=== PATIENT | female | born 1965 | race Caucasian/White ===

== ENCOUNTER 2023-12-30 16:16 | Emergency (ER) | payer OTHER, SELFPAY ==
[2023-12-30 16:18] VITALS: BP 160/97; PULSE 79; TEMP 36.9; O2SAT 98; BMI 49.9
--- NOTE | 2023-12-30 16:28 | ED.GENADUL1 ---
HPI HPI - General Adult General Chief complaint: Headache Stated complaint: ONSET MIGRAINE Time Seen by Provider: 12/30/23 16:21 Source: patient Mode of arrival: ambulance Limitations: physical limitation History of Present Illness HPI narrative: 58 female presents to the emergency department for headache. It started when she awoke this morning. No trauma fever or stiff neck. She gets frequent bad headaches and the last one like this was 2 weeks ago. She treated it at home. This 1 is no different but she had run out of her medication. She has a [employer] PERSON shunt and has had it for 7 years. No localized weakness or fever. The pain is severe and continuous. Related Data Allergies Allergy/AdvReac Type Severity Reaction Status Date / Time tetracycline Allergy Intermediate HIVES Verified 12/30/23 16:24 azithromycin [From Zithromax] Allergy Mild Swelling Verified 12/30/23 16:24 of Lip/Tongue/Throat diazepam [From Valium] Allergy Mild Verified 12/30/23 16:24 meperidine [From Demerol] Allergy Mild Verified 12/30/23 16:24 nisoldipine [From Sular] Allergy Mild HIVES Verified 12/30/23 16:24 morphine Allergy Vomiting Verified 12/30/23 16:24 AVELOX Allergy Severe Anaphylaxis Uncoded 12/30/23 16:24 codine Allergy Intermediate Uncoded 12/30/23 16:24 ivp dye Allergy Uncoded 12/30/23 16:24 jardiance Allergy Uncoded 12/30/23 16:24 paper tape Allergy Uncoded 12/30/23 16:24 PCN Allergy Uncoded 12/30/23 16:24 Opioid HPI Opioid Management Most Recent Opioid Data: Last Pain Scale 8 12/30/23 16:56 Last ED Pain Assessment 12/30/23 17:18 Review of Systems ROS Narrative A ten point review of systems is negative except as noted above. Exam Narrative Exam Narrative: Nurses note and vital signs reviewed and patient is not hypoxic. General: The patient is laying in a darkened room with sunglasses on and a towel wrapped around her eyes. Skin: Warm, dry, no pallor noted. There is no rash noted. Head: Normocephalic, atraumatic; neck supple, no nuchal rigidity Eye: Normal conjunctiva, no drainage Ears, Nose, Mouth, and Throat: oral mucosa is moist. Nares patent. Cardiovascular: Regular Rate and Rhythm Respiratory: Patient is in no distress, no accessory muscle use, lungs are clear to auscultation, no wheezing, rales or rhonchi Back: non-tender GI: Soft and nontender Musculoskeletal: The patient has no evidence of calf tenderness, no pitting edema, symmetrical pulses noted bilaterally Neurological: A&O, normal speech Psychiatric: Cooperative Constitutional Vital Signs, click to edit/add: Last Vital Signs Temp 98.5 F 12/30/23 16:18 Pulse 72 12/30/23 18:40 Resp 18 12/30/23 18:40 BP 120/82 12/30/23 18:40 Pulse Ox 98 12/30/23 18:40 O2 Del Method Room Air 12/30/23 16:56 Course Vital Signs Vital signs: Vital Signs Temperature 98.5 F 12/30/23 16:18 Pulse Rate 79 12/30/23 16:18 Respiratory Rate 18 12/30/23 16:18 Blood Pressure 160/97 H 12/30/23 16:18 Pulse Oximetry 98 12/30/23 16:18 Oxygen Delivery Method Room Air 12/30/23 16:18 Temperature 98.5 F 12/30/23 16:18 Pulse Rate 72 12/30/23 18:40 Respiratory Rate 18 12/30/23 18:40 Blood Pressure 120/82 12/30/23 18:40 Pulse Oximetry 98 12/30/23 18:40 Oxygen Delivery Method Room Air 12/30/23 16:56 Medical Decision Making MDM Narrative Medical decision making narrative: The patient was given initial doses of Zofran, Benadryl, and Compazine which she states usually helps her. She did not get much relief so IV valproic acid was ordered. This is pending and the patient is signed out to Dr. Marrero at change of shift. She reports that this is her typical migraine headache, not at all unusual for her. I do not suspect intracranial hemorrhage or [employer] shunt Differential Diagnosis Differential Diagnosis: Migraine headache, intracranial hemorrhage, [employer] shunt Discharge Plan Discharge Patient Disposition: Still a Patient
[2023-12-30] MEDS: DIPHENHYDRAMINE HCL 50 MG/ML VIAL IV (16:46)
[2023-12-30] MEDS: ONDANSETRON PF 4 MG/2 ML VIAL IV (16:46)
[2023-12-30] MEDS: PROCHLORPERAZINE 10 MG/2 ML VIAL IV (16:46)
[2023-12-30] MEDS: 0.9 % SODIUM CHLORIDE 1,000 ML 1000 ML IV (16:46)
[2023-12-30 16:56] VITALS: O2SAT 95
[2023-12-30 16:59] VITALS: PULSE 73; O2SAT 95
[2023-12-30 17:17] VITALS: BP 118/70; PULSE 83; O2SAT 97
[2023-12-30] MEDS: SODIUM CHLORIDE 0.9% IV (18:35)
[2023-12-30] MEDS: VALPROIC ACID IV (18:35)
[2023-12-30 18:40] VITALS: BP 120/82; PULSE 72; O2SAT 98
[2023-12-30 19:37] VITALS: BP 118/78; PULSE 80; O2SAT 99
== END 2023-12-30 19:40 | disposition home or self-care (01) ==
PROVIDERS: Emergency Provider Student in an Organized Health Care Education/Training Program
DX: G43.909 Migraine, unspecified, not intractable, without status migrainosus (principal)
CPT/HCPCS: 96365; 96375; 99284; J0780; J1200; J2405

== ENCOUNTER 2024-01-04 07:17 | Outpatient (RCR) | payer OTHER, SELFPAY ==
[2024-01-03] MEDS: SODIUM CHLORIDE 0.9% IV (12:52)
[2024-01-03] MEDS: METHYLPREDNISOLONE SOD SUCC IV (12:52)
[2024-01-03 12:57] VITALS: BP 146/92; PULSE 84; TEMP 36.2; O2SAT 96
[2024-01-03] MEDS: MAGNESIUM SULFATE IN WATER 2 GM/50 ML PREMIX IV (14:33)
[2024-01-04] MEDS: MAGNESIUM SULFATE IN WATER 2 GM/50 ML PREMIX IV (12:43)
[2024-01-04 12:45] VITALS: BP 124/83; PULSE 79; TEMP 36.6; O2SAT 98
[2024-01-04] MEDS: METHYLPREDNISOLONE SOD SUCC IV (14:31)
[2024-01-04] MEDS: SODIUM CHLORIDE 0.9% IV (14:31)
--- NOTE | 2024-01-04 15:49 | PC.NURSE ---
infusions completed. flushed IV with normal saline, wrapped with coban for protection. released ambulatory.
[2024-01-05] MEDS: MAGNESIUM SULFATE IN WATER 2 GM/50 ML PREMIX IV (12:43)
[2024-01-05 12:51] VITALS: BP 147/87; PULSE 84; TEMP 36.8; O2SAT 96
[2024-01-05] MEDS: 0.9 % SODIUM CHLORIDE 250 ML IV.SOLN IV (14:24)
[2024-01-05] MEDS: SODIUM CHLORIDE 0.9% IV (15:25)
[2024-01-05] MEDS: METHYLPREDNISOLONE SOD SUCC IV (15:25)
== END 2024-01-09 10:25 | disposition home or self-care (01) ==
LOC: INF 07:17
PROVIDERS: Visit Provider Psychiatry & Neurology Neurology
DX: G43.409 Hemiplegic migraine, not intractable, without status migrainosus (principal); G43.909 Migraine, unspecified, not intractable, without status migrainosus
CPT/HCPCS: 96365; 96366; J2919; J3475

== ENCOUNTER 2024-11-04 16:35 | Emergency (ER) | payer OTHER, SELFPAY ==
[2024-11-04 16:39] VITALS: BP 157/98; PULSE 78; TEMP 36.5; O2SAT 98; BMI 49.3
--- NOTE | 2024-11-04 16:54 | ED_ITS ---
HPI HPI - General Adult General Chief complaint: Headache Stated complaint: Headache Time Seen by Provider: 11/04/24 16:46 Source: patient Mode of arrival: walk-in Limitations: no limitations History of Present Illness HPI narrative: 59 year old female presents to the ED for a left-sided headache. Onset was this morning. She has history of migraines; this is a typical migraine for her. De nies fever, chills, vision changes, emesis, neck pain/stiffness. Reports having a shunt. She took Fioricet at home without relief. Related Data Allergies Allergy/AdvReac Type Severity Reaction Status Date / Time Iodinated Contrast Media Allergy Severe Anaphylaxis Verified 11/04/24 16:46 moxifloxacin (From Avelox) Allergy Severe Anaphylaxis Verified 11/04/24 16:46 Penicillins Allergy Severe Hives Verified 11/04/24 16:46 codeine Allergy Intermediate Hives Verified 11/04/24 16:46 tetracycline Allergy Intermediate HIVES Verified 12/30/23 16:24 azithromycin (From Zithromax) Allergy Mild Swelling Verified 11/04/24 16:46 of Lip/Tongue/Throat nisoldipine (From Sular) Allergy Mild HIVES Verified 11/04/24 16:46 morphine Allergy Vomiting Verified 11/04/24 16:46 meperidine (From Demerol) AdvReac Severe Nausea Verified 11/04/24 16:46 diazepam (From Valium) AdvReac Mild Confusion Verified 11/04/24 16:46 adhesive tape AdvReac Unknown Rash Verified 11/04/24 16:46 empagliflozin (From AdvReac Unknown swelling Verified 11/04/24 16:46 Jardiance) Opioid HPI Opioid Management Most Recent Opioid Data: Last Pain Scale 10 11/04/24 17:00 11/04/24 Review of Systems ROS Constitutional Denies: fever, chills or fatigue Eyes Denies: change in vision, blurry vision, light sensitivity or eye discomfort Ears, nose, mouth, and throat Denies: neck pain Cardiovascular Denies: chest pain Respiratory Denies: shortness of breath Gastrointestinal Reports: nausea; Denies: abdominal pain or vomiting Musculoskeletal Denies: back pain or neck pain Integumentary/Breast Denies: rash Neurological Reports: headache; Denies: numbness in extremities, weakness in extremities or dizziness PFSH PFSH Social History Little interest or pleasure in doing things: not at all Feeling down, depressed, or hopeless: not at all Exam Constitutional Vital Signs, click to edit/add: Last Vital Signs Temp 97.7 F 11/04/24 16:39 Pulse 78 11/04/24 16:39 Resp 20 11/04/24 16:39 BP 157/98 H 11/04/24 16:39 Pulse Ox 97 11/04/24 17:00 O2 Del Method Room Air 11/04/24 17:00 Common normals: no apparent distress and oriented x3 General appearance: cooperative HENMT Common normals: external ears normal, moist oral mucous membranes and oropharynx normal Eye Common normals: PERRL, EOMs intact bilaterally, conjunctivae normal and no scleral icterus Neck & C-Spine Common normals: supple and no meningeal signs Chest Chest: symmetrical chest wall rise Respiratory Common normals: normal respiratory effort Effort & inspection: able to speak in complete sentences and symmetric chest movement Cardio Common normals: regular rate and regular rhythm Neuro Common normals: oriented x3, CN's II-XII intact bilaterally, moves all extremities and no focal motor deficits Sensorium/orientation: awake and alert Speech: speech normal Course Vital Signs Vital signs: Vital Signs Temperature 97.7 F 11/04/24 16:39 Pulse Rate 78 11/04/24 16:39 Respiratory Rate 20 11/04/24 16:39 Blood Pressure 157/98 H 11/04/24 16:39 Pulse Oximetry 98 11/04/24 16:39 Oxygen Delivery Method Room Air 11/04/24 16:39 Temperature 97.7 F 11/04/24 16:39 Pulse Rate 78 11/04/24 16:39 Respiratory Rate 20 11/04/24 16:39 Blood Pressure 157/98 H 11/04/24 16:39 Pulse Oximetry 97 11/04/24 17:00 Oxygen Delivery Method Room Air 11/04/24 17:00 Medical Decision Making MDM Narrative Medical decision making narrative: The patient was given IV medication with improvement in her symptoms. She was given IV Zofran, Decadron, Reglan, and Benadryl. She was accompanied by family for a ride home. She was encouraged to follow up with her pcp and neurologist for a recheck, further evaluation and treatment. Medical Records Medical records reviewed: Yes I reviewed the patient's medical records Discharge Plan Discharge Chief Complaint: Headache Clinical Impression: Headache Patient Disposition: Home, Self-Care Time of Disposition Decision: 18:25 Condition: Good Mode of Transportation: Private Vehicle Print Language: Portuguese Instructions: Migraine Headache (ED), Acute Headache (ED) Additional Instructions: Return to the ER if your condition worsens. Referrals: Physician,Non-Staff, MD [Primary Care Provider] - 1 week Discharge Date/Time: 11/04/24 18:41
[2024-11-04 17:00] VITALS: O2SAT 97
[2024-11-04] MEDS: DEXAMETHASONE SOD PHOS 10 MG/ML VIAL IV (17:14)
[2024-11-04] MEDS: ONDANSETRON PF 4 MG/2 ML VIAL IV (17:14)
[2024-11-04] MEDS: DIPHENHYDRAMINE HCL 50 MG/ML VIAL 25 MG IVP (17:14)
[2024-11-04] MEDS: METOCLOPRAMIDE HCL 10 MG/2 ML VIAL IVP (17:14)
== END 2024-11-04 18:41 | disposition home or self-care (01) ==
PROVIDERS: Emergency Provider Emergency Medicine
DX: R51.9 Headache, unspecified (principal)
CPT/HCPCS: 96374; 96375; 99284; J1100; J1200; J2405; J2765

== ENCOUNTER 2025-03-18 14:44 | Emergency (ER) | payer OTHER, SELFPAY ==
--- OUTSIDE RECORDS SUMMARY | 2024-07-31 06:00 | XMS_ITS ---
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 Name Role Phone Peace Fierro CNP Primary Care Provider Quentin Martinez Unavailable [phone] Self, Referral Unavailable Unavailable Results Component Value Reference Range Notes Lumbar spine 2v ap and lat - 41459 Reviewed date:08/06/2024 02:40:58 PM Interpretation: Performing Lab: Notes/Report: Hip, right 2v WITH PELVIS - [id number] Reviewed date:08/06/2024 02:40:52 PM Interpretation: Performing Lab: Notes/Report: REASON FOR VISIT RIGHT HIP PAIN Encounters Encounter Location Date Provider Diagnosis [facility] [address] [place] [address] 07/31/2024 Quentin Dennis Plan Of Treatment No Information Progress Notes * KAROLINE ÁLVAREZ LDOB: 4 (59 yo F)Acc No.[id number]:07/31/2024 Patient: Blake YOUNG KAROLINE Martinez Provider: Kelly Dennis MD :1965 A ge:59 Y S ex:Female Date:07/31/2024 Address:[place], [id number] Pcp:Peace Fierro CNP Subjective: * Chief Complaints: * 1 . RIGHT HIP PAIN. * Medical History: Objective: * Vitals: Assessment: Plan: * Treatment: * Procedure Codes: 7 3502 X-RAY EXAM HIP UNI 2-3 VIEWS, 61192 X-ray Lumbar Spine, 2 view Forms: * Images: * Electronic signature of Landon Dennis MD on 03/18/2025 at 02:52 PM EDT Sign off status: Pending * Provider: Kelly Dennis MD Date: 0 07/31/2024 Generated for Melia reddy/Felipa/Bridget on: 0 03/18/2025 02:52 PM EDT
--- OUTSIDE RECORDS SUMMARY | 2024-08-05 06:50 | XMS_ITS ---
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 Name Role Phone Peace Fierro CNP Primary Care Provider Quentin Martinez Unavailable [phone] Self, Referral Unavailable Unavailable Harjeet Montano Unavailable [phone] REASON FOR VISIT LEFT INDEX FINGER PAIN Encounters Encounter Location Date Provider Diagnosis [facility] [address] [place] [address] 08/05/2024 Harjeet Montano Plan Of Treatment No Information Progress Notes * KAROLINE ÁLVAREZ LDOB: 4 (59 yo F)Acc No.[id number]:08/05/2024 Patient: Blake YOUNGKAROLINE Provider: Kelly Montano MD :1965 A ge:59 Y S ex:Female Date:08/05/2024 Address:[place], [id number] Pcp:Peace Fierro CNP Subjective: * Chief Complaints: * 1 . LEFT INDEX FINGER PAIN. * Medical History: Objective: * Vitals: Assessment: Plan: * Treatment: Forms: * Images: * Electronic signature of Nyasia Montano MD on 03/18/2025 at 02:52 PM EDT Sign off status: Pending * Provider: Kelly Montano MD Date: 0 08/05/2024 Generated for Melia reddy/Felipa/Esmeitting on: 0 03/18/2025 02:52 PM EDT
--- OUTSIDE RECORDS SUMMARY | 2024-08-07 07:00 | XMS_ITS ---
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 Role Phone Peace Fierro CNP Primary Care Provider Quentin Martinez Unavailable [phone] Self, Referral Unavailable Unavailable Results Component Value Reference Range Notes Hip, right 2v WITH PELVIS - [id number] Reviewed date:09/03/2024 03:09:51 PM Interpretation: Performing Lab: Notes/Report: Finger, left 3v - [id number] Reviewed date:09/03/2024 03:10:06 PM Interpretation: Performing Lab: Notes/Report: Lumbar spine 2v ap and lat - [id number] Reviewed date:09/03/2024 03:09:58 PM Interpretation: Performing Lab: Notes/Report: REASON FOR VISIT RIGHT HIP PAIN Medications Medication SIG (Take, Route, Frequency, Duration) Notes Start Date End Date Status nystatin Unknown Nurtec ODT Unknown ondansetron Unknown omeprazole Unknown rOPINIRole Unknown Fioricet Active Albuterol Sulfate Ac tive temazepam Unknown Tresiba FlexTouch Un known traMADol Unknown atorvastatin Unknown acetaZOLAMIDE Unknow n carBAMazepine Unknow n Blood Glucose Monitoring Kit, Silver, 1 Unknown cyclobenzaprine Unkn own DICLOFENAC SODIUM Un known diclofenac Unknown DULoxetine Unknown dulaglutide Unknown cyproheptadine Unkno wn EPINEPHrine Unknown gabapentin Unknown ergocalciferol Unkno wn loratadine Unknown lisinopril Unknown Mucinex DM Unknown montelukast Unknown NovoLOG FlexPen Unkn own mometasone Unknown meclizine Unknown Encounters Encounter Location Date Provider Diagnosis [facility] [address] [place] [address] 08/07/2024 Quentin Dennis Plan Of Treatment No Information Progress Notes * KAROLINE ÁLVAREZ LDOB: 4 (59 yo F)Acc No.[id number]:08/07/2024 Patient: KAROLINE PERALTA Provider: Kelly Dennis MD :1965 A ge:59 Y S ex:Female Date:08/07/2024 Address:[place], [id number] Pcp:Peace Fierro CNP Subjective: * Chief Complaints: * 1 . RIGHT HIP PAIN. * Medical History: * Medications: T aking Fioricet , Taking Albuterol Sulfate , Unknown Tresiba FlexTouch , Unknown traMADol , Unknown temazepam , Unknown rOPINIRole , Unknown ondansetron , Unknown omeprazole , Unknown nystatin , Unknown Nurtec ODT , Unknown NovoLOG FlexPen , Unknown Mucinex DM , Unknown montelukast , Unknown mometasone , Unknown meclizine , Unknown loratadine , Unknown lisinopril , Unknown gabapentin , Unknown ergocalciferol , Unknown EPINEPHrine , Unknown DULoxetine , Unknown dulaglutide , Unknown DICLOFENAC SODIUM , Unknown diclofenac , Unknown cyproheptadine , Unknown cyclobenzaprine , Unknown carBAMazepine , Unknown Blood Glucose Monitoring Kit, Silver, 1 , Unknown atorvastatin , Unknown acetaZOLAMIDE Objective: * Vitals: Assessment: Plan: * Treatment: * Procedure Codes: 7 3140 X-ray Fingers, 2 view, 01486 X-RAY EXAM HIP UNI 2-3 VIEWS, 31829 X-ray Lumbar Spine, 2 view Forms: * Images: * Electronic signature of Landon Dennis MD on 03/18/2025 at 02:52 PM EDT Sign off status: Pending * Provider: Kelly Dennis MD Date: 08/07/2024 Generated for Melia reddy/Felipa/eTransmitting on: 0 03/18/2025 02:52 PM EDT
[2025-03-18 14:44] VITALS: PULSE 86; TEMP 36.7; O2SAT 98; BMI 49.3
--- OUTSIDE RECORDS SUMMARY | 2025-03-18 14:52 | XMS_ITS | Clinical Summary ---
Author Organization [facility] Address [address] [place] [address] Care Team Providers Care Call Center Nurse Name Role Phone Unavailable Primary Care Provider Unavailabl e Allergies Active Allergy Reactions Criticality Noted Date Comments Azithromycin Swelling Medium 06/01/2014 JOINT SWELLING Codeine 12/06/2022 Other Reaction(s): Unknown Diazepam 12/06/2022 Other Reaction(s): Unknown Empagliflozin Itching 08/06/2023 Bad yeast infection Iodinated Contrast Media 12/06/2022 Other Reaction(s): Unknown Latex 12/06/2022 Other Reaction(s): Unknown Meperidine Hives Medium 06/01/2014 Meperidine Hcl 12/06/2022 Other Reaction(s): Unknown Metoclopramide Palpitations Medium 04/12/2021 Morphine 12/06/2022 Other Reaction(s): Unknown Moxifloxacin 12/06/2022 Other Reaction(s): Unknown Penicillin G 12/06/2022 Other Reaction(s): Unknown Sulfa Antibiotics 12/06/2022 Other Reaction(s): Unknown Tetracycline 12/06/2022 Other Reaction(s): Unknown Wound Dressing Adhesive 04/12/2021 Use paper tape Medications EPINEPHrine (Adrenalin) 0.3 MG/0.3ML injection as directed Injection Active DULoxetine (Cymbalta) [address] capsule Take 60 mg by mouth in the morning and 60 mg in the evening and 60 mg before bedtime. Active famotidine (Pepcid) 20 MG tablet Take 20 mg by mouth in the morning. Active NovoLOG FLEXPEN 100 UNIT/ML pen inject 5 units subcutaneously before meals PLUS SLIDING SCALE 09/07/19 Active Droplet Pen [place] 31G X 6 MM [facility] [place] 1 NEEDLE to inject MEDICATION subcutaneously four times a day 11/14/19 Active lisinopril 5 MG tablet Take 5 mg by mouth in the morning. 0.5 once day . Active RA Loratadine 10 MG tablet Take 10 mg by mouth in the morning. Active meclizine (Antivert) 25 MG tablet Take 25 mg by mouth 3 (three) times a day as needed for dizziness. 10/11/19 Active montelukast (Singulair) 10 MG tablet Take 10 mg by mouth at bedtime. Active Nyamyc 109472 UNIT/GM powder apply to affected area three times a day if needed Active omeprazole (PriLOSEC) [address] capsule Take 20 mg by mouth in the morning. Take before meals. Active ondansetron ODT (Zofran-ODT) 4 MG disintegrating tablet Take 4 mg by mouth. 08/08/19 Active cyclobenzaprine (Flexeril) 10 MG tabletIndications: Lumbar radiculopathy Take 1 tablet (10 mg) by mouth in the morning and 1 tablet (10 mg) before bedtime. 180 tablet 3 03/06/20 24 Active ergocalciferol (Vitamin D2) 1.25 MG (74037 UT) capsuleIndications :Vitamin D deficiency Take 1 capsule (1.25 mg) by mouth 1 (one) time per week 12 capsule 3 04/30/20 24 Active acetaZOLAMIDE (Diamox) 250 MG tabletIndications: Pseudotumor cerebri Take 1 tablet (250 mg) by mouth Daily 90 tablet 3 06/05/20 24 025 Active acetaZOLAMIDE (Diamox) 125 MG tabletIndications: Pseudotumor cerebri Take 1 tablet (125 mg) by mouth Daily 90 tablet 3 06/05/20 24 025 Active rOPINIRole (Requip) 4 MG tabletIndications: RLS (restless legs syndrome) Take 1 tablet (4 mg) by mouth at bedtime 90 tablet 3 08/26/19 25 026 Active topiramate (Topamax) 25 MG tabletIndications: Neuropathic pain Take 1 tablet (25 mg) by mouth in the morning and 1 tablet (25 mg) before bedtime. 60 tablet 2 10/14/19 25 026 Active temazepam (Restoril) 30 MG capsuleIndications :Primary insomnia Take 1 capsule (30 mg) by mouth as needed at bedtime for sleep 30 capsule 10/16/19 25 Active carBAMazepine (TEGretol) 200 MG tabletIndications: Sensory disturbance Take 1 tablet (200 mg) by mouth in the morning and 1 tablet (200 mg) before bedtime. 60 tablet 11 11/07/19 25 026 Active gabapentin (Neurontin) 800 MG tabletIndications: Neuropathic pain Take 1 tablet (800 mg) by mouth 5 (five) times a day 450 tablet 11/07/19 25 Active cyproheptadine (Periactin) 4 MG tabletIndications: Intractable chronic migraine without aura and without status migrainosus TAKE 3 TABLETS (12 MG) BY MOUTH AT BEDTIME 90 tablet 11 12/01/19 25 026 Active diclofenac (Voltaren) 50 MG EC tabletIndications: Lumbar radiculopathy TAKE 1 TABLET BY MOUTH IN THE MORNING IN THE EVENING AND BEFORE BEDTIME 90 tablet 3 01/01/20 25 Active Continuous Glucose Sensor (Dexcom G7 Sensor) [facility] [place] BLOOD SUGARS FOUR TIMES A DAY 01/26/20 25 Active Blood Glucose Monitoring Suppl (ONE TOUCH ULTRA 2) w/Device kit USE TO CHECK BLOOD SUGAR 4 TIMES A DAY 07/23/19 25 Active butalbital-acetami nophen-caffeine 50-325-40 MG tablet Fioricet Active guaiFENesin (Mucinex) 600 MG 12 hr tablet Take 600 mg by mouth 08/06/19 25 Active Lantus SoloStar 100 UNIT/ML pen 40 units twice a day 01/29/20 25 Active atorvastatin (Lipitor) 40 MG tablet Take 40 mg by mouth Daily 12/26/19 25 Active Embecta Pen Needle Ultrafine 32G X 6 MM [facility] [place] 1 NEEDLE TO INJECT MEDICATION SUBCUTANEOUSLY FOUR TIMES A DAY 12/17/19 25 Active Hospital, Clinic, or Other Facility Administered Medication Ordered Dose Route Frequency Start Date End Date Status fremanezumab (Ajovy) prefilled syringe 225 mgIndications:Refractory migraine without aura 225 mg SC Every 30 days 09/06/2023 Active bupivacaine (Marcaine) 0.5 % injection 5 mgIndications:Myalgia 5 mg IJ Once 06/05/2024 Act taylor dexAMETHasone (Decadron) injection 4 mgIndications:Myalgia 4 mg IM Once 06/05/2024 Act taylor Active Problems Problem Noted Date Diagnosed Date Spinal stenosis of lumbar re gion with neurogenic claudication 11/09/2024 Myalgia 03/18/2024 Trochanteric bursitis, left hip 01/03/2024 Cervicogenic headache 01/03/2024 Radiculopathy, thoracolumbar region 12/11/2023 Muscle spasm 09/05/2023 Migraine 09/05/2023 Edema 09/05/2023 Cervical dystonia 09/05/2023 Anxiety 09/05/2023 Neuropathy 09/05/2023 NPH (normal pressure hydrocephalus) 09/05/2023 Restless legs syndrome 09/05/2023 Type 2 diabetes mellitus wit h stage 1 chronic kidney disease, with long-term current use of insulin 09/05/2023 Vitamin D deficiency 09/05/2023 Nerve root and plexus disorder, unspecified 08/17 Trochanteric bursitis of both hips 06/04/2023 Quadriceps weakness 05/31/2023 Trochanteric bursitis of left hip 04/05/2023 Insomnia due to medical condition 04/05/2023 Weakness 04/05/2023 Neuralgic pain 04/05/2023 Brachial plexopathy 04/05/2023 Stiffness in joint 04/05/2023 Lumbar radiculopathy 12/27/2022 Cervical radiculopathy 12/27/2022 Morbid obesity due to excess calories 12/06/2022 Pseudotumor cerebri 12/06/2022 Refractory migraine without aura 12/06/2022 Osteoarthritis of right knee 09/19/2022 Primary osteoarthritis of right hip 09/19/2022 Shoulder pain, right 10/21/2021 GERD (gastroesophageal reflux disease) 8 Essential hypertension 10/29/2017 Obstructive sleep apnea on CPAP 10/29/2017 Obesity, Class III, BMI 40-49.9 (morbid obesity) 10/29/2017 Mixed hyperlipidemia 10/29/2017 Major depressive disorder 10/29/2017 Acute right ankle pain 05/16/2017 Ankle weakness 05/16/2017 Gait difficulty 05/16/2017 Degenerative arthritis of right foot 01/31/2017 Overview (04/05/2023): Added automatically from request for surgery [id number] Loose body in ankle and foot joint 07/18/2016 DJD (degenerative joint disease), ankle and foot 07/18/2016 Heel spur 07/18/2016 Pain in right foot 07/18/2016 Hemiplegic migraine without status migrainosus, not intractable 02/09/2015 Hyperopia of both eyes with astigmatism and pres byopia 06/01/2014 Resolved Problems Problem Noted Date Diagnosed Date Resolved Date Penetrating injury 09/05/2023 Tobacco use disorder 10/29/2017 025 Encounters Date Type Department Care Team Description 03/18/2025 Travel 02/09/2025 1:00 PM EDT [facility] [address] [facility] [address] [place] [address] [place] [phone] Ana Lopes NP Spinal stenosis of lumbar region with neurogenic claudication (Primary Dx); Pseudotumor cerebri 01/05/2025 Telephone [facility] [address] [place] [phone] Margie Santos, RT. R 12/31/2024 Refill [facility] [address] [facility] [address] [place] [phone] Fausto Srivastava MD Lumbar radiculopathy (Primary Dx) 12/25/2024 1:20 PM EDT Clinical Support [facility] [address] [facility] [address] [place] [phone] Fausto Srivastava MD Trochanteric bursitis of both hips (Primary Dx); Nerve root and plexus disorder, unspecified 12/25/2024 Telephone [facility] [address] [place] [address] [phone] Margie Santos, RT. R 12/25/2024 Bamboo flowsheet [facility] [address] [place] [address] Fausto Srivastava MD 12/25/2024 Travel 12/24/2024 Travel from Last 3 Months Immunizations Immunization Administration Dates Next Due Tdap 01/27/2020 Family History Medical History Relation Name Comments Anxiety disorder Mother Mom Depression Mother Mom Diabetes Mother Mom Migraines Mother Mom Neuropathy Mother Mom Restless legs syndrome Mother Mom Relation Name Status Comments Brother 1 brother Father Alive Mother Mom (Age 68) Social History Tobacco Use Types Packs/Day Years Used Date Smoking Tobacco: Former Cigarettes Q uit: 12/09/2020 Smokeless Tobacco: Never Tobacco Cessation:Counseling Given: Not Answered Alcohol Use Standard Drinks/Week Comments Never 0 (1 standard drink = 0.6 oz pur e alcohol) Comments Unknown Sex and Gender Information Value Date Recorded Sex Assigned at Female 12/20/2022 9:52 AM EDT Legal Sex Female 8:23 PM EDT Gender Identity Female 12/20/2022 9:52 AM EDT Sexual Orientation Straight 12/20/2022 9: 52 AM EDT Last Filed Vital Signs Vital Sign Reading Time Taken Comments Blood Pressure 142/84 12/25/2024 1:20 PM EDT Pulse 85 04/05/2023 10:52 AM EDT Temperature - - Respiratory Rate - - Oxygen Saturation - - Inhaled Oxygen Concentration - - Weight 136 kg (300 lb) 02/09/2025 1:12 PM EDT Height 165.1 cm (5' 5 ) 02/09/2025 1:12 PM EDT Body Mass Index 49.92 02/09/2025 1:12 PM EDT Plan of Treatment Upcoming Encounters Date Type Department Care Team (Late st Contact Info) Description 03/25/2025 2:40 PM EDT Clinical Support [facility] [address] [place] [facility] [address] [place] [address] Fausto Srivastava MD [address] [place] [address] [place] [id number] Insurance [employer] Advance Directives Healthcare Agents on File Name Relationship Healthcare Agent Relationshi p Communication Elana Bruner Friend [facility] Health Care Agent
--- OUTSIDE RECORDS SUMMARY | 2025-03-18 14:52 | XMS_ITS | Encounter Summary ---
Author Organization [facility] Address [address] [place] [address] Care Team Providers Care Motion Designer Name Role Phone Unavailable Primary Care Provider Unavailabl e Reason for Visit * Reason Comments Med Refill Encounter Details Date Type Department Care Team (Late st Contact Info) Description 12/04/2022 Refill [facility] [address] [facility] [address] [place] [phone] Fausto Srivastava MD [address] [facility] [address] [place] [address] [place] [address] [phone] Chronic insomnia (Primary Dx) Social History Tobacco Use Types Packs/Day Years Used Date Smoking Tobacco: Never Assessed Comments Unknown Sex and Gender Information Value Date Recorded Sex Assigned at Female 12/20/2022 9:52 AM EDT Legal Sex Female 8:23 PM EDT Gender Identity Female 12/20/2022 9:52 AM EDT Sexual Orientation Straight 12/20/2022 9: 52 AM EDT documented as of this encounter Miscellaneous Notes * Telephone Encounter - Kym Wagoner LPN - 12/06/2022 4:17 PM EDT Refill temazepam set up documented in this encounter Plan of Treatment Upcoming Encounters Date Type Department Care Team (Late st Contact Info) Description 03/25/2025 2:40 PM EDT Clinical Support [facility] [address] [facility] [address] [place] [address] Fausto Srivastava MD [address] [facility] [address] [place] [address] [place] [address] [phone] documented as of this encounter Visit Diagnoses Diagnosis Chronic insomnia- Primary Insomnia, unspecified documented in this encounter
--- OUTSIDE RECORDS SUMMARY | 2025-03-18 14:53 | XMS_ITS | Encounter Summary ---
Author Organization [facility] Address [address] [place] [address] Care Team Providers Care Sales Counselor Name Role Phone Unavailable Primary Care Provider Unavailabl e Encounter Details Date Type Department Care Team (Late st Contact Info) Description 12/29/2022 Abstract [facility] [address] [place] [phone] Fausto Srivastava MD [address], [place] [phone] Social History Tobacco Use Types Packs/Day Years [...] AM EDT documented as of this encounter Plan of Treatment Upcoming Encounters Date Type Department Care Team (Late st Contact Info) Description 03/25/2025 2:40 PM EDT Clinical Support [facility] [address] [place] [address] Fausto Srivastava MD [address] [facility] [address] [address] documented as of this encounter Visit Diagnoses Not on filedocumented in this encounter
--- OUTSIDE RECORDS SUMMARY | 2025-03-18 14:53 | XMS_ITS | Encounter Summary ---
Author Organization [facility] Address [address] [place] [address] Care Team Providers Care Cottage Parent Name Role Phone Unavailable Primary Care Provider Unavailabl e Encounter Details Date Type Department Care Team (Late st Contact Info) Description 05/15/2023 Abstract [facility] [address] [place] [phone] Fausto Srivastava MD [address], [place] [phone] Social History Tobacco Use Types Packs/Day Years Used Date Smoking Tobacco: Former Cigarettes Q uit: 12/09/2020 Smokeless Tobacco: Never Alcohol Use Standard Drinks/Week Comments Never 0 [...] Support [facility] [address] [place] [address] [place] [address] Fausto Srivastava MD [address] [facility] [address] [phone] documented as of this encounter Visit Diagnoses Not on filedocumented in this encounter
--- OUTSIDE RECORDS SUMMARY | 2025-03-18 14:53 | XMS_ITS | Encounter Summary ---
Author Organization [facility] Address [address] [place] [address] Care Team Providers Care Risk Officer Name Role Phone Unavailable Primary Care Provider Unavailabl e Encounter Details Date Type Department Care Team (Late Contact Info) Description 01/01/2024 Orders Only [facility] [address] [place] [address] Tere Sanabria MA Social History Tobacco Use Types Packs/Day Years [...] Encounters Date Type Department Care Team (Late Contact Info) Description 03/25/2025 2:40 PM EDT Clinical Support [facility] [address] [place] [facility] [address] [place] [phone] Fausto Srivastava MD [address] [place] [address] documented as of this encounter Visit Diagnoses Not on filedocumented in this encounter
--- OUTSIDE RECORDS SUMMARY | 2025-03-18 14:53 | XMS_ITS | Patient Health Record ---
Author Organization [facility] Address [address] [place] [address] Care Team Providers Care Senior Unix Administrator Name Role Phone Peace Fierro CNP Primary Care Provider Quentin Martinez Unavailable [phone] Self, Referral Unavailable Unavailable Harjeet Eid Unavailable [phone] Allergies Allergen (clinical drug ingredient) Drug/Non Drug Allergy documented on EMR Reaction Allergy Type Onset Date Status contrast dye (uncoded) anaphylaxis Allergy Active plastic tape (uncoded) need paper tape Allergy Active sulfa (uncoded) hives Allergy Acti ve sutures (uncoded) Unknown Allergy Ac tive metoclopramide Reglan palpitations Drug Allergy Active azithromycin Zithromax joint swelling Drug Allergy Active tetracycline tetracycline palpitations Drug Allergy Active diazepam Valium palpitations Drug Allergy Acti ve codeine codeine hives Drug Allergy Active morphine morphine hives Drug Allergy Active moxifloxacin Avelox anaphylaxis Drug Allergy Ac tive penicillin joint swelling Drug Allergy A ctive meperidine Demerol hives Drug Allergy Active Results Component Value Reference Range Notes OT Reviewed date:02/05/2025 07:39:48 AM Interpretation: Performing Lab: Notes/Report: BMP Reviewed date:02/04/2025 12:37:05 PM Interpretation: Performing Lab: Notes/Report: CBC W Diff Reviewed date:02/04/2025 12:37:12 PM Interpretation: Performing Lab: Notes/Report: EKG Reviewed date:02/04/2025 12:36:57 PM Interpretation: Performing Lab: Notes/Report: PT/OT - Eval and Treat Reviewed date:09/03/2024 02:38:29 PM Interpretation: Performing Lab: Notes/Report: Lumbar spine 2v ap and lat - [id number] Reviewed date:09/03/2024 02:39:00 PM Interpretation: Performing Lab: Notes/Report: Hip, right 2v WITH PELVIS - [id number] Reviewed date:09/03/2024 02:38:50 PM Interpretation: Performing Lab: Notes/Report: Surgery Scheduling Reviewed date:05/27/2024 08:17:29 AM Interpretation: Performing Lab: Notes/Report: Primary Insurance Company: [employer] Surgeon/Assist: DR EID Surgery Location: [facility] Surgery Date & Time: 05/09 @1230 Hosp arrival time day of: 1030AM Surgery End Time: 100PM Procedure: LEFT TRIGGER THIMB RELEASE Special Equipment: CLINDAMYCIN 600 MG I V -PREOP Diagnosis: M65.312 Admission Type: OP Anesthesia Type/CPNB: MAC Post-op Appointment Date: 05/22 @ 1010 Lab Location: S Lead Section Supervisor: MADAI History & Physical Appointment Date/: 04/17 Meter Glucose Reviewed date:05/15/2024 07:33:10 AM Interpretation: Performing Lab: Notes/Report: Main Laboratory ([facility]) [address] [place] [address] René Mar MD Original Ordering Provider: Toyin Ayala Provider Role: Ordering Meter Glucose 170 70-110 mg/dl Performing Lab: see note POC - Main L aboratory ([facility]) [address] [place] [address] [place] [address] Anion Gap Reviewed date:04/27/2024 02:10:33 PM Interpretation: Performing Lab: Notes/Report: [facility] Original Ordering Provider: Toyin STRATTON Provider Role: Ordering ANION GAP 11.0 8.0-16.0 meq/L ANION GAP = S odium -(Chloride + CO2) EGFR1 Reviewed date:04/27/2024 02:10:27 PM Interpretation: Performing Lab: Notes/Report: [facility] Original Ordering Provider: Toyin STRATTON Provider Role: Ordering ESTIMATED GFR > 90 >60 ml/min/1.73m2 Pediatric calculator link https://www.kidney.org /professionals/kdoqi/g fr_calculatorped Effective Apr 17, 2022 These results are not intended for use in patients <18 years of age. eGFR results are calculated without a race factor using the 2020 CKD-EPI equation. Careful clinical correlation is recommended, particularly when comparing to results calculated using previous equations. The CKD-EPI equation is less accurate in patients with extremes of muscle mass, extra-renal metabolism of creatinine, excessive creatine ingestion, or following therapy that affects renal tubular secretion. Performing Lab: see note [facility] [address] [place] [address] Yoni Mac Basic Metabolic Panel Reviewed date:04/27/2024 02:10:37 PM Interpretation: Performing Lab: Notes/Report: [facility] Original Ordering Provider: Toyin STRATTON Provider Role: Ordering SODIUM 137 135-145 meq/L POTASSIUM 4.5 3.5-5.2 meq/L CHLORIDE 102 98-111 meq/L CO2 24 23-33 meq/L GLUCOSE 175 70-108 mg/dL BUN 14 7-22 mg/dL CREATININE 0.7 0.4-1.2 mg/dL CALCIUM 8.6 8.5-10.5 mg/dL CBC WITH DIFFERENTIAL Reviewed date:04/27/2024 02:10:41 PM Interpretation: Performing Lab: Notes/Report: [facility] Original Ordering Provider: Toyin STRATTON Provider Role: Ordering WBC 9.0 4.8-10.8 thou/mm3 RBC 5.08 4.20-5.40 mill/mm3 HEMOGLOBIN 14.1 12.0-16.0 gm/dl HEMATOCRIT 43.7 37.0-47.0 % MCV 86.0 81.0-99.0 fL MCH 27.8 26.0-33.0 pg MCHC 32.3 32.2-35.5 gm/dl RDW-CV 13.6 11.5-14.5 % RDW-SD 42.7 35.0-45.0 fL PLATELET 298 130-400 thou/mm3 MPV 9.9 9.4-12.4 fL NEUTROPHILS 49.0 LYMPHOCYTE 40.0 MONOCYTE 7.6 EOSINOPHIL 1.8 BASOPHIL 0.8 IMMATURE GRANS (IG) 0.8 ABS NEUTROPHILS 4.4 1.8-7.7 thou/mm3 ABS LYMPHOCYTES 3.6 1.0-4.8 thou/mm3 ABS MONOCYTES 0.7 0.4-1.3 thou/mm3 ABS EOSINOPHILS 0.2 0.0-0.4 thou/mm3 ABS BASOPHILS 0.1 0.0-0.1 thou/mm3 ABS IMMATURE GRANS (IG) 0.07 0.00-0.07 thou/mm 3 NRBC 0 Reason For Referral Reason NO PRIOR AUTH REQUIR ED [facility] [employer]...05/09...LEFT TRIGGER THUMB RELEASE Diagnosis 1 Trigger thumb, left thumb (M65.312) Referral Organization [facility] Referring Provider First Name Harjeet Referring Provider Last Name Charmaine Referring Provider Speciality Orthopedic Surgery Referred Organization 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 FAXED TO [facility] Referral Priority Routine Medications Medication SIG (Take, Route, Frequency, Duration) Notes Start Date End Date Status ergocalciferol Unkno wn EPINEPHrine Unknown gabapentin Unknown Fioricet Active DICLOFENAC SODIUM Un known Albuterol Sulfate Ac tive diclofenac Unknown DULoxetine Unknown dulaglutide Unknown temazepam Unknown carBAMazepine Unknow n rOPINIRole Unknown Tresiba FlexTouch Un known cyproheptadine Unkno wn traMADol Unknown cyclobenzaprine Unkn own ondansetron Unknown omeprazole Unknown nystatin Unknown Mucinex DM Unknown montelukast Unknown Nurtec ODT Unknown NovoLOG FlexPen Unkn own loratadine Unknown lisinopril Unknown Blood Glucose Monitoring Kit, Silver, 1 Unknown mometasone Unknown meclizine Unknown atorvastatin Unknown acetaZOLAMIDE Unknow n Social History Tobacco Use: Social History Observation Description Date Details (start date - stop date) Never Smoker NA - NA Smoking History Question Answer Notes Smoking Status Former Smoker AUDIT-C (Standard) Question Answer Notes Did you have a drink containing alcohol in the p ast year? No Points 0 Interpretation Negative Tobacco Control (Standard) Question Answer Notes Tobacco use: Nonsmoker Problems Problem Type SNOMED Code ICD Code Onset Dates Problem Status W/U Status Risk Notes Problem 4049487 Trochanteric bur sitis of left hip (M70.62) Active confirmed Problem 91836968989138256 Sprain of left ankle, unspecified ligament, initial encounter (S93.402A) Active confirmed Problem 571706660 Left hand parest hesia (R20.2) Active confirmed Problem 311600854 Right hand paresthesia (R20.2) Active confirmed Problem 420112619094939 Trigger thumb, l eft thumb (M65.312) Active confirmed Problem 192968580175 Presence of righ t artificial knee joint (Z96.651) Active confirmed Problem 4370058 Greater trochant jhony bursitis of right hip (M70.61) Active confirmed Problem 566930660399330 Iliotibial band syndrome of right side (M76.31) Active confirmed Problem 28565655843934523 Left leg pares thesias (R20.2) Active confirmed Problem 304567048 History of carpa l tunnel release (Z98.890) Active confirmed Problem 753777216 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) Active confirmed Problem Pain in wrist (99066210) Pain in left wrist (M25.532) Problem resolved confirmed Problem Rupture of right rotator cuff (05644785213392592) Unspecified rotator cuff tear or rupture of right shoulder, not specified as traumatic (M75.101) Problem resolved confirmed Problem 002566292 Strain of muscle (s) and tendon(s) of the rotator cuff of right shoulder, subsequent encounter (S46.011D) Problem resolved confirmed Problem 726543819 Encounter for ot her preprocedural examination (Z01.818) Problem resolved confirmed Problem Bicipital tenosynovitis (63485144) Biceps tendinitis of right shoulder (M75.21) Problem resolved confirmed Problem Arthritis of right glenohumeral joint (3001715655275675) Arthritis of right glenohumeral joint (M19.011) Problem resolved confirmed Vital Signs Height 5 ft 5 in in 08/14/2024 Weight 283 lbs 08/14/2024 BMI 47.09 08/14/2024 Encounters Encounter Location Date Provider Diagnosis [facility] [address] [place] [address] 04/17/2024 Harjeet Eid Trigger thumb, left thumb M65.312 ; Right hand paresthesia R20.2 ; Left hand paresthesia R20.2 and History of carpal tunnel release Z98.890 [facility] [address] [place] [id number] 05/09/2024 Harjeet Eid Trigger thumb, left thumb M65.312 and Trigger finger, left index finger M65.322 [facility] [address] [place] [address] 05/22/2024 Harjeet Eid Aftercare following surgery of the musculoskeletal system Z47.89 [facility] [address] [place] [address] 08/12/2024 Harjeet Eid Degenerative arthritis of metacarpophalangeal joint of index finger of left hand M19.042 [facility] [address] [place] [address] 08/14/2024 Quentin Sonny Greater trochanteric bursitis of right hip M70.61 and Iliotibial band syndrome of right side M76.31 Assessments Encounter Date Diagnosis (ICD Code) Assessment Notes Treatment Notes Treatment Clinical Notes Section Notes 05/09/2024 Trigger thumb, left thumb (ICD-10 - M65.312) 05/09/2024 Trigger finger, left index finger (ICD-10 - M65.322) 05/22/2024 Aftercare following surgery of the musculoskeletal system (ICD-10 - Z47.89) #1 status post left trigger thumb release and left index trigger finger release, routine healing. 2. Recurrent bilateral hand paresthesias history of previous bilateral open carpal tunnel releases in 2004 consistent with recurrent bilateral carpal tunnel syndrome. 08/12/2024 Degenerative arthrit is of metacarpophalangeal joint of index finger of left hand (ICD-10 - M19.042) Left index MCP joint arthritis with pain. 08/14/2024 Greater trochanteric bursitis of right hip (ICD-10 - M70.61) Right hip greater trochanteric bursitis with associated IT band tendinitis. 08/14/2024 Iliotibial band syndrome of right side (ICD-10 - M76.31) Right hip greater trochanteric bursitis with associated IT band tendinitis. 04/17/2024 Right hand paresthes ia (ICD-10 - R20.2) 1. Left trigger thumb. 2. Recurrent bilateral hand paresthesias history of previous open carpal tunnel releases in 2004 consistent with recurrent bilateral carpal tunnel syndrome. 04/17/2024 Trigger thumb, left thumb (ICD-10 - M65.312) 1. Left trigger thumb. 2. Recurrent bilateral hand paresthesias history of previous open carpal tunnel releases in 2004 consistent with recurrent bilateral carpal tunnel syndrome. 04/17/2024 Left hand paresthesi a (ICD-10 - R20.2) 1. Left trigger thumb. 2. Recurrent bilateral hand paresthesias history of previous open carpal tunnel releases in 2004 consistent with recurrent bilateral carpal tunnel syndrome. 04/17/2024 History of carpal tunnel release (ICD-10 - Z98.890) 1. Left trigger thumb. 2. Recurrent bilateral hand paresthesias history of previous open carpal tunnel releases in 2004 consistent with recurrent bilateral carpal tunnel syndrome. 04/17/2024 Other Had a lengthy discussion with the patient regarding nonsurgical and surgical invention risks, goals, benefits alternatives to each. We reviewed the x-ray findings. Patient states that because of her blood sugars she does not wish Engage and steroid injection. She states that she at this point would wish Engage operative invention to include a left trigger thumb release. Concerning the bilateral hand paresthesias we discussed that she does likely to have some recurrence of her median nerve compression at the wrist. We discussed obtaining an EMG nerve neck study to give her the option of addressing both problems at the same time she states at this point it does not really bother that much she states that she wishes to hold off on this. We have discussed the risks, goals, benefits alternatives a left trigger thumb release; risk to include but not limited to: Infection, blood loss, nerve damage, vessel damage, tenderness, possible need for revision and repeat procedure, estimated time for recovery, continued chronic pain, anesthetic risk as well as the various types of anesthesia distally formed under, blood clots, scarring and hypersensitivi ty. After these reviewed patient has elected for the procedure. All questions were answered. We will plan on operative intervention to include left trigger thumb release. Patient states at this point she wishes to leave the recurrent bilateral hand paresthesias alone. 1. Left trigger thumb. 2. Recurrent bilateral hand paresthesias history of previous open carpal tunnel releases in 2004 consistent with recurrent bilateral carpal tunnel syndrome. 05/22/2024 Other Patient has progressed very well. Today the sutures were removed. We discussed working on scar massage and gradually increasing activities as tolerated. All questions were answered it was a pleasure seeing her today. I did offer further follow-up she states the left hand feels much better she at this point would prefer simply follow-up with me as needed. If she has any difficulties of course she will follow-up with me at that point. #1 status post left trigger thumb release and left index trigger finger release, routine healing. 2. Recurrent bilateral hand paresthesias history of previous bilateral open carpal tunnel releases in 2004 consistent with recurrent bilateral carpal tunnel syndrome. 08/14/2024 Other We will start this stretching program as well we will start a formal therapy program, work on modality type treatments. We will see how she does with this if things are not improved, we will see her back for hip greater trochanter bursal injection. Right hip greater trochanteric bursitis with associated IT band tendinitis. Plan Of Treatment Pending Test Test Name Order Date Chest 2 views - 21428 08/17/2022 MRI : Ankle W/O Contrast Left - 24375 Shoulder, right 2v AP, Y-view - 43141 J[facility]: Knee, Preop right, bilat standing P A,lat right, Alessandro.pat. 44586 08/17/2022 JJP: Knee, Postop right, bilat standing AP, lat right., Alessandro pat. - 18312 10/24/2022 JJP: Knee, Postop right, bilat standing AP, lat right., Alessandro pat. - 85050 11/16/2022 JJP: Knee, Postop right, bilat standing AP, lat right., Alessandro pat. - 55092 05/08/2023 LCB: Foot Left 3v standing, ap,lat,obl. 78064 12/24/2023 LCB: Ankle Left 3v standing ap,lat.obl 7 3610 12/24/2023 BMP 08/17/2022 UA WITH REFLEX CULTURE 08/17/2022 JJP - PT/OT Eval/Treat use modalities, a s directed 05/08/2023 JJP - PT s/p TKA eval and tr eat, aggressive ROM (especially extension)/strengthening 2-3x/wk for 4-6wks 10/24/2022 JJP - PT s/p TKA eval and tr eat, aggressive ROM (especially extension)/strengthening 2-3x/wk for 4-6wks 09/11/2022 JJP - PT s/p TKA eval and tr eat, aggressive ROM (especially extension)/strengthening 2-3x/wk for 4-6wks 01/01/2023 Venous Doppler Right lower extremity 05/2023 elevated toilet seat 08/23/2022 Hemoglobin (A1C) 08/17/2022 MRSA by PCR 08/17/2022 CBC with Diff 08/17/2022 MSSA- PCR 08/17/2022 EKG 08/17/2022 JMA: HAND LT 3V AP,LAT, OBL 09417 2023 DME - Walking Boot 12/24/2023 Finger, left 3v - 66136 08/12/2024 Insurance Providers Payer Name Payer Address Payer Phone Subscriber Number Group Number Insured Name Patient Relationship to Insured Coverage Start Date Coverage End Date Medicaid [employer] [place] [address] [place] [address] [id number] KAROLINE ÁLVAREZ Self - patient is the insured 3 Medical (General) History Medical History History ICD Code Asthma/COPD Yes Respiratory problems: Yes Diabetes: Yes Depression: Yes Anxiety: Yes Sleep apnea: Yes CPAP Machine: Yes Do you use the CPAP machine? 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
--- OUTSIDE RECORDS SUMMARY | 2025-03-18 14:53 | XMS_ITS | Clinical Summary ---
Author Organization 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 Care Provider [phone] Allergies Active Allergy Reactions Criticality Noted Date Comments Moxifloxacin Hcl Swelling 06/01/2014 Codeine Hives 06/01/2014 Contrast Dye Mental Status Change 06/01/2014 Meperidine (Pf) Hives 06/01/2014 Morphine Vomiting 06/01/2014 Penicillins Swelling 06/01/2014 Sulfa (Sulfonamide Antibiotics) Hives 05/16 Adhesive Tape (Rosins) Itching 10/28/2017 Tetracycline Mental Status Change 06/01/2014 Diazepam Mental Status Change 06/01/2014 Azithromycin Swelling 06/01/2014 Medications INSULIN GLARGINE,HUM.R EC.ANLOG (LANTUS SUBCUTANEOUS) Inject 45 Units subcutaneously twice daily. Active INSULIN ASPART (NOVOLOG FLEXPEN SUBCUTANEOUS) Inject 15 Units subcutaneously three times daily with meals. Active DULoxetine (CYMBALTA) 60 mg capsule Take 60 mg by mouth twice daily. Active diclofenac potassium (CATAFLAM) 50 mg tablet Take 50 mg by mouth twice daily. Active atorvastatin (LIPITOR) 40 mg tablet Take 40 mg by mouth once daily. Active gabapentin (NEURONTIN) 800 mg tablet Take 800 mg by mouth three times daily. Active ergocalciferol , vitamin D2, (VITAMIN D) 50,000 unit capsule Take 50,000 Units by mouth every Sunday. Active ALPRAZolam (XANAX) 1 mg tablet Take 2 mg by mouth at bedtime as needed. Active montelukast (SINGULAIR) 10 mg tablet Take 10 mg by mouth daily at bedtime. Active OXcarbazepine (TRILEPTAL) 300 mg tablet Take 300 mg by mouth every morning. Active cyproheptadine (PERIACTIN) 4 mg tablet Take 8 mg by mouth daily at bedtime. 5 Active rOPINIRole (REQUIP) 0.25 mg tablet Take 0.5 mg by mouth daily at bedtime. 6 Active tiZANidine (ZANAFLEX) 4 mg tablet Take 8 mg by mouth daily at bedtime. 6 Active lisinopril (ZESTRIL, PRINIVIL) 5 mg tablet TAKE 1 TABLET BY MOUTH EVERY DAY 30 tablet 7 Active esomeprazole (NEXIUM) 20 mg capsule Take 20 mg by mouth DAILY (6 AM). Active famotidine (PEPCID) 10 mg tablet Take 10 mg by mouth daily at bedtime. Active cyclobenzaprin e (FLEXERIL) 10 mg tablet Take 1 tablet by mouth three times daily as needed for Muscle Spasm. 20 tablet 1 7 Active fexofenadine (KITTY) 180 mg tablet Take 180 mg by mouth once daily. 7 Active oxyCODONE-acet aminophen (PERCOCET 10) 10-325 mg tablet Take 1 tablet by mouth every 4 hours as needed. 7 Active triamcinolone acetonide (NASACORT AQ) 55 mcg nasal inhaler Use 1 [place] in the nose once daily. 7 Active lamoTRIgine (LAMICTAL) 100 mg tablet Take 100 mg by mouth once daily. Active celecoxib (CELEBREX) 200 mg capsule Take 200 mg by mouth twice daily. Active OXcarbazepine (TRILEPTAL) 300 mg tablet Take 600 mg by mouth every evening. Active acetaminophen (TYLENOL) 325 mg tablet Take 2 tablets by mouth every 6 hours as needed. 8 Active acetaZOLAMIDE (DIAMOX) 125 mg tablet TAKE 1 TABLET BY MOUTH AT BEDTIME in addition to 250mg tablet 3 8 Active acetaZOLAMIDE (DIAMOX) 250 mg tablet TAKE 1 TABLET BY MOUTH AT BEDTIME in addition to the 125mg tablet 3 8 Active Active Problems Problem Noted Date Diagnosed Date Pseudotumor cerebri 10/29/2017 Obstructive sleep apnea on CPAP 10/29/2017 Essential hypertension 10/29/2017 Mixed hyperlipidemia 10/29/2017 GERD (gastroesophageal reflux disease) 8 Tobacco use disorder 10/29/2017 Major depressive disorder 10/29/2017 Obesity, Class III, BMI >= 40 E66.01 10/29/2017 Acute right ankle pain 05/16/2017 Ankle weakness 05/16/2017 Gait difficulty 05/16/2017 Partial tear of Achilles ten don, right, subsequent encounter 03/26/2017 Morbid obesity due to excess calories 02/13/2017 Degenerative arthritis of right foot 01/31/2017 Overview (01/31/2017): Added automatically from request for surgery [id number] Partial tear of Achilles tendon 07/18/2016 Pain in right foot 07/18/2016 Heel spur 07/18/2016 DJD (degenerative joint disease), ankle and foot 07/18/2016 Loose body in ankle and foot joint 07/18/2016 Uncontrolled insulin dependent diabetes mellitus 02/09/2015 Hemiplegic migraine without status migrainosus, not intractable 02/09/2015 Hyperopia of both eyes with astigmatism and presbyopia - Both Eyes 06/01/2014 Resolved Problems Problem Noted Date Diagnosed Date Resolved Date Diabetes mellitus, insulin d ependent (IDDM), controlled (HCC) - Both Eyes 06/01/2014 02/09/2015 Family History Medical History Relation Comments Hypertension Father Cataract Mother Diabetes Mother Glaucoma Mother Relation Status Comments Father Mother Social History Tobacco Use Types Packs/Day Years Used Date Smoking Tobacco: Every Day Cigarettes 1 20 Smokeless Tobacco: Never Alcohol Use Standard Drinks/Week Comments No 0 (1 standard drink = 0.6 oz pur e alcohol) PHQ-2 Answer Date Recorded PHQ2 Score 0 04/07/2018 Area Deprivation Index Answer Date Valentin rded National Score (1-100), lower number is lower ri sk Not on file 06/20/2020 State Score (1-10), lower number is lower risk N ot on file 06/20/2020 Data from: https://www.neighborhoodatlas.medicine.[facility].edu/. Last address used for calculation Not on file 06/20/2020 Comments No Sex and Gender Information Value Date Recorded Sex Assigned at Not on file Legal Sex Female 8:06 AM EST Gender Identity Not on file Sexual Orientation Not on file Last Filed Vital Signs Vital Sign Reading Time Taken Comments Blood Pressure 133/72 04/07/2018 6:10 PM EDT Pulse 79 04/07/2018 6:10 PM EDT Temperature 36.7 C (98.1 F) 04/07/2018 2:02 PM EDT Respiratory Rate 18 04/07/2018 6:10 PM EDT Oxygen Saturation 97% 04/07/2018 6:10 PM EDT Inhaled Oxygen Concentration - - Weight 131.5 kg (290 lb) 04/07/2018 2:02 PM EDT Height 165.1 cm (5' 5 ) 04/07/2018 2:02 PM EDT Body Mass Index 48.26 04/07/2018 2:02 PM EDT Plan of Treatment Health Maintenance Due Date Last Done Comments Anxiety Screening 1982 Depression Screening 1982 HIV Screening 1982 Hepatitis C Screening 1982 DTaP,Tdap,Td Vaccine (1 - Tdap) 1983 Cervical Cancer Screening [address] Colonography 2009 Cologuard (FIT-DNA) 2009 Colonoscopy 2009 Colorectal Cancer Screening 2009 Fecal Occult Blood 2009 Sigmoidoscopy 2009 Pneumococcal Vaccine: 50+ (1 of 1 - PCV) 2014 Shingrix Vaccine (1 of 2) 2014 Diabetes Screening 11/08/2020 11/08/2017, 0 10/29/2017, 10/29/2017, Additional history exists Lipid Screening 10/29/2022 10/29/2017, 02/13, 05/01/2015 Influenza Vaccine (#1) 2025 RSV Vaccine (1 - 1-dose 75+ series) 2039 Medical Devices Implanted Type Area Dry Clipper Tender Device Identifier Shelf Expiration Date Model / Serial / Lot Set [employer] Implant [place] Drill Guide Punch Tap Achilles Pack - [id number] Implanted:Qty: 1 on 02/15/2017 at [facility] Implant Right: Tendon - Achilles [employer] 10/13/2018 [id number] -[id number] / / [id number] Procedures Procedure Name Priority Date/Time Associated Diagnosis Comments COMPREHENSIVE METABOLIC PANEL (EU,FV,HL,AVIS,MM,SP) STAT 11/08/2017 11:58 AM EDT LIPID PANEL BASIC (EU,FV,HL,AVIS,MM,SP) Routine 10/29/2017 2:25 AM EDT from Last 3 Months or Most Recently Relevant to Health Maintenance Results * (ABNORMAL) COMPREHENSIVE METABOLIC PANEL (AK,AV,EU,FV,HL,AVIS,MM,SP) (11/08/2017 11:58 AM EDT) Sodium 134(L) 136 - 145 mEq/L [facility] Potassium 4.2 3.5 - 5.1 mEq/L [facility] Chloride 101 98 - 107 mEq/L [facility] CO2 28 21 - 32 mEq/L [facility] Glucose 244(H) 70 - 99 mg/dL [facility] BUN 16 7 - 25 mg/dL [facility] Creatinine 0.64 0.51 - 0.95 mg/dL [facility] Calcium 8.9 8.5 - 10.1 mg/dL [facility] Albumin 3.1(L) 3.4 - 5.0 g/dL [facility] Protein, Total 6.8 6.4 - 8.2 g/dL [facility] AST 26 15 - 37 U/L [facility] ALT 38 14 - 63 U/L [facility] Alkaline Phosphatase 96 46 - 116 U/L [facility] Bilirubin, Total 0.2 0.2 - 1.0 mg/dL [facility] Anion Gap 10 8 - 20 [facility] BUN/CREATININE RATIO 25(H) 10 - 20 [facility] Blood specimen (specimen) BLOOD SPECIMEN / Unknown 11/08/2017 11:58 AM EDT 11/08/2017 12:03 PM EDT Yohana Barron MD [facility] Final R esult [facility] [address] [place] [address], * (ABNORMAL) LIPID PANEL BASIC (AK,AV,EU,FV,HL,AVIS,MM,SP) (10/29/2017 2:25 AM EDT) Cholesterol, Total 187 0 - 199 mg/dL [facility] Comment: <200 Desirable 200-240 Borderline >240 High Triglyceride 260(H) 0 - 149 mg/dL [facility] Comment: < 200 Desirable Result invalid if not a fasting specimen. HDL Cholesterol 40 >40 mg/dL [facility] CHOL/HDL 4.7 1.8 - 5.3 [facility] LDL Calculated 95 mg/dL [facility] Comment: No CAD and with fewer than 2 CAD risk factors <160 mg/dl No CAD but with 2 or more CAD risk factors <130 mg/dl Definite CAD or other atherosclerotic disease <100 mg/dl VLDL Cholesterol 52 <50 Desired mg/dL [facility] LDL/HDL 2.4 0.6 - 3.6 [facility] Comment:LDL,VLDL,LDL/HDL, In valid if Triglyceride >400 Blood specimen (specimen) BLOOD SPECIMEN / Unknown 10/29/2017 2:25 AM EDT 10/29/2017 2:36 AM EDT Kingston Goodman MD [facility] Final Result [facility] [address] [place] [id number] from Last 3 Months or Most Recently Relevant to Health Maintenance Insurance [facility] MEDICAID Care Teams Lead Refiner Relationship Specialty Start Date End Date Maria Teresa Castellanos NP PCP - General Family Medicine 02/13/17
--- NOTE | 2025-03-18 15:02 | ED.GENADUL1 ---
HPI HPI - General Adult General Chief complaint: Abdominal Pain Stated complaint: WEAKNESS Time Seen by Provider: 03/18/25 14:54 Source: patient Mode of arrival: ambulance Limitations: no limitations History of Present Illness HPI narrative: Patient is a 59-year-old female that presents to the emergency department with complaints of severe nausea with 2 bouts of vomiting and 3 loose stools since Sunday. She does live in [place], [place] but is visiting her father here. She denies fever did have chills the other night. She states she did have some nausea/vomiting Sunday that she thought was a little bit of food poisoning that was short-lived. The only change she has had is she has started a new pain cream for her low back that sounds like it is made with many medications at a compounding pharmacy. She is unsure of the medications in it. She states that she is having some cramping in her stomach. She denies any chest pain or shortness of breath. She denies any urinary symptoms such as dysuria, frequency, or urgency. She did take Zofran 4 mg this morning but continues to have persistent nausea and has been unable to keep down any food. She does have a past surgical history of a hysterectomy, 2 C-sections, incisional hernia repair from , and peritoneal shunt. She does endorse flatus since her last loose bowel movement. Related Data Home Medications ?Medication ?Instructions ?Recorded ?Confirmed acetazolamide 125 mg tablet mg 03/18/25 atorvastatin 40 mg tablet mg 03/18/25 cyproheptadine 4 mg tablet mg 03/18/25 diclofenac sodium 50 mg mg PO 03/18/25 tablet,delayed release ergocalciferol (vitamin D2) 1,250 03/18/25 mcg (50,000 unit) capsule gabapentin 800 mg tablet mg 03/18/25 hydrocodone 5 mg-acetaminophen 325 tab 03/18/25 mg tablet ketoprofen, micronized (bulk) 100 ea miscellaneous 03/18/25 % powder lisinopril 5 mg tablet mg 03/18/25 loratadine 10 mg tablet mg 03/18/25 methocarbamol 500 mg tablet mg 03/18/25 montelukast 10 mg tablet mg 03/18/25 omeprazole 20 mg capsule,delayed mg 03/18/25 release ropinirole 4 mg tablet mg 03/18/25 topiramate 25 mg tablet mg 03/18/25 Allergies Allergy/AdvReac Type Severity Reaction Status Date / Time Iodinated Contrast Media Allergy Severe Anaphylaxis Verified 11/04/24 16:46 moxifloxacin (From Avelox) Allergy Severe Anaphylaxis Verified 11/04/24 16:46 Penicillins Allergy Severe Hives Verified 11/04/24 16:46 codeine Allergy Intermediate Hives Verified 11/04/24 16:46 tetracycline Allergy Intermediate HIVES Verified 12/30/23 16:24 azithromycin (From Zithromax) Allergy Mild Swelling Verified 11/04/24 16:46 of Lip/Tongue/Throat nisoldipine (From Sular) Allergy Mild HIVES Verified 11/04/24 16:46 morphine Allergy Vomiting Verified 11/04/24 16:46 meperidine (From Demerol) AdvReac Severe Nausea Verified 11/04/24 16:46 diazepam (From Valium) AdvReac Mild Confusion Verified 11/04/24 16:46 adhesive tape AdvReac Unknown Rash Verified 11/04/24 16:46 empagliflozin (From AdvReac Unknown swelling Verified 11/04/24 16:46 Jardiance) Opioid HPI Opioid Management Most Recent Opioid Data: Last Pain Scale 10 11/04/24, 17:00 Review of Systems ROS Status of ROS 10 or more systems reviewed and unremarkable except as noted in history and below PFSH PFSH Social History Little interest or pleasure in doing things: not at all Feeling down, depressed, or hopeless: not at all Exam Narrative Exam Narrative: General: No distress, age-appropriate Skin: Warm, dry, no pallor. No rash. Head: Normocephalic, atraumatic. Neck: Supple, non-tender. Eye: Pupils are equal, round and EOMI. No scleral icterus. Ears, Nose, Mouth, and Throat: No nasal mucosal hypertrophy. Oral mucosa is moist, no posterior oropharynx erythema, uvula is mid-line Cardiovascular: Regular Rate and Rhythm without murmur, gallop or rub. Respiratory: No accessory muscle use or respiratory distress. Lungs are clear to auscultation, no wheezing, rales or rhonchi Chest Wall: no tenderness Back: No midline thoracic or lumbar vertebral tenderness. Musculoskeletal: Full ROM of all extremities, no calf or popliteal tenderness GI: Abdomen is soft, non-distended, LLQ ttp. No masses appreciated. No rebound, guarding, or rigidity noted. Well healed scattered scars. No surrounding erythema. Neurological: A&O x4. No cranial nerve dysfunction observed. No truncal ataxia. Moves all extremities. Sensation intact. Psychiatric: Cooperative and interactive. Normal mood and affect. Constitutional Vital Signs, click to edit/add: Last Vital Signs Temp 98.1 F 03/18/25 14:44 Pulse 72 03/18/25 17:19 Resp 20 03/18/25 17:19 BP 130/72 03/18/25 17:19 Pulse Ox 98 03/18/25 14:44 O2 Del Method Room Air 03/18/25 14:44 Course Reevaluation(s) Reevaluation #1: Patient updated after CT scan that results came back for no acute process. Patient was asking for ice chips and this is okay at this time. Patient now reports that she also has a headache. 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 She did take a Fioricet this morning. Her 1 L of normal saline is running currently but she is only got about 200 mL of it currently. Patient is neurologically intact and there are no focal deficits on exam. No indication for a CT scan of her head at this time. Headache is likely related to dehydration from her GI illness. She does report that her nausea is improved through the dose of Zofran. Time: 16:34 Vital Signs Vital signs: Vital Signs Temperature 98.1 F 03/18/25 14:44 Pulse Rate 86 03/18/25 14:44 Respiratory Rate 20 03/18/25 14:44 Pulse Oximetry 98 03/18/25 14:44 Oxygen Delivery Method Room Air 03/18/25 14:44 Temperature 98.1 F 03/18/25 14:44 Pulse Rate 72 03/18/25 17:19 Respiratory Rate 20 03/18/25 17:19 Blood Pressure 130/72 03/18/25 17:19 Pulse Oximetry 98 03/18/25 14:44 Oxygen Delivery Method Room Air 03/18/25 14:44 Medical Decision Making MDM Narrative Medical decision making narrative: 59-year-old female presented to the emergency department with complaints of 2 days of nausea/vomiting/diarrhea with a past surgical history of a ACQUISITION ASSOCIATE shunt, hysterectomy, 2 sections, incisional hernia repair on the right from . Vitals stable on arrival. Patient uncomfortable appearing but in no distress. IV placed. 1L NS ordered and Zofran 4mg for nausea. CT Abdomen/ Pel with contrast ordered but patient has anaphylactic contrast allergy. CT Ab/ Pel scan w/o contrast ordered. CT neg for kidney stone or complication with ACQUISITION ASSOCIATE shunt. This patient with nausea and vomiting is likely secondary to benign infectious cause. Considered but low risk for SBO (having BM's, passing flatus) No signs of DKA in labs. Patient BMP with normal electrolytes and no sign of dehydration causing prerenal DANYA. Low suspicion for gastric or esophageal dysmotility as cause. Patient with no chest pain or SOB. Based on history, exam, and work up low suspicion for pancreatitis, appendicitis, biliary pathology, or other emergent problem. Patient given Zofran, 1L NS, and tolerated PO here. Patient to be discharged and follow up with her PCP in [place], [place]. Differential Diagnosis Differential Diagnosis: Gastroenteritis, Peritoneal Shunt complication Medical Records Medical records reviewed: Yes I reviewed the patient's medical records Lab Data Labs: Lab Results 03/18/25 03/18/25 Range/Units 15:27 16:13 WBC 8.7 (4.0-11.0) 10^3/uL RBC 5.27 (4.20-5.40) 10^6/uL Hgb 14.8 (12.0-16.0) g/dL Hct 44.1 (36.0-48.0) % MCV 83.7 (81.0-99.0) fL MCH 28.1 (26.7-34.0) pg MCHC 33.6 (29.9-35.2) g/dL RDW 13.3 (11.0-15.0) % Plt Count 268 (150-450) 10^3/uL MPV 9.5 (9.5-13.5) fL Neut % (Auto) 58.0 (43.0-75.0) % Lymph % (Auto) 33.9 (20.5-60.0) % [place] % (Auto) 5.9 (1.7-12.0) % Eos % (Auto) 1.1 (0.9-7.0) % Baso % (Auto) 0.5 (0.2-2.0) % Neut # (Auto) 5.1 (1.4-6.5) 10^3/uL Lymph # (Auto) 3.0 (1.2-3.8) 10^3/uL [place] # (Auto) 0.5 (0.3-0.8) 10^3/uL Eos # (Auto) 0.1 (0.0-0.7) 10^3/uL Baso # (Auto) 0.0 (0.0-0.1) 10^3/uL Abs Immat Gran (auto) 0.05 H (0.00-0.03) 10^3/uL Imm/Tot Granulo (auto) 0.6 H (0.0-0.5) % Sodium 142 (136-145) mmol/L Potassium 3.6 (3.5-5.1) mmol/L Chloride 107 (98-107) mmol/L Carbon Dioxide 25.3 (21.0-32.0) mmol/L Anion Gap 13.3 BUN 12.0 (7.0-18.0) mg/dL Creatinine 0.61 (0.55-1.02) mg/dL Est GFR ( Amer) >60 (>=60 mL/min/1.73m^2) Est GFR (Non-Af Amer) >60 (>=60 mL/min/1.73m^2) BUN/Creatinine Ratio 19.7 Glucose 267 H (74-106) mg/dL Calcium 8.4 L (8.5-10.1) mg/dL Total Bilirubin 0.3 (0.2-1.0) mg/dL AST 18 (15-37) U/L ALT 31 (14-59) U/L Alkaline Phosphatase 100 (46-116) U/L Total Protein 7.3 (6.4-8.2) g/dL Albumin 3.2 L (3.4-5.0) g/dL Globulin 4.1 g/dL Albumin/Globulin Ratio 0.8 Lipase 25.0 (16.0-77.0) U/L Urine Color Yellow (YELLOW) Urine Clarity Clear (CLEAR) Urine pH 6.0 (5.0-9.0) Ur Specific [place] >=1.030 A (1.005-1.025) Urine Protein Negative (NEG/TRACE) mg/dL Urine Glucose (UA) 500 A (NEGATIVE) mg/dL Urine Ketones Negative (NEGATIVE) mg/dL Urine Occult Blood Negative (NEGATIVE) Urine Nitrite Negative (NEGATIVE) Urine Bilirubin Negative (NEGATIVE) Urine Urobilinogen 2.0 A (0.2-1.0) EU/dL Ur Leukocyte Esterase Negative (NEGATIVE) Urine RBC 0-2 (0-2) #/HPF Urine WBC 0-2 A (NONE SEEN) #/HPF Ur Squamous Epith Cells Few A (NONE/RARE) #/LPF Urine Crystals None seen (None Seen) #/HPF Urine Bacteria Trace A (NONE SEEN) #/HPF Urine Casts None seen (NONE SEEN) #/LPF Urine Mucus Moderate A (NONE SEEN) Ur Culture Indicated? No Imaging Data CT scan - abdomen: Attestation: I have reviewed the pertinent imaging results. Radiologist's impression: ITS Impressions Abdomen/Pelvis CT 03/18/25 15:25 IMPRESSION: No acute process. Impression dictated by: Izaiah Golden Jr., D.O. 03/18/2025 4:02 PM Dictation Location: [place] [address] Electronically authenticated by: [id number] Y Date: 03/18/2025 16:02 Discharge Plan Discharge Chief Complaint: Abdominal Pain Clinical Impression: Gastroenteritis Patient Disposition: Home, Self-Care Time of Disposition Decision: 16:46 Condition: Good Mode of Transportation: Private Vehicle Prescriptions / Home Meds: No Action atorvastatin 40 mg tablet methocarbamol 500 mg tablet acetazolamide 125 mg tablet hydrocodone-acetaminophen 5-325 mg tablet cyproheptadine 4 mg tablet gabapentin 800 mg tablet omeprazole 20 mg capsule,delayed release(DR/EC) montelukast 10 mg tablet lisinopril 5 mg tablet diclofenac sodium 50 mg tablet,delayed release (DR/EC) PO ergocalciferol (vitamin D2) 1,250 mcg (50,000 unit) capsule loratadine 10 mg tablet ketoprofen, micronized (bulk) 100 % powder MISCELLANEOUS topiramate 25 mg tablet ropinirole 4 mg tablet Print Language: Upper Sorbian Instructions: Acute Nausea and Vomiting (DC) Additional Instructions: Return to the emergency department for any new or worsening symptoms. Follow up with your Primary Care Provider. Referrals: Physician,Non-Staff, MD [Primary Care Provider] - 1 week Discharge Date/Time: 03/18/25 17:23
--- NOTE | 2025-03-18 15:25 | CT_ITS ---
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 This CT exam was performed using one or more following dose reduction techniques: Automated exposure control, adjustment of the mA and/or kV according to patient size, or use of iterative reconstruction technique. FINDINGS: Lung Bases: [Bibasilar atelectasis.] Organs:Suboptimal evaluation due to lack of IV contrast. The dome of the liver is excluded from today's study. It has liver gallbladder pancreas spleen and adrenal glands all appear unremarkable. Kidneys demonstrate no stone or hydronephrosis. Abdominal aorta appears normal in caliber.[ GI: Stomach is grossly unremarkable. Small bowel appears nondilated. No acute colonic abnormality.[ Pelvis:[Urinary bladder is grossly unremarkable. Uterus has been removed. No adnexal mass.] Peritoneum/Retroperitoneum:No free air or free fluid or lymphadenopathy.[ Abd wall/Bones:Abdominal wall demonstrates a ANIMAL CARETAKER SUPERVISOR shunt in place. Osseous structures demonstrate degenerative change.[ CT/CT abdomen pelvis wo con IMPRESSION: No acute process. Impression dictated by: Izaiah Golden Jr., D.O. 03/18/2025 4:02 PM Dictation Location: [facility] Electronically authenticated by: [id number] Y Date: 03/18/2025 16:02
[2025-03-18] MEDS: 0.9 % SODIUM CHLORIDE 1,000 ML 999 ML IV (15:31)
[2025-03-18 15:37] LABS: Hematocrit 44.1 % (36.0-48.0); Hemoglobin 14.8 g/dL (12.0-16.0); Immature Granulocytes Abs Auto 0.05 10^3/uL (0.00-0.03); Immature Granulocytes Pct Auto 0.6 % (0.0-0.5); Lymphocytes Absolute Auto 3.0 10^3/uL (1.2-3.8); Mean Corpuscular HGB Conc 33.6 g/dL (29.9-35.2); Mean Corpuscular Hemoglobin 28.1 pg (26.7-34.0); Mean Corpuscular Volume 83.7 fL (81.0-99.0); Platelet Count 268 10^3/uL (150-450); Red Blood Count 5.27 10^6/uL (4.20-5.40); White Blood Count 8.7 10^3/uL (4.0-11.0)
[2025-03-18 15:54] LABS: Alanine Aminotransferase 31 U/L (14-59); Albumin Globulin Ratio 0.8; Albumin Level 3.2 g/dL (3.4-5.0); Alkaline Phosphatase 100 U/L (46-116); Anion Gap 13.3; Aspartate Amino Transferase 18 U/L (15-37); Blood Urea Nitrogen 12.0 mg/dL (7.0-18.0); Calcium 8.4 mg/dL (8.5-10.1); Carbon Dioxide 25.3 mmol/L (21.0-32.0); Chloride 107 mmol/L (98-107); Estimated GFR (African America >60 (>=60 mL/min/1.73m^2); Estimated GFR (Non-African Ame >60 (>=60 mL/min/1.73m^2); Globulin 4.1 g/dL; Glucose 267 mg/dL (74-106); Potassium 3.6 mmol/L (3.5-5.1); Sodium 142 mmol/L (136-145); Total Protein 7.3 g/dL (6.4-8.2)
[2025-03-18 15:56] LABS: Lipase 25.0 U/L (16.0-77.0)
[2025-03-18 16:25] LABS: Glucose Urine UA 500 mg/dL (NEGATIVE)
[2025-03-18 16:57] LABS: Cast Seen? NONE SEEN #/LPF (NONE SEEN); Crystals Seen? None Seen #/HPF (None Seen)
[2025-03-18 16:58] LABS: Urine Culture Indicated NO
[2025-03-18 17:19] VITALS: BP 130/72; PULSE 72
--- OUTSIDE RECORDS SUMMARY | 2025-03-18 18:55 | XMS_ITS | CCD ---
Author Organization [facility] Care Team Providers Care Culinary Art Teacher Name Role Phone CALEB SORENSEN Unavailable Unavailable ANDREA WHITAKER JR Unavailable Unavaila SAMANTHA Chung Unavailable Unavailable NGUYỄN FARIAS Unavailable Unavaila NGUYỄN Bhatt Unavailable Unavaila ble GAY, BEVERLY Unavailable Unavailable FONG, LUCERO Unavailable Unavailable KAPIL, VÍCTOR Unavailable Unavailable GAY, BEVERLY Unavailable Unavailable KAPIL, VÍCTOR Unavailable Unavailable GAY, BEVERLY Unavailable Unavailable HORN, MARIA TERESA L Unavailable Unavailable FONG, LUCERO Unavailable Unavailable HORN, MARIA TERESA L Unavailable Unavailable FONG, LUCERO Unavailable Unavailable KAPIL, VÍCTOR Unavailable Unavailable HORN, MARIA TERESA L Unavailable Unavailable HORN, MARIA TERESA L Unavailable Unavailable FONG, LUCERO Unavailable Unavailable CALEB SORENSEN Unavailable Unavailable IMCA Unavailable Unavailable ANDREA WHITAKER Unavailable Unavailable ANNE-MARIE, SAMANTHA L Unavailable Unavailable Natalie Basurto Unavailable [phone] [facility] [place]EREIRA Primary Care Unavailable JOAQUIN CHEEK Attending Unavailable JOAQUIN CHEEK Consulting Unavailable JOAQUIN CHEEK Admitting Unavailable Laurel, Maria Teresa Unavailable Harjeet Montano MD Attending Provider [phone] Peace Santacruz CNP Primary Care Provider Harjeet Solis Attending Unavailable Sri, Peace Primary Care Unavailable SANTACRUZ, PEACE J Primary Care Unavailable MARIA LUISA CRUM Attending Unavailable SANTACRUZ, PEACE J Primary Care Unavailable SANTACRUZ, PEACE J Primary Care Unavailable SANTACRUZ, PEACE J Referring Unavailable SANTACRUZ, PEACE J Primary Care Unavailable SANTACRUZ, PEACE J Referring Unavailable SANTACRUZ, PEACE J Primary Care Unavailable SANTACRUZ, PEACE J Referring Unavailable SANTACRUZ, PEACE J Primary Care Unavailable SANTACRUZ, PEACE J Referring Unavailable SANTACRUZ, PEACE J Primary Care Unavailable SANTACRUZ, PEACE J Primary Care Unavailable GALO CODY Referring Unavailable SANTACRUZ, PEACE J Primary Care Unavailable SANTACRUZ, PEACE J Primary Care Unavailable SANTACRUZ, PEACE J Referring Unavailable SANTACRUZ, PEACE J Primary Care Unavailable SANTACRUZ, PEACE J Primary Care Unavailable SANTACRUZ, PEACE J Primary Care Unavailable SANTACRUZ, PEACE J Primary Care Unavailable HOERSTEN, TWIN R Primary Care Unavailable CHELY KHAN Attending Unavailabl e CHELY KHAN Referring Unavailabl e HOERSTEN, TWIN R Primary Care Unavailable ALNEEL MIRZA Referring Unavailable SANTACRUZ, PEACE J Primary Care Unavailable SANTACRUZ, PEACE J Referring Unavailable SANTACRUZ, PEACE J Primary Care Unavailable SANTACRUZ, PEACE J Referring Unavailable SANTACRUZ, PEACE J Primary Care Unavailable HOERSTEN, TWIN R Primary Care Unavailable HOERSTEN, TWIN R Primary Care Unavailable SANTACRUZ, PEACE J Primary Care Unavailable DERICK CHANCE Attending Unavailable DERICK CHANCE Attending Unavailable DERICK CHANCE Attending Unavailable ANA CAMARILLO Attending Unavailab le DERICK CHANCE Attending Unavailable DERICK CHANCE Attending Unavailable Candace Ramirez APRN Attending Provider NON STAFF Primary Care Provider Unavailabl e BALL, ELHAM Attending Unavailable GALO CODY Referring Unavailable NONE, NO FAMILY PHYS Primary Care Unavailable BALL, ELHAM Referring Unavailable BALL, ELHAM Attending Unavailable NONE, NO FAMILY PHYS Primary Care Unavailable BALL, ELHAM Referring Unavailable BALL, ELHAM Attending Unavailable NONE, NO FAMILY PHYS Primary Care Unavailable ALI, CHANDLER Attending Unavailable NONE, NO FAMILY PHYS Primary Care Unavailable ALI, CHANDLER Referring Unavailable Allergies Allergy Classification Reported Allergen(s) Allergy Type Date of Onset Reaction(s) Facility (2 sources) Adhesive Tape; Translations: [ADHESIVE TAPE (ROSINS)] Propensity to adverse reactions (disorder) 10-29-19 18 [facility] Repository (5 sources) azithromycin; Translations: [AZITHROMYCIN] Drug Allergy 06-01-20 14 AOF, [facility] Repository (9 sources) codeine; Translations: [CODEINE] Drug Allergy 11-29-19 13 AOF, [facility], [facility] Repository (2 sources) Contrast media; Translations: [CONTRAST DYE] Propensity to adverse reactions to drug (disorder) [facility] diazePAM; Translations: [DIAZEPAM] Drug Allergy 06-01-20 14 [facility], Unknown, Hallucinations, BP fluctuations;efe lucinations [facility] Repository (2 sources) meperidine; Translations: [MEPERIDINE (PF)] Drug All[facility] morphine; Translations: [MORPHINE] Drug Allergy 11-29-19 13 [facility], Unknown, Nausea and Vomiting[facility] Rep[facility] (2 sources) moxifloxacin; Translations: [MOXIFLOXACIN HCL] Drug Allergy 06-01-20 14 [facility] Repository (7 sources) Penicillins; Translations: [PENICILLINS] Propensity to adverse reactions to drug (disorder) 11-29-19 13 A[facility], joints swell/HIVES, Joint swelling [facility] Repository (6 sources) Sulfonamides (Antibiotic); Translations: [SULFA (SULFONAMIDE ANTIBIOTICS)] Propensity to adverse reactions to drug (disorder) 06-01-20 14 A[facility], [facility] Repository (9 sources) tetracycline; Translations: [TETRACYCLINE] Drug Allergy 11-29-19 13 A[facility], Unknown, [facility] Repository (3 sources) Adhesive Tape; Translations: [TAPE] 05-09-20 24 Unknown [facility] Other Phone: (2 sources) Azithromycin; Translations: [Zithromax] Drug Allergy Unknown [facility] Other Phone: (2 sources) diazePAM; Translations: [Valium] Drug Allergy Unknown [facility] Other Phone: (6 sources) Meperidine; Translations: [meperidine] Drug Allergy 07-11-20 23 Unknown, Hives, Hives;severe vomiting [facility] Other Phone: (1 source) Metoclopramide Drug Allergy Unknown [facility] Other Phone: (2 sources) moxifloxacin; Translations: [Avelox] Drug Allergy Unknown [facility] Other Phone: (3 sources) Penicillin; Translations: [penicillin] Drug Allergy Unknown [facility] Other Phone: (2 sources) SULFA SURE; Translations: [SULFA SURE] Unknown [facility] Other Phone: (2 sources) iodinated radiocontrast agents; Translations: [iodinated radiocontrast agents] Unknown [facility] Other Phone: (1 source) Azithromycin Drug Allergy 11-29-19 13 [facility] Repository (1 source) diazePAM Drug Allergy 11-29-19 13 [facility] Repository (1 source) Iodine (And Iodine Containting Drugs) Drug allergy (disorder) 06-02-20 14 [facility] Repository (1 source) Iothalamate Drug Allergy 11-29-19 13 [facility] Repository (1 source) Meperidine Drug Allergy 11-29-19 13 [facility] Repository (1 source) moxifloxacin Drug Allergy 11-29-19 13 [facility] Repository (1 source) Sulfonamides (Antibiotic) Drug allergy (disorder) 11-29-19 13 [facility] Repository (1 source) Contrast media Propensity to adverse reactions Unknown [facility] Other (1 source) Latex Propensity to adverse reactions Unknown [facility] Other (5 sources) moxifloxacin; Translations: [moxifloxacin] Drug Allergy 07-11-20 23 Unknown, Anaphylaxis [facility] (1 source) Sulfonamides (Antibiotic) Propensity to adverse reactions Unknown [employer] Other (1 source) delaudid Propensity to adverse reactions Unknown [employer] Other (1 source) codein Propensity to adverse reactions Unknown [employer] Other (2 sources) Adhesive Tape Allergy to substance 05-09-20 24 can use PAPER tape only [facility] (3 sources) Diatrizoate; Translations: [diatrizoate sodium] Drug Allergy 05-09-20 24 Anaphylaxis [facility] (3 sources) empagliflozin; Translations: [empagliflozin] Drug Allergy 05-09-20 YEAST INFECTION [facility] (4 sources) Metoclopramide; Translations: [metoclopramide] Drug Allergy 01-18-20 B.P. unsteady, Hallucinations [facility] (4 sources) Triiodobenzoic Acids; Translations: [Iodinated Contrast Media] Allergy to substance 07-11-20 Anaphylaxis, Throat swelling [facility] (1 source) Adhesive Tape Propensity to adverse reactions 01-18-20 Blister [facility] Comment on above: Can use paper tape (1 source) HYDROmorphone Drug Allergy 01-18-20 Tongue swelling;[facility] (1 source) Tetracyclines Allergy to substance 01-18-20 [facility] (1 source) bee venom protein (honey bee) Allergy to substance 01-18-20 Anaphylaxis [facility] Comment on above: Carries epi-pen (1 source) wasp stings Allergy to substance 01-18-20 Anaphylaxis [facility] (1 source) Meperidine; Translations: [Demerol HCl] Drug Allergy [facility] Repository Medications Current Medications Medication Drug Class(es) Dates Sig (Normalized) Sig (Original) acetaminophen 325 mg / butalbital 50 mg / caffeine 40 mg oral tablet (4 sources) Barbiturate, Central Nervous System Stimulant, Methylxanthine Start: 06-27-2018 take 1 tablet by mouth twice daily as needed for headache Butalbital-Aceta minophen-Caff 1 EACH tablet Active 1 TAB PO Twice Daily as needed as needed for headache June 27, 2018 1:00am Start: 12-13-2017 take 1 tablet by vasyl th every six hours as needed for headache Otiynxtdod-Ytwszveenhium-Skao 50-325-40 mg Tablet Active 1 TAB PO Q6H as needed for Migraine headaches December 13, 2017 12:00am Complies with drug therapy take 1 tablet by vasyl th every four hours as needed Fioricet oral tablet ; 1 tab(s) orally e very 4 hours, As Needed Quantity: 0 Refills: 0 Ordered: 18-Oct-2021 Janet Baird Generic Substitution Allowed acetaminophen 325 mg / oxyCODONE hydrochloride 5 mg oral tablet (4 sources) Opioid Agonist Start: 05-09-2024 take 1 tablet by mouth every six hours as needed for pain Oxycodone-Acetaminophen 5-325 mg tablet Active 1 TAB PO Every 6 hr as needed as needed for Pain (Scale Score 7-10) 16 4 May 09, 2024 Start: 12-13-2017 End: 01-31-2018 take 1 tablet by mouth every four to six hours as needed for pain Oxycodone-Acetaminophen (Percocet) 10-32 5 mg Tablet Discontinued 1 TAB PO EVERY 4-6 HOURS as needed for Pain December 13, 2017 12:00am January 31, 2018 12:51pm take 1 tablet by vasyl th every six hours Percocet 10-325 MG 1 tablet as needed Orally every 6 hrs Active acetaZOLAMIDE 250 mg oral tablet (10 sources) Carbonic Anhydrase Inhibitor Start: 10-20-2021 End: 01-17-2022 take 1 tablet by mouth once daily at bedtime acetaZOLAMIDE 250 mg oral tablet ; 1 tab(s) orally once a day (at bedtime) x 30 days Quantity: 30 Refills: 2 Ordered: 20-Oct-2021 Natalie Basurto Start: 20-Oct-2021 End: 17-Jan-2022 Generic Substitution Allowed Comments: Avoid prolonged or excessive exposure to direct and/or artificial sunlight while taking this medication.It is very important that you take or use this exactly as directed. Do not skip doses or discontinue unless directed by your doctor.May cause drowsiness. Alcohol may intensify this effect. Use care when operating dangerous machinery.Take with food or milk. Start: 06-27-2018 Acetazolamide 125 MG tablet Active 125 MG PO Daily in the evening June 27, 2018 1:00am TAKE WITH 250 MG FOR TOTAL OF 375 MG Start: 06-27-2018 Acetazolamide 250 MG tablet Active 250 MG PO Daily in the evening June 27, 2018 1:00am TAKE WITH 125 MG FOR TOTAL OF 375 MG Start: 01-17-2018 End: 01-17-2022 take 1 tablet by mouth once daily at mealtime acetaZOLAMIDE 125 mg oral tablet ; 1 tab(s) orally once a day x 30 days Quantity: 30 Refills: 2 Ordered: 20-Oct-2021 Natalie Basurto Start: 20-Oct-2021 End: 17-Jan-2022 Generic Substitution Allowed Comments: Avoid prolonged or excessive exposure to direct and/or artificial sunlight while taking this medication.It is very important that you take or use this exactly as directed. Do not skip doses or discontinue unless directed by your doctor.May cause drowsiness. Alcohol may intensify this effect. Use care when operating dangerous machinery.Take with food or milk. Start: 01-17-2018 End: 01-17-2018 take 370 mg by mouth once daily at bedtime Diamox Discontinued 370 MG PO Daily at bedtime January 17, 2018 12:00am January 17, 2018 12:23pm Start: 12-15-2017 End: 01-17-2018 take 1 tablet by mouth twice daily Acetazolamide 250 mg Tablet Discontinued 500 MG PO Twice daily 56 14 December 15, 2017 12:00am January 17, 2018 11:22am Start: 12-13-2017 End: 12-15-2017 take 1 tablet by mouth at bedtime Acetazolamide 125 mg tablet Discontinued 375 MG PO Bedtime December 13, 2017 12:00am December 15, 2017 12:51pm Comment on above: Avoid prolonged or e xcessive exposure to direct and/or artificial sunlight while taking this medication.It is very important that you take or use this exactly as directed. Do not skip doses or discontinue unless directed by your doctor.May cause drowsiness. Alcohol may intensify this effect. Use care when operating dangerous machinery.Take with food or milk. albuterol 0.83 mg/ml inhalation solution (2 sources) beta2-Adrenergic Agonist Start: 09-17-19 19 Albuterol Sulfate 1 EACH solution for nebulization Active 1 EACH NEB Every 6 hr as needed as needed for Shortness Of Breath September 16, 2018 1:00am atorvastatin 40 mg oral tablet (6 sources) HMG-CoA Reductase Inhibitor Start: 04-25-20 take 1 tablet by mouth once daily Atorvastatin 40 mg tablet Active 40 MG PO Daily April 25, 2024 12:00am Start: 12-13-2017 take 1 tablet by vasyl th at bedtime Atorvastatin (Lipitor) 20 mg Tablet Active 20 MG PO Bedtime December 13, 2017 12:00am Complies with drug therapy Blood-Glucose Meter,Continuous (Dexcom G7 Supervisor Airplane Flight Attendant) misc (2 sources) Start: 04-25-2024 Blood-Glucose Meter,Continuous (Dexcom G7 Supervisor Airplane Flight Attendant) misc Active EACH MD Four Times Daily April 25, 2024 12:00am Blood-Glucose Sensor (Dexcom G7 Sensor) device (2 sources) Start: 04-25-2024 Blood-Glucose Sensor (Dexcom G7 Sensor) device Active EACH MD Four Times Daily April 25, 2024 12:00am Butalbital Compound/ASA (1 source) Butalbital [place] und/ASA *please review for potential _update for e-prescription and drug interaction check* Active carBAMazepine 200 mg oral tablet (3 sources) Mood Stabilizer Start: 02-23-2025 Carbamazepine 200 mg tablet Active 200 MG PO February 23, 2025 12:00am Complies with drug therapy Start: 04-25-2024 take 1 tablet by vasyl th twice daily Carbamazepine 200 mg tablet Active 200 MG PO Twice Daily April 25, 2024 12:00am cefdinir 300 mg oral capsule (1 source) Cephalosporin Antibacterial Start: 07-11-2023 take 1 capsule by mouth every twelve hours Cefdinir 300 MG 1 capsule Orally every 12 hours for 10 days Jun, Active cephalexin 500 mg oral capsule (2 sources) Cephalosporin Antibacterial Start: 02-23-2025 take 1 capsule by mouth three times daily Cephalexin 500 mg capsule Active 500 MG PO Three times daily 02 02February 23, 2025 12:00am Complies with drug therapy Start: 01-31-2018 End: 02-23-2025 take 1 capsule by mouth every eight hours Cephalexin (Keflex) 500 mg capsule Discontinued 500 MG PO Q8H January 31, 2018 12:00am February 23, 2025 4:45pm cyclobenzaprine hydrochloride 10 mg oral tablet (2 sources) Muscle Relaxant Start: 04-25-2024 take 2 tablets by mouth at bedtime for pain Cyclobenzaprine 10 mg tablet Active 20 MG PO At Bedtime April 25, 2024 12:00am On Hold: You may restart after you have stopped taking the oxycodone for pain. cyproheptadine hydrochloride 4 mg oral tablet (5 sources) Start: 12-13-2017 Cyproheptadine 4 MG tablet Active 8 MG PO Daily in the evening June 27, 2018 1:00am MAY TAKE 2 1/2 OR 3 TABLETS take 1 tablet by vasly th every twelve hours Cyproheptadine HCl 4 MG 1 tablet Orally Twice a day Active diclofenac sodium 50 mg delayed release oral tablet (5 sources) Nonsteroidal Anti-inflammatory Drug Start: 04-25-2024 take 1 tablet by mouth twice daily Diclofenac Sodium 50 mg tablet,delayed release (DR/EC) Active 50 MG PO Twice Daily April 25, 2024 12:00am Start: 01-17-2018 take 2 tablets by [facility] twice daily Diclofenac Sodium (Voltaren-Xr) 100 mg Tablet Extended Release 24 Hr Active 50 MG PO Twice daily January 17, 2018 12:00am Complies with drug therapy take 1 tablet by [facility] twice daily Cataflam 50mg tablet orally bid *please review for potential _update for e-prescription and drug interaction check* Active docusate sodium 100 mg oral capsule (2 sources) Start: 05-09-2024 take 1 capsule by mouth twice daily as needed for constipation Docusate Sodium (Colace) 100 mg capsule Active 100 MG PO Twice Daily as needed for constipation May 09, 2024 12:00am Duloxetine (5 sources) Serotonin and Norepinephrine Reuptake Inhibitor Start: 06-27-2018 take 1 capsule by mouth twice daily Duloxetine 60 MG capsule,delayed release(DR/EC) Active 60 MG PO Twice Daily June 27, 2018 1:00am Start: 12-13-2017 take 1 capsule by [facility] twice daily Duloxetine (Cymbalta) 60 mg Capsule,Delayed Release(Dr/Ec) Active 60 MG PO Twice daily December 13, 2017 12:00am Complies with drug therapy ergocalciferol 1.25 mg oral capsule (3 sources) Provitamin D2 Compound Start: 06-27-2018 Ergocalciferol (Karon min D2) (Vitamin D2) 50,000 UNIT capsule Active 40380 UNITS PO WE June 27, 2018 1:00am Vitamin D2 1.25 mg (50,000 intl units) oral capsule ; 1 cap(s) orally once a week Quantity: 0 Refills: 0 Ordered: 18-Oct-2021 Janet Baird Generic Substitution Allowed esomeprazole 40 mg delayed release oral capsule (3 sources) Proton Pump Inhibitor Start: 12-13-2017 End: 01-17-2018 take 1 capsule by mouth once daily Esomeprazole Magnesium (Nexium) 40 mg Capsule,Delayed Release(Dr/Ec) Active 40 MG PO Daily January 17, 2018 12:00am Complies with drug therapy famotidine 20 mg oral tablet (2 sources) Histamine-2 Receptor Antagonist Start: 12-13-2017 take 1 tablet by mouth once daily at bedtime Famotidine 20 mg Tablet Active 20 MG PO Daily at bedtime December 13, 2017 12:00am Complies with drug therapy fluconazole 150 mg oral tablet (3 sources) Azole Antifungal Start: 02-23-2025 take 1 tablet by mouth once Fluconazole 150 mg tablet Active 150 MG PO Once 1 February 23, 2025 12:00am Complies with drug therapy Start: 07-11-2023 take 1 tablet by mouth once Di flucan 150 MG 1 tablet Orally one time for 1 days Jun, Active Start: 01-31-2018 End: 02-23-2025 take 1 tablet by mouth once daily Fluconazole (Diflucan) 200 mg tablet Discontinued 200 MG PO Daily January 31, 2018 12:00am February 23, 2025 4:46pm gabapentin 800 mg oral tablet (9 sources) Anti-epileptic Agent Start: 06-27-2018 take 1 tablet by mouth five times daily Gabapentin 800 MG tablet Active 800 MG PO 5 times per day June 27, 2018 1:00am Start: 01-17-2018 take 1 tablet by vasyl th once daily Gabapentin (Neurontin) 800 mg Tablet Active 800 MG PO Daily January 17, 2018 12:00am Complies with drug therapy Start: 01-17-2018 End: 02-23-2025 take 2 tablets by mouth once daily at bedtime Gabapentin (Neurontin) 800 mg Tablet Discontinued 1600 MG PO Daily at bedtime January 17, 2018 12:00am February 23, 2025 4:46pm Start: 12-13-2017 End: 01-17-2018 take 1 tablet by mouth three times daily Gabapentin (Neurontin) 800 mg Tablet Discontinued 800 MG PO Three times daily December 13, 2017 12:00am January 17, 2018 12:15pm Start: 12-13-2017 End: 12-13-2017 take 2 tablets by mouth once daily in the morning Gabapentin 800 mg Tablet Discontinued 1600 MG PO Every morning December 13, 2017 12:00am December 13, 2017 9:14pm Start: 12-13-2017 End: 12-15-2017 Gabapentin 800 mg tablet Discontinued December 13, 2017 12:00am December 15, 2017 1:09pm 3 ml insulin aspart, human 100 unt/ml pen injector (2 sources) Insulin Analog Start: 04-25-2024 Insulin Aspart U-100 (Novolog Flexpen U-100 Insulin) 100 unit/mL (3 mL) insulin pen Active 10 UNITS SC As Directed April 25, 2024 12:00am PLUS SLIDING SCALE 3 ml insulin degludec 100 unt/ml pen injector (1 source) Insulin Analog Tresiba FlexTouc h 100 UNIT/ML Subcutaneous Active Insulin Degludec (Tresiba Flextouch U-200) 200 unit/mL (3 mL) Insulin Pen (2 sources) Start: 04-25-2024 Insulin Deglud ec (Tresiba Flextouch U-200) 200 unit/mL (3 mL) Insulin Pen Active 80 UNITS SC Daily April 25, 2024 12:00am 3 ml insulin lispro 100 unt/ml pen injector (2 sources) Insulin Analog Start: 12-13-2017 Insulin Lispro (Humalog Kwikpen Insulin) 100 unit/mL Insulin Pen Active 15 UNIT SUBCUT THREE TIMES DAILY WITH MEALS December 13, 2017 12:00am Complies with drug therapy HumaLOG 100 UNIT /ML Subcutaneous Active lisinopril 5 mg oral tablet (5 sources) Angiotensin Converting Enzyme Inhibitor Start: 12-13-2017 take 1 tablet by mouth once daily Lisinopril 5 MG tablet Active 5 MG PO Daily June 27, 2018 1:00am take 0.5 tablet by m outh every twenty-four hours Lisinopril 10 MG 0.5 tablet Orally Once a day Active loratadine 10 mg oral tablet (2 sources) Start: 02-23-2025 Loratadine 10 mg tablet Active 10 MG PO February 23, 2025 12:00am Complies with drug therapy take 1 tablet by mouth once germán y Claritin 10 mg oral tablet ; 1 tab(s) orally once a day Quantity: 0 Refills: 0 Ordered: 20-Oct-2021 Janet Baird Generic Substitution Allowed meclizine hydrochloride 25 mg oral tablet (3 sources) Antiemetic Start: 04-25-2024 take 1 tablet by mouth twice daily Meclizine 25 mg tablet Active 25 MG PO Twice Daily April 25, 2024 12:00am take 1 tablet by vasyl th three times daily as needed meclizine 25 mg oral tablet ; 1 tab(s) orally 3 times a day, As Needed Quantity: 0 Refills: 0 Ordered: 20-Oct-2021 Janet Baird Generic Substitution Allowed melatonin 10 mg / vitamin b6 10 mg extended release oral tablet (1 source) Melatonin 10-10 MG Orally Active mometasone furoate 0.05 mg/actuat metered dose nasal spray (2 sources) Corticosteroid Start: 04-25-20 24 Mometasone 50 mcg/actuation [place],Non-Aerosol Active 2 SPRAY NA Daily April 25, 2024 12:00am montelukast 10 mg oral tablet (5 sources) Leukotriene Receptor Antagonist Start: 12-14-19 take 1 tablet by mouth once daily in the evening Montelukast 10 MG tablet Active 10 MG PO Daily in the evening June 27, 2018 1:00am Nasacort Allergy 24HR (1 source) Nasacort Allergy 24HR *please review for potential _update for e-prescription and drug interaction check* Active omeprazole 20 mg delayed release oral capsule (3 sources) Proton Pump Inhibitor Start: 04-25-20 take 1 capsule by mouth twice daily Omeprazole 20 mg capsule,delayed release(DR/EC) Active 20 MG PO Twice Daily April 25, 2024 12:00am take 1 capsule by mouth twice da cris omeprazole 20 mg oral delayed release capsule ; 1 cap(s) orally 2 times a day Quantity: 0 Refills: 0 Ordered: 20-Oct-2021 Janet Baird Generic Substitution Allowed ondansetron 4 mg disintegrating oral tablet (2 sources) Serotonin-3 Receptor Antagonist Start: 04-25-2024 take 1 tablet by mouth every eight hours as needed for nausea and vomiting Ondansetron 4 mg tablet,disintegrating Active 4 MG PO Q8H as needed for Nausea And Vomiting April 25, 2024 12:00am rOPINIRole 1 mg oral tablet (5 sources) Nonergot Dopamine Agonist Start: 04-25-2024 take 1 tablet by mouth once daily in the evening Ropinirole 1 mg tablet Active 1 MG PO Daily in the evening April 25, 2024 12:00am Start: 12-13-2017 take 2 tablets by mo uth once daily at bedtime Ropinirole (Requip) 0.25 mg Tablet Active 0.5 MG PO Daily at bedtime December 13, 2017 12:00am Complies with drug therapy take 1 tablet by vasyl th once daily at bedtime Requip 0.5 mg oral tablet ; 1 tab(s) orally once a day (at bedtime)-0.75mg Quantity: 0 Refills: 0 Ordered: 18-Oct-2021 Janet Baird Generic Substitution Allowed temazepam 30 mg oral capsule (1 source) Benzodiazepine take 1 capsule by mouth once daily at bedtime Restoril 30 mg oral capsule ; 1 cap(s) orally once a day (at bedtime) Quantity: 0 Refills: 0 Ordered: 18-Oct-2021 Janet Baird Generic Substitution Allowed Tizanidine Comfort Pac (1 source) Tizanidine Comfo rt Pac *please review for potential _update for e-prescription and drug interaction check* Active topiramate 25 mg oral tablet (2 sources) Start: 02-23-2025 take 1 tablet by mouth twice daily Topiramate 25 mg tablet Active 25 MG PO Twice daily February 23, 2025 12:00am Complies with drug therapy Start: 12-13-2017 End: 01-17-2018 take 1 capsule by mouth once daily Topiramate (Trokendi Xr) 200 mg Capsule,Extended Release 24hr Discontinued 200 MG PO Daily December 13, 2017 12:00am January 17, 2018 11:16am triamcinolone acetonide 0.055 mg/actuat metered dose nasal spray (1 source) Corticosteroid Start: 12-13-2017 Triamcinolone Acetonide (Nasacort) 55 mcg Aerosol,[place] Active 1 SPRAY INTRANASAL Daily December 13, 2017 12:00am Complies with drug therapy ubrogepant 50 mg oral tablet (1 source) Start: 10-20-2021 End: 11-18-2021 Ubrelvy 50 mg oral tablet ; 1 PO at headache onset. Repeat in 2 hours, if needed. Maximum dose in a 24 hour period is 200 mg. Quantity: 10 Refills: 2 Ordered: 20-Oct-2021 Natalie Basurto Start: 20-Oct-2021 End: 18-Nov-2021 Generic Substitution Allowed Comments: Check with your doctor before becoming .May cause drowsiness. Alcohol may intensify this effect. Use care when operating dangerous machinery.Obtain medical advice before taking any non-prescription drugs as some may affect the action of this medication. Comment on above: Check with your doct or before becoming .May cause drowsiness. Alcohol may intensify this effect. Use care when operating dangerous machinery.Obtain medical advice before taking any non-prescription drugs as some may affect the action of this medication. Vitamin D (1 source) Vitamin D *nima hussein review for potential _update for e-prescription and drug interaction check* Active Completed/Discontinued Medications Medication Drug Class(es) Dates Sig (Normalized) Sig (Original) ALPRAZolam 1 mg oral tablet (2 sources) Benzodiazepine Start: 12-13-2017 End: 02-23-2025 take 2 tablets by mouth at bedtime Alprazolam (Xanax) 1 mg Tablet Discontinued 2 MG PO Bedtime December 13, 2017 12:00am February 23, 2025 4:45pm take 1 tablet by mouth every twe nty-four hours Xanax 2 MG 1 tablet Orally qd Active celecoxib 200 mg oral capsule (2 sources) Nonsteroidal Anti-inflammatory Drug Start: 12-13-2017 End: 02-23-2025 take 1 capsule by mouth once daily Celecoxib (Celebrex) 200 mg Capsule Discontinued 200 MG PO Daily December 13, 2017 12:00am February 23, 2025 4:45pm Diamox Sequels (1 source) Start: 01-17-2018 End: 01-17-2018 take 370 mg by mouth once daily at bedtime Diamox Sequels Discontinued 370 MG PO Daily at bedtime January 17, 2018 12:00am January 17, 2018 12:24pm fexofenadine hydrochloride 180 mg oral tablet (2 sources) Histamine-1 Receptor Antagonist Start: 12-13-2017 End: 02-23-2025 take 1 tablet by mouth once daily in the morning Fexofenadine (Liz Allergy) 180 mg Tablet Discontinued 180 MG PO Every morning December 13, 2017 12:00am February 23, 2025 4:46pm take 1 tablet by mouth once germán y Liz 180 1 tablet orally qd *please review for potential _update for e-prescription and drug interaction check* Active 12 hr fexofenadine hydrochloride 60 mg / pseudoephedrine hydrochloride 120 mg extended release oral tablet (1 source) alpha-Adrenergic Agonist, Histamine-1 Receptor Antagonist Start: 01-17-2018 End: 02-03-2018 take 1 tablet by mouth every twelve hours as needed, then take 1 tablet by mouth every twelve hours as needed Fexofenadine-Pseudoephedrine (Liz-D 12 Hour) 60-120 mg Tablet Extended Release 12 Hr Discontinued 1 TAB PO Q12H as needed for Allergy Symptoms January 17, 2018 12:00am February 03, 2018 11:47pm insulin glargine 100 unt/ml injectable solution (5 sources) Insulin Analog Start: 12-13-2017 End: 02-23-2025 inject 45 [IU] by subcutaneous injection once daily in the morning Insulin Glargine (Lantus U-100 Insulin) 100 unit/mL solution Discontinued 45 UNIT SUBCUT Every morning January 17, 2018 12:18pm February 23, 2025 4:46pm lamoTRIgine 100 mg oral tablet (2 sources) Mood Stabilizer, Anti-epileptic Agent Start: 12-13-2017 End: 02-23-2025 take 1 tablet by mouth once daily Lamotrigine (Lamictal) 100 mg Tablet Discontinued 100 MG PO Daily December 13, 2017 12:00am February 23, 2025 4:47pm LaMICtal 5 MG Or ally Active melatonin 10 mg oral tablet (1 source) Start: 12-13-2017 End: 02-23-2025 take 1 tablet by mouth at bedtime as needed for sleep Melatonin 10 mg Tablet Discontinued 10 MG PO Bedtime as needed for Sleep December 13, 2017 12:00am February 23, 2025 4:47pm OXcarbazepine 300 mg oral tablet (8 sources) Anti-epilepti c Agent Start: 01-17-2018 End: 02-23-2025 take 1 tablet by mouth once daily in the morning Oxcarbazepine (Trileptal) 300 mg Tablet Discontinued 300 MG PO Every morning January 17, 2018 12:00am February 23, 2025 4:47pm Start: 01-17-2018 End: 02-23-2025 take 1 tablet by mouth once daily at bedtime Oxcarbazepine (Trileptal) 600 mg Tablet Discontinued 600 MG PO Daily at bedtime January 17, 2018 12:00am February 23, 2025 4:47pm Start: 12-13-2017 End: 12-13-2017 Oxcarbazepine (Trileptal) 30 0 mg/5 mL (60 mg/mL) Suspension Discontinued December 13, 2017 12:00am December 13, 2017 8:03pm Start: 12-13-2017 End: 12-13-2017 take 1 tablet by mouth once daily in the morning Oxcarbazepine (Trileptal) 300 mg Tablet Discontinued 300 MG PO Every morning December 13, 2017 12:00am December 13, 2017 9:12pm Start: 12-13-2017 End: 12-13-2017 Oxcarbazepine (Trileptal) 30 0 mg Tablet Discontinued 600 MG Daily at bedtime December 13, 2017 12:00am December 13, 2017 9:13pm Start: 12-13-2017 End: 01-17-2018 take 1 tablet by mouth three times daily Oxcarbazepine 300 mg tablet Discontinued 300 MG PO Three times daily December 13, 2017 12:00am January 17, 2018 11:23am oxyCODONE hydrochloride 5 mg oral tablet (1 source) Opioid Agonist Start: 01-31-2018 End: 02-23-2025 Oxycodone (Roxicodone) 5 mg Tablet Discontinued 10 MG PO Q6H as needed for Pain 60 January 31, 2018 February 23, 2025 4:47pm Take 1 or 2 p.o. every 6 hours as needed for pain tiZANidine 4 mg oral capsule (1 source) Central alpha-2 Adrenergic Agonist Start: 12-13-2017 End: 02-23-2025 take 2 capsules by mouth once daily at bedtime Tizanidine 4 mg Capsule Discontinued 8 MG PO Daily at bedtime December 13, 2017 12:00am February 23, 2025 4:48pm Problems Active Problems Problem Classification Problem Date Documented Date Episodic/Chronic Anxiety disorders (2 sources) Anxiety disorder, unspecified; Translations: [Anxiety] Onset: 02-21-2017 02-23-2025 Chronic Asthma (1 source) Asthma; Translations: [Unspecified asthma, uncomplicated] 01-24-2018 Chronic Chronic kidney disease (1 source) Chronic kidney disease, stage 1; Translations: [Chronic kidney disease, stage 1] Onset: 07-18-2021 Chronic Chronic obstructive pulmonary disease and bronchiectasis (1 source) Chronic obstructive lung disease; Translations: [Chronic obstructive pulmonary disease, unspecified] 02-23-2025 Chronic Diabetes mellitus with complications (2 sources) Type 2 diabetes mellitus with hyperglycemia; Translations: [Type 2 diabetes mellitus with diabetic chronic kidney disease] Onset: 10-30-2017 Chronic Diabetes mellitus with complications (1 source) Diabetes mellitus with complications Onset: 09-12-2017 Diabetes mellitus without complication (1 source) Diabetes mellitus; Translations: [Type 2 diabetes mellitus without complications] 01-24-2018 Chronic Disorders of lipid metabolism (3 sources) Mixed hyperlipidemia; Translations: [Hypercholesterolemia] Onset: 10-30-2017 02-23-2025 Chronic Esophageal disorders (1 source) Gastroesophageal reflux disease; Translations: [Gastro-esophageal reflux disease without esophagitis] 02-23-2025 Chronic Essential hypertension (2 sources) Essential (primary) hypertension; Translations: [Hypertensive disorder] Onset: 10-30-2017 01-24-2018 Chronic Headache; including migraine (2 sources) Migraine; Translations: [Migraine, unspecified, not intractable, without status migrainosus] Onset: 02-21-2017 10-20-2021 Chronic Headache; including migraine (1 source) Headache; Translations: [Headache] 01-24-2018 Episodic Mood disorders (1 source) Depressive disorder; Translations: [Depression] 02-23-2025 Chronic Osteoarthritis (2 sources) Unilateral primary osteoarthritis, right knee; Translations: [Arthritis] Onset: 09-19-2022 01-24-2018 Chronic Other connective tissue disease (1 source) Fibromyalgia; Translations: [Fibromyalgia] Onset: 12-23-2024 Episodic Other connective tissue disease (1 source) Myalgia, other site; Translations: [Myalgia, other site] Onset: 12-11-2024 Episodic Other connective tissue disease (1 source) Fibromyalgia; Translations: [Fibromyalgia] 01-24-2018 Episodic Other ear and sense organ disorders (1 source) Sensorineural hearing loss, bilateral; Translations: [Sensorineural hearing loss, bilateral] Onset: 09-18-2024 Chronic Other ear and sense organ disorders (1 source) Unspecified hearing loss, bilateral; Translations: [Unspecified hearing loss, bilateral] Onset: 08-19-2024 Chronic Other fractures (1 source) Collapsed vertebra, not elsewhere classified, lumbar region, initial encounter for fracture; Translations: [Collapsed vertebra, not elsewhere classified, lumbar region, initial encounter for fracture (HCC)] Onset: 12-11-2024 Episodic Other fractures (1 source) Wedge compression fracture of unspecified lumbar vertebra, initial encounter for closed fracture; Translations: [Wedge compression fracture of unspecified lumbar vertebra, initial encounter for closed fracture (HCC)] Onset: 11-11-2024 Episodic Other hereditary and degenerative nervous system conditions (1 source) Isolated cervical dystonia; Translations: [Spasmodic torticollis] 10-20-2021 Chronic Other nervous system disorders (1 source) Benign intracranial hypertension; Translations: [Benign intracranial hypertension] Onset: 10-30-2017 Chronic Other nervous system disorders (3 sources) Benign intracranial hypertension; Translations: [Benign intracranial hypertension] 10-20-2021 Chronic Other nervous system disorders (1 source) Peripheral nerve disease ; Translations: [Polyneuropathy, unspecified] 10-20-2021 Chronic Other nervous system disorders (1 source) Neuropathy Onset: 10-20-2021 Chronic Other nervous system disorders (1 source) Polyneuropathy, unspecified; Translations: [Polyneuropathy, unspecified] Onset: 02-21-2017 Chronic Other nervous system disorders (1 source) Chronic pain syndrome; Translations: [Chronic pain syndrome] Onset: 12-11-2024 Chronic Other nervous system disorders (1 source) (Idiopathic) normal pressure hydrocephalus; Translations: [(Idiopathic) normal pressure hydrocephalus (HCC)] Onset: 02-21-2017 Chronic Other nervous system disorders (1 source) Numbness of hand; Translations: [Anesthesia of skin] 10-20-2021 Episodic Other nervous system disorders (2 sources) Pain in limb; Translations: [Other acute postprocedural pain] 05-09-2024 Episodic Other non-traumatic joint disorders (1 source) Joint pain; Translations: [Pain in unspecified joint] 10-20-2021 Episodic Other nutritional; endocrine; and metabolic disorders (2 sources) Morbid (severe) obesity due to excess calories; Translations: [Morbid (severe) obesity due to excess calories] Onset: 10-30-2017 Chronic Other nutritional; endocrine; and metabolic disorders (1 source) Morbid obesity; Translations: [Morbid (severe) obesity due to excess calories] Chronic Otitis media and related conditions (1 source) Otitis media, unspecified, bilateral Episodic Residual codes; unclassified (1 source) Obstructive sleep apnea syndrome; Translations: [Obstructive sleep apnea (adult) (pediatric)] 01-24-2018 Chronic Spondylosis; intervertebral disc disorders; other back problems (2 sources) Spondylosis without myelopathy or radiculopathy, lumbar region; Translations: [Sacroiliitis, not elsewhere classified] Onset: 12-11-2024 Chronic Spondylosis; intervertebral disc disorders; other back problems (4 sources) Backache; Translations: [Dorsalgia, unspecified] Onset: 12-11-2024 10-20-2021 Episodic Substance-related disorders (1 source) Nicotine dependence, unspecified, uncomplicated; Translations: [Nicotine dependence, unspecified, uncomplicated] Onset: 10-30-2017 Chronic Unclassified (3 sources) Obstructive sleep apnea (adult) (pediatric); Translations: [Dependence on other enabling machines and devices] Onset: 10-30-2017 Chronic Unclassified (2 sources) Sprain of unspecified site of left knee, initial encounter / S83.92XA(ICD-9) Onset: 08-15-2017 Unclassified (1 source) Pain in left hip / M25.552(ICD-9) Onset: 03-12-2018 Unclassified (2 sources) Unilateral primary osteoarthritis, right knee / M17.11(ICD-9) Onset: 09-12-2017 Unclassified (1 source) Sacroiliitis, not elsewhere classified / M46.1(ICD-9) Onset: 10-03-2017 Unclassified (1 source) Pain in right knee / M25.561(ICD-9) Onset: 09-12-2017 Unclassified (2 sources) Trochanteric bursitis, left hip / M70.62(ICD-9) Onset: 03-12-2018 Unclassified (1 source) Strain musc/tend ant grp at low leg level, left leg, init / S86.212A(ICD-9) Onset: 08-15-2017 Unclassified (1 source) Presence of left artificial knee joint / Z96.652(ICD-9) Onset: 08-15-2017 Unclassified (2 sources) Lateral epicondylitis, left elbow / M77.12(ICD-9) Onset: 05-04-2017 Unclassified (1 source) Unknown / UNK(Unknown) Onset: 10-30-2017 Unclassified (1 source) Low back pain, unspecified; Translations: [Low back pain, unspecified] Onset: 12-13-2024 Past or Other Problems Problem Classification Problem Date Documented Da te Episodic/Chronic Conditions associated with dizziness or vertigo (1 source) Dizziness and giddiness; Translations: [Dizziness and giddiness] Onset: 08-19-2024 Episodic Other aftercare (3 sources) 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; Translations: [retirement (current) use of insulin] Onset: 10-30-2017 Episodic Other aftercare (1 source) 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; Translations: [OTH HALF-WAY CURRENT DRUG THERAPY] Onset: 09-19-2022 Episodic Other ear and sense organ disorders (1 source) Tinnitus, bilateral; Translations: [Tinnitus, bilateral] Onset: 08-19-2024 Episodic Other ear and sense organ disorders (1 source) Unspecified acute noninfective otitis externa, bilateral; Translations: [Unspecified acute noninfective otitis externa, bilateral] Onset: 07-29-2024 Episodic Other non-traumatic joint disorders (3 sources) Pain in right knee; Translations: [PAIN IN RIGHT KNEE] Onset: 09-16-2022 Episodic Other screening for suspected conditions (not mental disorders or infectious disease) (1 source) Encounter for screening mammogram for malignant neoplasm of breast; Translations: [Encounter for screening mammogram for malignant neoplasm of breast] Onset: 07-29-2024 Episodic Other upper respiratory infections (2 sources) Acute upper respiratory infection, unspecified; Translations: [Acute upper respiratory infection, unspecified] Onset: 07-29-2024 Episodic Screening and history of mental health and substance abuse codes (2 sources) Personal history of nicotine dependence; Translations: [PERSONAL HISTORY OF NICOTINE DEPEND] Onset: 09-19-2022 Episodic Unclassified (1 source) Trochanteric bursitis, left hip; Translations: [Trochanteric bursitis, left hip] Onset: 03-12-2018 Unclassified (1 source) Unilateral primary osteoarthritis, right knee; Translations: [Unilateral primary osteoarthritis, right knee] Onset: 09-12-2017 Unclassified (1 source) Sprain of unspecified site of left knee, initial encounter; Translations: [Sprain of unspecified site of left knee, initial encounter] Onset: 08-15-2017 Unclassified (1 source) Lateral epicondylitis, left elbow; Translations: [Lateral epicondylitis, left elbow] Onset: 05-04-2017 Unclassified (1 source) Morbid (severe) obesity due to excess calories Onset: 10-28-2017 Unclassified (1 source) 3 mo f/u for neuropathy Onset: 01-25-2022 Unclassified (1 source) Contact with and (suspected) exposure to covid-19 Z20.822 NEGATED: Highlighted row has not occurred!Unclassified (2 sources) No Known Encounter Diagnosis Results Test Name Value Interpretation Reference Range Facility HIPS AP and LAT BILAT W OR W /O PELVISon 03-03-2025 HIPS AP and LAT BILAT W OR W/O PELVIS Patient Name: RAMU LANDIS MR #: [id number] Date of : 1965 Gender: F Service Type: XRY Pt. Type: O Ordering Phys: ELHAM AGUILAR [facility] Admitting Phys: Family Phys: Additional CC Phys: MEDICAL IMAGING REPORT EXAM: HIPS AP and LAT BILAT W OR W/O PELVIS Exam Date: 03/03/2025 Exam Time: 10:36:53 CLINICAL HISTORY: M25.559 Hip pain TECH ACQUIRED HISTORY: Sever pain danny hips. Pt did have fall October 2024 landing on buttocks. Pain ever since and getting worse. EXAMINATION: ONE XRAY VIEW OF THE PELVIS AND TWO XRAY VIEWS OF EACH OF THE BILATERAL HIPS 03/03/2025 10:36 am COMPARISON: None. HISTORY: Reason for exam: : M25.559 Hip pain Note: 2 - TECH HISTORY Sever pain danny hips. Pt did have fall October 2024 landing on buttocks. Pain ever since and getting worse. FINDINGS: The hip joint is well maintained. The articular surfaces are intact. No fracture. The included pelvis is within normal limits. IMPRESSION: No fracture or dislocation of the bilateral hips. D/ / Lori Phillips MD / Lroi Phillips MD Interpreting Provider: Lori Phillips MD Patient: Ramu Landis Date of Service: 03/03/2025 [facility] Comment on above: Performed By: #### [id number] #### Joint [facility] Medical Imaging Department [address] [place], [place] [address] [phone] Operative Reporton 4 Operative Report [facility] Medical Records Patient: BYRON LANDIS [address] : 1965 [place] [address] Location: SURG [phone] [id number] Report Harjeet Montano MD Dictation ID#: [id number] * * DATE OF PROCEDURE: 05/09/2024 SURGEON: Harjeet Montano M.D. PLASTIC PRESS OPERATOR: None. PREOPERATIVE DIAGNOSES: 1. Left trigger thumb. 2. Left index trigger. POSTOPERATIVE DIAGNOSES: 1. Left trigger thumb. 2. Left index trigger. OPERATIVE PROCEDURE: 1. Left trigger thumb release. 2. Left index trigger finger release. INDICATIONS FOR PROCEDURE: Ms. Landis is a 59-year-old woman with a longstanding history of painful and catching of her left thumb. She has more recently as well in the preoperative holding noted new painful locking trigger of her left index finger. She has undergone nonsurgical intervention without significant improvements. We have discussed nonsurgical and surgical intervention, risks, goals, benefits, and alternatives to each, and the patient had elected for left trigger thumb release and left index trigger finger release and wishes to add in the left index trigger finger release to the procedure today. DESCRIPTION OF PROCEDURE: The patient was seen in preoperative holding area and marked by the surgeon, wheeled into the operative suite and placed on the operating room table. Correct site was identified as the left thumb as well as the left index finger and a well-padded tourniquet was placed on the left arm, but not inflated and the left upper extremity carefully prepped first with alcohol, then ChloraPrep solution and draped in the sterile fashion. Time-out was called. The patient was identified by name, medical record number, date of , wound type as type 1, site marker in place in the left upper extremity as placed by the surgeon and the patient supine. Following this, a standard trigger finger release incisional marking was then drawn in the MCP flexion crease left thumb in the center-center position as well as overlying the A1 rosy of the left index finger, each measuring approximately 1 cm. Next, a 50:50 mixture of 0.5% Marcaine and 1% lidocaine was infiltrated in line with each surgical incisional marking, anesthesia allowed to set up, tested and found to be excellent. The upper extremity was elevated and exsanguinated with Esmarch, tourniquet inflated to 250 mmHg. Attention was brought to the thumb. Sharp dissection was carried down just in line with the surgical incisional marking, just through the skin and blunt dissection was carried down to the level of the A1 rosy with Ragnells. A1 rosy was identified. Care was taken to gently retract and protect the radial and ulnar digital neurovascular structures. Following this, utilizing a deep knife, a small laina was created in the A1 rosy longitudinally and then final elements of the A1 rosy divided first distally, then proximally with tenotomy scissors. The patient was asked to flex and extend across the IP joint of the thumb and there was no further visible or palpable triggering. This wound was then irrigated, packed with a moist Ray-Karli. Attention was brought to the index finger. Sharp dissection was carried down just in line with the surgical incisional marking, just through the skin and blunt dissection was carried down to the level of the A1 rosy with Ragnells. A1 rosy was identified. There was a large degree of inflammatory change about the tendon rosy construct. Utilizing a deep knife, a small laina was created in the A1 rosy longitudinally and then final elements of the A1 rosy divided first distally, then proximally with tenotomy scissors. A limited tenosynovectomy was carried out removing the tenosynovitis. The patient was asked to fully flex and extend across the index finger and there was no further visible or palpable triggering. The wound was then irrigated with copious amounts saline solution, direct pressure was held and tourniquet deflated. Upon deflation of tourniquet, the patient's cap refill was brisk, less than 2 seconds distally in all fingers. Radial and ulnar pulses 2+. Bipolar cautery was utilized to cauterize a few small areas of bleeding. The wound was re-irrigated and skin closed with 4-0 Prolene in a horizontal mattress fashion. The upper extremity was cleansed with a wet followed by dry, followed by placement of Xeroform overlying each incision, sterile 4 x 4s, sterile dressing. The patient wheeled to the surgical outpatient care unit in stable condition. ESTIMATED BLOOD LOSS: 1 mL. PACKS: None. DRAINS: None. COMPLICATIONS: None. DISPOSITION: Stable to the surgical outpatient care unit. cc: Peace Santacruz PRINT DESIGNER; Harjeet Solis MD Dictated by: Harjeet Montano MD on 05/13/24 0630 Transcribed by: Natalia Ruth on 05/13/24 1020 Report (more content not included)... Normal [facility] Anesthesia Pre-Op Evaluation on 05-09-2024 Anesthesia Pre-Op Evaluation [facility] Medical Records Patient: BYRON LANDIS [address] : 1965 [place], [place] [address] Location: SURG [phone] Unit #: [id number] Anesthesia Pre-Op Evaluation Katie Enriquez [facility] Service Dt/Tm: 05/09/24 1040 BYRON LANDIS is a 59 yr old F. Height (Ft AND In): 5 ft 5 in Actual Weight (Kg): 131.995 kg Body Mass Index (BMI): 48.4 NPO Since: Mn Pre Op Diagnosis: Trigger finger Scheduled Procedure: Operation Date: 05/09/24 13:00 Proposed Procedures p Trigger Thumb Release(Left) - Harjeet Montano MD Did patient smoke today?: No Patient Instructed Pre-Operatively Not to Smoke Day of Surgery: No PONV Risk Score: Female and Non-Smoker PONV Risk Score: 2 PONV Prevention-Combination Therapy Utilized: Yes Does patient have a history of an organ transplant?: No Patient - Anesthesia Problems: Difficult Intubation Patient Family - Anesthesia Problems: Past Anesthesia WITHOUT Complications - Active Medications: Active Medications Acetaminophen (Acetaminophen 500 Mg Tab) 1,000 mg PO PREOP ONE Stop: 05/09/24 10:38 Albuterol/Ipratropium (Albuterol-Ipratropium (Duoneb) 1 Each Vial) 1 vial NEB PRN PRN PRN Reason: wheezing Stop: 05/10/24 00:00 Famotidine (Famotidine 20 Mg Tab) 20 mg PO PREOP ONE Stop: 05/09/24 10:38 Sodium Chloride (Ns) 100 mls @ 25 mls/hr IV PREOP ONE Stop: 05/09/24 14:36 Lidocaine/Prilocaine (Lidocaine 2.5%/Prilocaine 2.5% 5 Gm Tube) 1 appl TOP DIRECTED PRN PRN Reason: IV insert preop Stop: 05/09/24 23:59 Meloxicam (Meloxicam 7.5 Mg Tab) 15 mg PO PREOP ONE Stop: 05/09/24 10:38 Scopolamine (Scopolamine (Delivers 1 Mg Over 3 Days) Ptch) 1 ptch TD PREOP PRN PRN Reason: On patients with Hx of PONV Stop: 05/09/24 23:59 Allergies/Adverse Reactions diatrizoate sodium Allergy (Severe, Verified 04/25/24 11:55) Anaphylaxis diazepam (From Valium) Allergy (Severe, Verified 04/25/24 11:59) Hallucinations Iodinated Contrast Media (Iodinated Contrast- Oral and IV Dye) Allergy (Severe, Verified 04/25/24 11:55) Anaphylaxis moxifloxacin (From Avelox) Allergy (Severe, Verified 04/25/24 11:55) Anaphylaxis azithromycin (From Zithromax) Allergy (Intermediate, Verified 04/25/24 11:58) Hives codeine Allergy (Intermediate, Verified 04/25/24 11:58) Hives empagliflozin (From Jardiance) Allergy (Intermediate, Verified 04/25/24 11:59) YEAST INFECTION meperidine (From Demerol) Allergy (Intermediate, Verified 04/25/24 11:58) Hives metoclopramide (From Reglan) Allergy (Intermediate, Verified 05/02/24 16:13) B.P. unsteady morphine Allergy (Intermediate, Verified 04/25/24 11:58) Nausea and Vomiting/HIVES Penicillins Allergy (Intermediate, Verified 04/25/24 11:58) joints swell/HIVES Sulfa (Sulfonamide Antibiotics) Allergy (Intermediate, Verified 04/25/24 11:58) Hives TAPE Allergy (Intermediate, Verified 04/25/24 11:55) can use PAPER tape only tetracycline Allergy (Intermediate, Verified 04/25/24 11:58) Hives Home Medications acetazolamide 125 mg tablet 125 mg PO QHS 06/27/18 [Confirmed 04/25/24] acetazolamide 250 mg tablet 250 mg PO QHS 06/27/18 [Confirmed 04/25/24] waxiimgqhd-kyrmvecqqkrwi-ni ffeine 50 mg-325 mg-40 mg tablet 1 tab PO BIDPRN PRN headache 06/27/18 [Confirmed 05/02/24] cyproheptadine 4 mg tablet 8 mg PO QHS 06/27/18 [Confirmed 05/02/24] duloxetine 60 mg capsule,delayed release 60 mg PO BID 06/27/18 [Confirmed 05/02/24] ergocalciferol (vitamin D2) 1,250 mcg (50,000 unit) capsule (Vitamin D2) 50,000 unit PO WE 06/27/18 [Confirmed 05/02/24] gabapentin 800 mg tablet 800 mg PO 5XD 06/27/18 [Confirmed 04/25/24] lisinopril 5 mg tablet 5 mg PO DAILY 06/27/18 [Confirmed 05/02/24] montelukast 10 mg tablet 10 mg PO QHS 06/27/18 [Confirmed 04/25/24] albuterol sulfate 2.5 mg/3 mL (0.083 %) solution for nebulization 1 ea NEB Q6HPRN PRN Shortness Of Breath 09/16/18 [Confirmed 05/02/24] atorvastatin 40 mg tablet 40 mg PO DAILY 04/25/24 [Confirmed 04/25/24] blood-glucose meter,continuous (Dexcom G7 Supervisor Air[employer] Flight Attendant) 04/25/24 [Confirmed 04/25/24] blood-glucose sensor (Dexcom G7 Sensor device) 04/25/24 [Confirmed 04/25/24] carbamazepine 200 mg tablet 200 mg PO BID 04/25/24 [Confirmed 05/02/24] cyclobenzaprine 10 mg tablet 20 mg PO HS 04/25/24 [Confirmed 05/02/24] diclofenac sodium 50 mg tablet,delayed release 50 mg PO BID 04/25/24 [Confirmed 05/02/24] insulin aspart U-100 100 unit/mL (3 mL) subcutaneous pen (Novolog FlexPen U-100 Insulin aspart) 10 unit SC DIRECTED 04/25/24 [Confirmed 05/02/24] insulin degludec 200 unit/mL (3 mL) subcutaneous pen (Tresiba FlexTouch U-200 insulin) 80 unit SC DAILY 04/25/24 [Confirmed 05/02/24] meclizine 25 mg tablet 25 mg PO BID 04/25/24 [Confirmed 05/02/24] mometasone 50 mcg/actuation nasal spray 2 spray intranasal DAILY 04/25/24 [Confirmed 04/25/24] omeprazole 20 mg capsule,delayed release 20 mg PO BID 04/25/24 [Confir (more content not included)... Normal [facility] Glucose (S/P/Bld) [Mass/Vol] Ordered By: Harjeet Solis on 05-09-2024 Glucose [Mass/Vol] 170 mg/dL High 70-110 [facility] Meter Glucoseon 05-09-2024 Glucose [Mass/Vol] 170 mg/dL High 70-110 [facility] Comment on above: Performed By: #### L [phone] #### Main Laboratory ([facility]) [address] [place] [address] René Mar MD Prog Note - H&P Update Stamp on 05-09-2024 Prog Note - H&P Update [facility] Medical Records Patient: BYRON LANDIS [address] : 1965 [place] [address] Location: SURG [phone] Unit #: [id number] Prog Note - HANDP Update Stamp Harjeet Montano MD Service Dt/Tm: 05/09/24 1047 HANDP dictated by Medical Staff Member Patient examined, Chart Reviewed: HANDP updated with the following information Additional Information: Patient notes new locking and catching of the left index finger now and would like this trigger finger released as well today. On exam shes has visible and palpable triggering of the index finger and tenderss at the level of the index A1 rosy. I have discussed the risks, goals, benefits and alternatives to the addition of a left index trigger finger release. Patient has elected for the procedure. Informed consent updated and I and the patient have initialed next to the addendum. Entered by: Harjeet Montano MD on 05/09/24 1047 Report Signed by: Harjeet Solis MD on 05/09/24 1049 < > Report Signed by: on Normal [facility] ANION GAPon 04-17-2024 Anion gap [Moles/Vol] 11.0 mmol/L Normal 8.0-16.0 [facility] Comment on above: Result Comment: ANIO N GAP = Sodium -(Chloride + CO2) Performed By: #### B MP, CBCWD, ANION, EGFR1 #### [facility] BASIC METABOL PANELon 2023 Calcium [Mass/Vol] 8.6 mg/dL Normal 8.5-10.5 [facility] Comment on above: Performed By: #### B MP, CBCWD, ANION, EGFR1 #### [facility] Chloride [Moles/Vol] 102 mmol/L Normal 98-111 [facility] Comment on above: Performed By: #### B MP, CBCWD, ANION, EGFR1 #### [facility] CO2 [Moles/Vol] 24 mmol/L Normal 23-33 [facility] Comment on above: Performed By: #### B MP, CBCWD, ANION, EGFR1 #### [facility] Creatinine [Mass/Vol] 0.7 mg/dL Normal 0.4-1.2 [facility] Comment on above: Performed By: #### B MP, CBCWD, ANION, EGFR1 #### [facility] Glucose [Mass/Vol] 175 mg/dL High 70-108 [facility] Comment on above: Performed By: #### B MP, CBCWD, ANION, EGFR1 #### [facility] Potassium [Moles/Vol] 4.5 mmol/L Normal 3.5-5.2 [facility] Comment on above: Performed By: #### B MP, CBCWD, ANION, EGFR1 #### [facility] Sodium [Moles/Vol] 137 mmol/L Normal 135-145 [facility] Comment on above: Performed By: #### B MP, CBCWD, ANION, EGFR1 #### [facility] Urea nitrogen [Mass/Vol] 14 mg/dL Normal 7-22 [facility] Comment on above: Performed By: #### B MP, CBCWD, ANION, EGFR1 #### [facility] CBC WITH DIFFERENTIALon 10-0 -2023 ABS BASOPHILS 0.1 thou/mm3 Normal 0.0-0.1 [facility] Comment on above: Performed By: #### B MP, CBCWD, ANION, EGFR1 #### [facility] ABS EOSINOPHILS 0.2 thou/mm3 Normal 0.0-0.4 [facility] Comment on above: Performed By: #### B MP, CBCWD, ANION, EGFR1 #### [facility] ABS IMMATURE GRANS (IG) 0.07 thou/mm3 Normal 0.00-0.07 [facility] Comment on above: Performed By: #### B MP, CBCWD, ANION, EGFR1 #### [facility] ABS LYMPHOCYTES 3.6 thou/mm3 Normal 1.0-4.8 [facility] Comment on above: Performed By: #### B MP, CBCWD, ANION, EGFR1 #### [facility] ABS MONOCYTES 0.7 thou/mm3 Normal 0.4-1.3 [facility] Comment on above: Performed By: #### B MP, CBCWD, ANION, EGFR1 #### [facility] ABS NEUTROPHILS 4.4 thou/mm3 Normal 1.8-7.7 [facility] Comment on above: Performed By: #### B MP, CBCWD, ANION, EGFR1 #### [facility] Basophils/100 WBC (Bld) 0.8 % Normal [facility] Comment on above: Performed By: #### B MP, CBCWD, ANION, EGFR1 #### [facility] Eosinophils/100 WBC (Bld) 1.8 % Normal [facility] Comment on above: Performed By: #### B MP, CBCWD, ANION, EGFR1 #### [facility] Erythrocyte distribution width (RBC) [Ratio] 13.6 % Normal 11.5-14.5 [facility] Comment on above: Performed By: #### B MP, CBCWD, ANION, EGFR1 #### [facility] Hematocrit (Bld) [Volume fraction] 43.7 % Normal 37.0-47.0 [facility] Comment on above: Performed By: #### B MP, CBCWD, ANION, EGFR1 #### [facility] Hemoglobin (Bld) [Mass/Vol] 14.1 g/dL Normal 12.0-16.0 [facility] Comment on above: Performed By: #### B MP, CBCWD, ANION, EGFR1 #### [facility] IMMATURE GRANS (IG) 0.8 % Normal [facility] Comment on above: Performed By: #### B MP, CBCWD, ANION, EGFR1 #### [facility] Lymphocytes/100 WBC (Bld) 40.0 % Normal [facility] Comment on above: Performed By: #### B MP, CBCWD, ANION, EGFR1 #### [facility] MCH (RBC) [Entitic mass] 27.8 pg Normal 26.0-33.0 [facility] Comment on above: Performed By: #### B MP, CBCWD, ANION, EGFR1 #### [facility] MCHC (RBC) [Mass/Vol] 32.3 g/dL Normal 32.2-35.5 [facility] Comment on above: Performed By: #### B MP, CBCWD, ANION, EGFR1 #### [facility] MCV (RBC) [Entitic vol] 86.0 fL Normal 81.0-99.0 [facility] Comment on above: Performed By: #### B MP, CBCWD, ANION, EGFR1 #### [facility] Monocytes/100 WBC (Bld) 7.6 % Normal [facility] Comment on above: Performed By: #### B MP, CBCWD, ANION, EGFR1 #### [facility] Neutrophils/100 WBC (Bld) 49.0 % Normal [facility] Comment on above: Performed By: #### B MP, CBCWD, ANION, EGFR1 #### [facility] NRBC 0 /100 wbc Normal [facility] Comment on above: Performed By: #### B MP, CBCWD, ANION, EGFR1 #### [facility] PLATELET 298 thou/mm3 Normal 130-400 [facility] Comment on above: Performed By: #### B MP, CBCWD, ANION, EGFR1 #### [facility] Platelet mean volume (Bld) [Entitic vol] 9.9 fL Normal 9.4-12.4 [facility] Comment on above: Performed By: #### B MP, CBCWD, ANION, EGFR1 #### [facility] RBC 5.08 mill/mm3 Normal 4.20-5.40 [facility] Comment on above: Performed By: #### B MP, CBCWD, ANION, EGFR1 #### [facility] RDW-SD 42.7 fL Normal 35.0-45.0 [facility] Comment on above: Performed By: #### B MP, CBCWD, ANION, EGFR1 #### [facility] WBC 9.0 thou/mm3 Normal 4.8-10.8 [facility] Comment on above: Performed By: #### B MP, CBCWD, ANION, EGFR1 #### [facility] GFR, ESTIMATEDon 04-17-2024 GFR/1.73 sq M.predicted MDRD (S/P/Bld) [Vol rate/Area] mL/min/{1.73_m2} Normal >60 [facility] Comment on above: Result Comment: Pedi atric calculator link https://www.kidney.org/professionals/kdoqi/gfr_calculatorped Effective Apr 17, 2022 These results are [...] following therapy that affects renal tubular secretion. Performed By: #### B MP, CBCWD, ANION, EGFR1 #### [facility] C-PEPTIDEon 03-27-2024 C-PEPTIDE 2.2 ng/mL Normal 1.1-4.4 [facility] Comment on above: Result Comment: Perf ormed at [facility], [address] [place] [id number] . Performed By: #### I CPEP #### [facility] [address] [facility] [address] HEMOGLOBIN A1Con 03-26-2024 Glucose [Mass/Vol] 234 mg/dL High 70-126 [facility] Comment on above: Performed By: #### C MP, H-A1C, LIPD2, EGFR1, ANION #### [address] [address] HbA1c (Bld) [Mass fraction] 9.8 % High 4.4-6.4 [facility] Comment on above: Performed By: #### C MP, H-A1C, LIPD2, EGFR1, ANION #### [address] [address] ANION GAPon 03-25-2024 Anion gap [Moles/Vol] 11.0 mmol/L Normal 8.0-16.0 [facility] Comment on above: Result Comment: ANIO N GAP = Sodium -(Chloride + CO2) Performed By: #### C MP, H-A1C, LIPD2, EGFR1, ANION #### [address] [address] COMP. METABOLIC PANELon 03-16 Albumin [Mass/Vol] 4.1 g/dL Normal 3.5-5.1 [facility] Comment on above: Performed By: #### C MP, H-A1C, LIPD2, EGFR1, ANION #### [facility] [address] [place] [address] ALP [Catalytic activity/Vol] 119 U/L Normal 38-126 [facility] Comment on above: Performed By: #### C MP, H-A1C, LIPD2, EGFR1, ANION #### [facility] [address] [place] [address] ALT [Catalytic activity/Vol] 20 U/L Normal 11-66 [facility] Comment on above: Performed By: #### C MP, H-A1C, LIPD2, EGFR1, ANION #### [facility] [address] [place] [address] AST [Catalytic activity/Vol] 20 U/L Normal 5-40 [facility] Comment on above: Performed By: #### C MP, H-A1C, LIPD2, EGFR1, ANION #### [facility] [address] [place] [address] Bilirubin [Mass/Vol] 0.2 mg/dL Low 0.3-1.2 [facility] Comment on above: Performed By: #### C MP, H-A1C, LIPD2, EGFR1, ANION #### [facility] [address] [place] [address] Calcium [Mass/Vol] 8.5 mg/dL Normal 8.5-10.5 [facility] Comment on above: Performed By: #### C MP, H-A1C, LIPD2, EGFR1, ANION #### [address] [address] Chloride [Moles/Vol] 107 mmol/L Normal 98-111 [facility] Comment on above: Performed By: #### C MP, H-A1C, LIPD2, EGFR1, ANION #### [address] [address] CO2 [Moles/Vol] 21 mmol/L Low 23-33 [facility] Comment on above: Performed By: #### C MP, H-A1C, LIPD2, EGFR1, ANION #### [address] [address] Creatinine [Mass/Vol] 0.5 mg/dL Normal 0.4-1.2 [facility] Comment on above: Performed By: #### C MP, H-A1C, LIPD2, EGFR1, ANION #### [facility] [address] [place] [address] Glucose [Mass/Vol] 188 mg/dL High 70-108 [facility] Comment on above: Performed By: #### C MP, H-A1C, LIPD2, EGFR1, ANION #### [facility] [address] [place] [address] Potassium [Moles/Vol] 4.3 mmol/L Normal 3.5-5.2 [facility] Comment on above: Performed By: #### C MP, H-A1C, LIPD2, EGFR1, ANION #### [address] [address] Protein [Mass/Vol] 7.0 g/dL Normal 6.1-8.0 [facility] Comment on above: Performed By: #### C MP, H-A1C, LIPD2, EGFR1, ANION #### [address] [address] Sodium [Moles/Vol] 139 mmol/L Normal 135-145 [facility] Comment on above: Performed By: #### C MP, H-A1C, LIPD2, EGFR1, ANION #### [address] [address] Urea nitrogen [Mass/Vol] 14 mg/dL Normal 7-22 [facility] Comment on above: Performed By: #### C MP, H-A1C, LIPD2, EGFR1, ANION #### [address] [address] GFR, ESTIMATEDon 03-25-2024 GFR/1.73 sq M.predicted MDRD (S/P/Bld) [Vol rate/Area] mL/min/{1.73_m2} Normal >60 [facility] Comment on above: Result Comment: Jo Ann atric calculator link https://www.kidney.org/professionals/kdoqi/gfr_calculatorped Effective Apr 17, 2022 These results are [...] following therapy that affects renal tubular secretion. Performed By: #### C MP, H-A1C, LIPD2, EGFR1, ANION #### [address] [address] LIPID PANELon 03-25-2024 Cholesterol [Mass/Vol] 253 mg/dL High 100-199 [facility] Comment on above: Result Comment: <200 Desirable 200 - 239 Borderline High >239 High Performed By: #### C MP, H-A1C, LIPD2, EGFR1, ANION #### [facility] [address] [place] [address] Cholesterol in HDL [Mass/Vol] 51 mg/dL Normal [facility] Comment on above: Result Comment: Refe r to General Chemistry for CHOL and TRIG results. HDL CLASSIFICATIONS FOR PATIENTS > 20 YEARS OLD. <40 Undesirable (Major Risk Factor) >60 Protective (Negative Risk Factor) Performed By: #### C MP, H-A1C, LIPD2, EGFR1, ANION #### [facility] [address] [place] [address] Cholesterol in LDL [Mass/Vol] 132 mg/dL Normal [facility] Comment on above: Result Comment: Refe r to General Chemistry for CHOL and TRIG results. LDL CLASSIFICATIONS FOR PATIENTS >20 YEARS OLD: Determination Invalid if TRIG >400 <100 Optimal 100 - 129 Near or Above Optimal 130 - 159 Borderline High 160 - 189 High Risk >189 Very High Risk Performed By: #### C MP, H-A1C, LIPD2, EGFR1, ANION #### [facility] [address] [place] [address] Triglyceride [Mass/Vol] 350 mg/dL High 0-199 [facility] Comment on above: Result Comment: <150 Desirable 150 - 199 Borderline High 200 - 499 High >449 Very High Ranges are based upon NCEP/ATP III guidelines. Performed By: #### C MP, H-A1C, LIPD2, EGFR1, ANION #### [facility] [address] [place] [address] MICROALBUMIN RANDOMon 2023 Creatinine [Mass/Vol] 198.0 mg/dL Normal [facility] Comment on above: Performed By: #### M ALBR #### [facility] [address] [place] [address] MICROALB/CREAT RATIO 6 mg/g Normal 0-30 [facility] Comment on above: Performed By: #### M ALBR #### [employer] [address] [place] [address] MICROALBUMIN RANDOM < 1.20 Normal [facility] Comment on above: Performed By: #### M ALBR #### [facility] [address] [place] [address] COVID/FLU/RSV RT-PCRon 07-11 SARS-CoV-2 (COVID-19) RNA THELMA+probe Ql (Unsp spec) Negative [facility] Other COVID/FLU/RSV RT-PCR Negative [facility] Other MILADY by IFA w/Reflexon 2019 MILADY Additional Testing DNR Normal [facility] Comment on above: Performed By: #### S ED RATE, CBC Auto Diff #### [facility] [address] [place] [address] MILADY by IFA w/Reflexon 2019 MILADY Screen Negative Normal Negative [facility] Comment on above: Result Comment: MILADY IFA is a first line screen for detecting the presence of up to approximately 150 autoantibodies in various autoimmune diseases. A negative MILADY IFA result suggests MILADY-associated autoimmune disease is not present at this time, but is not definitive. If there is high clinical suspicion for Sjogren's Syndrome, testing for anti-SS-A/Ro antibody should be considered. Anti-Rut-1 antibody should be considered for clinically suspected inflammatory myopathies. AC-0: Negative International Consensus on MILADY Patterns https://doi.org/10.1515/cnqz-7234-9386 For additional information, please refer to http://education.S&N Airoflo.Takipi/faq/BMP505 (This link is being provided for informational/ educational purposes only.) Test Performed by [employer], [employer] [facility], [address] [place] [address], [place] [address] Jesse Medina M.D., Ph.D., Director of Laboratories , CLIA [id number] Performed By: #### S ED RATE, CBC Auto Diff #### [facility] [address] [place] [address] CCP Antibody, IgGon 04-15-20 20 CCP Antibody, IgG <16 Normal <20 [facility] Comment on above: Result Comment: Nega tive: <20 Weak Positive: 20 - 39 Moderate Positive: 40 - 59 Strong Positive: >59 Test Performed by Kran[facility], [employer] [facility], [address] [place], [place] Jesse Medina M.D., Ph.D., Director of Laboratories , CLIA [id number] Performed By: #### H EP C ABQ, SSA AND SSBQ, CCP AB, IGGQ, MILADY W/REFLEXQ #### [address] [address] Hepatitis B surface Antigeno n 04-15-2020 Hepatitis B surface Antigen Negative Normal NEGATIVE [facility] Comment on above: Performed By: #### S ED RATE, CBC Auto Diff #### [address] [address] Hepatitis C Antibodyon 04-15 Hepatitis C Antibody Nonreactive Normal Nonreactive [facility] Comment on above: Performed By: #### H EP C ABQ, SSA AND SSBQ, CCP AB, IGGQ, MILADY W/REFLEXQ #### [address] [address] Signal to Cutoff 0.02 ratio Normal <1.00 [facility] Comment on above: Result Comment: Not indicated Test Performed by Kranem, [employer] [facility], [address] [place], [place] Jesse Medina M.D., Ph.D., Director of Laboratories , CLIA [id number] Performed By: #### H EP C ABQ, SSA AND SSBQ, CCP AB, IGGQ, MILADY W/REFLEXQ #### [address] [address] SS-A & SS-B Antibodieson SS-A Antibody <1.0 Normal [facility] Comment on above: Result Comment: Refe rence Range: < 1.0 NEG AI Performed By: #### H EP C ABQ, SSA AND SSBQ, CCP AB, IGGQ, MILADY W/REFLEXQ #### [facility] [address] [place] [address] SS-B Antibodies <1.0 Normal [facility] Comment on above: Result Comment: Refe rence Range: < 1.0 NEG AI Test Performed by Kranem, [facility], [address] [place] [address] Jesse Medina M.D., Ph.D., Director of Laboratories , CLIA [id number] Performed By: #### H EP C ABQ, SSA AND SSBQ, CCP AB, IGGQ, MILADY W/REFLEXQ #### [place] [address] [address] [place], [place] [id number] Hepatitis B Core Abon 2019 Hepatitis B Core Ab Nonreactive Normal Nonreactive [facility] Comment on above: Result Comment: Test Performed by Fruitfulll Means, [facility], [address] [place] [address] Jesse Medina M.D., Ph.D., Director of Laboratories , CLIA [id number] Performed By: #### H EP B CORE ABQ #### [address] [address] XR FEET BILATERAL NON-MEDICA REon 04-12-2020 XR FEET BILATERAL NON-MEDICARE EXAM: Bilateral feet HISTORY: Chronic pain. TECHNIQUE: 4 views of both feet were obtained. FINDINGS: There is no evidence of fracture or dislocation. There are no suspicious bone lesions. There are bilateral heel spurs. There is a small tug enthesophyte at the insertion of the Achilles tendon on the left. Soft tissues are normal. IMPRESSION: No acute findings. Evidence of prior bilateral plantar fasciitis and left-sided Achilles tendinosis. Report electronically signed by: Dr. Chely Chacon [facility] XR HAND LT 2 VWAon 0 XR HAND LT 2 VWA EXAM: XR HAND LT 2 V WA, XR HAND RT 2 VWS - 04/10/2020. HISTORY: JOINT PAIN COMPARISON: None. FINDINGS: AP and lateral views of each hand for a total of 4 images were obtained. Multifocal osteoarthritis involving articulations of both hands and wrists are identified. This is indicated by joint space narrowing, periarticular sclerosis and osteophytosis and overall is mild in severity. On the left, arthritic changes are most apparent for example at first IP as well as third and fourth DIP, first and second MCP, first CMC, triscaphe and distal radiocarpal articulations. On the right, this is somewhat more apparent at the second and third DIP, first through fourth MCP, first CMC, triscaphe and distal radiocarpal articulations. Subcentimeter ossicle along the ulnar side of the second and MCP joint related to remote trauma suggested. No acute fracture or dislocation. IMPRESSION: 1. 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 2. The lamina is satisfactory. No acute fracture or dislocation involving either hand. Report electronically signed by: Dr. Gilberto Mayfield [facility] XR HAND RT 2 VWSon 0 XR HAND RT 2 VWS EXAM: XR HAND LT 2 V WA, XR HAND RT 2 VWS - 04/10/2020. HISTORY: JOINT PAIN COMPARISON: None. FINDINGS: AP and lateral views of each hand for a total of 4 images were obtained. Multifocal osteoarthritis involving articulations of both hands and wrists are identified. This is indicated by joint space narrowing, periarticular sclerosis and osteophytosis and overall is mild in severity. On the left, arthritic changes are most apparent for example at first IP as well as third and fourth DIP, first and second MCP, first CMC, triscaphe and distal radiocarpal articulations. On the right, this is somewhat more apparent at the second and third DIP, first through fourth MCP, first CMC, triscaphe and distal radiocarpal articulations. Subcentimeter ossicle along the ulnar side of the second and MCP joint related to remote trauma suggested. No acute fracture or dislocation. IMPRESSION: 1. 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 2. The lamina is satisfactory. No acute fracture or dislocation involving either hand. Report electronically signed by: Dr. Gilberto Mayfield Normal [facility] C-Reactive Proteinon 020 CRP [Mass/Vol] 0.6 mg/dL Normal <1.0 [facility] Comment on above: Performed By: #### C RP #### [address] [address] CRP [Mass/Vol] = Normal [facility] Comment on above: Performed By: #### C RP #### [address] [address] CBC W Auto Differentialon Abs Neut # 7.1 10 X 3/mm Normal 1.8 - 7.7 [facility] Comment on above: Performed By: #### S ED RATE, CBC Auto Diff #### [address] [address] Basophils/100 WBC (Bld) 1 % Normal 0 - 1 [facility] Comment on above: Performed By: #### S ED RATE, CBC Auto Diff #### [address] [address] Eosinophils (Bld) [#/Vol] 0.2 10 X 3/mm Normal 0.0 - 0.5 [facility] Comment on above: Performed By: #### S ED RATE, CBC Auto Diff #### [address] [address] Eosinophils/100 WBC (Bld) 1 % Normal 0 - 5 [facility] Comment on above: Performed By: #### S ED RATE, CBC Auto Diff #### [address] [address] Erythrocyte distribution width (RBC) [Ratio] 13.1 % Normal 11.5 - 14.5 [facility] Comment on above: Performed By: #### S ED RATE, CBC Auto Diff #### [address] [place] [address] Hematocrit (Bld) [Volume fraction] 47.1 % High 36.0 - 47.0 [facility] Comment on above: Performed By: #### S ED RATE, CBC Auto Diff #### [address] [place] [address] Hemoglobin (Bld) [Mass/Vol] 15.1 g/dL Normal 12.0 - 16.0 [facility] Comment on above: Performed By: #### S ED RATE, CBC Auto Diff #### [address] [place] [address] IG# 0.06 uLx10 Normal [facility] Comment on above: Performed By: #### S ED RATE, CBC Auto Diff #### [address] [place] [address] IG% 0.50 % Normal [facility] Comment on above: Performed By: #### S ED RATE, CBC Auto Diff #### [address] [address] Lymphocytes (Bld) [#/Vol] 3.0 10 X 3/mm Normal 1.0 - 4.0 [facility] Comment on above: Performed By: #### S ED RATE, CBC Auto Diff #### [address] [place] [address] Lymphocytes/100 WBC (Bld) 27 % Normal 20 - 40 [facility] Comment on above: Performed By: #### S ED RATE, CBC Auto Diff #### [address] [place] [address] MCH (RBC) [Entitic mass] 27.8 pg Normal 27.0 - 35.0 [facility] Comment on above: Performed By: #### S ED RATE, CBC Auto Diff #### [address] [place] [address] MCHC (RBC) [Mass/Vol] 32.1 g/dL Normal 32.0 - 36.0 [facility] Comment on above: Performed By: #### S ED RATE, CBC Auto Diff #### [address] [address] MCV (RBC) [Entitic vol] 86.7 fL Normal 80.0 - 100.0 [facility] Comment on above: Performed By: #### S ED RATE, CBC Auto Diff #### [address] [address] Monocytes/100 WBC (Bld) 7 % Normal 1 - 15 [facility] Comment on above: Performed By: #### S ED RATE, CBC Auto Diff #### [address] [address] Neutrophils/100 WBC (Bld) 64 % Normal 50 - 70 [facility] Comment on above: Performed By: #### S ED RATE, CBC Auto Diff #### [address] [address] Platelet mean volume (Bld) [Entitic vol] 10.1 fL Normal 9.4 - 12.3 [facility] Comment on above: Performed By: #### S ED RATE, CBC Auto Diff #### [address] [address] Platelets (Bld) [#/Vol] 269 uLx10 Normal 150 - 450 [facility] Comment on above: Performed By: #### S ED RATE, CBC Auto Diff #### [address] [place] [address] RBC (Bld) [#/Vol] 5.43 10 X 6/mm High 4.20 - 5.40 [facility] Comment on above: Performed By: #### S ED RATE, CBC Auto Diff #### [address] [place] [address] WBC (Bld) [#/Vol] 11.1 10 X 3/mm High 3.7 - 11.0 [facility] Comment on above: Performed By: #### S ED RATE, CBC Auto Diff #### [address] [address] Age at specimen collection = Normal [facility] Comment on above: Performed By: #### S ED RATE, CBC Auto Diff #### [address] [address] Performed By: #### H EP C ABQ, SSA AND SSBQ, CCP AB, IGGQ, MILADY W/REFLEXQ #### [address] [address] Performed By: #### H EP B CORE ABQ #### [address] [address] Comprehensive Metabolic [facility] 04-10-2020 GFR/1.73 sq M predicted among non-blacks MDRD (S/P/Bld) [Vol rate/Area] 141.01 Normal [facility] Comment on above: Result Comment: eGFR Interpretation: Normal or minimal kidney damage with normal GFR: 90+ Mild decrease in GFR: 60-89 Moderate decrease in GFR: 30-59 Severe decrease in GFR: 15-29 Kidney failure: <15 Performed By: #### S ED RATE, CBC Auto Diff #### [address] [address] GFR/1.73 sq M predicted among non-blacks MDRD (S/P/Bld) [Vol rate/Area] 99.6 Normal [facility] Comment on above: Result Comment: eGFR Interpretation: Normal or minimal kidney damage with normal GFR: 90+ Mild decrease in GFR: 60-89 Moderate decrease in GFR: 30-59 Severe decrease in GFR: 15-29 Kidney failure: <15 Performed By: #### S ED RATE, CBC Auto Diff #### [facility] [address] [place] [address] GFR/1.73 sq M predicted among non-blacks MDRD (S/P/Bld) [Vol rate/Area] 163.01 Normal [facility] Comment on above: Performed By: #### S ED RATE, CBC Auto Diff #### [address] [place] [address] GFR/1.73 sq M predicted among non-blacks MDRD (S/P/Bld) [Vol rate/Area] 125.73 Normal [facility] Comment on above: Performed By: #### S ED RATE, CBC Auto Diff #### [address] [place] [address] GFR/1.73 sq M predicted among non-blacks MDRD (S/P/Bld) [Vol rate/Area] 106.28 Normal [facility] Comment on above: Result Comment: eGFR Interpretation: Normal or minimal kidney damage with normal GFR: 90+ Mild decrease in GFR: 60-89 Moderate decrease in GFR: 30-59 Severe decrease in GFR: 15-29 Kidney failure: <15 Performed By: #### S ED RATE, CBC Auto Diff #### [facility] [address] [place] [address] GFR/1.73 sq M predicted among non-blacks MDRD (S/P/Bld) [Vol rate/Area] 108.76 Normal [facility] Comment on above: Result Comment: eGFR Interpretation: Normal or minimal kidney damage with normal GFR: 90+ Mild decrease in GFR: 60-89 Moderate decrease in GFR: 30-59 Severe decrease in GFR: 15-29 Kidney failure: <15 Performed By: #### S ED RATE, CBC Auto Diff #### [address] [place] [address] Age - Reported 55 year(s) [facility] Comment on above: Performed By: #### S ED RATE, CBC Auto Diff #### [address] [place] [address] GFR/1.73 sq M predicted among non-blacks MDRD (S/P/Bld) [Vol rate/Area] 122.51 Normal [facility] Comment on above: Performed By: #### S ED RATE, CBC Auto Diff #### [address] [address] GFR/1.73 sq M predicted among non-blacks MDRD (S/P/Bld) [Vol rate/Area] 114.78 Normal [facility] Comment on above: Performed By: #### S ED RATE, CBC Auto Diff #### [address] [address] Albumin [Mass/Vol] 3.8 g/dL Normal 3.5 - 5.0 [facility] Comment on above: Performed By: #### S ED RATE, CBC Auto Diff #### [address] [place] [address] ALP [Catalytic activity/Vol] 81 U/L Normal 38 - 126 [facility] Comment on above: Performed By: #### S ED RATE, CBC Auto Diff #### [address] [address] ALT [Catalytic activity/Vol] 20 U/L Normal 0 - 35 [facility] Comment on above: Performed By: #### S ED RATE, CBC Auto Diff #### [address] [place] [address] AST [Catalytic activity/Vol] 21 U/L Normal 14 - 36 [facility] Comment on above: Performed By: #### S ED RATE, CBC Auto Diff #### [address] [place] [address] Bilirubin [Mass/Vol] 0.4 mg/dL Normal 0.2 - 1.3 [facility] Comment on above: Performed By: #### S ED RATE, CBC Auto Diff #### [address] [place] [address] Calcium [Mass/Vol] 9.6 mg/dL Normal 8.4 - 10.2 [facility] Comment on above: Performed By: #### S ED RATE, CBC Auto Diff #### [address] [place] [address] Chloride [Moles/Vol] 105 mmol/L Normal 98 - 107 [facility] Comment on above: Performed By: #### S ED RATE, CBC Auto Diff #### [address] [place] [address] CO2 [Moles/Vol] 19 mmol/L Low 22 - 32 [facility] Comment on above: Performed By: #### S ED RATE, CBC Auto Diff #### [address] [place] [address] Creatinine [Mass/Vol] 0.65 mg/dL Normal 0.52 - 1.04 [facility] Comment on above: Performed By: #### S ED RATE, CBC Auto Diff #### [address] [place] [address] Glucose [Mass/Vol] 286 mg/dL High 65 - 100 [facility] Comment on above: Performed By: #### S ED RATE, CBC Auto Diff #### [facility] [address] [place] [address] Potassium [Moles/Vol] 4.1 mmol/L Normal 3.6 - 5.0 [facility] Comment on above: Performed By: #### S ED RATE, CBC Auto Diff #### [facility] [address] [place] [address] Protein [Mass/Vol] 6.5 g/dL Normal 6.3 - 8.2 [facility] Comment on above: Performed By: #### S ED RATE, CBC Auto Diff #### [address] [place] [address] Sodium [Moles/Vol] 135 mmol/L Normal 135 - 145 [facility] Comment on above: Performed By: #### S ED RATE, CBC Auto Diff #### [address] [place] [address] Urea nitrogen [Mass/Vol] 11 mg/dL Normal 7 - 17 [facility] Comment on above: Performed By: #### S ED RATE, CBC Auto Diff #### [address] [place] [address] Sed Rateon 04-10-2020 Sed Rate 8 mm/hr Normal 0 - 20 [facility] Comment on above: Result Comment: The ESR varies with age. The maximum normal ESR at a given age is calculated using the formulas:Men: Age in years/2Women: (Age in years + 10)/2 Performed By: #### S ED RATE, CBC Auto Diff #### [address] [place] [address] Uric Acidon 04-10-2020 Urate [Mass/Vol] 3.5 mg/dL Normal 2.5 - 7.5 [facility] Comment on above: Performed By: #### S ED RATE, CBC Auto Diff #### [address] [place] [address] Coding Summary.on 09-26-2018 Coding Summary. CODING DATE: 019 [facility] STATUS: Home (Routine DC) PAYOR: Medicaid EAPG DESCRIPTION 0403 ORGAN OR DISEASE ORIENTED PANELS 0398 LEVEL I ENDOCRINOLOGY TESTS 0400 LEVEL I CHEMISTRY TESTS ADMIT DX: REASON FOR VISIT DX: E11.40 Type 2 diabetes mellitus with diabetic neuropathy, unspecified FINAL DX: PRINCIPAL: E11.40 Type 2 diabetes mellitus with diabetic neuropathy, unspecified SECONDARY: E11.59 Type 2 diabetes mellitus with other circulatory complications PYMT PROC EAPG STAT DESCRIPTION DOCTOR NAME DATE NOTE: The code number assigned matches the documented diagnosis and / or procedure in the patient's chart. However, the narrative phrase printed from the coding software may appear abbreviated, or result in slightly different terminology. Coded By: Janie Duncan CphT Date Saved: 09/26/2018 11:48 am Normal [facility] BMPon 09-12-2018 Anion gap molar conc 13 mmol/L Normal 6-16 [facility] Comment on above: Performed By: #### 2 [id number], [id number], [id number] #### [facility] [address] [place] [address] Calcium mass conc 8.7 mg/dL Low 8.9-11.1 [facility] Comment on above: Performed By: #### 2 [id number], [id number], [id number] #### [facility] [address] [place] [address] Chloride molar conc 102 mmol/L Normal 101-111 [facility] Comment on above: Performed By: #### 2 751741, [id number], [id number] #### [facility] [address] [place] [address] CO2 molar conc 22 mmol/L Normal 21-31 [facility] Comment on above: Performed By: #### 2 736463, [id number], [id number] #### [facility] [address] [place] [address] Creatinine mass conc 0.7 mg/dL Normal 0.5-1.3 [facility] Comment on above: Performed By: #### 2 492629, [id number], [id number] #### [facility] [address] [place] [address] Glucose mass conc 372 mg/dL High 55-199 [facility] Comment on above: Result Comment: If t his glucose result represents a fasting glucose, interpretation should refer to the following reference range: 55-99 mg/dL Performed By: #### 2 422992, [id number], [id number] #### [facility] [address] [place] [address] Potassium molar conc 4.5 mmol/L Normal 3.5-5.3 [facility] Comment on above: Performed By: #### 2 401173, [id number], [id number] #### [facility] [address] [place] [address] Sodium molar conc 132 mmol/L Low 135-145 [facility] Comment on above: Performed By: #### 2 537415, [id number], [id number] #### [facility] [address] [place] [address] Urea nitrogen mass conc 9 mg/dL Normal 5-21 [facility] Comment on above: Performed By: #### 2 227609, [id number], [id number] #### [facility] [address] [place] [address] Urea nitrogen/Creatinin e mass ratio 13 No Units Normal 10-20 [facility] Comment on above: Performed By: #### 2 073372, [id number], [id number] #### [facility] [address] [place] [address] [id number] 09-12-2018 Hemoglobin A1c/Hemoglobin.tot al mass fraction (Bld) 9.9 % High <=5.9 [facility] Comment on above: Performed By: #### 2 222525, [id number], [id number], [id number] ####[facility] [id number] [place] [address] TSH With T4fr Reflexon 09-12 Thyrotropin Qn 1.86 mcIU/mL Normal 0.34-5.60 [facility] Comment on above: Performed By: #### 2 111590, [id number], [id number], [id number] ####[facility] [address] [place] [address] eGFRon 09-12-2018 GFR/1.73 sq M predicted among blacks MDRD vol rate/area (S/P/Bld) mL/min/{1.73_m2} Normal >=59 [facility] Comment on above: Order Comment: Order added by Discern Expert. Result Comment: eGFR is race adjusted. AA=. Performed By: #### 2 349838, [id number], [id number], [id number] ####[facility] [id number] [place] [address] GFR/1.73 sq M predicted among non-blacks MDRD vol rate/area (S/P/Bld) mL/min/{1.73_m2} Normal >=59 [facility] Comment on above: Order Comment: Order added by Discern Expert. Result Comment: Photocopier Technician arlet kidney disease could be indicated at eGFR's of less than 60 mL/min/1.73m2. Kidney failure is indicated at less than 15 mL/min/1.73m2. Performed By: #### 2 055872, [id number], [id number], [id number] ####[facility] [address] [place] [address] C Blood Charcoalon 8 Protein mass conc Microbiology PROCEDURE: Blood Culture Charcoal [R1] SOURCE: Blood BODY SITE: Arm R COLLECTED DATE/TIME: 05/22/2018 13:28 EST RECEIVED DATE/TIME: 05/22/2018 14:10 EST START DATE/TIME: 05/22/2018 14:10 EST FREE TEXT SOURCE: Bubba IRWIN, Kingsley Mac PA-C, Kingsley Mendoza FINAL REPORTS Final Report [] Verified Date/Time: 05/29/2018 18:00 EST No growth at 7 days. Performing Locations R1: This test was performed at: [facility], [address] [place] [address], [address] , [facility] Comment on above: Performed By: #### 2 226583, [id number], [id number] #### [facility] [address] [place] [address] C Blood Charcoalon 8 Protein mass conc Microbiology PROCEDURE: Blood Culture Charcoal [R1] SOURCE: Blood BODY SITE: Hand R COLLECTED DATE/TIME: 05/22/2018 13:29 EST RECEIVED DATE/TIME: 05/22/2018 14:11 EST START DATE/TIME: 05/22/2018 14:11 EST FREE TEXT SOURCE: Kingsley Mac PA-C, PA-C, Kingsley Mendoza FINAL REPORTS Final Report [] Verified Date/Time: 05/29/2018 18:00 EST No growth at 7 days. Performing Locations R1: This test was performed at: [facility], [address] [place] [address], [address] , [address] [place] [address] Comment on above: Performed By: #### 2 [id number], [id number], [id number] #### [facility] [address] [place] [address] Coding Summary.on 05-28-2018 Coding Summary. CODING DATE: 018 FINAL [facility] STATUS: Home (Routine DC) PAYOR: Medicaid Grouper: 190 MS-DRG Chronic obstructive pulmonary disease w CUSTODIAL Low Trim 0 High Trim 999 140 APR-DRG CHRONIC OBSTRUCTIVE PULMONARY DISEASE Severity of Illness Moderate Risk of Mortality Minor ADMIT DX: J44.1 Chronic obstructive pulmonary disease with (acute) exacerbation REASON FOR VISIT DX: FINAL DX: PRINCIPAL: J44.1 Y Chronic obstructive pulmonary disease with (acute) exacerbation SECONDARY: J18.9 Y Pneumonia, unspecified organism Z68.43 1 Body mass index (BMI) 50-59.9, adult E66.01 Y Morbid (severe) obesity due to excess calories J44.0 Y Chronic obstructive pulmonary disease with acute lower respiratory infection G47.33 Y Obstructive sleep apnea (adult) (pediatric) E11.9 Y Type 2 diabetes mellitus without complications F17.210 Y Nicotine dependence, cigarettes, uncomplicated F32.9 Y Major depressive disorder, single episode, unspecified Z99.89 1 Dependence on other enabling machines and devices Z79.4 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 However, the narrative phrase printed from the coding software may appear abbreviated, or result in slightly different terminology. Coded By: Marianne Louis Date Saved: 05/28/2018 10:31 am Normal [facility] U Legi Agon 05-27-2018 L. pneumophila 1 Ag IA Ql (U) Negative Negative [facility] Comment on above: Result Comment: Pres umptive negative for L. pneumophila serogroup 1 antigen in urine, suggesting no recent or current infection. Legionnaires' disease cannot be ruled out since other serogroups and species may also cause disease. Performed at: [address] [id number] MD Alec Norman Performed By: #### 2 429900, [id number], [id number] #### [facility] [address] [place] [address] Inpatient Clinical Summaryon 05-25-2018 Inpatient Clinical Summary [address] [address] Clinical Summary Person Information: Name: BYRON LANDIS Age: 53 Years : 1965 12:00 AM Sex: Female PCP: Maria Teresa Scott CNP Marital Status: Phone: [phone] Race: White Ethnicity: Non- or Language: Rwandan Visit Id: Visit Reason: Cough; COPD, PNEUMONIA Speciality: Acuity: 3 Enc Type: Inpatient Med Service: Medical Arrival: 05/22/2018 12:27 PM Discharge: Dispo Type: Admitted as IP to this Hosp Address: [address] [place] [id number] Provider Notes: Diagnosis: 1:Hypoxia; 2:COPD exacerbation; 3:Pneumonia; 4:DM (diabetes mellitus); 5:Sleep apnea; 6:Smoker; 7:Depression; 8:Extreme obesity Problems Active Pneumonia Polymyalgia rheumatica Cervical dystonia Asthma Cervical stenosis of spine Depression Migraine Extreme obesity Smoker Cataract Sleep apnea Hyperlipidemia Osteoarthritis Neuropathy DM (diabetes mellitus) Fibromyalgia Smoking Status: Current Every Day Smoker Functional Status: Sensory Deficits: Wears glasses History of Falls: Within last one year Mobility Assistance Prior to Admission: Independent ADLs: Independent Current Level of Assistance for Self-Care/Mobility: Cognitive Status: Oriented x 3 Allergies Contrast Dye (Anaphylaxis) Demerol HCl (C/O - vomiting) (Hives) morphine (Hives) Avelox (Anaphylaxis) Tape penicillins () sulfa drugs (Hives) tetracycline (Hives) Zithromax () codeine (Hives) Valium (Agitation) Reglan (Agitation) dextromethorphan (Hives) Measurements: Height: 164 cm Weight: 136.9 kg Blood Pressure: 100 mmHg / 73 mmHg BMI: 51.31 kg/m2 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 acetaZOLAMIDE (acetaZOLAMIDE 125 mg Tab) 1 Tabs By Mouth at bedtime. acetaZOLAMIDE (acetaZOLAMIDE 250 mg Tab) 1 Tabs By Mouth at bedtime. Takes with a 125mg tablet to make 375mg. albuterol (ProAir HFA) 2 Puffs Inhalation 4 times a day as needed Shortness of breath or wheezing. albuterol-ipratropium (DuoNeb 2.5 mg-0.5 mg/3 mL Soln-Inh) 3 Milliliter Inhalation 4 times a day. Refills: 0. alprazolam (Xanax 1 mg Tab) 2 Tabs By Mouth at bedtime. APAP/butalbital/caffeine (APAP/butalbital/caffeine 325 mg-50 mg-40 mg Tab) Take 1 tablet by mouth at onset of headache or migraine. May repeat every 4-6 hours, however do not exceed 2 times per day; as needed for headache. atorvastatin (atorvastatin 20 mg Tab) 1 Tabs By Mouth at bedtime. azelastine nasal 1 spray Inhalation every day as needed Allergy symptoms. biotin 40247 mcg By Mouth 2 times a day. celecoxib (CeleBREX 200 mg Cap) 1 Capsules By Mouth every day. cyproheptadine (cyproheptadine 4 mg Tab) 3 Tabs By Mouth at bedtime. diclofenac (diclofenac potassium 50 mg oral tablet) 1 Tabs By Mouth 2 times a day. diphenhydrAMINE (Benadryl 25 mg Cap) 2 Capsules By Mouth every 6 hours as needed Itching. duloxetine (Cymbalta 60 mg Cap-EC) 1 Capsules By Mouth 2 times a day. epinephrine (Epipen) 1 dose Intramuscular As Directed as needed Anaphylaxis. ergocalciferol (Vitamin D 50,000 intl units (1.25 mg) oral capsule) 1 Capsules By Mouth Sunday. esomeprazole (Nexium 40 mg Cap-EC) 1 Capsules By Mouth every day. famotidine (famotidine 20 mg Tab) 1 Tabs By Mouth once a day (at bedtime). fexofenadine (fexofenadine 180 mg Tab) 1 Tabs By Mouth every day. gabapentin (Neurontin 800 mg Tab) 2 Tabs By Mouth at bedtime. gabapentin (Neurontin 800 mg Tab) 1 Tabs By Mouth every day. guaifenesin (Mucinex 600 mg Tab-ER) 2 Tabs By Mouth 2 times a day for 10 Days. Refills: 0. insulin aspart (NovoLOG 100 units/mL Injection-Insulin) Sliding Scale Subcutaneous every day as needed Other (see comment). 0-150 0 units 151-200 2 units 201-250 4 units 251-300 6 units 301-350 8units 351-400 10 units over 400 call insulin degludec (Tresiba FlexTouch 200 units/mL subcutaneous solution) 70 Units Subcutaneous every day. lamotrigine (lamotrigine 100 mg oral tablet) 1 Tabs By Mouth every day. lisinopril (lisinopril 5 mg Tab) 1 Tabs By Mouth every day. montelukast (Singulair 10 mg Tab) 1 Tabs By Mouth at bedtime. nystatin (nystatin 100,000 units/mL oral suspension) 5 Milliliter By Mouth 4 times a day. oxcarbazepine (Trileptal 300 mg Tab) 2 Tabs By Mouth once a day (in the evening). oxcarbazepine (Trileptal 300 mg Tab) 1 Tabs By Mouth once a day (in the morning). predniSONE (predniSONE 20 mg Tab) 60mg daily x4d, 40mg daily x3d, 20mg daily x3d, 10mg daily x2d. Refills: 0. ropinirole (ropinirole 0.25 mg Tab) 2 Tabs By Mouth at bedtime. temazepam (temazepam 30 mg Cap) 1 Capsules By Mouth once a day (at bedtime) as needed for sleep. tizanidine (Zanaflex) 8 Milligram By Mouth at bedtime. Care Team Members: Attending Physician: Cece Spicer MD Consulting Physician: Referring Physician: Follow up: With: Address: When: Maria Teresa Scott [address] [place], [place] [id number] Business (1) 05/31/18 14:45:00 Comments: Appointment is with Andrea Segovia at 2:45 pm. Discuss outpatient PFTs when acute illness is resolved. Patient Education Information: Smoking Cessation, Tips For Success(CUSTOM); Asthma Attack Prevention; Diet - Basic Carbohydrate Counting (Custom) predniSONE 20 mg Tab Normal [facility] Inpatient Patient Summaryon 05-25-2018 Inpatient Patient Summary [place] [id number] Patient Discharge Instructions PERSON INFORMATION Name: BYRON LANDIS Date of : 1965 12:00 AM Current Date: 05/25/18 11:30:18 PHYSICIANS Admitting Physician: Cece Spicer MD Primary Care Physician: Maria Teresa Scott CNP PCP Comment: Discharge Diagnosis: 1:Hypoxia; 2:COPD exacerbation; 3:Pneumonia; 4:DM (diabetes mellitus); 5:Sleep apnea; 6:Smoker; 7:Depression; 8:Extreme obesity Condition at Discharge: Improved BYRON LANDIS has been given the following list of follow-up instructions, prescriptions, and patient education materials: PATIENT FOLLOW-UP INFORMATION Diet: Calorie Controlled- 1800 Calorie Diet Discharge Activity: Activity as tolerated Discharge Restrictions: Wound Care Instructions: Remove Your Dressing In Days Call Your Doctor For: Return to Work: IF UNABLE TO CONTACT YOUR PHYSICIAN AND YOU FEEL IT IS AN EMERGENCY, GO TO THE NEAREST EMERGENCY ROOM OR CALL 911 Home Treatment: Devices/Equipment: Special Services: Additional Instructions: Primary Care Physician to provide the following pending test results: None Follow up: With: Address: When: Maria Teresa Scott [address] [place] [address] [place] [address] [facility] (1) 05/31/18 14:45:00 Comments: Appointment is with Andrea Segovia at 2:45 pm. Discuss outpatient PFTs when acute illness is resolved. In the event that this physician does not participate in your insurance network, please consult with your insurance company to find a nearby participating provider. Comment: PREETI Silverman TONA L, have received the attached patient education materials/instructions and have verbalized understanding: Patient Signature Date Clinican/Nurse Signature Date HERE ARE THE MEDICATION CHANGES THAT OCCURRED DURING YOUR HOSPITAL STAY New Medications [facility], [address] [place], [place] [address] [id number], [phone] guaifenesin (Mucinex 600 mg Tab-ER) 2 Tabs By Mouth 2 times a day for 10 Days. Refills: 0. Last Dose: Ne xt Dose: predniSONE (predniSONE 20 mg Tab) 60mg daily x4d, 40mg daily x3d, 20mg daily x3d, 10mg daily x2d. Refills: 0. Last Dose: Ne xt Dose: Printed Prescriptions albuterol-ipratropium (DuoNeb 2.5 mg-0.5 mg/3 mL Soln-Inh) 3 Milliliter Inhalation 4 times a day. Refills: 0. Last Dose: Ne xt Dose: Medications to Continue Taking That Have Changed Other Medications START: albuterol (ProAir HFA) 2 Puffs Inhalation 4 times a day as needed Shortness of breath or wheezing. Last Dose: Ne xt Dose: STOP: albuterol (albuterol 0.083% Soln-Inh) 3 Milliliter Inhalation every 6 hours as needed for wheezing. START: diclofenac (diclofenac potassium 50 mg oral tablet) 1 Tabs By Mouth 2 times a day. Last Dose: Ne xt Dose: STOP: diclofenac (Cataflam 50 mg oral tablet) 1 Tabs By Mouth 2 times a day. START: fexofenadine (fexofenadine 180 mg Tab) 1 Tabs By Mouth every day. Last Dose: Ne xt Dose: STOP: fexofenadine (Liz 180 mg Tab) 1 Tabs By Mouth every day. Medications to Continue with No Changes Other Medications acetaminophen-oxycodone (Percocet 10/325) 1 Tabs By Mouth every 6 hours as needed for pain. Last Dose: Ne xt Dose: acetaZOLAMIDE (acetaZOLAMIDE 125 mg Tab) 1 Tabs By Mouth at bedtime. Last Dose: Ne xt Dose: acetaZOLAMIDE (acetaZOLAMIDE 250 mg Tab) 1 Tabs By Mouth at bedtime. Takes with a 125mg tablet to make 375mg. Last Dose: Ne xt Dose: alprazolam (Xanax 1 mg Tab) 2 Tabs By Mouth at bedtime. Last Dose: Ne xt Dose: APAP/butalbital/caffeine (APAP/butalbital/caffeine 325 mg-50 mg-40 mg Tab) Take 1 tablet by mouth at onset of headache or migraine. May repeat every 4-6 hours, however do not exceed 2 times per day; as needed for headache. Last Dose: Ne xt Dose: atorvastatin (atorvastatin 20 mg Tab) 1 Tabs By Mouth at bedtime. Last Dose: Ne xt Dose: azelastine nasal 1 spray Inhalation every day as needed Allergy symptoms. Last Dose: Ne xt Dose: biotin 02079 mcg By Mouth 2 times a day. Last Dose: Ne xt Dose: celecoxib (CeleBREX 200 mg Cap) 1 Capsules By Mouth every day. Last Dose: Ne xt Dose: cyproheptadine (cyproheptadine 4 mg Tab) 3 Tabs By Mouth at bedtime. Last Dose: Ne xt Dose: diphenhydrAMINE (Benadryl 25 mg Cap) 2 Capsules By Mouth every 6 hours as needed Itching. Last Dose: Ne xt Dose: duloxetine (Cymbalta 60 mg Cap-EC) 1 Capsules By Mouth 2 times a day., depression Last Dose: Ne xt Dose: epinephrine (Epipen) 1 dose Intramuscular As Directed as needed Anaphylaxis. Last Dose: Ne xt Dose: ergocalciferol (Vitamin D 50,000 intl units (1.25 mg) oral capsule) 1 Capsules By Mouth Sunday., fibromyalgia, takes on sun. Last Dose: Ne xt Dose: esomeprazole (Nexium 40 mg Cap-EC) 1 Capsules By Mouth every day. Last Dose: Ne xt Dose: famotidine (famotidine 20 mg Tab) 1 Tabs By Mouth once a day (at bedtime). Last Dose: Ne xt Dose: gabapentin (Neurontin 800 mg Tab) 2 Tabs By Mouth at bedtime. Last Dose: Ne xt Dose: gabapentin (Neurontin 800 mg Tab) 1 Tabs By Mouth every day., neuropathy Last Dose: Ne xt Dose: insulin aspart (NovoLOG 100 units/mL Injection-Insulin) Sliding Scale Subcutaneous every day as needed Other (see comment). 0-150 0 units 151-200 2 units 201-250 4 units 251-300 6 units 301-350 8units 351-400 [address] units over [address] Only checks sugar and covers if feels high or on random check Last Dose: Ne xt Dose: insulin degludec (Tresiba FlexTouch 200 units/mL subcutaneous solution) 70 Units Subcutaneous every day. Last Dose: Ne xt Dose: lamotrigine (lamotrigine 100 mg oral tablet) 1 Tabs By Mouth every day. Last Dose: Ne xt Dose: lisinopril (lisinopril 5 mg Tab) 1 Tabs By Mouth every day., to protect kidneys Last Dose: Ne xt Dose: montelukast (Singulair 10 mg Tab) 1 Tabs By Mouth at bedtime. Last Dose: Ne xt Dose: nystatin (nystatin 100,000 units/mL oral suspension) 5 Milliliter By Mouth 4 times a day. Last Dose: Ne xt Dose: oxcarbazepine (Trileptal 300 mg Tab) 2 Tabs By Mouth once a day (in the evening). Last Dose: Ne xt Dose: oxcarbazepine (Trileptal 300 mg Tab) 1 Tabs By Mouth once a day (in the morning)., musclespasms Last Dose: Ne xt Dose: ropinirole (ropinirole 0.25 mg Tab) 2 Tabs By Mouth at bedtime. Last Dose: Ne xt Dose: temazepam (temazepam 30 mg Cap) 1 Capsules By Mouth once a day (at bedtime) as needed for sleep. Last Dose: Ne xt Dose: tizanidine (Zanaflex) 8 Milligram By Mouth at bedtime. Last Dose: Ne xt Dose: No Longer Take the Following Medications insulin glargine (Lantus 100 units/mL Injection-Insulin) 45 Units Subcutaneous 2 times a day. nicotine (nicotine 21 mg/24 hr transdermal film, extended release) Comment: MEDICATION LIST PROVIDED FOR YOU IS A LIST OF YOUR CURRENT MEDICATIONS. PLEASE CARRY THIS WITH YOU AT ALL TIMES. acetaminophen-oxycodone (Percocet 10/325) 1 Tabs By Mouth every 6 hours as needed for pain. acetaZOLAMIDE (acetaZOLAMIDE 125 mg Tab) 1 Tabs By Mouth at bedtime. acetaZOLAMIDE (acetaZOLAMIDE 250 mg Tab) 1 Tabs By Mouth at bedtime. Takes with a 125mg tablet to make 375mg. albuterol (ProAir HFA) 2 Puffs Inhalation 4 times a day as needed Shortness of breath or wheezing. albuterol-ipratropium (DuoNeb 2.5 mg-0.5 mg/3 mL Soln-Inh) 3 Milliliter Inhalation 4 times a day. Refills: 0. alprazolam (Xanax 1 mg Tab) 2 Tabs By Mouth at bedtime. APAP/butalbital/caffeine (APAP/butalbital/caffeine 325 mg-50 mg-40 mg Tab) Take 1 tablet by mouth at onset of headache or migraine. May repeat every 4-6 hours, however do not exceed 2 times per day; as needed for headache. atorvastatin (atorvastatin 20 mg Tab) 1 Tabs By Mouth at bedtime. azelastine nasal 1 spray Inhalation every day as needed Allergy symptoms. biotin 73541 mcg By Mouth 2 times a day. celecoxib (CeleBREX 200 mg Cap) 1 Capsules By Mouth every day. cyproheptadine (cyproheptadine 4 mg Tab) 3 Tabs By Mouth at bedtime. diclofenac (diclofenac potassium 50 mg oral tablet) 1 Tabs By Mouth 2 times a day. diphenhydrAMINE (Benadryl 25 mg Cap) 2 Capsules By Mouth every 6 hours as needed Itching. duloxetine (Cymbalta 60 mg Cap-EC) 1 Capsules By Mouth 2 times a day. epinephrine (Epipen) 1 dose Intramuscular As Directed as needed Anaphylaxis. ergocalciferol (Vitamin D 50,000 intl units (1.25 mg) oral capsule) 1 Capsules By Mouth Sunday. esomeprazole (Nexium 40 mg Cap-EC) 1 Capsules By Mouth every day. famotidine (famotidine 20 mg Tab) 1 Tabs By Mouth once a day (at bedtime). fexofenadine (fexofenadine 180 mg Tab) 1 Tabs By Mouth every day. gabapentin (Neurontin 800 mg Tab) 2 Tabs By Mouth at bedtime. gabapentin (Neurontin 800 mg Tab) 1 Tabs By Mouth every day. guaifenesin (Mucinex 600 mg Tab-ER) 2 Tabs By Mouth 2 times a day for 10 Days. Refills: 0. insulin aspart (NovoLOG 100 units/mL Injection-Insulin) Sliding Scale Subcutaneous every day as needed Other (see comment). 0-150 0 units 151-200 2 units 201-250 4 units 251-300 6 units 301-350 8units 351-400 10 units over [address]Miguel insulin degludec (Tresiba FlexTouch 200 units/mL subcutaneous solution) 70 Units Subcutaneous every day. lamotrigine (lamotrigine 100 mg oral tablet) 1 Tabs By Mouth every day. lisinopril (lisinopril 5 mg Tab) 1 Tabs By Mouth every day. montelukast (Singulair 10 mg Tab) 1 Tabs By Mouth at bedtime. nystatin (nystatin 100,000 units/mL oral suspension) 5 Milliliter By Mouth 4 times a day. oxcarbazepine (Trileptal 300 mg Tab) 2 Tabs By Mouth once a day (in the evening). oxcarbazepine (Trileptal 300 mg Tab) 1 Tabs By Mouth once a day (in the morning). predniSONE (predniSONE 20 mg Tab) 60mg daily x4d, 40mg daily x3d, 20mg daily x3d, 10mg daily x2d. Refills: 0. ropinirole (ropinirole 0.25 mg Tab) 2 Tabs By Mouth at bedtime. temazepam (temazepam 30 mg Cap) 1 Capsules By Mouth once a day (at bedtime) as needed for sleep. tizanidine (Zanaflex) 8 Milligram By Mouth at bedtime. Pharmacy Information: Other: [facility] Comment: PATIENT EDUCATION INFORMATION Instructions: Smoking Cessation, Tips for Success If you are ready to quit smoking, congratulations! You have chosen to help yourself be healthier. Cigarettes bring nicotine, tar, carbon monoxide, and other irritants into your body. Your lungs, heart, and blood vessels will be able to work better without these poisons. There are many different ways to quit smoking. Nicotine gum, nicotine patches, a nicotine inhaler, or nicotine nasal spray can help with physical craving. Hypnosis, support groups, and medicines help break the habit of smoking. WHAT THINGS CAN I DO TO MAKE QUITTING EASIER? Here are some tips to help you quit for good: ? Pick a date when you will quit smoking completely. Tell all of your friends and family about your plan to quit on that date. ? Do not try to slowly cut down on the number of cigarettes you are smoking. Pick a quit date and quit smoking completely starting on that day. ? Throw away all cigarettes. ? ? Clean and remove all ashtrays from your home, work, and car. ? On a card, write down your reasons for quitting. Carry the card with you and read it when you get the urge to smoke. ? Cleanse your body of nicotine. Drink enough water and fluids to keep your urine clear or pale yellow. Do this after quitting to flush the nicotine from your body. ? Learn to predict your moods. Do not let a bad situation be your excuse to have a cigarette. Some situations in your life might tempt you into wanting a cigarette. ? Never have just one cigarette. It leads to wanting another and another. Remind yourself of your decision to quit. ? Change habits associated with smoking. If you smoked while driving or when feeling stressed, try other activities to replace smoking. Stand up when drinking your coffee. [place] your teeth after eating. Sit in a different chair when you read the paper. Avoid alcohol while trying to quit, and try to drink fewer caffeinated beverages. Alcohol and caffeine may urge you to smoke. ? Avoid foods and drinks that can trigger a desire to smoke, such as sugary or spicy foods and alcohol. ? Ask people who smoke not to smoke around you. ? Have something planned to do right after eating or having a cup of coffee. For example, plan to take a walk or exercise. ? Try a relaxation exercise to calm you down and decrease your stress. Remember, you may be tense and nervous for the first 2 weeks after you quit, but this will pass. ? Find new activities to keep your hands busy. Play with a pen, coin, or rubber band. Doodle or draw things on paper. ? [place] your teeth right after eating. This will help cut down on the craving for the taste of tobacco after meals. You can also try mouthwash. ? ? Use oral substitutes in place of cigarettes. Try using lemon drops, carrots, cinnamon sticks, or chewing gum. Keep them handy so they are available when you have the urge to smoke. ? When you have the urge to smoke, try deep breathing. ? Designate your home as a nonsmoking area. ? If you are a heavy smoker, ask your health care provider about a prescription for nicotine chewing gum. It can ease your withdrawal from nicotine. ? Reward yourself. Set aside the cigarette money you save and buy yourself something nice. ? Look for support from others. Join a support group or smoking cessation program. Ask someone at home or at work to help you with your plan to quit smoking. ? Always ask yourself, Do I need this cigarette or is this just a reflex? Tell yourself, Today, I choose not to smoke, or I do not want to smoke. You are reminding yourself of your decision to quit. ? Do not replace cigarette smoking with electronic cigarettes (commonly called e-cigarettes). The safety of e-cigarettes is unknown, and some may contain harmful chemicals. ? If you relapse, do not give up! Plan ahead and think about what you will do the next time you get the urge to smoke. HOW WILL I FEEL WHEN I QUIT SMOKING? You may have symptoms of withdrawal because your body is used to nicotine (the addictive substance in cigarettes). You may crave cigarettes, be irritable, feel very hungry, cough often, get headaches, or have difficulty concentrating. The withdrawal symptoms are only temporary. They are strongest when you first quit but will go away within 10?14 days. When withdrawal symptoms occur, stay in control. Think about your reasons for quitting. Remind yourself that these are signs that your body is healing and getting used to being without cigarettes. Remember that withdrawal symptoms are easier to treat than the major diseases that smoking can cause. Even after the withdrawal is over, expect periodic urges to smoke. However, these cravings are generally short lived and will go away whether you smoke or not. Do not smoke! WHAT RESOURCES ARE AVAILABLE TO HELP ME QUIT SMOKING? Your health care provider can direct you to community resources or hospitals for support, which may include: ? Group support. ? Education. ? Hypnosis. ? Therapy. Document Released: 03/30/2005 Document Revised: 11/16/2014 Document Reviewed: 12/18/2013 ExitCare? Patient Information ?2014 IPG. This information is not intended to replace advice given to you by your health care provider. Make sure you discuss any questions you have with your health care provider. Asthma Attack Prevention Although there is no way to prevent asthma from starting, you can take steps to control the disease and reduce its symptoms. Learn about your asthma and how to control it. Take an active role to control your asthma by working with your health care provider to create and follow an asthma action plan. An asthma action plan guides you in: ? Taking your medicines properly. ? Avoiding things that set off your asthma or make your asthma worse (asthma triggers). ? Tracking your level of asthma control. ? Responding to worsening asthma. ? Seeking emergency care when needed. To track your asthma, keep records of your symptoms, check your peak flow number using a handheld device that shows how well air moves out of your lungs (peak flow meter), and get regular asthma checkups. WHAT ARE SOME WAYS TO PREVENT AN ASTHMA ATTACK? ? Take medicines as directed by your health care provider. ? Keep track of your asthma symptoms and level of control. ? With your health care provider, write a detailed plan for taking medicines and managing an asthma attack. Then be sure to follow your action plan. Asthma is an ongoing condition that needs regular monitoring and treatment. ? Identify and avoid asthma triggers. Many outdoor allergens and irritants (such as pollen, mold, cold air, and air pollution) can trigger asthma attacks. Find out what your asthma triggers are and take steps to avoid them. ? Monitor your breathing. Learn to recognize warning signs of an attack, such as coughing, wheezing, or shortness of breath. Your lung function may decrease before you notice any signs or symptoms, so regularly measure and record your peak airflow with a home peak flow meter. ? Identify and treat attacks early. If you act quickly, you are less likely to have a severe attack. You will also need less medicine to control your symptoms. When your peak flow measurements decrease and alert you to an upcoming attack, take your medicine as instructed and immediately stop any activity that may have triggered the attack. If your symptoms do not improve, get medical help. ? Pay attention to increasing quick-relief inhaler use. If you find yourself relying on your quick-relief inhaler, your asthma is not under control. See your health care provider about adjusting your treatment. WHAT CAN MAKE MY SYMPTOMS WORSE? A number of common things can set off or make your asthma symptoms worse and cause temporary increased inflammation of your airways. Keep track of your asthma symptoms for several weeks, detailing all the environmental and emotional factors that are linked with your asthma. When you have an asthma attack, go back to your asthma diary to see which factor, or combination of factors, might have contributed to it. Once you know what these factors are, you can take steps to control many of them. If you have allergies and asthma, it is important to take asthma prevention steps at home. Minimizing contact with the substance to which you are allergic will help prevent an asthma attack. Some triggers and ways to avoid these triggers are: Animal Dander: Some people are allergic to the flakes of skin or dried saliva from animals with fur or feathers. ? There is no such thing as a hypoallergenic dog or cat breed. All dogs or cats can cause allergies, even if they don't shed. ? Keep these pets out of your home. ? If you are not able to keep a pet outdoors, keep the pet out of your bedroom and other sleeping areas at all times, and keep the door closed. ? Remove carpets and furniture covered with cloth from your home. If that is not possible, keep the pet away from fabric-covered furniture and carpets. Dust Mites: Many people with asthma are allergic to dust mites. Dust mites are tiny bugs that are found in every home in mattresses, pillows, carpets, fabric-covered furniture, bedcovers, clothes, stuffed toys, and other fabric-covered items. ? Cover your mattress in a special dust-proof cover. ? Cover your pillow in a special dust-proof cover, or wash the pillow each week in hot water. Water must be hotter than 130? F (54.4? C) to kill dust mites. Cold or warm water used with detergent and bleach can also be effective. ? Wash the sheets and blankets on your bed each week in hot water. ? Try not to sleep or lie on cloth-covered cushions. ? Call ahead when traveling and ask for a smoke-free hotel room. Bring your own bedding and pillows in case the hotel only supplies feather pillows and down comforters, which may contain dust mites and cause asthma symptoms. ? Remove carpets from your bedroom and those laid on concrete, if you can. ? Keep stuffed toys out of the bed, or wash the toys weekly in hot water or cooler water with detergent and bleach. Cockroaches: Many people with asthma are allergic to the droppings and remains of cockroaches. ? Keep food and garbage in closed containers. Never leave food out. ? Use poison baits, traps, powders, gels, or paste (for example, boric acid). ? If a spray is used to kill cockroaches, stay out of the room until the odor goes away. Indoor Mold: ? Fix leaky faucets, pipes, or other sources of water that have mold around them. ? Clean floors and moldy surfaces with a fungicide or diluted bleach. ? Avoid using humidifiers, vaporizers, or swamp coolers. These can spread molds through the air. Pollen and Outdoor Mold: ? When pollen or mold spore counts are high, try to keep your windows closed. ? Stay indoors with windows closed from late morning to afternoon. Pollen and some mold spore counts are highest at that time. ? Ask your health care provider whether you need to take anti-inflammatory medicine or increase your dose of the medicine before your allergy season starts. Other Irritants to Avoid: ? Tobacco smoke is an irritant. If you smoke, ask your health care provider how you can quit. Ask family members to quit smoking, too. Do not allow smoking in your home or car. ? If possible, do not use a wood-burning stove, kerosene heater, or fireplace. Minimize exposure to all sources of smoke, including incense, candles, fires, and fireworks. ? Try to stay away from strong odors and sprays, such as perfume, talcum powder, hair spray, and paints. ? Decrease humidity in your home and use an indoor air cleaning device. Reduce indoor humidity to below 60%. Dehumidifiers or central air conditioners can do this. ? Decrease house dust exposure by changing furnace and air cooler filters frequently. ? Try to have someone else vacuum for you once or twice a week. Stay out of rooms while they are being vacuumed and for a short while afterward. ? If you vacuum, use a dust mask from a hardware store, a double-layered or microfilter vacuum block cleaner bag, or a vacuum block cleaner with a HEPA filter. ? Sulfites in foods and beverages can be irritants. Do not drink beer or wine or eat dried fruit, processed potatoes, or shrimp if they cause asthma symptoms. ? Cold air can trigger an asthma attack. Cover your nose and mouth with a scarf on cold or windy days. ? Several health conditions can make asthma more difficult to manage, including a runny nose, sinus infections, reflux disease, psychological stress, and sleep apnea. Work with your health care provider to manage these conditions. ? Avoid close contact with people who have a respiratory infection such as a cold or the flu, since your asthma symptoms may get worse if you catch the infection. Wash your hands thoroughly after touching items that may have been handled by people with a respiratory infection. ? Get a flu shot every year to protect against the flu virus, which often makes asthma worse for days or weeks. Also get a pneumonia shot if you have not previously had one. Unlike the flu shot, the pneumonia shot does not need to be given yearly. Medicines: ? Talk to your health care provider about whether it is safe for you to take aspirin or non-steroidal anti-inflammatory medicines (NSAIDs). In a small number of people with asthma, aspirin and NSAIDs can cause asthma attacks. These medicines must be avoided by people who have known aspirin-sensitive asthma. It is important that people with aspirin-sensitive asthma read labels of all [id number] medicines used to treat pain, colds, coughs, and fever. ? Beta-blockers and MITCH inhibitors are other medicines you should discuss with your health care provider. HOW CAN I FIND OUT WHAT I AM ALLERGIC TO? Ask your asthma health care provider about allergy skin testing or blood testing (the RAST test) to identify the allergens to which you are sensitive. If you are found to have allergies, the most important thing to do is to try to avoid exposure to any allergens that you are sensitive to as much as possible. Other treatments for allergies, such as medicines and allergy shots (immunotherapy) are available. CAN I EXERCISE? Follow your health care provider's advice regarding asthma treatment before exercising. It is important to maintain a regular exercise program, but vigorous exercise or exercise in cold, humid, or dry environments can cause asthma attacks, especially for those people who have exercise-induced asthma. Document Released: 06/20/2010 Document Revised: 07/07/2014 Document Reviewed: 01/07/2014 ExitCare? Patient Information ?2014 IPG. This information is not intended to replace advice given to you by your health care provider. Make sure you discuss any questions you have with your health care provider. Carbohydrate Counting for People with Diabetes Why Is Carbohydrate Counting Important? Counting carbohydrate servings may help you to control your blood glucose level so that you feel better. The balance between the carbohydrates you eat and insulin determines what your blood glucose level will be after eating. Carbohydrate counting can also help you plan your meals. Which Foods Have Carbohydrates? Foods with carbohydrates include: - Breads, crackers, and cereals - Pasta, rice, and grains - Starchy vegetables, such as potatoes, corn, and peas - Beans and legumes - Milk, soy milk, and yogurt - Fruits and fruit juices - Sweets, such as cakes, cookies, ice cream, jam, and jelly Carbohydrate Servings In diabetes meal planning, 1 serving of a food with carbohydrate has about 15 grams of carbohydrate: - Check serving sizes with measuring cups and spoons or a food scale. - Read the Nutrition Facts on food labels to find out how many grams of carbohydrate are in foods you eat. - The food lists in this handout show portions that have about 15 grams of carbohydrate. Food Lists for Carbohydrate Counting 1 serving = about 15 grams of carbohydrate Starches 1 slice bread (1 ounce) 1 tortilla (6-inch size) 1/4 large bagel (1 ounce) 2 taco shells (5-inch size) 1/2 hamburger or hot dog bun (1 ounce) 3/4 cup xlmfl-[id number] cereal 1/2 cup cooked cereal 1 cup broth-based soup 4-6 small crackers cup pasta or rice (cooked) ? cup beans, peas, corn, sweet potatoes, winter squash, or mashed or boiled potatoes (cooked) 1/2 large baked potato (3 ounces) ? ounce pretzels, potato chips, or tortilla chips 3 cups popcorn (popped) Fruit 1 small fresh fruit (4 ounces) ? cup canned fruit ? cup dried fruit (2 tablespoons) 17 small grapes (3 ounces) 1 cup melon or berries 2 tablespoons raisins or other dired fruit ? cup fruit juice Milk 1 cup fat-free or reduced-fat milk 1 cup soy milk cup (6 ounces) fat-free yogurt sweetened with sugar-free sweetener Sweets and Desserts 2-inch square cake (unfrosted) 2 small cookies ( ounce) ? cup ice cream or frozen yogurt ? cup sherbet or sorbet 1 tablespoon syrup, jam, jelly, table sugar, or honey 2 tablespoons light syrup Other Foods - Count 1 cup raw vegetables or ? cup cooked nonstarchy vegetables as zero carbohydrate servings or ?free? foods. If you eat 3 or more servings at one meal, count them as 1 carbohydrate serving. - Foods that have less than 20 calories in each serving also may be counted as zero carbohydrate servings or ?free? foods. - Count 1 cup of casserole or other mixed foods as 2 carbohydrate servings. Meal Planning Tips A meal plan tells you how many carbohydrate servings to eat at your meals and snacks. For many adults, eating 3 to 5 servings of carbohydrate foods at each meal and 1 or 2 carbohydrate servings for each snack works well. In a healthy daily meal plan, most carbohydrates come from: 5 servings of fruits and vegetables 3 servings of whole grains 2 to 4 servings of milk or milk products - Check your blood glucose level regularly. It can tell you if you need to adjust the timing of when you eat carbohydrates. - Eating foods that have fiber, such as whole grains, and having very few salty foods is good for your health. - Eat 4 to 6 ounces of meat or other protein foods (such as soybean burgers) each day. - Choose low-fat sources of protein, such as lean beef, lean pork, chicken, fish, low-fat cheese, or vegetarian foods such as soy. - Eat some healthy fats, such as olive oil, canola oil, and nuts. - Eat very little saturated fats. These unhealthy fats are found in butter, cream, and high-fat meats, such as stockton and sausage. - Eat very little or no trans fats. These unhealthy fats are found in all foods that list partially hydrogenated? oil as an ingredient. Label Reading Tips The Nutrition Facts panel on a label lists the grams of total carbohydrate in 1 standard serving. The label?s standard serving may be larger or smaller than 1 carbohydrate serving. To figure out how many carbohydrate servings are in the food: Look first at the label?s standard serving size. Then check the grams of total carbohydrate. This is the amount of carbohydrate in 1standard serving. Divide the grams of total carbohydrate by 15. This number equals the number of carbohydrate servings in 1 standard serving. Remember: 1 carbohydrate serving is 15 grams of carbohydrate. Note: You may ignore the grams of sugars on the Nutrition Facts panel because they are included in the grams of total carbohydrate. Sample 1-Day Menu Total Carbohydrate Servings: 15 Breakfast: 1 small banana (1 carbohydrate serving) ? cup corn flakes (1 carbohydrate serving) 1 cup fat-free or low-fat milk (1 carbohydrate serving) 1 slice whole wheat bread (1 carbohydrate serving) 1 teaspoon soft margarine Lunch: 2 ounces lean meat (for sandwich) 2 slices whole wheat bread (2 carbohydrate servings) Raw vegetables: 3-4 carrot sticks, 3-4 celery sticks, 2 lettuce leaves 1 cup fat-free or low-fat milk (1 carbohydrate serving) 1 small apple (1 carbohydrate serving) Snack: ? cup canned apricots (1 carbohydrate serving) ? ounce unsalted mini-pretzels (1 carbohydrate serving) Supper: 3 ounces lean roast beef ? large baked potato (2 carbohydrate servings) 1 tablespoon reduced-fat sour cream ? cup green beans 1 vegetable salad: lettuce, ? cup raw vegetables, and 1 tablespoon light salad dressing 1 small whole wheat dinner roll (1 carbohydrate serving) 1 teaspoon soft margarine 1 cup melon balls (1 carbohydrate serving) Snack: 6 ounces low-fat fruit yogurt with sugar-free sweetener (1carbohydrate serving) 2 tablespoons unsalted nuts Medication Leaflets: prednisone (PRED ni sone) Shira, Sterapred, Sterapred 12 DAY, Sterapred DS, Sterapred DS 12 DAY What is the most important information I should know about prednisone? Prednisone treats many different conditions such as allergic disorders, skin conditions, ulcerative colitis, arthritis, lupus, psoriasis, or breathing disorders. You should not take prednisone if you have a fungal infection anywhere in your body. Steroid medication can weaken your immune system, making it easier for you to get an infection. Avoid being near people who are sick or have infections. Do not receive a 'live' vaccine while using prednisone. Call your doctor at once if you have shortness of breath, severe pain in your upper stomach, bloody or tarry stools, severe depression, changes in personality or behavior, vision problems, or eye pain. You should not stop using prednisone suddenly. Follow your doctor's instructions about tapering your dose. What is prednisone? Prednisone is a steroid. Prednisone prevents the release of substances in the body that cause inflammation. Prednisone also suppresses the immune system. Prednisone is used as an anti-inflammatory or an immunosuppressant medication. Prednisone treats many different conditions such as allergic disorders, skin conditions, ulcerative colitis, arthritis, lupus, psoriasis, or breathing disorders. Prednisone may also be used for purposes not listed in this medication guide. What should I discuss with my healthcare provider before taking prednisone? You should not use this medication if you are allergic to prednisone, or if you have a fungal infection anywhere in your body. Steroid medication can weaken your immune system, making it easier for you to get an infection or worsening an infection you already have or have recently had. Tell your doctor about any illness or infection you have had within the past several weeks. To make sure prednisone is safe for you, tell your doctor if you have: ?? any illness that causes diarrhea; ? liver disease (such as cirrhosis); ? kidney disease; ? heart disease, high blood pressure, low levels of potassium in your blood; ? a thyroid disorder; ? diabetes; ? a history of malaria; ? tuberculosis; ? osteoporosis; ? glaucoma, cataracts, or herpes infection of the eyes; ? stomach ulcers, ulcerative colitis, or a history of stomach bleeding; ? a muscle disorder such as myasthenia gravis; or ? depression or mental illness. Long-term use of steroids may lead to bone loss (osteoporosis), especially if you smoke, if you do not exercise, if you do not get enough vitamin D or calcium in your diet, or if you have a family history of osteoporosis. Talk with your doctor about your risk of osteoporosis. Prednisone can cause low weight or defects if you take the medicine during your first trimester. Tell your doctor if you are or plan to become while using this medication. Use effective control. Prednisone can pass into breast milk and may harm a nursing baby. Tell your doctor if you are breast-feeding a baby. Steroids can affect growth in children. Talk with your doctor if you think your child is not growing at a normal rate while using this medication. How should I take prednisone? Follow all directions on your prescription label. Your doctor may occasionally change your dose to make sure you get the best results. Do not take this medicine in larger or smaller amounts or for longer than recommended. Take with food. Your dosage needs may change if you have any unusual stress such as a serious illness, fever or infection, or if you have surgery or a medical emergency. Do not change your medication dose or schedule without your doctor's advice. Measure liquid medicine with a special dose-measuring spoon or medicine cup. If you do not have a dose-measuring device, ask your pharmacist for one. Do not crush, chew, or break a delayed-release tablet. Swallow it whole. While using prednisone, you may need frequent blood tests at your doctor's office. Your blood pressure may also need to be checked. This medication can cause unusual results with certain medical tests. Tell any doctor who treats you that you are using prednisone. You should not stop using prednisone suddenly. Follow your doctor's instructions about tapering your dose. Wear a medical alert tag or carry an ID card stating that you take prednisone. Any medical care provider who treats you should know that you are using a steroid. Store at room temperature away from moisture and heat. What happens if I miss a dose? Take the missed dose as soon as you remember. Skip the missed dose if it is almost time for your next scheduled dose. Do not take extra medicine to make up the missed dose. What happens if I overdose? Seek emergency medical attention or call the Poison Help line at . An overdose of prednisone is not expected to produce life threatening symptoms. 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 What should I avoid while taking prednisone? Avoid being near people who are sick or have infections. Call your doctor for preventive treatment if you are exposed to chicken pox or measles. These conditions can be serious or even fatal in people who are using a steroid. Do not receive a 'live' vaccine while using prednisone. Prednisone may increase your risk of harmful effects from a live vaccine. Live vaccines include measles, mumps, rubella (MMR), rotavirus, typhoid, yellow fever, varicella (chickenpox), zoster (shingles), and nasal flu (influenza) vaccine. Avoid drinking alcohol while you are taking prednisone. What are the possible side effects of prednisone? Get emergency medical help if you have any of these signs of an allergic reaction: hives; difficult breathing; swelling of your face, lips, tongue, or throat. Call your doctor at once if you have: ?? blurred vision, eye pain, or seeing halos around lights; ? swelling, rapid weight gain, feeling short of breath; ? severe depression, feelings of extreme happiness or sadness, changes in personality or behavior, seizure (convulsions); ? bloody or tarry stools, coughing up blood; ? pancreatitis (severe pain in your upper stomach spreading to your back, nausea and vomiting, fast heart rate); ? low potassium (confusion, uneven heart rate, extreme thirst, increased urination, leg discomfort, muscle weakness or limp feeling); or ? dangerously high blood pressure (severe headache, blurred vision, buzzing in your ears, anxiety, confusion, chest pain, shortness of breath, uneven heartbeats, seizure). Other common side effects may include: ?? sleep problems (insomnia), mood changes; ? increased appetite, gradual weight gain; ? acne, increased sweating, dry skin, thinning skin, bruising or discoloration; ? slow wound healing; ? headache, dizziness, spinning sensation; ? nausea, stomach pain, bloating; or ? changes in the shape or location of body fat (especially in your arms, legs, face, neck, breasts, and waist). This is not a complete list of side effects and others may occur. Call your doctor for medical advice about side effects. You may report side effects to FDA at 5-090-IZN-4960. What other drugs will affect prednisone? Many drugs can interact with prednisone. Not all possible interactions are listed here. Tell your doctor about all your medications and any you start or stop using during treatment with prednisone, especially: ?? amphotericin B; ? cyclosporine; ? digoxin, digitalis; ? Merary's wort; ? an antibiotic such as clarithromycin or telithromycin; ? antifungal medication such as itraconazole, ketoconazole, posaconazole, voriconazole; ? control pills and other hormones; ? a blood thinner such as warfarin, Coumadin; ? a diuretic or 'water pill'; ? the hepatitis C medications boceprevir or telaprevir; ? HIV or AIDS medicine such as atazanavir, delavirdine, efavirenz, fosamprenavir, indinavir, nelfinavir, nevirapine, ritonavir, saquinavir; ? insulin or diabetes medications you take by mouth; ? a non-steroidal anti-inflammatory drug (NSAID) such as aspirin, ibuprofen (Advil, Motrin), naproxen (Aleve), celecoxib, diclofenac, indomethacin, meloxicam, and others; ? seizure medications such as carbamazepine, fosphenytoin, oxcarbazepine, phenobarbital, phenytoin, primidone; or ? the tuberculosis medications isoniazid, rifabutin, rifapentine, or rifampin. This list is not complete and many other drugs can interact with prednisone. This includes prescription and [id number] medicines, vitamins, and herbal products. Give a list of all your medicines to any healthcare provider who treats you. Where can I get more information? Your pharmacist can provide more information about prednisone. Remember, keep this and all other medicines out of the reach of children, never share your medicines with others, and use this medication only for the indication prescribed. Every effort has been made to ensure that the information provided by [employer]. ('[employer]') is accurate, up-to-date, and complete, but no guarantee is made to that effect. Drug information contained herein may be time sensitive. [employer] information has been compiled for use by healthcare practitioners and consumers in the [place] and therefore [employer] does not warrant that uses outside of the [place] are appropriate, unless specifically indicated otherwise. [employer]'s drug information does not endorse drugs, diagnose patients or recommend therapy. [employer]'s drug information is an informational resource designed to assist licensed healthcare practitioners in caring for their patients and/or to serve consumers viewing this service as a supplement to, and not a substitute for, the expertise, skill, knowledge and judgment of healthcare practitioners. The absence of a warning for a given drug or drug combination in no way should be construed to indicate that the drug or drug combination is safe, effective or appropriate for any given patient. [facility] does not assume any responsibility for any aspect of healthcare administered with the aid of information [facility] provides. The information contained herein is not intended to cover all possible uses, directions, precautions, warnings, drug interactions, allergic reactions, or adverse effects. If you have questions about the drugs you are taking, check with your doctor, nurse or pharmacist. Copyright 7249-5274 [facility]. Version: 9.. Revision Date: 08/28/2012. 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 White board updated, no family present. Pt awake, alert, laying in bed talking with the doctor. Doctor discussing pt's lung sounds, medications, nebulizer. Pt understands plan is switch to PO Steroids, monitor today, staying today and d/c tomorrow. CRM returned to pts room, pt on the phone with spouse, updated pt regarding referral to for neb and medications. Normal [facility] Lyteson 05-24-2018 Anion gap molar conc 10 mmol/L Normal 6-16 [facility] Comment on above: Performed By: #### [id number] #### [facility] [address] [place] [address] Chloride molar conc 104 mmol/L Normal 101-111 [facility] Comment on above: Performed By: #### 2 [id number] #### [facility] [address] [place] [address] CO2 molar conc 19 mmol/L Low 21-31 [facility] Comment on above: Performed By: #### [id number] #### [facility] [address] [place] [address] Potassium molar conc 4.1 mmol/L Normal 3.5-5.3 [facility] Comment on above: Performed By: #### 2 [id number] #### [facility] [address] [place] [address] Sodium molar conc 129 mmol/L Low 135-145 [facility] Comment on above: Performed By: #### 2 [id number] #### [facility] [address] [place] [address] Progress Note-Physicianon Protein mass conc Assessment/Plan 1. Hypoxia - Resolved. Currently on RA. Oxygen has been weaned. 2. COPD exacerbation - Suspect underlying asthma component as well. Would benefit from outpatient PFTs - Duo nebulizers 4 times a day with albuterol when necessary. Mucinex twice a day. Flutter valve 4 times a day. - Transition IV Solumedrol to oral Prednisone. If tolerated this well anticipate home tomorrow. 3. Pneumonia - Failed seven-day course of outpatient Levaquin. Expanded inpatient antibiotics to cefepime and vancomycin. Discontinued Vanco as clinically do not feel it is needed - CT of the chest showed no focal infiltrate, there was a ground glass opacity present in the LLL possibly inflammatory. Erasmo corley need no further Abx on discharge. - Blood cultures drawn, Sputum culture, Legionella antigen all pending. - Influenza negative 4. DM (diabetes mellitus) - Uncontrolled, A1c 8.2. - Current hyperglycemia due to IV steroids. Added mealtime Lispro. 5. Sleep apnea - Home CPAP unit. 6. Smoker - Nicotine patch if desires. 7. Depression - Continue home medications. 8. Extreme obesity - BMI 51 Subjective Continuing to improve. Feels lungs opening up. On RA. Review of Systems Constitutional: no fever, no chills, + fatigue Skin: no rash Respiratory: + shortness of breath, no cough, no wheezing Cardiovascular: no chest pain, no palpitations, no edema Gastrointestinal: no n/v/d, no abdominal pain Musculoskeletal: no significant joint or muscle pain Neurologic: no headache, no dizziness Psych: no depression, no anxiety Objective Vitals & Measurements T: 36.4 ?C (Oral) TMIN: 36.3 ?C (Axillary) TMAX: 37.3 ?C (Oral) HR: 94(Monitored) RR: 16 BP: 121/75 SpO2: 95% WT: 137.2 kg Intake & Output This visit (24 hour periods starting at 07:00 EST) 05/24/18 * 05/23/18 05/22/18 Total Summary Intake mL 100 1,239.33 2,321.17 Output mL -- 1,350 -- Fluid Balance 100 -110.67 2,321.17 Intake (5) Oral Intake mL -- 650 450 Sodium Chloride 0.9% mL -- -- 1,000 Sodium Chloride 0.9%, cefepime mL 100 300 150 Sodium Chloride 0.9%, vancomycin mL -- 283.33 716.67 methylPREDNISolone mL -- 6 4.5 Total 100 1,239.33 2,321.17 Output (1) Urine Voided mL -- 1,350 -- Total -- 1,350 -- Counts (0) * This column has not completed the indicated time period. Physical Exam General: alert, no acute distress ENMT: AT/NC, neck supple Skin: no rash Cardiovascular: regular rate and rhythm, S1S2, normal peripheral perfusion Respiratory: Lungs with good air movement, no wheezing, respirations non labored, equal breath sounds bilaterally Abd: Soft Extremities: no deformity, no trauma, no edema Neurological: oriented, LOC appropriate for age, no focal deficits, speech normal Psych: cooperative, appropriate affect, good eye contact Lab Results Sodium Lvl: 129 mmol/L Low (05/24/18 05:56:00 EST) Potassium Lvl: 4.1 mmol/L (05/24/18 05:56:00 EST) Chloride: 104 mmol/L (05/24/18 05:56:00 EST) CO2: 19 mmol/L Low (05/24/18 05:56:00 EST) AGAP: 10 mEq/L (05/24/18 05:56:00 EST) Glucose Cap: 411 mg/dL High (05/24/18 11:23:00 EST) POC Device SN: [id number] (05/24/18 11:23:00 EST) POC Username: COURTNEY RUBALCAVA (05/24/18 11:23:00 EST) UA Spec Desc: Clean Catch (05/23/18 23:00:00 EST) UA Color: Yellow2 (05/23/18 23:00:00 EST) UA Clarity: Clear2 (05/23/18 23:00:00 EST) UA Spec Grav: 1.015 (05/23/18 23:00:00 EST) UA pH: 5.5 (05/23/18 23:00:00 EST) UA Protein: NEGATIVE1 (05/23/18 23:00:00 EST) UA Glucose: 3+ Abnormal (05/23/18 23:00:00 EST) UA Ketones: NEGATIVE1 (05/23/18 23:00:00 EST) UA Bili: NEGATIVE1 (05/23/18 23:00:00 EST) UA Blood: NEGATIVE1 (05/23/18 23:00:00 EST) UA Nitrite: NEGATIVE1 (05/23/18 23:00:00 EST) UA Urobilinogen: 0.2 (05/23/18 23:00:00 EST) UA Leuk Est: NEGATIVE1 (05/23/18 23:00:00 EST) UA RBC: 0-3 (05/23/18 23:00:00 EST) UA Squam Epithelial: 0-2 (05/23/18 23:00:00 EST) UA WBC: 0-5 (05/23/18 23:00:00 EST) UA Mucous: 1+ (05/23/18 23:00:00 EST) Problem List/Past Medical History Ongoing Asthma Cataract Cervical dystonia Cervical stenosis of spine Depression DM (diabetes mellitus) Extreme obesity Fibromyalgia Hyperlipidemia Migraine Neuropathy Osteoarthritis Pneumonia Polymyalgia rheumatica Sleep apnea Smoker Historical No qualifying data Medications Inpatient acetaminophen 325 mg Tab, 650 mg= 2 tab(s), Oral, q6hr, PRN acetaminophen-oxycodone 325 mg-5 mg Tab, 1 tab(s), Oral, q6hr, PRN acetaZOLAMIDE 250 mg Tab, 375 mg= 1.5 tab(s), Oral, Bedtime albuterol 0.083% Inh Sofya 3 mL UD, 2.5 mg= 3 mL, NEB, q2hr, PRN APAP/butalbital/caffeine 325 mg-50 mg-40 mg Tab, 1 tab(s), Oral, q6hr, PRN atorvastatin 20 mg Tab, 20 mg= 1 tab(s), Oral, Bedtime Benadryl 25 mg Cap, 50 mg= 2 cap(s), Oral, q6hr, PRN Cefepime 2 gram IVPB CeleBREX 200 mg Cap, 200 mg= 1 cap(s), Oral, Daily cyproheptadine 4 mg Tab, 12 mg= 3 tab(s), Oral, Bedtime Dextrose 50% Soln-IV, 40 mL, IV Push, Once, PRN duloxetine 60 mg Cap-DR, 60 mg= 1 cap(s), Oral, BID DuoNeb 2.5 mg-0.5 mg/3 mL Soln-Inh, 3 mL, Inhalation, QID famotidine 20 mg Tab, 20 mg= 1 tab(s), Oral, Once a day (at bedtime) heparin 5000 units/mL Inj, 5000 unit(s)= 1 mL, SubCutaneous, BID insulin lispro, 9 unit(s)= 0.09 mL, SubCutaneous, TIDAC Insulin Lispro Sliding Scale, 0-10 Units, SubCutaneous, QIDACHS lamotrigine 100 mg Tab, 100 mg= 1 tab(s), Oral, Daily Levemir 100 units/mL Injection-Insulin, 50 unit(s)= 0.5 mL, SubCutaneous, Bedtime Levemir 100 units/mL Injection-Insulin, 30 unit(s)= 0.3 mL, SubCutaneous, Daily lisinopril 5 mg Tab, 5 mg= 1 tab(s), Oral, Daily loratadine 10 mg Tab, 10 mg= 1 tab(s), Oral, Daily Mucinex 600 mg Tab-ER, 1200 mg= 2 tab(s), Oral, BID Neurontin 800 mg Tab, 1600 mg= 2 tab(s), Oral, Bedtime Neurontin 800 mg Tab, 800 mg= 1 tab(s), Oral, Daily nicotine 21 mg/24 hr Transderm ER Film, 21 mg= 1 patch(es), TransDermal, Daily, PRN nystatin 100,000 units/mL Oral Susp, 696711 unit(s)= 5 mL, Oral-Swish&Swallow, QID Pantoprazole [address] Tab, 40 mg= 1 tab(s), Oral, Daily predniSONE, 60 mg= 3 tab(s), Oral, Daily remove patch, 1 patch(es), Topical, Daily remove patch, 1 patch(es), Topical, Daily ropinirole 0.25 mg Tab, 0.5 mg= 2 tab(s), Oral, Bedtime Singulair 10 mg Tab, 10 mg= 1 tab(s), Oral, Bedtime Sodium Chloride 0.9% IV Sofya 250 mL bag 250 mL, 250 mL, IV temazepam 15 mg Cap, 30 mg= 2 cap(s), Oral, Once a day (at bedtime), PRN Trileptal 300 mg Tab, 600 mg= 2 tab(s), Oral, Bedtime Trileptal 300 mg Tab, 300 mg= 1 tab(s), Oral, Daily Xanax 1 mg Tab, 2 mg= 2 tab(s), Oral, Bedtime Zanaflex 4 mg Tab, 8 mg= 2 tab(s), Oral, Bedtime Zofran 4 mg/2 mL Injection, 4 mg= 2 mL, IV Push, q6hr, PRN Home acetaZOLAMIDE 125 mg Tab, 125 mg= 1 tab(s), Oral, Bedtime acetaZOLAMIDE 250 mg Tab, 250 mg= 1 tab(s), Oral, Bedtime APAP/butalbital/caffeine 325 mg-50 mg-40 mg Tab, See Instructions, PRN atorvastatin 20 mg Tab, 20 mg= 1 tab(s), Oral, Bedtime azelastine nasal, 1 spray, Inhalation, Daily, PRN Benadryl 25 mg Cap, 50 mg= 2 cap(s), Oral, q6hr, PRN biotin, 73414 mcg, Oral, BID CeleBREX 200 mg Cap, 200 mg= 1 cap(s), Oral, Daily Cymbalta 60 mg Cap-EC, 60 mg= 1 cap(s), Oral, BID cyproheptadine 4 mg Tab, 12 mg= 3 tab(s), Oral, Bedtime diclofenac potassium 50 mg oral tablet, 50 mg= 1 tab(s), Oral, BID DuoNeb 2.5 mg-0.5 mg/3 mL Soln-Inh, 3 mL, Inhalation, QID Epipen, 1 dose, IntraMuscular, As Directed, PRN famotidine 20 mg Tab, 20 mg= 1 tab(s), Oral, Once a day (at bedtime) fexofenadine 180 mg Tab, 180 mg= 1 tab(s), Oral, Daily lamotrigine 100 mg oral tablet, 100 mg= 1 tab(s), Oral, Daily lisinopril 5 mg Tab, 5 mg= 1 tab(s), Oral, Daily Mucinex 600 mg Tab-ER, 1200 mg= 2 tab(s), Oral, BID Neurontin 800 mg Tab, 800 mg= 1 tab(s), Oral, Daily Neurontin 800 mg Tab, 1600 mg= 2 tab(s), Oral, Bedtime Nexium 40 mg Cap-EC, 40 mg= 1 cap(s), Oral, Daily NovoLOG 100 units/mL Injection-Insulin, Sliding Scale, SubCutaneous, Daily, PRN nystatin 100,000 units/mL oral suspension, 687537 unit(s)= 5 mL, Oral, QID Percocet 10/325, 1 tab(s), Oral, q6hr, PRN predniSONE 20 mg Tab, See Instructions ProAir HFA, 2 puff(s), Inhalation, QID, PRN ropinirole 0.25 mg Tab, 0.5 mg= 2 tab(s), Oral, Bedtime Singulair 10 mg Tab, 10 mg= 1 tab(s), Oral, Bedtime temazepam 30 mg Cap, 30 mg= 1 cap(s), Oral, Once a day (at bedtime), PRN Tresiba FlexTouch 200 units/mL subcutaneous solution, 70 unit(s), SubCutaneous, Daily Trileptal 300 mg Tab, 300 mg= 1 tab(s), Oral, qAM Trileptal 300 mg Tab, 600 mg= 2 tab(s), Oral, qPM Vitamin D 50,000 intl units (1.25 mg) oral capsule, 81479 International_Unit= 1 cap(s), Oral, Sunday Xanax 1 mg Tab, 2 mg= 2 tab(s), Oral, Bedtime Zanaflex, 8 mg, Oral, Bedtime Normal [facility] Comment on above: Result Comment: Elec tronically Signed By: Nayan BLUNT, Cece\.br\Date and Time Signed: 05/24/18 12:12 EST UA With Cult Reflexon 2017 Bilirubin Ql (U) Negative Normal Negative [facility] Comment on above: Performed By: #### 2 [id number], [id number], [id number] #### [facility] [address] [place] [address] Clarity Nom (U) CLEAR Normal Clear [facility] Comment on above: Performed By: #### 2 349395, [id number], [id number] #### [facility] [address] [place] [address] Color Nom (U) YELLOW Normal Yellow [facility] Comment on above: Performed By: #### 2 450652, [id number], [id number] #### [facility] [address] [place] [address] Epithelial cells.squamous LM.HPF #/area (Urine sed) 0-2 Normal 0-2 [facility] Comment on above: Performed By: #### 2 007654, [id number], [id number] #### [facility] [address] [place] [address] Glucose Test strip mass conc (U) 3+ Abnormal Negative [facility] Comment on above: Performed By: #### 2 140400, [id number], [id number] #### [facility] [address] [place] [address] Hemoglobin Ql (U) Negative Normal Negative [facility] Comment on above: Performed By: #### 2 574875, [id number], [id number] #### [facility] [address] [place] [address] Ketones mass conc (U) Negative Normal Negative [facility] Comment on above: Performed By: #### 2 460385, [id number], [id number] #### [facility] [address] [place] [address] [place].plasma/Lit hium.RBC mass ratio (Bld) 0-3 Normal 0-3 [facility] Comment on above: Performed By: #### 2 694978, [id number], [id number] #### [facility] [address] [place] [address] Mucus Ql (Urine sed) 1+ Normal [facility] Comment on above: Performed By: #### 2 031438, [id number], [id number] #### [facility] [address] [place] [address] Nitrite Ql (U) Negative Normal Negative [facility] Comment on above: Performed By: #### 2 891005, [id number], [id number] #### [facility] [address] [id number] pH (U) 5.5 [pH] 5.0-9.0 [facility] Comment on above: Performed By: #### 2 566427, [id number], [id number] #### [facility] [address] [place] [address] Protein mass conc (U) Negative Normal Negative [facility] Comment on above: Performed By: #### 2 562012, [id number], [id number] #### [facility] [address] [place] [address] Specific gravity Relative Density (U) 1.015 1.005-1.030 [facility] Comment on above: Performed By: #### 2 073148, [id number], [id number] #### [facility] [address] [place] [address] UA Spec Desc Clean Catch Normal [facility] Comment on above: Performed By: #### 2 982879, [id number], [id number] #### [facility] [address] [place] [address] Urobilinogen Qn (U) 0.2 {Stephanie'U}/dL Normal 0.0-1.0 [facility] Comment on above: Performed By: #### 2 058841, [id number], [id number] #### [facility] [address] [place] [address] WBC Auto Ql (U) Negative Normal Negative [facility] Comment on above: Performed By: #### 2 288859, [id number], [id number] #### [facility] [address] [place] [address] WBC LM.HPF #/area (Urine sed) 0-5 Normal 0-5 [facility] Comment on above: Performed By: #### 2 217872, [id number], [id number] #### [facility] [address] [place] [address] Auto Diffon 05-23-2018 Basophils #/vol (Bld) 0.6 % Normal 0.0-2.0 [facility] Comment on above: Order Comment: Order added by Discern Expert. Performed By: #### 2 556685, [id number], [id number] #### [facility] [address] [place] [address] Basophils/Leukocyt es Auto Pure number fraction (Bld) 0.1 E9/L Normal 0.0-0.2 [facility] Comment on above: Order Comment: Order added by Discern Expert. Performed By: #### 2 934780, [id number], [id number] #### [facility] [address] [place] [address] Eosinophils/100 WBC (Bld) 0.0 % Normal 0.0-8.0 [facility] Comment on above: Order Comment: Order added by Discern Expert. Performed By: #### 2 460259, [id number], [id number] #### [facility] [address] [place] [address] Eosinophils/Leukoc ytes Auto Pure number fraction (Bld) 0.0 E9/L Normal 0.0-0.5 [facility] Comment on above: Order Comment: Order added by Discern Expert. Performed By: #### 2 042558, [id number], [id number] #### [facility] [address] [place] [address] Lymphocytes/100 WBC (Bld) 15.0 % Normal 14.0-50.0 [facility] Comment on above: Order Comment: Order added by Discern Expert. Performed By: #### 2 420585, [id number], [id number] #### [facility] [address] [place] [address] Lymphocytes/Leukoc ytes Auto Pure number fraction (Bld) 2.2 E9/L Normal 1.0-4.0 [facility] Comment on above: Order Comment: Order added by Discern Expert. Performed By: #### 2 732752, [id number], [id number] #### [facility] [address] [place] [address] Monocytes/100 WBC (Bld) 2.1 % Low 4.0-14.0 [facility] Comment on above: Order Comment: Order added by Discern Expert. Performed By: #### 2 762396, [id number], [id number] #### [facility] [address] [place] [address] Monocytes/Leukocyt es Auto Pure number fraction (Bld) 0.3 E9/L Normal 0.2-1.0 [facility] Comment on above: Order Comment: Order added by Discern Expert. Performed By: #### 2 192830, [id number], [id number] #### [facility] [address] [place] [address] Neutrophils/100 WBC (Bld) 82.3 % High 36.0-75.0 [facility] Comment on above: Order Comment: Order added by Discern Expert. Performed By: #### 2 285490, [id number], [id number] #### [facility] [address] [place] [address] Neutrophils/Leukoc ytes Auto Pure number fraction (Bld) 12.0 E9/L High 2.0-7.5 [facility] Comment on above: Order Comment: Order added by Discern Expert. Performed By: #### 2 677556, [id number], [id number] #### [facility] [address] [place] [address] BMPon 05-23-2018 Anion gap molar conc 11 mmol/L Normal 6-16 [facility] Comment on above: Performed By: #### 2 172502, [id number], [id number] #### [facility] [address] [place] [address] Calcium mass conc 8.5 mg/dL Low 8.9-11.1 [facility] Comment on above: Performed By: #### 2 705346, [id number], [id number] #### [facility] [address] [place] [address] Chloride molar conc 107 mmol/L Normal 101-111 [facility] Comment on above: Performed By: #### 2 408838, [id number], [id number] #### [facility] [address] [place] [address] CO2 molar conc 20 mmol/L Low 21-31 [facility] Comment on above: Performed By: #### 2 485956, [id number], [id number] #### [facility] [address] [place] [address] Creatinine mass conc 0.6 mg/dL Normal 0.5-1.3 [facility] Comment on above: Performed By: #### 2 850664, [id number], [id number] #### [facility] [address] [place] [address] Glucose mass conc 296 mg/dL High 55-199 [facility] Comment on above: Result Comment: If t his glucose result represents a fasting glucose, interpretation should refer to the following reference range: 55-99 mg/dL Performed By: #### 2 375939, [id number], [id number] #### [facility] [address] [place] [address] Potassium molar conc 3.6 mmol/L Normal 3.5-5.3 [facility] Comment on above: Performed By: #### 2 030015, [id number], [id number] #### [facility] [address] [place] [address] Sodium molar conc 134 mmol/L Low 135-145 [facility] Comment on above: Performed By: #### 2 386322, [id number], [id number] #### [facility] [address] [place] [address] Urea nitrogen mass conc 16 mg/dL Normal 5-21 [facility] Comment on above: Performed By: #### 2 390250, [id number], [id number] #### [facility] [address] [place] [address] Urea nitrogen/Creatinin e mass ratio 27 No Units High 10-20 [facility] Comment on above: Performed By: #### 2 852233, [id number], [id number] #### [facility] [address] [place] [address] CBC w/ Auto Diffon 8 Erythrocyte distribution width Ratio (RBC) 14.2 % Normal 10.9-14.2 [facility] Comment on above: Performed By: #### 2 248488, [id number], [id number] #### [facility] [address] [place] [address] Hematocrit Volume Fraction (Bld) 42.2 % Normal 34.0-46.0 [facility] Comment on above: Performed By: #### 2 155309, [id number], [id number] #### [facility] [address] [place] [address] Hemoglobin mass conc (Bld) 13.8 g/dL Normal 12.0-16.0 [facility] Comment on above: Performed By: #### 2 490001, 17298239, [id number] #### [facility] [address] [place] [address] MCH Entitic mass (RBC) 28.3 pg Normal 27.0-34.0 [facility] Comment on above: Performed By: #### 2 396176, [id number], [id number] #### [facility] [address] [place] [address] MCHC mass conc (RBC) 32.7 g/dL Normal 31.4-39.3 [facility] Comment on above: Performed By: #### 2 229992, [id number], [id number] #### [facility] [address] [place] [address] MCV Entitic volume (RBC) 86.6 fL Normal 80.0-100.0 [facility] Comment on above: Performed By: #### 2 446291, [id number], [id number] #### [facility] [address] [place] [address] Platelet mean volume Entitic volume (Bld) 8.2 fL Normal 6.4-10.8 [facility] Comment on above: Performed By: #### 2 697193, [id number], [id number] #### [facility] [address] [place] [address] Platelets #/vol (Bld) 269.0 E9/L Normal 150.0-500.0 [facility] Comment on above: Performed By: #### 2 003774, [id number], [id number] #### [facility] [address] [place] [address] RBC #/vol (Bld) 4.9 E12/L Normal 4.3-5.9 [facility] Comment on above: Performed By: #### 2 334664, [id number], [id number] #### [facility] [address] [place] [address] WBC corrected for nucl RBC Auto #/vol (Bld) 14.6 E9/L High 4.0-11.0 [facility] Comment on above: Performed By: #### 2 943698, [id number], [id number] #### [facility] [address] [place] [address] CT Chest w/o Contraston CT Chest w/o Contrast Exam Date/Time: 05/22/2018 20:40 EST Reason for Exam: Dyspnea Report IMPRESSION: SMALL PATCH OF NONSPECIFIC GROUND-GLASS OPACITY IN THE LEFT LOWER LOBE, POSSIBLY INFLAMMATORY BUT THIS MAY ALSO BE RELATED TO GRAVITY. EXAM: CT Chest w/o Contrast DATE: 05/22/2018 8:21 PM CLINICAL HISTORY: Shortness of breath Dyspnea COMPARISON: None TECHNIQUE: Helical CT was performed through the chest without IV contrast.. All CT scans at this facility use dose modulation, iterative reconstruction, and/or weight based dosing when appropriate to reduce radiation dose to as low as reasonably achievable. FINDINGS: FINDINGS Lungs: Small patch of nonspecific ground-glass opacity in the posterior left lower lobe with minimal dependent opacities at the lung bases. No focal infiltrates or consolidation. Pleura: No pleural effusion or thickening. Mediastinum: Mediastinum and arcadio are normal. There are no pathologically enlarged lymph nodes. Vascular structures: There is no evidence for thoracic aortic aneurysm or dissection. Chest wall: The chest wall and lower neck are normal. Upper abdomen: The visualized portions of the upper abdomen are unremarkable. Bones: Osseous structures are normal FINAL REPORT Dictated: 05/23/2018 9:14 am Dillon Sands MD Signed (Electronic Signature): 05/23/2018 4:24 pm Signed by: Dillon Sands MD Transcribed by: jack Technologist: LISA Mata [facility] Interdisciplinary Note - Tung e Manageron 05-23-2018 Interdisciplinary Note - Container Maker Rounding with Saritha Alva Abby RN with another patient; Maycol Vallejo RPH board updated, Explained inpatient hospital status; Dr. Spicer explains plan of care with patient; Anticipated plan is for patient to stay today and plan for DC 05/24, Patient voices that she does feel better but does not feel like she is ready to go home yet, PCP verified as Maria Teresa Scott. Patient independent from home with spouse who can transport upon discharge, Patient uses a cane at times when at home; denies any ohter discharge needs at this time. CRM will remain available if needed. Normal [facility] Interdisciplinary Note - Gabriela rico 05-23-2018 Interdisciplinary Note - Nutrition Initial assessment completed this day, see education form for details. HgA1c 8.2% indicating poor control for age Normal [facility] Progress Note-Physicianon Protein mass conc Assessment/Plan 1. Hypoxia - Currently on RA. Oxygen has been weaned. 2. COPD exacerbation - Suspect underlying asthma component as well. Would benefit from outpatient PFTs - Duo nebulizers 4 times a day with albuterol when necessary. Solu-Medrol 60 mg IV every 6 hours. Mucinex twice a day. Flutter valve 4 times a day. 3. Pneumonia - Failed seven-day course of outpatient Levaquin. Expanded inpatient antibiotics to cefepime and vancomycin, but will discontinue Vanco as clinically do not feel it is needed - CT of the chest without contrast results below - Blood cultures drawn, Sputum culture, Legionella antigen all pending. - Influenza negative 4. DM (diabetes mellitus) - Uncontrolled, A1c 8.2. - Current hyperglycemia due to IV steroids. 5. Sleep apnea - Home CPAP unit. 6. Smoker - Nicotine patch if desires. 7. Depression - Continue home medications. 8. Extreme obesity - BMI 51. Subjective Feels a little bit better today. Still feels like lungs tight overall. No new complaints. Review of Systems Constitutional: no fever, no chills, + fatigue Skin: no rash Respiratory: + shortness of breath, + cough, + wheezing Cardiovascular: no chest pain, no palpitations, no edema Gastrointestinal: no n/v/d, no abdominal pain Musculoskeletal: no significant joint or muscle pain Neurologic: no headache, no dizziness Psych: no depression, no anxiety Objective Vitals & Measurements T: 36.6 ?C (Oral) TMIN: 36.5 ?C (Oral) TMAX: 37.3 ?C (Oral) HR: 88(Monitored) RR: 20 BP: 130/70 SpO2: 99% WT: 139.5 kg Intake & Output This visit (24 hour periods starting at 07:00 EST) 05/23/18 * 05/22/18 05/21/18 Total Summary Intake mL 383.33 2,321.17 -- Output mL -- -- -- Fluid Balance 383.33 2,321.17 -- Intake (5) Oral Intake mL -- 450 -- Sodium Chloride 0.9% mL -- 1,000 -- Sodium Chloride 0.9%, cefepime mL 100 150 -- Sodium Chloride 0.9%, vancomycin mL 283.33 716.67 -- methylPREDNISolone mL -- 4.5 -- Total 383.33 2,321.17 -- Output (0) Counts (0) * This column has not completed the indicated time period. Physical Exam General: alert, no acute distress, appears tired ENMT: AT/NC, neck supple Skin: no rash Cardiovascular: regular rate and rhythm, S1S2, normal peripheral perfusion Respiratory: Lungs with improved air movement, scattered faint expiratory wheezing at bases bilateral, lung sounds still fairly tight , respirations non labored, equal breath sounds bilaterally Abd: Soft Extremities: no deformity, no trauma, no edema Neurological: oriented, LOC appropriate for age, no focal deficits, speech normal Psych: cooperative, appropriate affect, good eye contact Lab Results WBC: 14.6 E9/L High (05/23/18 05:56:00 EST) RBC: 4.9 E12/L (05/23/18 05:56:00 EST) Hgb: 13.8 gm/dL (05/23/18 05:56:00 EST) Hct: 42.2 % (05/23/18 05:56:00 EST) MCV: 86.6 fL (05/23/18 05:56:00 EST) MCH: 28.3 pg (05/23/18 05:56:00 EST) MCHC: 32.7 gm/dL (05/23/18 05:56:00 EST) RDW: 14.2 % (05/23/18 05:56:00 EST) Platelet: 269 E9/L (05/23/18 05:56:00 EST) MPV: 8.2 fL (05/23/18 05:56:00 EST) Neutro Auto: 82.3 % High (05/23/18 05:56:00 EST) Lymph Auto: 15 % (05/23/18 05:56:00 EST) [place] Auto: 2.1 % Low (05/23/18 05:56:00 EST) Eos Auto: 0 % (05/23/18 05:56:00 EST) Basophil Auto: 0.6 % (05/23/18 05:56:00 EST) Neutro Absolute: 12 E9/L High (05/23/18 05:56:00 EST) Lymph Absolute: 2.2 E9/L (05/23/18 05:56:00 EST) Chester Absolute: 0.3 E9/L (05/23/18 05:56:00 EST) Eos Absolute: 0 E9/L (05/23/18 05:56:00 EST) Basophil Absolute: 0.1 E9/L (05/23/18 05:56:00 EST) Glucose Lvl: 296 mg/dL High (05/23/18 05:56:00 EST) BUN: 16 mg/dL (05/23/18 05:56:00 EST) Creatinine: 0.6 mg/dL (05/23/18 05:56:00 EST) eGFR: >60 (05/23/18 05:56:00 EST) eGFR AA: >60 (05/23/18 05:56:00 EST) BUN/Creat Ratio: 27 High (05/23/18 05:56:00 EST) Sodium Lvl: 134 mmol/L Low (05/23/18 05:56:00 EST) Potassium Lvl: 3.6 mmol/L (05/23/18 05:56:00 EST) Chloride: 107 mmol/L (05/23/18 05:56:00 EST) CO2: 20 mmol/L Low (05/23/18 05:56:00 EST) AGAP: 11 mEq/L (05/23/18 05:56:00 EST) Calcium Lvl: 8.5 mg/dL Low (05/23/18 05:56:00 EST) BNP: <5 (05/22/18 13:29:00 EST) Glucose Cap: 302 mg/dL High (05/23/18 07:41:00 EST) POC Device SN: [id number] (05/23/18 07:41:00 EST) POC Username: RUFINO RIZO (05/23/18 07:41:00 EST) Influenzae A Ag: NEGATIVE1 (05/22/18 14:28:00 EST) Influenzae B Ag: NEGATIVE1 (05/22/18 14:28:00 EST) Diagnostic Results (05/22/2018 20:[address] Chest w/o Contrast) IMPRESSION: SMALL PATCH OF NONSPECIFIC GROUND-GLASS OPACITY IN THE LEFT LOWER LOBE, POSSIBLY INFLAMMATORY BUT THIS MAY ALSO BE RELATED TO GRAVITY. [1] Problem List/Past Medical History Ongoing Asthma Cataract Cervical dystonia Cervical stenosis of spine Depression DM (diabetes mellitus) Extreme obesity Fibromyalgia Hyperlipidemia Migraine Neuropathy Osteoarthritis Pneumonia Polymyalgia rheumatica Sleep apnea Smoker Historical No qualifying data Medications Inpatient acetaminophen 325 mg Tab, 650 mg= 2 tab(s), Oral, q6hr, PRN acetaminophen-oxycodone 325 mg-5 mg Tab, 1 tab(s), Oral, q6hr, PRN acetaZOLAMIDE 250 mg Tab, 375 mg= 1.5 tab(s), Oral, Bedtime albuterol 0.083% Inh Sofya 3 mL UD, 2.5 mg= 3 mL, NEB, q2hr, PRN APAP/butalbital/caffeine 325 mg-50 mg-40 mg Tab, 1 tab(s), Oral, q6hr, PRN atorvastatin 20 mg Tab, 20 mg= 1 tab(s), Oral, Bedtime Benadryl 25 mg Cap, 50 mg= 2 cap(s), Oral, q6hr, PRN Cefepime 2 gram IVPB CeleBREX 200 mg Cap, 200 mg= 1 cap(s), Oral, Daily cyproheptadine 4 mg Tab, 12 mg= 3 tab(s), Oral, Bedtime Dextrose 50% Soln-IV, 40 mL, IV Push, Once, PRN duloxetine 60 mg Cap-DR, 60 mg= 1 cap(s), Oral, BID DuoNeb 2.5 mg-0.5 mg/3 mL Soln-Inh, 3 mL, Inhalation, QID famotidine 20 mg Tab, 20 mg= 1 tab(s), Oral, Once a day (at bedtime) heparin 5000 units/mL Inj, 5000 unit(s)= 1 mL, SubCutaneous, BID Insulin Lispro Sliding Scale, 0-10 Units, SubCutaneous, QIDACHS lamotrigine 100 mg Tab, 100 mg= 1 tab(s), Oral, Daily Levemir 100 units/mL Injection-Insulin, 50 unit(s)= 0.5 mL, SubCutaneous, Bedtime Levemir 100 units/mL Injection-Insulin, 30 unit(s)= 0.3 mL, SubCutaneous, Daily lisinopril 5 mg Tab, 5 mg= 1 tab(s), Oral, Daily loratadine 10 mg Tab, 10 mg= 1 tab(s), Oral, Daily methylPREDNISolone 40 mg preservative-free injection (SOLU-MEDROL), 60 mg= 1.5 mL, IV Push, q6hrFT Mucinex 600 mg Tab-ER, 1200 mg= 2 tab(s), Oral, BID Neurontin 800 mg Tab, 1600 mg= 2 tab(s), Oral, Bedtime Neurontin 800 mg Tab, 800 mg= 1 tab(s), Oral, Daily nicotine 21 mg/24 hr Transderm ER Film, 21 mg= 1 patch(es), TransDermal, Daily, PRN nystatin 100,000 units/mL Oral Susp, 909863 unit(s)= 5 mL, Oral-Swish&Swallow, QID Pantoprazole [address] Tab, 40 mg= 1 tab(s), Oral, Daily remove patch, 1 patch(es), Topical, Daily remove patch, 1 patch(es), Topical, Daily ropinirole 0.25 mg Tab, 0.5 mg= 2 tab(s), Oral, Bedtime Singulair 10 mg Tab, 10 mg= 1 tab(s), Oral, Bedtime temazepam 15 mg Cap, 30 mg= 2 cap(s), Oral, Once a day (at bedtime), PRN Trileptal 300 mg Tab, 600 mg= 2 tab(s), Oral, Bedtime Trileptal 300 mg Tab, 300 mg= 1 tab(s), Oral, Daily Xanax 1 mg Tab, 2 mg= 2 tab(s), Oral, Bedtime Zanaflex 4 mg Tab, 8 mg= 2 tab(s), Oral, Bedtime Zofran 4 mg/2 mL Injection, 4 mg= 2 mL, IV Push, q6hr, PRN Home acetaZOLAMIDE 125 mg Tab, 125 mg= 1 tab(s), Oral, Bedtime acetaZOLAMIDE 250 mg Tab, 250 mg= 1 tab(s), Oral, Bedtime albuterol 0.083% Soln-Inh, 3 mL, Inhalation, q6hr, PRN APAP/butalbital/caffeine 325 mg-50 mg-40 mg Tab, See Instructions, PRN atorvastatin 20 mg Tab, 20 mg= 1 tab(s), Oral, Bedtime azelastine nasal, 1 spray, Inhalation, Daily, PRN Benadryl 25 mg Cap, 50 mg= 2 cap(s), Oral, q6hr, PRN biotin, 68071 mcg, Oral, BID CeleBREX 200 mg Cap, 200 mg= 1 cap(s), Oral, Daily Cymbalta 60 mg Cap-EC, 60 mg= 1 cap(s), Oral, BID cyproheptadine 4 mg Tab, 12 mg= 3 tab(s), Oral, Bedtime diclofenac potassium 50 mg oral tablet, 50 mg= 1 tab(s), Oral, BID Epipen, 1 dose, IntraMuscular, As Directed, PRN famotidine 20 mg Tab, 20 mg= 1 tab(s), Oral, Once a day (at bedtime) fexofenadine 180 mg Tab, 180 mg= 1 tab(s), Oral, Daily lamotrigine 100 mg oral tablet, 100 mg= 1 tab(s), Oral, Daily lisinopril 5 mg Tab, 5 mg= 1 tab(s), Oral, Daily Neurontin 800 mg Tab, 800 mg= 1 tab(s), Oral, Daily Neurontin 800 mg Tab, 1600 mg= 2 tab(s), Oral, Bedtime Nexium 40 mg Cap-EC, 40 mg= 1 cap(s), Oral, Daily NovoLOG 100 units/mL Injection-Insulin, Sliding Scale, SubCutaneous, Daily, PRN nystatin 100,000 units/mL oral suspension, 560787 unit(s)= 5 mL, Oral, QID Percocet 10/325, 1 tab(s), Oral, q6hr, PRN ProAir HFA, 2 puff(s), Inhalation, QID, PRN ropinirole 0.25 mg Tab, 0.5 mg= 2 tab(s), Oral, Bedtime Singulair 10 mg Tab, 10 mg= 1 tab(s), Oral, Bedtime temazepam 30 mg Cap, 30 mg= 1 cap(s), Oral, Once a day (at bedtime), PRN Tresiba FlexTouch 200 units/mL subcutaneous solution, 70 unit(s), SubCutaneous, Daily Trileptal 300 mg Tab, 300 mg= 1 tab(s), Oral, qAM Trileptal 300 mg Tab, 600 mg= 2 tab(s), Oral, qPM Vitamin D 50,000 intl units (1.25 mg) oral capsule, 44970 International_Unit= 1 cap(s), Oral, Sunday Xanax 1 mg Tab, 2 mg= 2 tab(s), Oral, Bedtime Zanaflex, 8 mg, Oral, Bedtime [1] CT Chest w/o Contrast; Dillon Sands MD 05/22/2018 20:40 EST Normal [facility] Comment on above: Result Comment: Elec tronically Signed By: Nayan BLUNT, Cece\.br\Date and Time Signed: 05/23/18 11:47 EST eGFRon 05-23-2018 GFR/1.73 sq M predicted among blacks MDRD vol rate/area (S/P/Bld) mL/min/{1.73_m2} Normal >=59 [facility] Comment on above: Order Comment: Order added by Discern Expert. Result Comment: eGFR is race adjusted. AA=. Performed By: #### 2 077837, [id number], [id number] #### [facility] [address] [place] [address] GFR/1.73 sq M predicted among non-blacks MDRD vol rate/area (S/P/Bld) mL/min/{1.73_m2} Normal >=59 [facility] Comment on above: Order Comment: Order added by Discern Expert. Result Comment: Photocopier Technician arlet kidney disease could be indicated at eGFR's of less than 60 mL/min/1.73m2. Kidney failure is indicated at less than 15 mL/min/1.73m2. Performed By: #### 2 765335, [id number], [id number] #### [facility] [address] [place] [address] Auto Diffon 05-22-2018 Basophils #/vol (Bld) 0.6 % Normal 0.0-2.0 [facility] Comment on above: Order Comment: Order Added by Discern Expert. Performed By: #### 2 805482, 0282046, 0860146, [id number], [id number] #### [facility] [address] [place] [address] Basophils/Leukocyt es Auto Pure number fraction (Bld) 0.1 E9/L Normal 0.0-0.2 [facility] Comment on above: Order Comment: Order Added by Discern Expert. Performed By: #### 2 811534, 3565735, 2478803, [id number], [id number] #### [facility] [address] [place] [address] Eosinophils/100 WBC (Bld) 1.0 % Normal 0.0-8.0 [facility] Comment on above: Order Comment: Order Added by Discern Expert. Performed By: #### 2 825227, 4748926, 8653455, 22194001, [id number] #### [facility] [address] [place] [address] Eosinophils/Leukoc ytes Auto Pure number fraction (Bld) 0.1 E9/L Normal 0.0-0.5 [facility] Comment on above: Order Comment: Order Added by Discern Expert. Performed By: #### 2 716479, 6424226, 3377010, [id number], [id number] #### [facility] [address] [place] [address] Lymphocytes/100 WBC (Bld) 41.8 % Normal 14.0-50.0 [facility] Comment on above: Order Comment: Order Added by Discern Expert. Performed By: #### 2 349145, 4658627, 6828857, 83084403, 69959473 #### [facility] [address] [place] [address] Lymphocytes/Leukoc ytes Auto Pure number fraction (Bld) 5.7 E9/L High 1.0-4.0 [facility] Comment on above: Order Comment: Order Added by Discern Expert. Performed By: #### 2 404205, 5643164, 7804082, 86226697, [id number] #### [facility] [address] [place] [address] Monocytes/100 WBC (Bld) 5.4 % Normal 4.0-14.0 [facility] Comment on above: Order Comment: Order Added by Discern Expert. Performed By: #### 2 602610, 3116268, 2768284, 53204164, [id number] #### [facility] [address] [place] [address] Monocytes/Leukocyt es Auto Pure number fraction (Bld) 0.7 E9/L Normal 0.2-1.0 [facility] Comment on above: Order Comment: Order Added by Discern Expert. Performed By: #### 2 122372, 5475831, 6677706, 03834035, [id number] #### [facility] [address] [place] [address] Neutrophils/100 WBC (Bld) 51.2 % Normal 36.0-75.0 [facility] Comment on above: Order Comment: Order Added by Discern Expert. Performed By: #### 2 475514, 0021044, 5287071, 92109969, 14676057 #### [facility] [address] [place] [address] Neutrophils/Leukoc ytes Auto Pure number fraction (Bld) 6.9 E9/L Normal 2.0-7.5 [facility] Comment on above: Order Comment: Order Added by Discern Expert. Performed By: #### 2 189814, 8987319, 6082623, 11947573, 57208985 #### [facility] [address] [place] [address] BMPon 05-22-2018 Creatinine mass conc 0.7 mg/dL Normal 0.5-1.3 [facility] Comment on above: Performed By: #### 2 892580, 7697325, 6538795, 50090714, 21019079 #### [facility] [address] [place] [address] Urea nitrogen mass conc 20 mg/dL Normal 5-21 [facility] Comment on above: Performed By: #### 2 309495, 5521505, 4777819, 49725285, 87328875 #### [facility] [address] [place] [address] Urea nitrogen/Creatinin e mass ratio 29 No Units High 10-20 [facility] Comment on above: Performed By: #### 2 698677, 8399736, 2791853, 25594517, 63279350 #### [facility] [address] [place] [address] Anion gap molar conc 12 mmol/L Normal 6-16 [facility] Comment on above: Performed By: #### 2 928089, 2374833, 5521802, 22002938, 44190147 #### [facility] [address] [place] [address] Calcium mass conc 8.4 mg/dL Low 8.9-11.1 [facility] Comment on above: Performed By: #### 2 462271, 9204484, 3331015, 24697387, 60592738 #### [facility] [address] [place] [address] Chloride molar conc 102 mmol/L Normal 101-111 [facility] Comment on above: Performed By: #### 2 449931, 8673543, 9105292, 13225878, 24802088 #### [facility] [address] [place] [address] CO2 molar conc 21 mmol/L Normal 21-31 [facility] Comment on above: Performed By: #### 2 514222, 9697030, 9807628, 12770749, 28964077 #### [facility] [address] [place] [address] Glucose mass conc 345 mg/dL High 55-199 [facility] Comment on above: Result Comment: If t his glucose result represents a fasting glucose, interpretation should refer to the following reference range: 55-99 mg/dL Performed By: #### 2 462001, 2749630, 9802904, 47030532, 36459327 #### [facility] [address] [place] [address] Potassium molar conc 3.8 mmol/L Normal 3.5-5.3 [facility] Comment on above: Performed By: #### 2 200725, 1989984, 6346178, 66684155, 14781337 #### [facility] [address] [place] [address] Sodium molar conc 131 mmol/L Low 135-145 [facility] Comment on above: Performed By: #### 2 864476, 3534507, 7135931, 85217821, 56897090 #### [facility] [address] [place] [address] BNPon 05-22-2018 Natriuretic peptide B mass conc (Bld) pg/mL Normal 5-80 [facility] Comment on above: Performed By: #### 2 855684, 1517658, 7278486, 18821547, 98596725 #### [facility] [address] [place] [address] CBC w/ Auto Diffon 8 Erythrocyte distribution width Ratio (RBC) 14.1 % Normal 10.9-14.2 [facility] Comment on above: Performed By: #### 2 421045, 2554236, 4942588, 46577496, 03827071 #### [facility] [address] [place], [place] [address] Hematocrit Volume Fraction (Bld) 43.7 % Normal 34.0-46.0 [facility] Comment on above: Performed By: #### 2 259479, 9419110, 0330449, 04372337, 42467482 #### [facility] [address] [place] [address] Hemoglobin mass conc (Bld) 14.8 g/dL Normal 12.0-16.0 [facility] Comment on above: Performed By: #### 2 523074, 0709192, 4434352, 10870877, 33598207 #### [facility] [address] [place] [address] MCH Entitic mass (RBC) 29.3 pg Normal 27.0-34.0 [facility] Comment on above: Performed By: #### 2 201747, 9990010, 9613489, 37241274, 74605904 #### [facility] [address] [place] [address] MCHC mass conc (RBC) 34.0 g/dL Normal 31.4-39.3 [facility] Comment on above: Performed By: #### 2 362480, 0767653, 2683179, 26609217, 54494551 #### [facility] [address] [place] [address] MCV Entitic volume (RBC) 86.1 fL Normal 80.0-100.0 [facility] Comment on above: Performed By: #### 2 618019, 6270713, 5349228, 56335931, 61534161 #### [facility] [address] [place] [address] Platelet mean volume Entitic volume (Bld) 7.8 fL Normal 6.4-10.8 [facility] Comment on above: Performed By: #### 2 303443, 4903999, 7296036, 78759897, 71342171 #### [facility] [address] [place], [place] [address] Platelets #/vol (Bld) 252.0 E9/L Normal 150.0-500.0 [facility] Comment on above: Performed By: #### 2 746045, 6800368, 8197692, 81651604, 52276553 #### [facility] [address] [place] [address] RBC #/vol (Bld) 5.1 E12/L Normal 4.3-5.9 [facility] Comment on above: Performed By: #### 2 157890, 1318309, 2987512, 47620057, 63268266 #### [facility] [address] [place], [place] [address] WBC corrected for nucl RBC Auto #/vol (Bld) 13.6 E9/L High 4.0-11.0 [facility] Comment on above: Performed By: #### 2 280779, 6710343, 7055011, 83936148, 66079166 #### [facility] [address] [place] [address] ED Clinical Summaryon 2017 ED Clinical Summary [address] [address] ED Clinical Summary Person Information Name: BYRON LANDIS Rowena/[facility] Age: 53 Years : 1965 12:00 AM Sex: Female Language: Rwandan PCP: Maria Teresa Scott CNP Marital Status: Visit Id: Visit Reason: Cough; COPD, PNEUMONIA Speciality: Acuity: 3 Enc Type: Observation Med Service: Medical Arrival: 05/22/2018 12:27 PM Discharge: LOS: 000 05:21 Checkin: 05/22/2018 12:27 PM Checkout: 05/22/2018 5:48 PM Dispo Type: Admitted as IP to this [facility] EVENTS: Event Name Event Status Request Date/Time Start Date/Time Complete Date/Time Arrive Complete 05/22/2018 12:27 PM 05/22/2018 12:27 PM 05/22/2018 12:27 PM Document Home Meds Complete 05/22/2018 12:27 PM 05/22/2018 5:01 PM 05/22/2018 5:01 PM Triage Complete 05/22/2018 12:27 PM 05/22/2018 12:37 PM 05/22/2018 12:37 PM Bed Assign Complete 05/22/2018 12:36 PM 05/22/2018 12:36 PM 05/22/2018 12:[address] Exam Complete 05/22/2018 12:36 PM 05/22/2018 12:36 PM 05/22/2018 12:36 PM RN Exam Complete 05/22/2018 12:36 PM 05/22/2018 1:33 PM 05/22/2018 1:33 PM Registration Complete 05/22/2018 12:36 PM 05/22/2018 1:24 PM 05/22/2018 1:[address] Exam Complete 05/22/2018 12:37 PM 05/22/2018 12:37 PM 05/22/2018 12:37 PM EKG Complete 05/22/2018 12:55 PM 05/22/2018 1:29 PM Pending Labs Request 05/22/2018 12:55 PM Lab Request 05/22/2018 12:55 PM Meds Admin Complete 05/22/2018 12:55 PM 05/22/2018 1:20 PM Patient Care Complete 05/22/2018 12:55 PM 05/22/2018 2:19 PM 05/22/2018 2:19 PM X-Ray Complete 05/22/2018 12:55 PM 05/22/2018 1:34 PM 05/22/2018 2:02 PM RT Complete 05/22/2018 12:55 PM 05/22/2018 2:19 PM 05/22/2018 2:19 PM RT Tx/ABG Complete 05/22/2018 12:55 PM 05/22/2018 1:19 PM Meds Admin Complete 05/22/2018 12:56 PM 05/22/2018 1:19 PM RT Tx/ABG Complete 05/22/2018 12:56 PM 05/22/2018 1:19 PM Reg Complete Request 05/22/2018 1:24 PM Reg Bed Request Complete 05/22/2018 1:24 PM 05/22/2018 1:24 PM 05/22/2018 1:24 PM Pending Labs Complete 05/22/2018 1:37 PM 05/22/2018 1:37 PM 05/22/2018 1:53 PM Lab Complete 05/22/2018 1:37 PM 05/22/2018 1:37 PM 05/22/2018 1:53 PM Pending Labs Complete 05/22/2018 1:46 PM 05/22/2018 1:46 PM 05/22/2018 1:46 PM Lab Complete 05/22/2018 1:46 PM 05/22/2018 1:46 PM 05/22/2018 1:46 PM Wet Read Request 05/22/2018 2:02 PM Pending Labs Complete 05/22/2018 2:08 PM 05/22/2018 3:01 PM Swab Complete 05/22/2018 2:08 PM 05/22/2018 3:01 PM Pending Labs Complete 05/22/2018 3:14 PM 05/22/2018 3:14 PM 05/22/2018 3:14 PM Meds Admin Complete 05/22/2018 3:42 PM 05/22/2018 5:11 PM Hospitalist Consult Request 05/22/2018 3:43 PM Meds Admin Complete 05/22/2018 3:53 PM 05/22/2018 4:13 PM Patient Care Request 05/22/2018 5:01 PM Patient Care Request 05/22/2018 5:01 PM Consult Request 05/22/2018 5:02 PM Patient Care Request 05/22/2018 5:03 PM Patient Care Request 05/22/2018 5:03 PM ADDRESS: [facility] [id number] PHYS DOC NOTES: MEDICAL INFORMATION: Prescriptions Given: Home Meds Display acetaZOLAMIDE (acetaZOLAMIDE 125 mg Tab) 125 mg = 1 tab(s), Oral, Bedtime celecoxib (CeleBREX 200 mg Cap) 200 mg = 1 cap(s), Oral, Daily diclofenac (diclofenac potassium 50 mg oral tablet) 50 mg = 1 tab(s), Oral, BID fexofenadine (fexofenadine 180 mg Tab) 180 mg = 1 tab(s), Oral, Daily insulin degludec (Tresiba FlexTouch 200 units/mL subcutaneous solution) 70 unit(s), SubCutaneous, Daily nystatin (nystatin 100,000 units/mL oral suspension) 500,000 unit(s) = 5 mL, Oral, QID temazepam (temazepam 30 mg Cap) 30 mg = 1 cap(s), Oral, Once a day (at bedtime), PRN for sleep PATIENT EDUCATION INFORMATION: Instructions: Follow up: DIAGNOSIS: 1:COPD exacerbation; 2:Pneumonia involving right lung; 3:Hypoxia Normal [facility] ED Note-Nursingon 05-22-2018 ED Note-Nursing Pt reevaluated at th is time. RR unlabored. Occasional productive cough. Provided with a sterile cup for sputum collection. Flu swab collected at this time. Pt reviatalized. SPo2 88-91% on room air. Pt states that she does not wear oxygen at home and her baseline SPo2 is around 97%. Pt does wear CPAP at bedtime due to sleep apnea. Pt placed on 2 L nasal cannula at this time. No complaints. C/O generalized aches. Normal [facility] ED Note-Physicianon 05-22-20 18 ED Note-Physician Basic Information Time Seen: Bubba IRWIN, Kingsley Mendoza 05/22/2018 12:36 Chief Complaint been sick for the last 3 weeks. completed po antibiotics and steroids with no improvement. History of Present Illness 53-year-old female presents to the ED for evaluation of cough and congestion and shortness of breath for the last 3 weeks. She states a week ago she saw her PCP who placed her on Levaquin and an inhaler for suspected pneumonia. No chest x-ray was done or blood work. The patient has had pneumonia in the past and states she feels very similar. She progressively is getting more short of breath despite the use of antibiotics and inhalers. She states that she is bringing up dark green phlegm fairly frequently. She has had fevers at night. The patient was given a full week's worth of these Levaquin and states that she does not feel any better whatsoever. She states over the last 2 days she is drastically worsened. She called her PCP office today and they advised her coming to the ED for evaluation and further management. She was admitted last year for a similar cough and congestion found to be pneumonia. She states that she is still a daily smoker. She is diabetic and states that her glucose levels are usually under 200. Review of Systems Additional ROS info: Except as noted in the above Review of Systems and in the History of Present Illness all other systems have been reviewed and are negative or noncontributory. Physical Exam Vitals & Measurements T: 36.8 ?C (Oral) HR: 101(Monitored) RR: 20 BP: 146/97 SpO2: 95% HT: 165 cm WT: 136.1 kg BMI: 49.99 Nurses note and vital signs reviewed and patient is not hypoxic. General: The patient appears well and in no apparent distress. Patient is resting comfortably on cart. Skin: Warm, dry, no pallor noted. There is no rash noted. Head: Normocephalic, atraumatic Eye: Normal conjunctiva Ears, Nose, Mouth, and Throat: oral mucosa is mildly dry. There is bilateral TM bulging without erythema. I notice clear fluid in both TMs. No perforation. Postnasal drip noted with mild pharyngeal erythema without exudate. Nasal congestion with purulent drainage. Handles secretions well. Uvula midline. Cardiovascular: Regular Rate and Rhythm Respiratory: Patient is in no distress, patient is breathing a bit heavily, diminished worsened in the right base. I do not hear a significant amount of wheezes or rhonchi. Very frequent deep cough Back: non-tender, no CVA tenderness bilaterally to percussion. GI: Normal bowel sounds, no tenderness to palpation, no masses appreciated. No rebound, guarding, or rigidity noted. Musculoskeletal: The patient has no evidence of calf tenderness, no pitting edema, symmetrical pulses noted bilaterally Neurological: A&O x4, normal speech Psychiatric: Cooperative Medical Decision Making The patient at rest after breathing treatments, Solu-Medrol and rest was an 80% on room air. She is placed on 2 L nasal cannula oxygen and has increased to 94-95%. The patient has suspected infiltrate in the right lung versus atelectasis. She is started on cefepime and vancomycin to better cover pseudomonas and MRSA. Case discussed with the hospitalist who will accept the patient for medical management. Assessment/Plan 1. COPD exacerbation 2. Pneumonia involving right lung 3. Hypoxia Orders: vancomycin, Reason for Vancomycin: MRSA colonization or infection, 2 gram = 2 EA, Injection, IV Piggyback, Once, Stop date 05/22/18 16:00:00 EST, Routine, Start date 05/22/18 16:00:00 EST, Infuse over 2 hour(s) Automated Diff B-Type Natriuretic Peptide Basic Metabolic Panel Blood Culture Charcoal Blood Culture Charcoal CBC w/ Auto Diff Continuous Pulse Oximetry ECG 12 Lead Adult ED Cardiac Monitoring ED Physician consult Hospitalist for continued care eGFR Extra Blue Tube Extra SST Tube Influenza A&B Ag Oxygen Therapy Saline Lock Insert Sputum Culture XR Chest 2 Views Medications Administered Given albuterol 0.083% Inh Sofya 3 mL, 2.5 mg, Inhalation Ativan 2 mg/mL Injection, 1 mg, IV Push cefepime 1 g Inj 1 gram + Sodium Chloride 0.9% IV Sofya 50 mL Minibag Plus [F] 50 mL, IV Piggyback DuoNeb 2.5 mg-0.5 mg/3 mL Soln-Inh, 3 mL, Inhalation methylPREDNISolone 125 mg preservative-free injection (SOLU-MEDROL), 125 mg, IV Push Disposition Plan Patient Discharge Condition Stable, mildly improved Discharge Disposition Admitted to the floor under hospitalist service Discharge Prescription List Prescriptions No active prescription medications Follow-up No qualifying data available Attestation ATTENDING NOTE: I discussed the management with the resident/PA. I reviewed the resident/PA's note and agree with the documented findings and plan of care. Shakira Gunn DO Problem List/Past Medical History Ongoing Asthma Cataract Cervical dystonia Cervical stenosis of spine Depression DM (diabetes mellitus) Extreme obesity Fibromyalgia Glaucoma Hyperlipidemia Migraine Neuropathy Osteoarthritis Polymyalgia rheumatica Sleep apnea Smoker Historical No qualifying data Procedure/Surgical History Knee replacement (2013), Abdominal hysterectomy, Ankle reconstruction, Carpal tunnel, section, History of cervical discectomy, Tonsillectomy. Medications Inpatient Vancomycin 2 gram IVPB Home acetaZOLAMIDE 250 mg Tab, 250 mg= 1 tab(s), Oral, Bedtime albuterol 0.083% Soln-Inh, 3 mL, Inhalation, q6hr, PRN Liz 180 mg Tab, 180 mg= 1 tab(s), Oral, Daily APAP/butalbital/caffeine 325 mg-50 mg-40 mg Tab, See Instructions, PRN atorvastatin 20 mg Tab, 20 mg= 1 tab(s), Oral, Bedtime azelastine nasal, 1 spray, Inhalation, Daily, PRN Benadryl 25 mg Cap, 50 mg= 2 cap(s), Oral, q6hr, PRN biotin, 95130 mcg, Oral, BID Cataflam 50 mg oral tablet, 50 mg= 1 tab(s), Oral, BID Cymbalta 60 mg Cap-EC, 60 mg= 1 cap(s), Oral, BID cyproheptadine 4 mg Tab, 8 mg= 2 tab(s), Oral, Bedtime Epipen, 1 dose, IntraMuscular, As Directed, PRN famotidine 20 mg Tab, 20 mg= 1 tab(s), Oral, Daily lamotrigine 100 mg oral tablet, 100 mg= 1 tab(s), Daily Lantus 100 units/mL Injection-Insulin, 45 unit(s), SubCutaneous, BID lisinopril 5 mg Tab, 5 mg= 1 tab(s), Oral, Daily Neurontin 800 mg Tab, 800 mg= 1 tab(s), Oral, Daily Neurontin 800 mg Tab, 1600 mg= 2 tab(s), Oral, Bedtime Nexium 40 mg Cap-EC, 40 mg= 1 cap(s), Oral, Bedtime nicotine 21 mg/24 hr transdermal film, extended release NovoLOG 100 units/mL Injection-Insulin, Sliding Scale, SubCutaneous, Daily, PRN Percocet 10/325, 1 tab(s), Oral, q6hr, PRN ProAir HFA, 2 puff(s), Inhalation, QID, PRN ropinirole 0.25 mg Tab, 0.5 mg= 2 tab(s), Oral, Bedtime Singulair 10 mg Tab, 10 mg= 1 tab(s), Oral, Bedtime Trileptal 300 mg Tab, 300 mg= 1 tab(s), Oral, qAM Trileptal 300 mg Tab, 600 mg= 2 tab(s), Oral, qPM Vitamin D 50,000 intl units (1.25 mg) oral capsule, 19446 International_Unit= 1 cap(s), Oral, Sunday Xanax 1 mg Tab, 2 mg= 2 tab(s), Oral, Bedtime Zanaflex, 8 mg, Oral, Bedtime Allergies Avelox (Anaphylaxis) Contrast Dye (Anaphylaxis) Demerol HCl (Hives, C/O - vomiting) Dilaudid (Hives) Reglan (Agitation) Tape Valium (Agitation) Zithromax (Joint swelling) codeine (Hives) dextromethorphan (Hives) morphine (Hives) penicillins (Joint swelling) sulfa drugs (Hives) tetracycline (Hives) Social History Alcohol - Denies Alcohol Use, 05/25/2013 Current, 1-2 times per year, 05/22/2018 Substance Abuse - Denies Substance Abuse, 05/25/2013 Tobacco Cigarettes, 05/22/2018 Former Smoker, Cigarettes, 07/12/2017 Current Every Day Smoker, Cigarettes, 20 per day., 07/09/2016 Family History Acute myocardial infarction: Brother. COPD: Mother. Cataract: Mother and Father. Depression: Mother. Diabetes mellitus type 2: Mother. Heart failure: Brother. Hypertension: Mother. Lab Results WBC: 13.6 E9/L High (05/22/18 13:29:00 EST) RBC: 5.1 E12/L (05/22/18 13:29:00 EST) Hgb: 14.8 gm/dL (05/22/18 13:29:00 EST) Hct: 43.7 % (05/22/18 13:29:00 EST) MCV: 86.1 fL (05/22/18 13:29:00 EST) MCH: 29.3 pg (05/22/18 13:29:00 EST) MCHC: 34 gm/dL (05/22/18 13:29:00 EST) RDW: 14.1 % (05/22/18 13:29:00 EST) Platelet: 252 E9/L (05/22/18 13:29:00 EST) MPV: 7.8 fL (05/22/18 13:29:00 EST) Neutro Auto: 51.2 % (05/22/18 13:29:00 EST) Lymph Auto: 41.8 % (05/22/18 13:29:00 EST) Chester Auto: 5.4 % (05/22/18 13:29:00 EST) Eos Auto: 1 % (05/22/18 13:29:00 EST) Basophil Auto: 0.6 % (05/22/18 13:29:00 EST) Neutro Absolute: 6.9 E9/L (05/22/18 13:29:00 EST) Lymph Absolute: 5.7 E9/L High (05/22/18 13:29:00 EST) Chester Absolute: 0.7 E9/L (05/22/18 13:29:00 EST) Eos Absolute: 0.1 E9/L (05/22/18 13:29:00 EST) Basophil Absolute: 0.1 E9/L (05/22/18 13:29:00 EST) Glucose Lvl: 345 mg/dL High (05/22/18 13:29:00 EST) BUN: 20 mg/dL (05/22/18 13:29:00 EST) Creatinine: 0.7 mg/dL (05/22/18 13:29:00 EST) eGFR: >60 (05/22/18 13:29:00 EST) eGFR AA: >60 (05/22/18 13:29:00 EST) BUN/Creat Ratio: 29 High (05/22/18 13:29:00 EST) Sodium Lvl: 131 mmol/L Low (05/22/18 13:29:00 EST) Potassium Lvl: 3.8 mmol/L (05/22/18 13:29:00 EST) Chloride: 102 mmol/L (05/22/18 13:29:00 EST) CO2: 21 mmol/L (05/22/18 13:29:00 EST) AGAP: 12 mEq/L (05/22/18 13:29:00 EST) Calcium Lvl: 8.4 mg/dL Low (05/22/18 13:29:00 EST) BNP: <5 (05/22/18 13:29:00 EST) Influenzae A Ag: NEGATIVE1 (05/22/18 14:28:00 EST) Influenzae B Ag: NEGATIVE1 (05/22/18 14:28:00 EST) Diagnostic Results XR Chest 2 Views 05/22/18 14:35:21 IMPRESSION: BIBASILAR SUBSEGMENTAL ATELECTASIS VERSUS MINIMAL INFILTRATE. EXAMINATION: Chest x-ray, 2 view HISTORY: Shortness of breath TECHNIQUE: AP and lateral views of the chest COMPARISON: Chest 11/12/2017 FINDINGS: Cardiomediastinal silhouette is within normal limits. Tubing projects over the left neck, crossing midline at the level of the mid thoracic spine and extending into the right upper quadrant, with the distal tip not visualized. Linear bibasilar pulmonary opacities. No pneumothorax or pleural effusion. Osseous structures of the thorax appear intact. Signed By: Augusto Osman DO EKG Results May 22, 2018 1328 hours. Sinus tachycardia at 108 bpm. No acute ischemic changes. No ectopy read/reviewed by Dr. Gunn [facility] Comment on above: Result Comment: Elec tronically Signed By: Kingsley Mac PA-C\.br\Date and Time Signed: 05/22/18 16:42 EST\.br\Electronically Co-Signed By: Shakira Gunn DO\.br\Date and Time Co-Signed: 05/22/18 16:51 EST ED Patient Education Noteon 05-22-2018 ED Patient Education Note Normal [facility] ED Patient Summaryon 018 ED Patient Summary (Inserted Image. Korina ble to display) [place] [id number] Patient Discharge Instructions Person Information Name: BYRON LANDIS Age: 53 Years Arrival Date: 05/22/2018 12:27 PM Discharge Diagnosis: 1:COPD exacerbation; 2:Pneumonia involving right lung; 3:Hypoxia Primary Care Physician: Maria Teresa Scott CNP Provider Information Primary Provider: Shakira Gunn Advanced Nuclear Technician:Kingsley Mac PA-C The exam and treatment you received in the Emergency Department were for an urgent problem and are not intended as complete care. It is important that you follow up with a doctor, nurse practitioner, or physician?s bricklayer's assistant for ongoing care. If your symptoms become worse or you do not improve as expected and you are unable to reach your usual health care provider, you should return to the Emergency Department. We are available 24 hours a day. YBRON LANDIS has been given the following list of patient education materials, prescriptions and follow-up instructions: Follow-up Instructions: In the event that this physician does not participate in your insurance network, please consult with your insurance company to find a nearby participating provider. Patient Education Materials: A MESSAGE TO ALL PATIENTS REGARDING OPIOIDS PRESCRIPTION OPIOIDS: WHAT YOU NEED TO KNOW Prescription opioids can be used to help relieve [id number] pain and are often prescribed following a surgery or injury, or for certain health conditions. These medications can be an important part of the treatment but also come with serious risks. It is important to work with your healthcare provider to make sure you are getting the safest, most effective care. WHAT ARE THE RISKS AND SIDE EFFECTS OF OPIOID USE? Prescription opioids carry serious risks of addiction and overdose, especially with prolonged use. An opioid overdose, often marked by slowed breathing, can cause sudden . The use of prescription opioids can have a number of side effects as well, even when taken as directed: ? Tolerance?meaning you might need to take more of the medication for the same pain relief ? Physical dependence?meaning you have symptoms of withdrawal when a medication is stopped ? Increased sensitivity to pain ? Constipation ? Nausea, vomiting, and dry mouth ? Sleepiness and dizziness ? Confusion ? Depression ? Low levels of testosterone that can result in lower sex drive, energy, and strength ? Itching and sweating RISKS ARE GREATER WITH: ? History of drug misuse, substance use disorder, or overdose ? Mental health conditions (such as depression or anxiety) ? Sleep apnea ? Older age (65 years and older) ? Avoid alcohol while taking prescription opioids. Also, unless specifically advised by your health care provider, medications to avoid include: ? Benzodiazepines (such as Xanax or Valium) ? Muscle relaxants (such as Soma or Flexeril) ? Hypnotics (such as Ambien or Lunesta) ? Other prescription opioids KNOW YOUR OPTIONS Talk to your health care provider about ways to manage your pain that don?t involve prescription opioids. Some of these options may actually work better and have fewer risks and side effects. Options may include: ? Pain relievers such as acetaminophen, ibuprofen, and naproxen ? Some medication that are also used for depression or seizures ? Physical therapy and exercise ? Cognitive behavioral therapy, a psychological, goal-directed approach, in which patients learn how to modify physical, behavioral, and emotional triggers of pain and stress. IF YOU ARE PRESCRIBED OPIOIDS FOR PAIN: ? Never take opioids in greater amounts or more often than prescribed. ? Follow up with your primary health care provider. o Work together to create a plan on how to manage your pain. o Talk about ways to help manage your pain that don?t involve prescription opioids. o Talk about any and all concerns and side effects. ? Help prevent misuse and abuse o Never sell or share prescription opioids. o Never use another person?s prescription opioids. ? Store prescription opioids in a secure place and out of reach of others (this may include visitors, children, friends, and family). ? Safely dispose of unused prescription opioids: Find your community drug take-back program or your pharmacy mail-back program, or flush them down the toilet, following guidance from the Food and Drug Administration (www.fda.gov/Drugs/Resource sForYou). ? Visit www.cdc.gov/drugoverdose to learn about the risks of opioids abuse and overdose. ? If you believe you may be struggling with addiction, tell your health hearing care professional and ask for guidance or call [facility] National Helpline at 2-150-949-TWSW. s Source: [place] Department of Health and Human Services/Center for Disease Control & Prevention [facility] Medications Given: Medication Dose Route methylPREDNISolone 125.00 mg IV Push Left Mid Forearm albuterol 2.50 mg Inhalation albuterol-ipratropium 3.00 mL Inhalation vancomycin 2.00 gram IV Piggyback Left Mid Forearm cefepime 1.00 gram IV Piggyback Left Mid Forearm lorazepam 1.00 mg IV Push Left Mid Forearm Sodium Chloride 0.9% 1000.00 mL IV Left Mid Forearm Medication Information: Medications to Continue Taking That Have Changed Other Medications START: diclofenac (diclofenac potassium 50 mg oral tablet) 1 Tabs By Mouth 2 times a day. STOP: diclofenac (Cataflam 50 mg oral tablet) 1 Tabs By Mouth 2 times a day. START: fexofenadine (fexofenadine 180 mg Tab) 1 Tabs By Mouth every day. STOP: fexofenadine (Liz 180 mg Tab) 1 Tabs By Mouth every day. Medications to Continue with No Changes Other Medications acetaminophen-oxycodone (Percocet 10/325) 1 Tabs By Mouth every 6 hours as needed for pain. acetaZOLAMIDE (acetaZOLAMIDE 125 mg Tab) 1 Tabs By Mouth at bedtime. acetaZOLAMIDE (acetaZOLAMIDE 250 mg Tab) 1 Tabs By Mouth at bedtime. Takes with a 125mg tablet to make 375mg. albuterol (albuterol 0.083% Soln-Inh) 3 Milliliter Inhalation every 6 hours as needed for wheezing. albuterol (ProAir HFA) 2 Puffs Inhalation 4 times a day as needed Shortness of breath or wheezing. alprazolam (Xanax 1 mg Tab) 2 Tabs By Mouth at bedtime. APAP/butalbital/caffeine (APAP/butalbital/caffeine 325 mg-50 mg-40 mg Tab) Take 1 tablet by mouth at onset of headache or migraine. May repeat every 4-6 hours, however do not exceed 2 times per day; as needed for headache. atorvastatin (atorvastatin 20 mg Tab) 1 Tabs By Mouth at bedtime. azelastine nasal 1 spray Inhalation every day as needed Allergy symptoms. biotin 36810 mcg By Mouth 2 times a day. celecoxib (CeleBREX 200 mg Cap) 1 Capsules By Mouth every day. cyproheptadine (cyproheptadine 4 mg Tab) 3 Tabs By Mouth at bedtime. diphenhydrAMINE (Benadryl 25 mg Cap) 2 Capsules By Mouth every 6 hours as needed Itching. duloxetine (Cymbalta 60 mg Cap-EC) 1 Capsules By Mouth 2 times a day. epinephrine (Epipen) 1 dose Intramuscular As Directed as needed Anaphylaxis. ergocalciferol (Vitamin D 50,000 intl units (1.25 mg) oral capsule) 1 Capsules By Mouth Sunday. esomeprazole (Nexium 40 mg Cap-EC) 1 Capsules By Mouth every day. famotidine (famotidine 20 mg Tab) 1 Tabs By Mouth once a day (at bedtime). gabapentin (Neurontin 800 mg Tab) 1 Tabs By Mouth every day. gabapentin (Neurontin 800 mg Tab) 2 Tabs By Mouth at bedtime. insulin aspart (NovoLOG 100 units/mL Injection-Insulin) Sliding Scale Subcutaneous every day as needed Other (see comment). 0-150 0 units 151-200 2 units 201-250 4 units 251-300 6 units 301-350 8units 351-400 10 units over 400 call insulin degludec (Tresiba FlexTouch 200 units/mL subcutaneous solution) 70 Units Subcutaneous every day. lamotrigine (lamotrigine 100 mg oral tablet) 1 Tabs By Mouth every day. lisinopril (lisinopril 5 mg Tab) 1 Tabs By Mouth every day. montelukast (Singulair 10 mg Tab) 1 Tabs By Mouth at bedtime. nystatin (nystatin 100,000 units/mL oral suspension) 5 Milliliter By Mouth 4 times a day. oxcarbazepine (Trileptal 300 mg Tab) 2 Tabs By Mouth once a day (in the evening). oxcarbazepine (Trileptal 300 mg Tab) 1 Tabs By Mouth once a day (in the morning). ropinirole (ropinirole 0.25 mg Tab) 2 Tabs By Mouth at bedtime. temazepam (temazepam 30 mg Cap) 1 Capsules By Mouth once a day (at bedtime) as needed for sleep. tizanidine (Zanaflex) 8 Milligram By Mouth at bedtime. No Longer Take the Following Medications insulin glargine (Lantus 100 units/mL Injection-Insulin) 45 Units Subcutaneous 2 times a day. nicotine (nicotine 21 mg/24 hr transdermal film, extended release) Comment: Pharmacy Information: Thank you for choosing [facility] Patient Education Materials: PREETI Silverman TONA L , have received the following patient education materials/instructions and have verbalized understanding: Patient Education Materials: Follow-up Instructions: Prescriptions: Patient Signature Date Clinician/Nurse Signature Date 05/22/18 17:48:[address] [facility] History and Physicalon 05-22 History and Physical Chief Complaint been sick for the last 3 weeks. completed po antibiotics and steroids with no improvement. History of Present Illness 53-year-old female who presented to the emergency room with a 3 week history of increasing shortness of breath, productive cough with green sputum, wheezing, and fatigue. She is a one pack per day smoker. Does not wear home oxygen. Denies any sick contacts. No fever. Recently completed a seven-day course of Levaquin as well as oral prednisone and states she had no improvement in her symptoms at all. Does state that they are in the process of moving and believes she may have clinic in contact with significant allergens and dust in the home and the process. In the ED she was found to be 88% on room air. Flu swab was negative. Chest x-ray shows bibasilar atelectasis versus infiltrate. Review of Systems Constitutional: no fever, no chills, no sweats, + weakness Skin: no jaundice, no rash, no lesions, no petechiae ENMT: no ear pain, no sore throat, + congestion, no hoarseness Respiratory: + shortness of breath, + cough, no orthopnea, + wheezing Cardiovascular: no chest pain, no palpitations, no edema Gastrointestinal: no nausea, no vomiting, no diarrhea, no abdominal pain Genitourinary: no dysuria, no hematuria Musculoskeletal: no trauma, no joint or muscle pain Neurologic: no headache, no dizziness Psychiatric: no depression, no anxiety Heme/Lymph: no bleeding tendency, no bruising tendency Additional ROS info: Except as noted in the above Review of Systems and in the History of Present Illness all other systems have been reviewed and are negative or noncontributory. Physical Exam Vitals & Measurements T: 37.3 ?C (Oral) TMIN: 36.8 ?C (Oral) TMAX: 37.3 ?C (Oral) HR: 103(Peripheral) RR: 18 BP: 148/94 SpO2: 98% WT: 138.0 kg General: appears ill Skin: warm, dry, no rash Head: AT/NC Neck: Trachea midline, supple Eye: normal conjunctiva, sclera clear Cardiovascular: regular rate and rhythm, normal peripheral perfusion Respiratory: Lungs with diminished breath sounds bilaterally, poor expiratory air movement at bases, respirations non labored, breath sounds equal, no significant w/r/r Chest wall: no deformity Gastrointestinal: soft, NT, ND, obese Extremities: no deformity, no significant LE edema Neurological: oriented, LOC appropriate for age, no focal deficits, normal speech Psychiatric: cooperative, affect appropriate for age, good eye contact Lab Results WBC: 13.6 E9/L High (05/22/18 13:29:00 EST) RBC: 5.1 E12/L (05/22/18 13:29:00 EST) Hgb: 14.8 gm/dL (05/22/18 13:29:00 EST) Hct: 43.7 % (05/22/18 13:29:00 EST) MCV: 86.1 fL (05/22/18 13:29:00 EST) MCH: 29.3 pg (05/22/18 13:29:00 EST) MCHC: 34 gm/dL (05/22/18 13:29:00 EST) RDW: 14.1 % (05/22/18 13:29:00 EST) Platelet: 252 E9/L (05/22/18 13:29:00 EST) MPV: 7.8 fL (05/22/18 13:29:00 EST) Neutro Auto: 51.2 % (05/22/18 13:29:00 EST) Lymph Auto: 41.8 % (05/22/18 13:29:00 EST) Chester Auto: 5.4 % (05/22/18 13:29:00 EST) Eos Auto: 1 % (05/22/18 13:29:00 EST) Basophil Auto: 0.6 % (05/22/18 13:29:00 EST) Neutro Absolute: 6.9 E9/L (05/22/18 13:29:00 EST) Lymph Absolute: 5.7 E9/L High (05/22/18 13:29:00 EST) Chester Absolute: 0.7 E9/L (05/22/18 13:29:00 EST) Eos Absolute: 0.1 E9/L (05/22/18 13:29:00 EST) Basophil Absolute: 0.1 E9/L (05/22/18 13:29:00 EST) Glucose Lvl: 345 mg/dL High (05/22/18 13:29:00 EST) BUN: 20 mg/dL (05/22/18 13:29:00 EST) Creatinine: 0.7 mg/dL (05/22/18 13:29:00 EST) eGFR: >60 (05/22/18 13:29:00 EST) eGFR AA: >60 (05/22/18 13:29:00 EST) BUN/Creat Ratio: 29 High (05/22/18 13:29:00 EST) Sodium Lvl: 131 mmol/L Low (05/22/18 13:29:00 EST) Potassium Lvl: 3.8 mmol/L (05/22/18 13:29:00 EST) Chloride: 102 mmol/L (05/22/18 13:29:00 EST) CO2: 21 mmol/L (05/22/18 13:29:00 EST) AGAP: 12 mEq/L (05/22/18 13:29:00 EST) Calcium Lvl: 8.4 mg/dL Low (05/22/18 13:29:00 EST) BNP: <5 (05/22/18 13:29:00 EST) Glucose Cap: 305 mg/dL High (05/22/18 18:36:00 EST) POC Device SN: [id number] (05/22/18 18:36:00 EST) POC Username: ANY CANDELARIO (05/22/18 18:36:00 EST) Influenzae A Ag: NEGATIVE1 (05/22/18 14:28:00 EST) Influenzae B Ag: NEGATIVE1 (05/22/18 14:28:00 EST) Diagnostic Results (05/22/2018 14:02 EST XR Chest 2 Views) IMPRESSION: BIBASILAR SUBSEGMENTAL ATELECTASIS VERSUS MINIMAL INFILTRATE. [1] Assessment/Plan 1. Hypoxia - Supportive O2. Patient does not wear home O2. 2. COPD exacerbation - Duo nebulizers 4 times a day with albuterol when necessary. Solu-Medrol 60 mg IV every 6 hours. He is an ex twice a day. Flutter valve 4 times a day. 3. Pneumonia - Failed seven-day course of Levaquin. Expand antibiotics to cefepime and vancomycin. - CT of the chest without contrast. - Blood cultures drawn. Sputum culture. Legionella antigen. 4. DM (diabetes mellitus) - Uncontrolled, A1c 8.2. 5. Sleep apnea 6. Smoker - Nicotine patch if desires. 7. Depression - Continue home medications. 8. Extreme obesity - BMI 51. Anticipate >2MN length of stay. Problem List/Past Medical History Ongoing Asthma Cataract Cervical dystonia Cervical stenosis of spine Depression DM (diabetes mellitus) Extreme obesity Fibromyalgia Hyperlipidemia Migraine Neuropathy Osteoarthritis Pneumonia Polymyalgia rheumatica Sleep apnea Smoker Historical No qualifying data Procedure/Surgical History Knee replacement (2013), Abdominal hysterectomy, Ankle reconstruction, Carpal tunnel, section, History of cervical discectomy, Tonsillectomy. Medications Inpatient acetaminophen 325 mg Tab, 650 mg= 2 tab(s), Oral, q6hr, PRN acetaminophen-oxycodone 325 mg-5 mg Tab, 1 tab(s), Oral, q6hr, PRN acetaZOLAMIDE 250 mg Tab, 250 mg= 1 tab(s), Oral, Bedtime acetaZOLAMIDE 250 mg Tab, 125 mg= 0.5 tab(s), Oral, Bedtime albuterol 0.083% Inh Sofya 3 mL UD, 2.5 mg= 3 mL, NEB, q2hr, PRN APAP/butalbital/caffeine 325 mg-50 mg-40 mg Tab, 1 tab(s), Oral, q6hr, PRN atorvastatin 20 mg Tab, 20 mg= 1 tab(s), Oral, Bedtime Benadryl 25 mg Cap, 50 mg= 2 cap(s), Oral, q6hr, PRN Cefepime 2 gram IVPB CeleBREX 200 mg Cap, 200 mg= 1 cap(s), Oral, Daily cyproheptadine 4 mg Tab, 12 mg= 3 tab(s), Oral, Bedtime Dextrose 50% Soln-IV, 40 mL, IV Push, Once, PRN duloxetine 60 mg Cap-DR, 60 mg= 1 cap(s), Oral, BID DuoNeb 2.5 mg-0.5 mg/3 mL Soln-Inh, 3 mL, Inhalation, QID famotidine 20 mg Tab, 20 mg= 1 tab(s), Oral, Once a day (at bedtime) heparin 5000 units/mL Inj, 5000 unit(s)= 1 mL, SubCutaneous, BID Insulin Lispro Sliding Scale, 0-10 Units, SubCutaneous, QIDACHS lamotrigine 100 mg Tab, 100 mg= 1 tab(s), Oral, Daily Levemir 100 units/mL Injection-Insulin, 50 unit(s)= 0.5 mL, SubCutaneous, Bedtime lisinopril 5 mg Tab, 5 mg= 1 tab(s), Oral, Daily loratadine 10 mg Tab, 10 mg= 1 tab(s), Oral, Daily methylPREDNISolone 40 mg preservative-free injection (SOLU-MEDROL), 60 mg= 1.5 mL, IV Push, q6hr Mucinex 600 mg Tab-ER, 1200 mg= 2 tab(s), Oral, BID Neurontin 800 mg Tab, 1600 mg= 2 tab(s), Oral, Bedtime Neurontin 800 mg Tab, 800 mg= 1 tab(s), Oral, Daily nicotine 21 mg/24 hr Transderm ER Film, 21 mg= 1 patch(es), TransDermal, Daily, PRN nystatin 100,000 units/mL Oral Susp, 926368 unit(s)= 5 mL, Oral, QID Pantoprazole [address] Tab, 40 mg= 1 tab(s), Oral, Daily remove patch, 1 patch(es), Topical, Daily ropinirole 0.25 mg Tab, 0.5 mg= 2 tab(s), Oral, Bedtime Singulair 10 mg Tab, 10 mg= 1 tab(s), Oral, Bedtime Sodium Chloride 0.9% IV Sofya 1000 mL 1,000 mL, 1000 mL, IV temazepam 15 mg Cap, 30 mg= 2 cap(s), Oral, Once a day (at bedtime), PRN Trileptal 300 mg Tab, 600 mg= 2 tab(s), Oral, qPM Trileptal 300 mg Tab, 300 mg= 1 tab(s), Oral, qAM vancomycin IV PHARMACY TO DOSE, Pharmacy to dose, IV Piggyback, As Directed Xanax 1 mg Tab, 2 mg= 2 tab(s), Oral, Bedtime Zanaflex 4 mg Tab, 8 mg= 2 tab(s), Oral, Bedtime Zofran 4 mg/2 mL Injection, 4 mg= 2 mL, IV Push, q6hr, PRN Home acetaZOLAMIDE 125 mg Tab, 125 mg= 1 tab(s), Oral, Bedtime acetaZOLAMIDE 250 mg Tab, 250 mg= 1 tab(s), Oral, Bedtime albuterol 0.083% Soln-Inh, 3 mL, Inhalation, q6hr, PRN APAP/butalbital/caffeine 325 mg-50 mg-40 mg Tab, See Instructions, PRN atorvastatin 20 mg Tab, 20 mg= 1 tab(s), Oral, Bedtime azelastine nasal, 1 spray, Inhalation, Daily, PRN Benadryl 25 mg Cap, 50 mg= 2 cap(s), Oral, q6hr, PRN biotin, 74545 mcg, Oral, BID CeleBREX 200 mg Cap, 200 mg= 1 cap(s), Oral, Daily Cymbalta 60 mg Cap-EC, 60 mg= 1 cap(s), Oral, BID cyproheptadine 4 mg Tab, 12 mg= 3 tab(s), Oral, Bedtime diclofenac potassium 50 mg oral tablet, 50 mg= 1 tab(s), Oral, BID Epipen, 1 dose, IntraMuscular, As Directed, PRN famotidine 20 mg Tab, 20 mg= 1 tab(s), Oral, Once a day (at bedtime) fexofenadine 180 mg Tab, 180 mg= 1 tab(s), Oral, Daily lamotrigine 100 mg oral tablet, 100 mg= 1 tab(s), Oral, Daily lisinopril 5 mg Tab, 5 mg= 1 tab(s), Oral, Daily Neurontin 800 mg Tab, 800 mg= 1 tab(s), Oral, Daily Neurontin 800 mg Tab, 1600 mg= 2 tab(s), Oral, Bedtime Nexium 40 mg Cap-EC, 40 mg= 1 cap(s), Oral, Daily NovoLOG 100 units/mL Injection-Insulin, Sliding Scale, SubCutaneous, Daily, PRN nystatin 100,000 units/mL oral suspension, 270150 unit(s)= 5 mL, Oral, QID Percocet 10/325, 1 tab(s), Oral, q6hr, PRN ProAir HFA, 2 puff(s), Inhalation, QID, PRN ropinirole 0.25 mg Tab, 0.5 mg= 2 tab(s), Oral, Bedtime Singulair 10 mg Tab, 10 mg= 1 tab(s), Oral, Bedtime temazepam 30 mg Cap, 30 mg= 1 cap(s), Oral, Once a day (at bedtime), PRN Tresiba FlexTouch 200 units/mL subcutaneous solution, 70 unit(s), SubCutaneous, Daily Trileptal 300 mg Tab, 300 mg= 1 tab(s), Oral, qAM Trileptal 300 mg Tab, 600 mg= 2 tab(s), Oral, qPM Vitamin D 50,000 intl units (1.25 mg) oral capsule, 23184 International_Unit= 1 cap(s), Oral, Sunday Xanax 1 mg Tab, 2 mg= 2 tab(s), Oral, Bedtime Zanaflex, 8 mg, Oral, Bedtime Allergies Avelox (Anaphylaxis) Contrast Dye (Anaphylaxis) Demerol HCl (Hives, C/O - vomiting) Dilaudid (Hives) Reglan (Agitation) Tape Valium (Agitation) Zithromax (Joint swelling) codeine (Hives) dextromethorphan (Hives) morphine (Hives) penicillins (Joint swelling) sulfa drugs (Hives) tetracycline (Hives) Social History Alcohol - Denies Alcohol Use, 05/25/2013 Current, 1-2 times per year, 05/22/2018 Substance Abuse - Denies Substance Abuse, 05/25/2013 Tobacco Cigarettes, 20 per day. 38 year(s). Total pack years: 38., 05/22/2018 Former Smoker, Cigarettes, 07/12/2017 Current Every Day Smoker, Cigarettes, 20 per day., 07/09/2016 Family History Acute myocardial infarction: Brother. COPD: Mother. Cataract: Mother and Father. Depression: Mother. Diabetes mellitus type 2: Mother. Heart failure: Brother. Hypertension: Mother. Immunizations Vaccine Date Status Comments influenza virus vaccine, inactivated - Not Given Patient Refuses [1] XR Chest 2 Views; Augusto Osman DO 05/22/2018 14:02 EST Normal [facility] Comment on above: Result Comment: Elec tronically Signed By: Nayan BLUNT, Cece\.br\Date and Time Signed: 05/22/18 18:56 EST Influenza A&B Agon 8 Influenzae A Ag Negative Normal Negative [facility] Comment on above: Performed By: #### [id number] #### [facility] [address] [place] [address] Influenzae B Ag Negative Normal Negative [facility] Comment on above: Result Comment: Test sensitivity and specificity vary for age group, specimen type, antigen types, and prevalence of disease. Test results must be evaluated in conjunction with other clinical data available to the physician. Individuals who received nasally administered Influenza A vaccine may have positive test results up to 3 days after vaccination. Performed By: #### [id number] #### [facility] [address] [place] [address] Progress Note - Pharmacyon 1 07-22-2017 Protein mass conc Pharmacy Medication History I reviewed and updated all of the patient's home medications, including OTC's, vitamins, and herbal supplements. Source of information: Patient Preferred pharmacy: [facility] Allergies (14) Active Reaction Avelox Anaphylaxis codeine Hives Contrast Dye Anaphylaxis Demerol HCl C/O - vomiting dextromethorphan Hives Dilaudid Hives morphine Hives penicillins Joint swelling Reglan Agitation sulfa drugs Hives Tape None Documented tetracycline Hives Valium Agitation Zithromax Joint swelling Home Medications (33) Active acetaZOLAMIDE 125 mg Tab 125 mg = 1 tab(s), Oral, Bedtime acetaZOLAMIDE 250 mg Tab 250 mg = 1 tab(s), Oral, Bedtime albuterol 0.083% Soln-Inh 3 mL, PRN, Inhalation, q6hr APAP/butalbital/caffeine 325 mg-50 mg-40 mg Tab See Instructions, PRN atorvastatin 20 mg Tab 20 mg = 1 tab(s), Oral, Bedtime azelastine nasal 1 spray, PRN, Inhalation, Daily Benadryl 25 mg Cap 50 mg = 2 cap(s), PRN, Oral, q6hr biotin 14137 mcg, Oral, BID CeleBREX 200 mg Cap 200 mg = 1 cap(s), Oral, Daily Cymbalta 60 mg Cap-EC 60 mg = 1 cap(s), Oral, BID cyproheptadine 4 mg Tab 12 mg = 3 tab(s), Oral, Bedtime diclofenac potassium 50 mg oral tablet 50 mg = 1 tab(s), Oral, BID Epipen 1 dose, PRN, IntraMuscular, As Directed famotidine 20 mg Tab 20 mg = 1 tab(s), Oral, Once a day (at bedtime) fexofenadine 180 mg Tab 180 mg = 1 tab(s), Oral, Daily lamotrigine 100 mg oral tablet 100 mg = 1 tab(s), Oral, Daily lisinopril 5 mg Tab 5 mg = 1 tab(s), Oral, Daily Neurontin 800 mg Tab 800 mg = 1 tab(s), Oral, Daily Neurontin 800 mg Tab 1,600 mg = 2 tab(s), Oral, Bedtime Nexium 40 mg Cap-EC 40 mg = 1 cap(s), Oral, Daily NovoLOG 100 units/mL Injection-Insulin Sliding Scale, PRN, SubCutaneous, Daily nystatin 100,000 units/mL oral suspension 500,000 unit(s) = 5 mL, Oral, QID Percocet 10/325 1 tab(s), PRN, Oral, q6hr ProAir HFA 2 puff(s), PRN, Inhalation, QID ropinirole 0.25 mg Tab 0.5 mg = 2 tab(s), Oral, Bedtime Singulair 10 mg Tab 10 mg = 1 tab(s), Oral, Bedtime temazepam 30 mg Cap 30 mg = 1 cap(s), PRN, Oral, Once a day (at bedtime) Tresiba FlexTouch 200 units/mL subcutaneous solution 70 unit(s), SubCutaneous, Daily Trileptal 300 mg Tab 300 mg = 1 tab(s), Oral, qAM Trileptal 300 mg Tab 600 mg = 2 tab(s), Oral, qPM Vitamin D 50,000 intl units (1.25 mg) oral capsule 50,000 International_Unit = 1 cap(s), Oral, Sunday Xanax 1 mg Tab 2 mg = 2 tab(s), Oral, Bedtime Zanaflex 8 mg, Oral, Bedtime Last doses: Had all morning doses today Barriers to medication adherence: None Other comments: -Medications added:Tresiba, Celebrex, Temazepam, Nystatin -Medications removed:Nicotine, Lantus -Medications updated: Normal [facility] XR Chest 2 Viewson 8 XR Chest 2 Views Exam Date/Time: 05/22/2018 14:02 EST Reason for Exam: Shortness of breath (SOB) Report IMPRESSION: BIBASILAR SUBSEGMENTAL ATELECTASIS VERSUS MINIMAL INFILTRATE. EXAMINATION: Chest x-ray, 2 view HISTORY: Shortness of breath TECHNIQUE: AP and lateral views of the chest COMPARISON: Chest 11/12/2017 FINDINGS: Cardiomediastinal silhouette is within normal limits. Tubing projects over the left neck, crossing midline at the level of the mid thoracic spine and extending into the right upper quadrant, with the distal tip not visualized. Linear bibasilar pulmonary opacities. No pneumothorax or pleural effusion. Osseous structures of the thorax appear intact. FINAL REPORT Dictated: 05/22/2018 2:32 pm Augusto Osman DO Signed (Electronic Signature): 05/22/2018 2:32 pm Signed by: Augusto Osman DO Transcribed by: KUNAL Technologist: ALESSANDRA Mata [facility] eGFRon 05-22-2018 GFR/1.73 sq M predicted among blacks MDRD vol rate/area (S/P/Bld) mL/min/{1.73_m2} Normal >=59 [facility] Comment on above: Order Comment: Order added by Discern Expert. Result Comment: eGFR is race adjusted. AA=. Performed By: #### 2 [id number], [id number], [id number], [id number], [id number] #### [facility] [address] [place] [address] GFR/1.73 sq M predicted among non-blacks MDRD vol rate/area (S/P/Bld) mL/min/{1.73_m2} Normal >=59 [facility] Comment on above: Order Comment: Order added by Discern Expert. Result Comment: Photocopier Technician arlet kidney disease could be indicated at eGFR's of less than 60 mL/min/1.73m2. Kidney failure is indicated at less than 15 mL/min/1.73m2. Performed By: #### 2 [id number], [id number], [id number], [id number], [id number] #### [facility] [address] [place] [address] Coding Summary.on 05-15-2018 Coding Summary. CODING DATE: 018 FINAL [facility] STATUS: Home (Routine DC) PAYOR: Medicaid EAPG DESCRIPTION 0403 ORGAN OR DISEASE ORIENTED PANELS 0400 LEVEL I CHEMISTRY TESTS ADMIT DX: REASON FOR VISIT DX: E11.65 Type 2 diabetes mellitus with hyperglycemia FINAL DX: PRINCIPAL: E11.65 Type 2 diabetes mellitus with hyperglycemia SECONDARY: PYMT PROC EAPG STAT DESCRIPTION DOCTOR NAME DATE NOTE: The code number assigned matches the documented diagnosis and / or procedure in the patient's chart. However, the narrative phrase printed from the coding software may appear abbreviated, or result in slightly different terminology. Coded By: Gill Baez Date Saved: 05/15/2018 12:04 pm Normal [facility] BMPon 05-14-2018 Anion gap molar conc 12 mmol/L Normal 6-16 [facility] Comment on above: Performed By: #### 2 [id number], [id number], [id number] #### [facility] [address] [place] [address] Calcium mass conc 8.5 mg/dL Low 8.9-11.1 [facility] Comment on above: Performed By: #### 2 208069, [id number], [id number] #### [facility] [address] [place] [address] Chloride molar conc 102 mmol/L Normal 101-111 [facility] Comment on above: Performed By: #### 2 587898, [id number], [id number] #### [facility] [address] [place] [address] CO2 molar conc 21 mmol/L Normal 21-31 [facility] Comment on above: Performed By: #### 2 178454, [id number], [id number] #### [facility] [address] [place] [address] Creatinine mass conc 0.6 mg/dL Normal 0.5-1.3 [facility] Comment on above: Performed By: #### 2 523562, [id number], [id number] #### [facility] [address] [place] [address] Glucose mass conc 243 mg/dL High 55-199 [facility] Comment on above: Result Comment: If t his glucose result represents a fasting glucose, interpretation should refer to the following reference range: 55-99 mg/dL Performed By: #### 2 325648, [id number], [id number] #### [facility] [address] [place] [address] Potassium molar conc 4.1 mmol/L Normal 3.5-5.3 [facility] Comment on above: Performed By: #### 2 837392, [id number], [id number] #### [facility] [address] [place] [address] Sodium molar conc 131 mmol/L Low 135-145 [facility] Comment on above: Performed By: #### 2 086030, [id number], [id number] #### [facility] [address] [place] [address] Urea nitrogen mass conc 13 mg/dL Normal 5-21 [facility] Comment on above: Performed By: #### 2 308763, [id number], [id number] #### [facility] [address] [place] [address] Urea nitrogen/Creatinin e mass ratio 22 No Units High 10-20 [facility] Comment on above: Performed By: #### 2 177315, [id number], [id number] #### [facility] [address] [place] [address] [id number] 05-14-2018 Hemoglobin A1c/Hemoglobin.tot al mass fraction (Bld) 8.2 % High <=5.9 [facility] Comment on above: Performed By: #### 2 207515, [id number], [id number] #### [facility] [address] [place] [address] eGFRon 05-14-2018 GFR/1.73 sq M predicted among blacks MDRD vol rate/area (S/P/Bld) mL/min/{1.73_m2} Normal >=59 [facility] Comment on above: Order Comment: Order added by Discern Expert. Result Comment: eGFR is race adjusted. AA=. Performed By: #### 2 878971, [id number], [id number] #### [facility] [address] [place] [address] GFR/1.73 sq M predicted among non-blacks MDRD vol rate/area (S/P/Bld) mL/min/{1.73_m2} Normal >=59 [facility] Comment on above: Order Comment: Order added by Discern Expert. Result Comment: Photocopier Technician arlet kidney disease could be indicated at eGFR's of less than 60 mL/min/1.73m2. Kidney failure is indicated at less than 15 mL/min/1.73m2. Performed By: #### 2 641022, [id number], [id number] #### [facility] [address] [place] [address] CT ABDOMEN AND PELVIS W/O CO NTRASTon 04-07-2018 CT ABDOMEN AND PELVIS W/O CONTRAST Performed at [facility] APPROVED BY: Jamshid Maria MD EXAMINATION: CT ABDOMEN AND PELVIS WITHOUT IV CONTRAST CLINICAL HISTORY: Status post fall. Patient has PLUMBING WAREHOUSE HELPER shunt and is concerned that there is damaged to the PLUMBING WAREHOUSE HELPER shunt. TECHNIQUE: Non-IV contrast imaging of the abdomen and pelvis was performed using standard technique, scanning from just above the dome of the diaphragm to the symphysis pubis. Unenhanced imaging is limited for the evaluation of some intra-abdominal and pelvic pathology. Sagittal and coronal reconstruction.MQ: [id number] Contrast:IV: NoneOral: None CT Radiation dose: Integrated Dose-length product (DLP) for this visit = 2103 mGy*cm.CT Dose Reduction Employed: Automated exposure control (AEC) was used. COMPARISON: 03/17/2015. RESULT: Abdomen / Pelvis: Liver: Fatty infiltration. No focal lesions. Biliary: Unremarkable. Spleen: No splenomegaly. Pancreas: Unremarkable. Adrenals: No mass. Kidneys: No calculus, hydronephrosis or finding to suggest a cyst or mass in the unenhanced kidney. GI Tract: No bowel dilation. Lymph Nodes: None. Mesentery/peritoneum: No ascites. Retroperitoneum: No mass. Vasculature: Abdominal aorta is not aneurysmally dilated. Pelvis: No mass or ascites. Bones/Soft Tissues: No significant additional findings. Lower thorax: No significant additional findings. Anterior abdominal wall: Ventriculoperitoneal shunt noted within the anterior abdominal wall entering the peritoneal space midline upper abdomen and extending intraperitoneally inferiorly into the lower abdomen. It appears intact. IMPRESSION: No acute findings radiographically. Fatty infiltration in the liver. Normal [facility] Coding Summary.on 02-14-2018 Coding Summary. CODING DATE: 018 FINAL [facility] STATUS: Home (Routine DC) PAYOR: Medicaid [facility] DESCRIPTION 0400 LEVEL I CHEMISTRY TESTS ADMIT DX: REASON FOR VISIT DX: E11.65 Type 2 diabetes mellitus with hyperglycemia FINAL DX: PRINCIPAL: E11.65 Type 2 diabetes mellitus with hyperglycemia SECONDARY: PYMT PROC EAPG STAT DESCRIPTION DOCTOR NAME DATE NOTE: The code number assigned matches the documented diagnosis and / or procedure in the patient's chart. However, the narrative phrase printed from the coding software may appear abbreviated, or result in slightly different terminology. Coded By: Gill Baez Date Saved: 02/14/2018 01:28 pm Normal [facility] Comprehensive Panelon 2017 Albumin mass conc 3.1 g/dL Low 3.4-5.0 [facility] Comment on above: Performed By: #### L MAG ####[address] [address] ALP enzyme act/vol 96 U/L Normal 46-116 [facility] Comment on above: Performed By: #### L MAG ####[facility] [place], [place] [address] ALT-SGPT Blood 38 U/L Normal 14-63 [facility] Comment on above: Performed By: #### L MAG ####[facility] [place], [place] [address] Anion gap 3 molar conc 10 mmol/L Normal 8-20 [facility] Comment on above: Performed By: #### L MAG ####[facility] [place], [place] [address] AST-SGOT Blood 26 U/L Normal 15-37 [facility] Comment on above: Performed By: #### L MAG ####[place] [address] Bilirubin Ql (U) 0.2 mg/dL Normal 0.2-1.0 [facility] Comment on above: Performed By: #### L MAG ####[place] [address] Calcium mass conc 8.9 mg/dL Normal 8.5-10.1 [facility] Comment on above: Performed By: #### L MAG ####[address] [address] Chloride molar conc 101 mmol/L Normal 98-107 [facility] Comment on above: Performed By: #### L MAG ####[address] [address] CO2 molar conc 28 mmol/L Normal 21-32 [facility] Comment on above: Performed By: #### L MAG ####[address] [address] Creatinine mass conc 0.64 mg/dL Normal 0.51-0.95 [facility] Comment on above: Performed By: #### L MAG ####[place] [address] Glucose mass conc 244 mg/dL High 70-99 [facility] Comment on above: Performed By: #### L MAG ####[address], [place] [address] Potassium molar conc 4.2 mmol/L Normal 3.5-5.1 [facility] Comment on above: Performed By: #### L MAG ####[facility] [place] [address] Protein mass conc 6.8 g/dL Normal 6.4-8.2 [facility] Comment on above: Performed By: #### L MAG ####[facility] [place] [address] Sodium molar conc 134 mmol/L Low 136-145 [facility] Comment on above: Performed By: #### L MAG ####[place] [address] Urea nitrogen mass conc (Bld) 16 mg/dL Normal 7-25 [facility] Comment on above: Performed By: #### L MAG ####[place] [address] Urea nitrogen/Creatinin e mass ratio 25 mg/mg High 10-20 [facility] Comment on above: Performed By: #### L MAG ####[place] [address] D-Dimer Quantitativeon 11-08 D-Dimer Quantitative 292 ng/mL(FEU) Normal <450 [facility] Comment on above: Result Comment: The cutoff level recommended for the exclusion of deep veinthrombosis (DVT) or pulmonary embolism (PE) is 450 ng/mL(FEU).It is recommended that DVT or PE exclusion be restricted tosuspected outpatients with a low to moderate pretest probabilitymodel. Performed By: #### L MAG ####[place] [address] Hemogram/Diffon 11-08-2017 Abs. Baso 0.01 thou/cmm Normal 0.00-0.08 [facility] Comment on above: Performed By: #### L MAG ####[place] [address] Abs. [place] 0.67 thou/cmm Normal 0.20-1.00 [facility] Comment on above: Performed By: #### L MAG ####[facility] [place], [place] [address] Abs. Neut 5.36 thou/cmm Normal 3.00-5.67 [facility] Comment on above: Performed By: #### L MAG ####[address] [address] Basophils/100 WBC Auto (Bld) 0.1 % Normal [facility] Comment on above: Performed By: #### L MAG ####[address] [address] Eosinophils Auto #/vol (Bld) 0.09 thou/cmm Normal 0.00-0.41 [facility] Comment on above: Performed By: #### L MAG ####[address] [address] Eosinophils/100 WBC Auto (Bld) 0.9 % Normal [facility] Comment on above: Performed By: #### L MAG ####[address] [address] Erythrocyte distribution width Auto Ratio (RBC) 13.5 % Normal 11.5-15.9 [facility] Comment on above: Performed By: #### L MAG ####[address] [address] Hematocrit Auto Volume Fraction (Bld) 40.8 % Normal 37.0-47.0 [facility] Comment on above: Performed By: #### L MAG ####[address] [address] Hemoglobin mass conc (Bld) 13.7 g/dL Normal 12.0-16.0 [facility] Comment on above: Performed By: #### L MAG ####[address] [address] Lymphocytes Auto #/vol (Bld) 3.57 thou/cmm Normal 1.50-3.65 [facility] Comment on above: Performed By: #### L MAG ####[address] [address] Lymphocytes/100 WBC Auto (Bld) 36.8 % Normal [facility] Comment on above: Performed By: #### L MAG ####[address] [address] MCH Auto Entitic mass (RBC) 28.7 pg Normal 27.0-31.0 [facility] Comment on above: Performed By: #### L MAG ####[place] [address] MCHC Auto mass conc (RBC) 33.6 % Normal 32.0-36.0 [facility] Comment on above: Performed By: #### L MAG ####[place] [address] MCV Auto Entitic volume (RBC) 85.4 fL Normal 81.0-99.0 [facility] Comment on above: Performed By: #### L MAG ####[place] [address] Monocytes/100 WBC Auto (Bld) 6.9 % Normal [facility] Comment on above: Performed By: #### L MAG ####[place] [address] Platelet mean volume Auto Entitic volume (Bld) 10.3 fL Normal 7.1-10.5 [facility] Comment on above: Performed By: #### L MAG ####[place] [address] Platelets Auto #/vol (Bld) 211 thou/cmm Normal 150-400 [facility] Comment on above: Performed By: #### L MAG ####[place] [address] RBC Auto #/vol (Bld) 4.78 mil/cmm Normal 4.20-5.40 [facility] Comment on above: Performed By: #### L MAG ####[place] [address] Seg Neutrophil 55.3 % Normal [facility] Comment on above: Performed By: #### L MAG ####[place] [address] WBC Auto #/vol (Bld) 9.7 thou/cmm Normal 4.8-10.8 [facility] Comment on above: Performed By: #### L MAG ####[place] [address] MDRD eGFRon 11-08-2017 GFR/1.73 sq M predicted among non-blacks MDRD vol rate/area (S/P/Bld) mL/min/{1.73_m2} Normal >60mL/min/1. 73m2 [facility] Comment on above: Result Comment: If t he patient is , multiply the result by 1.210. Performed By: #### L MAG ####[place] [address] Troponin Ion 11-08-2017 Troponin I.cardiac mass conc ng/mL Normal <=0.07 [facility] Comment on above: Performed By: #### L P14 ####[place] [address] Troponin I.cardiac mass conc ng/mL Normal <=0.07 [facility] Comment on above: Performed By: #### L MAG ####[place] [address] Urinalysis Routineon 018 Amorphous Phosphates MODERATE Abnormal None [facility] Comment on above: Performed By: #### L MAG ####[place] [address] Appearance Nom (U) 3+ (CLOUDY) Normal [facility] Comment on above: Performed By: #### L MAG ####[place] [address] Bacteria LM.HPF #/area (Urine sed) FEW Abnormal None [facility] Comment on above: Performed By: #### L MAG ####[place] [address] Bilirubin Urine Negative Normal Negative [facility] Comment on above: Performed By: #### L MAG ####[place] [address] Color Nom (U) YELLOW Normal [facility] Comment on above: Performed By: #### L MAG ####[facility] [place], [place] [address] Ep Cells Urine 6-12 Abnormal 0-5 [facility] Comment on above: Performed By: #### L MAG ####[address] [address] Glucose Ql (U) Negative Normal Negative [facility] Comment on above: Performed By: #### L MAG ####[place] [address] Hemoglobin,Urine Negative Normal Negative [facility] Comment on above: Performed By: #### L MAG ####[place] [address] Ketone Urine Negative Normal Negative [facility] Comment on above: Performed By: #### L MAG ####[place] [address] Leukocytes Esterase Negative Normal Negative [facility] Comment on above: Performed By: #### L MAG ####[place] [address] Nitrites Urine Negative Normal Negative [facility] Comment on above: Performed By: #### L MAG ####[place] [address] pH Test strip (U) 8.5 [pH] High 5.0-8.0 [facility] Comment on above: Performed By: #### L MAG ####[address] [address] Protein Urine Negative Normal Negative [facility] Comment on above: Performed By: #### L MAG ####[place] [address] RBC LM.HPF #/area (Urine sed) NONE Normal 0-3 [facility] Comment on above: Performed By: #### L MAG ####[address] [address] Specific [place], Ur 1.020 Normal 1.005-1.030 [facility] Comment on above: Performed By: #### L MAG ####[facility] [place] [address] Urobilinogen,Ur 1.0 EU/dL Normal 0.0-1.0 [facility] Comment on above: Performed By: #### L MAG ####[facility] [place] [address] WBC LM.HPF #/area (Urine sed) NONE Normal 0-5 [facility] Comment on above: Performed By: #### L MAG ####[facility] [place] [address] CASE MANAGEMon 10-30-2017 CASE MANAGEM HNO ID: [id number] thor: Thelma TurnerRn) GRETEL Moyerervice: Care ManagementAuthor Type: Registered NurseType: Care Mgt Progress NoteFiled: 10/30/2017 12:57 PMNote Text:CARE MANAGEMENT DISCHARGE NOTESERVICE DATE: 10/30/2017SERVICE TIME: 1256 LOS: 1 dayAdmission Date: 10/28/2017DISCHARGE ARRANGEMENT (list agency and phone number)HomeProvider: Phone:CAREGIVER ASSESSMENT:Caregiver is ready, willing and able to meet the patient's needs asrecommended by the inter-professional team? YesPatient's transition needs and plan for meeting these needs: yesDoes the patient have an acute stroke diagnosis, or has the patient had astroke during this admission? NoHANDOFF COMMUNICATION:See aboveTRANSPORTATION ARRANGEMENTS:Car here to transport homeADDITIONAL CONTACT RESOURCES:SIGNATURE: Thelma Moyer RN PATIENT NAME: Byron PalominoTE: October 30, 2017 : 12:56 PM PAGER/CONTACT #: [phone] Normal [facility] CNDSon 10-30-2017 CNDS HNO ID: [id number] thor: Cindy Moraervice: [facility] MedicineAuthor Type: ResidentType: Discharge SummariesFiled: 10/30/2017 5:34 PMNote Text: ----Attestation signed by Samantha Gallego at 10/30/2017 5:44 PMDiscussed with team, chart reviewed, orders reviewed and revised as needed.Pt seen today at 1145, she was in a private room (we arranged yesterdayafternoon, as pt was going to leave AMA if we did not get her a private room),pt was wearing her CPAP when I entered, took her mask off and said 'I slept allnight last night for the first time in a long time, and my headache is gonetoo'. Was happy with plan for dc, has plan to follow closely with herneurologist.Disposition - as above and below, OK for dc to home. ---- DISCHARGE SUMMARYPATIENT NAME: Byron Landis ADMISSION DATE: 10/28/2017MRN: [id number] DISCHARGE DATE: 10/30/2017ATTENDING PHYSICIAN: No att. providers foundREASON FOR HOSPITALIZATION: HeadacheDIAGNOSIS: Principal Problem: Pseudotumor cerebriActive Problems: Uncontrolled insulin dependent diabetes mellitus (HCC) Obstructive sleep apnea on CPAP Essential hypertension Mixed hyperlipidemia GERD (gastroesophageal reflux disease) Major depressive disorder Morbid obesity due to excess calories (HCC) Tobacco use disorder Obesity, Class III, BMI >= 40 E66.01Resolved Problems: * No resolved hospital problems. *OPERATIONS DURING HOSPITALIZATION:Blood patch placement.PROCEDURES DURING HOSPITALIZATION:MRI:MRI brain without contrast is within normal limits. ?No specific imagingevidenceof intracranial hypotension. ?Intravenous gadolinium not administered,thereforeevalu ation for pachymeningeal enhancement commonly seen with intracranialhypotension is not possible.CT scan:No acute intracranial abnormalityHOSPITAL COURSE:Patient is a 52 year-old morbidly obese female with a history ofpseudotumor cerebri, T2DM on insulin, HTN, HLD, EZEQUIEL on CPAP, fibromyalgia,major depression, who presented to the [facility] ED on 10/28/17 for worseninghead pressure-like discomfort. She states that her pseudotumor cerebri wasdiagnosed 2.5 years ago, managed on acetazolamide by her neurologist,which did not work, later patient was started on multiple AED. Patient 4days ago had a spinal tap to relive the pressure, after which she patientstarted to experience more headache, which was different in naturecompared to her previous headache. CT scan done in the EmergencyDepartment was normal. Patient was admitted for further evaluation.Neurology was consulted, MRI was ordered which was negative for any acuteabnormalities. Patient got a epidural blood patch done by IR after whichher headache improved. Patient was medically stable to be discharged frommedical and neurological point of view.LABS AND PROCEDURES PENDING AT DISCHARGE: No pending results.CONSULTING TEAMS DURING HOSPITALIZATION: NeurologyPATIENT CONDITION AT DISCHARGE: StableDISCHARGE DISPOSITION: Home/Self CareDischarge Physical Exam:VITAL SIGNS: BP 125/76 Pulse 73 Temp 36.5 ?C (97.7 ?F) (Oral) Resp18 Ht 165.1 cm (5' 5 ) Wt (!) 136.1 kg (300 lb 0.7 oz) SpO2 97% BMI 49.93 kg/q3SCWQIMS: Alert, no distress, cooperativeNECK: No jugulovenous distention, No carotid bruits, Carotid pulse normalcontour, SuppleLUNGS: Lungs clear to auscultation, Good diaphragmatic excursionCARDIAC: Normal S1 and S2; no rubs, murmurs, or gallopsABDOMEN: Abdomen soft, non-tender, BS normal, No masses or organomegalyEXTREMITIES: Extremities normal, no deformities, edema, clubbing or skindiscoloration. Good capillary refill., No ulcersNEURO: Gait normal. Reflexes normal and symmetric. Sensation grosslyintact, Cranial nerves II-XII intactPULSES: 2+ radial, 2+ carotidDISCHARGE MEDICATION:Discharge Medication List as of 10/30/2017 12:46 PMSTART taking these medicationsacetaminophen (TYLENOL) 325 mg tabletTake 2 tablets by mouth every 6 hours as needed.Med UpdateCONTINUE these medications which have NOT CHANGED!! OXcarbazepine (TRILEPTAL) 300 mg tabletTake 600 mg by mouth every evening.Historical Medtopiramate (TROKENDI XR) 25 mg ey26Ibom 200 mg by mouth once daily.Historical Med, Long-termcelecoxib (CELEBREX) 200 mg capsuleTake 200 mg by mouth twice daily.Historical MedlamoTRIgine (LAMICTAL) 100 mg tabletTake 100 mg by mouth once daily.Historical Medfexofenadine (LIZ) 180 mg tabletTake 180 mg by mouth once daily.Historical MedoxyCODONE-acetaminophen (PERCOCET 10) 10-325 mg tabletTake 1 tablet by mouth every 4 hours as needed.Historical Medtriamcinolone acetonide (NASACORT AQ) 55 mcg nasal inhalerUse 1 [place] in the nose once daily.Historical Medcyclobenzaprine (FLEXERIL) 10 mg tabletTake 1 tablet by mouth three times daily as needed for Muscle Spasm.Print RX, Disp-20 tablet, R-1esomeprazole (NEXIUM) 20 mg capsuleTake 20 mg by mouth DAILY (6 AM).Historical Medfamotidine (PEPCID) 10 mg tabletTake 10 mg by mouth daily at bedtime.Historical Medlisinopril (ZESTRIL, PRINIVIL) 5 mg tabletTAKE 1 TABLET BY MOUTH EVERY DAYNormal, Disp-30 tablet, R-0PCP moved office. Will need to find new PCP or establish in [place] withprior.rOPINIRole (REQUIP) 0.25 mg tabletTake 0.5 mg by mouth daily at bedtime.Historical MedtiZANidine (ZANAFLEX) 4 mg tabletTake 8 mg by mouth daily at bedtime.Historical Medcyproheptadine (PERIACTIN) 4 mg tabletTake 8 mg by mouth daily at bedtime.Historical MedINSULIN GLARGINE,HUM.REC.ANLOG (LANTUS SUBCUTANEOUS)Inject 45 Units subcutaneously twice daily.Historical MedINSULIN ASPART (NOVOLOG FLEXPEN SUBCUTANEOUS)Inject 15 Units subcutaneously three times daily with meals.Historical MedDULoxetine (CYMBALTA) 60 mg capsuleTake 60 mg by mouth twice daily.Historical Meddiclofenac potassium (CATAFLAM) 50 mg tabletTake 50 mg by mouth twice daily.Historical Medatorvastatin (LIPITOR) 40 mg tabletTake 40 mg by mouth once daily.Historical Medgabapentin (NEURONTIN) 800 mg tabletTake 800 mg by mouth three times daily.Historical Medergocalciferol, vitamin D2, (VITAMIN D) 50,000 unit capsuleTake 50,000 Units by mouth every Sunday.Historical MedALPRAZolam (XANAX) 1 mg tabletTake 2 mg by mouth at bedtime as needed.Historical Medmontelukast (SINGULAIR) 10 mg tabletTake 10 mg by mouth daily at bedtime.Historical Med!! OXcarbazepine (TRILEPTAL) 300 mg tabletTake 300 mg by mouth every morning.Historical Med!! - Potential duplicate medications found. Please discuss with provider.FUTURE APPOINTMENTS:Patient advised to get an appointment NAYANA once discharge with herneurologist.SIGNATURE: Cindy Clay MD PATIENT NAME: Byron LandisDATE: October 30, 2017 : 5:17 PM PAGER/CONTACT #: [phone] Normal [facility] CONSULT PROGon 10-30-2017 CONSULT PROG HNO ID: [id number] thor: Michelle (Hurl Shaker) GantService: NeurologyAuthor Type: Nurse PractitionerType: Consult Progress NoteFiled: 10/30/2017 9:46 AMNote Text: NEUROLOGY CONSULT PROGRESS NOTESERVICE DATE: 10/30/2017SERVICE TIME: 0800Current Attending Provider: Samantha BerriosubjectiveInterval History:Patient awake in bed. Reports headache resolved after blood patch and wasable to sleep all night. No issuesObjectivePhysical Examination:Neurological:? Mental Status: She is oriented to person, place and time. She doesfollow commands.Cranial Nerves:CNII: Visual acuity normalCNIII, IV, : Pupils equal, round and reactive to light, fullextraoccular movements without nystagmusCN V: Facial sensation intact bilaterally to fine touch and pinprickCN VII: Facial muscles symmetric and strongCN VIII: Hears finger rub well bilaterallyCN IX: Gag Reflex Not ExaminedCN X: Cough intactCN XI: Full strength shoulder shrug bilaterally? CN XII: Tongue protrusion full and midlineMotor Exam:? Muscle Tone: Normal 5/5 strength throughout all ext? Sensation: Intact to light touch.? Coordination: Finger-to- nose-finger intact bilaterally.New Labs:WBC (thou/cmm)Date Value10/30/2017 8.8104/ 12.4704 10.8 RBC (mil/cmm)Date Value10/30/2017 5.1604 5.4904 5.22 Platelet Count (thou/cmm)Date Value10/30/2017 37442 4473610/28/2017 260 BUN (mg/dL)Date Value10/30/2017 1404 1104 14 Creatinine (mg/dL)Date Value10/30/2017 0.7004 0.5604 0.63 CBC, Coags, BMP, Mg, PhosRecent Labs 10/29/1801NA 138 136 133*K 4.0 4.4 4.0CHLOR 107 106 103CO2 25 22 24GLUC 82 277* 173*CA 8.3* 8.7 8.7MG -- 2.2 --P 4.7 3.0 --Liver Function, Amylase, AND LipaseRecent Labs 10/29/1801TPROT -- 7.5ALB 3.2* 3.4ALT -- 29AST -- 18ALKPHOS -- 105TBILI -- 0.3DATA:Diagnostic tests reviewed for today's visit:Most recent labs and imaging results.Byron Landis, a 52 year old female1.)intractable headache s/p spinal tap-- resolved -MRI- WNL2.)Pseudotumor cerebri3.)Tobacco use disorder-- encourage cessation4.)DVT ppx- lovenx5.) d/c planning- no further workup from neuro standpoint. Okay for d/cwhen medically stableSIGNATURE: Michelle Armas APRN.PRINT DESIGNER PATIENT NAME: Byron LandisDATE: October 30, 2017 : 9:39 AM PAGER/CONTACT #: [phone] Normal [facility] Glucose Meteron 10-30-2017 Glucose mass conc 134 mg/dL High 70-99 [facility] Comment on above: Result Comment: SEBASTIAN N OTIFIED Performed By: #### L MAG ####[address] [address] Glucose mass conc 90 mg/dL Normal 70-99 [facility] Comment on above: Result Comment: SEBASTIAN N OTIFIED Performed By: #### L MCBD ####[place] [address] Hemogram/Diffon 10-30-2017 Abs. Baso 0.00 thou/cmm Low 0.01-0.08 [facility] Comment on above: Performed By: #### L MCBD ####[place] [address] Abs. Chester 0.70 thou/cmm Normal 0.27-0.70 [facility] Comment on above: Performed By: #### L MCBD ####[place] [address] Abs. Neut 3.70 thou/cmm Normal 1.56-6.13 [facility] Comment on above: Performed By: #### L MCBD ####[address] [address] Atypical Lymph 3.0 % Normal [facility] Comment on above: Performed By: #### L MCBD ####[address] [address] Basophils/100 WBC Auto (Bld) 0.0 % Normal [facility] Comment on above: Performed By: #### L MCBD ####[address] [address] Eosinophils Auto #/vol (Bld) 0.35 thou/cmm High 0.00-0.31 [facility] Comment on above: Performed By: #### L MCBD ####[address] [address] Eosinophils/100 WBC Auto (Bld) 4.0 % Normal [facility] Comment on above: Performed By: #### L MCBD ####[facility] [place], [place] [address] Lymphocytes Auto #/vol (Bld) 4.05 thou/cmm High 1.18-3.74 [facility] Comment on above: Performed By: #### L MCBD ####[address] [address] Lymphocytes/100 WBC Auto (Bld) 43.0 % Normal [facility] Comment on above: Performed By: #### L MCBD ####[address] [address] Monocytes/100 WBC Auto (Bld) 8.0 % Normal [facility] Comment on above: Performed By: #### L MCBD ####[address] [address] RBC morphology finding Nom (Bld) Normal Normal [facility] Comment on above: Performed By: #### L MCBD ####[address] [address] Seg Neutrophil 42.0 % Normal [facility] Comment on above: Performed By: #### L MCBD ####[address] [address] Erythrocyte distribution width Auto Ratio (RBC) 13.5 % Normal 11.7-14.4 [facility] Comment on above: Performed By: #### L MCBD ####[address] [address] Hematocrit Auto Volume Fraction (Bld) 43.7 % Normal 34.1-44.9 [facility] Comment on above: Performed By: #### L MCBD ####[address] [address] Hemoglobin mass conc (Bld) 14.4 g/dL Normal 11.2-15.7 [facility] Comment on above: Performed By: #### L MCBD ####[address] [address] MCH Auto Entitic mass (RBC) 27.9 pg Normal 25.6-32.2 [facility] Comment on above: Performed By: #### L MCBD ####[facility] [place], [place] [address] MCHC Auto mass conc (RBC) 33.0 % Normal 31.6-34.8 [facility] Comment on above: Performed By: #### L MCBD ####[place] [address] MCV Auto Entitic volume (RBC) 84.7 fL Normal 79.4-94.8 [facility] Comment on above: Performed By: #### L MCBD ####[place] [address] Platelet mean volume Auto Entitic volume (Bld) 9.8 fL Normal 9.4-12.3 [facility] Comment on above: Performed By: #### L MCBD ####[place] [address] Platelets Auto #/vol (Bld) 238 thou/cmm Normal 182-369 [facility] Comment on above: Performed By: #### L MCBD ####[place] [address] RBC Auto #/vol (Bld) 5.16 mil/cmm Normal 3.93-5.22 [facility] Comment on above: Performed By: #### L MCBD ####[place] [address] RDW SD 41.7 fl Normal 36.4-46.3 [facility] Comment on above: Performed By: #### L MCBD ####[place] [address] WBC Auto #/vol (Bld) 8.81 thou/cmm Normal 3.98-10.04 [facility] Comment on above: Performed By: #### L MCBD ####[place] [address] MDRD GFRon 10-30-2017 GFR/1.73 sq M predicted among non-blacks MDRD vol rate/area (S/P/Bld) mL/min/{1.73_m2} Normal >60mL/min/1. 73m2 [facility] Comment on above: Result Comment: If t he patient is , multiply the result by 1.210. Performed By: #### L MAG ####[facility] [place] [address] Renal Panelon 10-30-2017 Creatinine mass conc 0.70 mg/dL Normal 0.51-0.95 [facility] Comment on above: Performed By: #### L MAG ####[facility] [place] [address] Phosphate mass conc 4.7 mg/dL Normal 2.5-4.9 [facility] Comment on above: Performed By: #### L MAG ####[place] [address] Albumin mass conc 3.2 g/dL Low 3.4-5.0 [facility] Comment on above: Performed By: #### L MAG ####[place] [address] Urea nitrogen mass conc 14 mg/dL Normal 7-18 [facility] Comment on above: Performed By: #### L MAG ####[place] [address] Calcium mass conc 8.3 mg/dL Low 8.5-10.1 [facility] Comment on above: Performed By: #### L MAG ####[place] [address] CO2 molar conc 25 mmol/L Normal 21-32 [facility] Comment on above: Performed By: #### L MAG ####[place] [address] Glucose mass conc 82 mg/dL Normal 70-99 [facility] Comment on above: Performed By: #### L MAG ####[place] [address] Chloride molar conc 107 mmol/L Normal 98-107 [facility] Comment on above: Performed By: #### L MAG ####[place] [address] Potassium molar conc 4.0 mmol/L Normal 3.5-5.1 [facility] Comment on above: Performed By: #### L MAG ####[facility] [place], [place] [address] Sodium molar conc 138 mmol/L Normal 136-145 [facility] Comment on above: Performed By: #### L MAG ####[facility] [place], [place] [address] BLOOD PATCH [id number] 10-30-19 18 BLOOD PATCH [id number] Performed at [facility] APPROVED BY: JONATHAN FALK MD EXAM TITLE: FLUOROSCOPICALLY GUIDED LUMBAR EPIDURAL BLOOD PATCH DATE: 10/29/2017 15:12 COMPARISON: CT examination the brain without contrast dated 10/28/2017. CLINICAL INDICATION/HISTORY: The patient is a 52 -year-old female with persistent headache, status post lumbar puncture. Presents for epidural blood patch. ENCOUNTER: Initial TECHNIQUE: Informed consent was obtained from the patient. The patient was placed in a prone position. The lumbar region was prepped and draped. With fluoroscopic guidance an appropriate skin entry site at the L3- L4 level was identified and anesthetized. A 22-gauge spinal needle was guided into the epidural space at this level. Contrast (Dotarem, 1 cc) was injected to confirm the epidural location of the needle tip. The thecal sac was not entered. 10 cc of autologous blood was then injected into the epidural space. There were no apparent complications. Total Fluoroscopy time: 0.9 MinutesEffective Radiation dose: 203 mGy FINDINGS: Successful epidural blood patch at L3-L4. Preprocedure headache pain was 10 out of 10. Post procedure headache pain was 2 out of 10. IMPRESSION: Technically successful fluoroscopy guided epidural blood patch for spinal headache, as described. Normal [facility] BRIEF OP NOTon 10-29-2017 BRIEF OP NOT HNO ID: [id number] thor: Jonathan FalkService: RadiologyAuthor Type: PhysicianType: Brief Op NoteFiled: 10/29/2017 4:22 PMNote Text:INTERVENTIONAL RADIOLOGYPOST PROCEDURE NOTEDATE: 10/29/17NAME: Byron LandisMRN: [id number] ID: [id number] Diagnosis: Spinal headache s/p lumbar puncturePost Procedure Diagnosis: Same.Sound Controller: Dr. Jonathan FalkProcedure: Other (specify) - Epidural blood patchAnesthesia: LocalFindings: Successful epidural blood patch at L3-I6Odqhimdat Blood Loss: Minimal (Less Than 25 mL).Specimen: NoneComplications: NoneFull report with procedural details to follow and will become availableunder Imaging Reports. Please contact for any questions or concerns.SIGNATURE: Jonathan Falk MD PATIENT NAME: Byron Marin: October 29, 2017 : 4:21 PM PAGER/CONTACT #: Adolfo [facility] CASE MGT INIT LESLIEon 2017 CASE MGT INIT LESLIE HNO ID: [id number]: Ana (Rn) GRETEL Gallagherervice: Care ManagementAuthor Type: Registered NurseType: Care Mgt Initial AssessmentFiled: 10/29/2017 11:53 AMNote Text:CARE MANAGEMENT: ASSESSMENT AND DISCHARGE PLANSERVICE DATE: 10/29/2017SERVICE TIME: 1150PRIMARY CARE PHYSICIAN:Maria Teresa Scott NP-CPhone: [phone] STATUS: ObservationMEDICAL:Patient/ Third Hand Stated Goals:To return home to life as it wasHealth Insurance: CARES[facility] MEDICAIDCarePark[facility] Hospitalealth Issues Impacting Discharge Plan: NoneLast Admission Date: noneIs this Within the Past 30 days? NoAdvance Directive:Health Literacy:1. How often do you need to have someone help you when you readinstructions, pamphlets, or other written material from your doctor orpharmacy? Never - 12. How confident are you filling out medical forms by yourself? Extremely- 1If Patient scores > 3 on either question, the following interventions wereput into place:Use of plain language and active listening with Patient and familyFUNCTIONAL AND COGNITIVE/BEHAVIORALpt from home independent prior to admission with - no dme priorHas the Patient Been in a [facility] in the Past 30 days? NoSOCIAL:Living Arrangement: HomeLives With: SpouseFinancial Resources: N/APrimary Contact: Extended Emergency Contact InformationPrimary Emergency Contact: Qi Casey Vvevrnby: Significant otherSupportive: YesOther Important Patient Contacts: NoneCaregiver Assessment:Caregiver is ready, willing and able to meet the patient's needs asrecommended by the inter-professional team? No Caregiver NeededPatient's transition needs and plan for meeting these needs: yesDoes the patient have an acute stroke diagnosis, or has the patient had astroke during this admission? Unable to assess at this timeMedication Adherence:I am convinced of the importance of my prescription medication: Agreecompletely - 0I worry that my prescription medication will do more harm than good to meDisagree completely - 0I feel financially burdened by my [id number] expenses for myprescription medication: Disagree completely - 0Patient is categorized as low risk < 2Are you interested in bedside delivery of your medications? NoFood Concerns:In the Last Month, Have You had Trouble Getting Food? No trouble gettingfoodDuring the Last Month, Have You Worried Whether Your Food Would Run OutBefore You Had Enough Money to Buy More? NoIs the Patient Psychosocially Complex? NoASSESSMENT AND PLAN:Medical Needs: NonePsychosocial Needs: NoneFREEDOM OF CHOICE EXPLAINED:N/APOTENTIAL TRANSITION PLANSHomePt from home with prior to admission - pt admitted with spinallumbar pain , neurology following await md work up and tx plan - no needsnoted at this time per pt - pt up to bathroom steady .SIGNATURE: Ana Gallagher RN PATIENT NAME: Byron LandisDATE: October 29, 2017 : 11:50 AM PAGER/CONTACT #: [phone] [facility] CONSULTon 10-29-2017 CONSULT HNO ID: [id number] thor: Shi LugorosService: NeurologyAuthor Type: PhysicianType: ConsultsFiled: 10/29/2017 12:21 PMNote Text:Patient seen examined chart reviewed,discussed with patient and herhusbandMultiple types of headache ,the most disabling is the spinal headachemaking her unable to function .After her spinal tap on Sunday until nowBlood patch orderedPatient has side effects from topamax but not from Trokendi the extendedrelease form ,not available in the hospitalFormal consult to follow Normal [facility] CONSULT HNO ID: [id number] thor: Shi Krissy Michaelervice: NeurologyAuthor Type: PhysicianType: ConsultsFiled: 10/30/2017 1:26 AMNote Text: INITIAL CONSULT - GENERAL NEUROLOGYSERVICE DATE: 10/29/2017Current Attending Provider: Samantha Mcgarry for Evaluation: HeadachesSubjectiveHPI: This is Ms. Byron Landis a 52 [facility]. She sees Neurologist as outpatient and is followed regularly by himPatient was in his office on Sunday , had a lumbar puncture onSunday for CSF draining ,to relieve the headache . She states that ittook them 3 tries to get into her spinal fluid and they removed 3 tubes.She states that the pressure upon entering the spinal canal was 48 and itdropped to 24 after removing the fluid. Patient states that she's beendrinking fluids. She states she called the office and was instructed tocontinue to rest and drink fluids and taken caffeine. She states thatit's only helped a little bit and today she couldn't take it anymore. Shestates she does notice that it is better in a laying position and worsewhen she sits up. unable to function since SundayCurrent hospital medications:ALPRAZolam 1 mg tab(s) (XANAX) 1 mg ORAL HS PRNgabapentin 800 mg cap(s) (NEURONTIN) 800 mg ORAL TIDOXcarbazepine 300 mg tab(s) (TRILEPTAL) 300 mg ORAL BIDatorvastatin 40 mg tab(s) (LIPITOR) 40 mg ORAL AT BEDTIMElisinopril 5 mg tab(s) (ZESTRIL, PRINIVIL) 5 mg ORAL DAILYinsulin glargine 45 Units pen (long acting) (LANTUS SOLOSTAR, BASAGLAR) 45Units SUBCUTANEOUS BID 8A/BEDTIMEinsulin lispro 15 Units pen (rapid acting) (HumaLOG KWIKPEN) 15 UnitsSUBCUTANEOUS w MEALScyclobenzaprine 10 mg tab(s) (FLEXERIL) 10 mg ORAL TID PRNlamoTRIgine 100 mg tab(s) (LaMICtal) 100 mg ORAL DAILYdextrose 40 % 15 g 15 g ORAL PRNglucagon 1 mg injection (GLUCAGEN) 1 mg INTRAMUSCULAR PRNdextrose 50% in water 25 mL syringe 12.5 g INTRAVENOUS PRN0.9% NaCl 3-5 mL 3-5 mL INTRAVENOUS q 12 Hacetaminophen 650 mg tab(s) (TYLENOL) 650 mg ORAL q 6 H PRNinsulin lispro pen (rapid acting) (HumaLOG KWIKPEN) SUBCUTANEOUS w MEALSinsulin lispro pen (rapid acting) (HumaLOG KWIKPEN) SUBCUTANEOUS ATBEDTIMEtopiramate 25 mg tab(s) (TOPAMAX) 25 mg ORAL DAILYDULoxetine 60 mg cap(s) (CYMBALTA) [address] 40 mg tab(s) (PROTONIX) 40 mg ORAL DAILY (6 AM)ondansetron 4 mg tab(s) (ZOFRAN) 4 mg ORAL q 6 H PRNenoxaparin 40 mg injection (LOVENOX) 40 mg SUBCUTANEOUS q 12 HRPAST MEDICAL HISTORYDiagnosis Date- Acid reflux- Acute maxillary sinusitis- Anxiety- Benign essential hypertension- Carpal tunnel syndrome- Diabetic renal disease (HCC)- Dysuria- Fatigue- Fibromyositis- GERD (gastroesophageal reflux disease)- Glaucoma (increased eye pressure)- High cholesterol- Hypertension- IDDM (insulin dependent diabetes mellitus) ([facility])- Migraine- Nicotine dependence- EZEQUIEL on CPAP- Osteoarthritis- Pollen allergies- Restless leg syndromePAST SURGICAL HISTORYProcedure Laterality Date- ACHILLES TENDON SURGERY HX- APPENDECTOMY- PAST SURGICAL HISTORY OF 2012, 2013 cervical discectomy x 2 (Ellis) [facility]- PAST SURGICAL HISTORY OF Left 2006 shoulder arthroscopy- PAST SURGICAL HISTORY OF hysterectomy- PSA FREE Left 2016 knee replacement x 2- REMOVAL OF TONSILS,<11 Y/O as child TonsillectomySocial History Marital status: Spouse name: Years of education: Number of children:Social History Main Topics Smoking status: Current Every Day Smoker Packs/day: 1.00 Years: 20.00 Types: Cigarettes Smokeless status: Never Used Alcohol use: No Drug use: NoFAMILY HISTORYProblem Relation Age of Onset- Glaucoma Mother- Cataract Mother- Diabetes Mother- Hypertension FatherALLERGIESAllergen Reactions- Avelox [Moxifloxaci* Swelling- Codeine Hives- Contrast Dye Mental Status Change- Demerol [Meperidine* Hives- Morphine Vomiting- Penicillins Swelling- Sulfa (Sulfonamide * Hives- Tape [Adhesive Tape* Itching- Tetracycline Mental Status Change- Valium [Diazepam] Mental Status Change- Zithromax [Azithrom* SwellingREVIEW OF SYSTEMS:GENERAL: Normal sleep, appetite and activity.No fevers or irritability.HEENT: headaches, No problems with hearing or vision, no nose bleeds orother nasal problemsNECK: Negative for stiffness, lumps or significant neck swellingRESPIRATORY: Negative for cough, wheezing or respiratory distressCARDIOVASCULAR: Negative for chest pain, syncope, lightheadness or heartracingGI: No nausea, vomiting, or diarrheaGU: No history of dysuria, frequency or incontinenceMUSCULOSKELETAL : joint pain or swelling, back pain or muscle painSKIN: Negative for lesions, rash, and itchingNEURO: See HPIObjectivePHYSICAL EXAM:General Appearance: Well appearing, alert, in no acute distress,well-hydrated, well nourished., Morbidly obeseSkin: Skin color, texture, turgor normal, no suspicious rashes or lesionsHead: Normocephalic, no masses, lesions, tenderness or abnormalitiesEars: External ears normal, canals clearNose/Sinuses: Nares normal, septum midline, mucosa normal, no drainage orsinus tendernessOropharynx: Lips, mucosa, and tongue normal, teeth and gums normal,oropharynx normalNeck: Supple, no adenopathy; thyroid symmetric, normal size, no bruitsLhermitte's Phenomenon: NegativeLungs: Lungs clear to auscultation. No wheezing, rhonchi, ralesHeart: RRR without murmur, gallop, or rubs. No ectopyCarotid Auscultation: Without bruitsAbdomen: Normal abdominal exam, Abdomen soft, non-tender. Bowel soundsnormal. No masses, organomegalyExtremities: No deformities, edema, skin discoloration, clubbing orcyanosis. Good capillary refill.Musculoskeletal: No joint swelling, deformity, or tendernessPeripheral Pulses: NormalNeurological:? Mental Status: Alert, oriented to person, place and time and Followscommands.Cranial Nerves:CNII: Visual acuity normal, Visual [place] full to confrontation, No APDnoted on examCNIII, IV, : Pupils equal, round and reactive to light, fullextraoccular movements, without nystagmusCN V: Facial sensation intact bilaterally to fine touch and pinprick,masseter 5/5CN VII: Facial muscles symmetric and strong, No noted facial droopCN VIII: Hears finger rub well bilaterallyCN IX: Gag Reflex Not examinedCN X: Palate elevates symmetricallyCN XI: Full strength shoulder shrug bilaterallyCN XII: Tongue protrusion full and midline? Non-Dilated Fundiscopic Examination: limited Examination by her pain andphotophobia? Crying spells in the middle of conversationREFLEXESDiminis hed all overPathological Reflexes:Babinski: bilaterally Downward responseHoffman: bilaterally Negative? Sensation: decreased distally to proprioception, pin-prick [pain], andvibratory sense.? Coordination: Finger-to- nose-finger intact bilaterally and Jqmk-fa-dhabdbvqvt bilaterally.? Gait:not tested? Romberg: Positive? Rapid Alternating Movements: Normal bilaterallyLABS/DATA:WBCDat e Value10/29/2017 12.47 thou/cmm10/28/2017 10.8 thou/cmm107/26/2016 12.1 thou/cmm02/28/2017 10.46 k/uL02/23/2017 12.11 k/uL RBCDate Value10/29/2017 5.49 mil/cmm10/28/2017 5.22 mil/cmm107/26/2016 5.40 mil/cmm02/28/2017 4.82 m/uL02/23/2017 4.99 m/uL Platelet CountDate Value10/29/2017 277 thou/cmm10/28/2017 260 thou/cmm107/26/2016 288 thou/cmm02/28/2017 281 k/uL02/23/2017 300 k/uL BUN (mg/dL)Date Value10/29/2017 1104 1411 1708 16002/23/2017 20 Creatinine (mg/dL)Date 10/29/2017 0.56010/28/2017 0.6311 0.7308 0.6508 0.71 Lab ResultsComponent Value DateNEUTP 59.6 02/13/2017ABSNEUT 8.33 02/13/2017LYMPHP 31.5 02/13/2017ABSLYMPH 4.40 02/13/2017ABSMONO 0.94 02/13/2017EODINP 1.6 02/13/2017ABSEOSIN 0.22 02/13/2017BASOP 0.6 02/13/2017ABSBASO 0.08 02/13/2017Lab ResultsComponent Value DatePLT 277 10/29/2017HB 15.4 10/29/2017HB 13.6 02/28/2017HCT 46.0 10/29/2017ALB 3.4 10/29/2017CA 8.7 10/29/2017TBILI 0.3 10/29/2017ALKPHOS 105 10/29/2017AST 18 10/29/2017GLUC 277 10/29/2017BUN 11 10/29/2017NA 136 10/29/2017K 4.4 10/29/2017CHLOR 106 10/29/2017CO2 22 10/29/2017ANION 12 10/29/2017ALT 29 10/29/2017Sed Rate, Westergren (mm/hr)Date Value01/28/2016 30 CRP (mg/dL)Date Value01/28/2016 1.09 No results found for: USCRPCholesterol, Total (mg/dL)Date Value10/29/2017 150 LDL Cholesterol (mg/dL)Date 02/23/2017 74 LDL (mg/dL)Date 05/01/2015 101 LDL Calculated (mg/dL)Date Value10/29/2017 95 HDL Cholesterol (mg/dL)Date Value10/29/2017 41 Triglyceride (mg/dL)Date Value04 09557/05/2017 215 Hemoglobin A1C (%)Date Value10/29/2017 9.008/05/2017 7.307/06/2017 7.4 RECENT MICROBIOLOGY:DATA:Diagnosti c tests reviewed for today's visit:Most recent labs and imaging results.Most recent labsMost recent imagingMost recent EKGImpression/Recommendatio nsThis is Byron Landis, a 52 year old female with pseudotumor ,intractableheadache ,had a spinal tap on SundayAfter which she was unable to function ,as she experienced a differenttype of headache when trying to get up or bendLike electric shock sensation ,that is completely disabling for her .Before Sunday she had the headache but was still able to function .PLANIntolerable spinal headache ,to doBlood patchSymptomatic treatment of the headacheHeadache cocktailOn extended release form of topamax in a dose of 200 mgCannot tolerate the regular topmax she gets very angry as side eeffectsTried diamox before ,didnt like itMultiple risk factors for strokeAs belowMRI Brain w/o orderedMRA Brain and carotidPrincipal Problem:Multiple types of headacheSee orders Pseudotumor cerebri POA: Yes Spinal headacheActive Problems: Uncontrolled insulin dependent diabetes mellitus (HCC) POA: Yes Obstructive sleep apnea on CPAP POA: Yes Essential hypertension POA: Yes Mixed hyperlipidemia POA: Yes GERD (gastroesophageal reflux disease) POA: Yes Major depressive disorder POA: Yes Morbid obesity due to excess calories (HCC) POA: Yes Tobacco use disorder POA: YesResolved Problems: * No resolved hospital problems. *SIGNATURE: Shi Julien MD PATIENT NAME: Byron LandisDATE: October 29, 2017 : 12:03 PM PAGER/CONTACT #: [phone] Normal [facility] Comprehensive Panelon 2017 ALP enzyme act/vol 105 U/L Normal 46-116 [facility] Comment on above: Performed By: #### L CBCD ####[place] [address] Bilirubin mass conc 0.3 mg/dL Normal 0.2-1.0 [facility] Comment on above: Performed By: #### L CBCD ####[facility] [place], [place] [address] Protein mass conc 7.5 g/dL Normal 6.4-8.2 [facility] Comment on above: Performed By: #### L CBCD ####[facility] [place], [place] [address] ALT enzyme act/vol 29 U/L Normal 12-78 [facility] Comment on above: Performed By: #### L CBCD ####[address] [address] AST enzyme act/vol 18 U/L Normal 9-37 [facility] Comment on above: Performed By: #### L CBCD ####[address] [address] Creatinine mass conc 0.56 mg/dL Normal 0.51-0.95 [facility] Comment on above: Performed By: #### L CBCD ####[address] [address] Albumin mass conc 3.4 g/dL Normal 3.4-5.0 [facility] Comment on above: Performed By: #### L CBCD ####[address] [address] Anion gap 3 molar conc 12 mmol/L Normal 8-16 [facility] Comment on above: Performed By: #### L CBCD ####[address] [address] CO2 molar conc 22 mmol/L Normal 21-32 [facility] Comment on above: Performed By: #### L CBCD ####[address] [address] Glucose mass conc 277 mg/dL High 70-99 [facility] Comment on above: Performed By: #### L CBCD ####[address] [address] Urea nitrogen mass conc 11 mg/dL Normal 7-18 [facility] Comment on above: Performed By: #### L CBCD ####[facility] [place], [place] [address] Calcium mass conc 8.7 mg/dL Normal 8.5-10.1 [facility] Comment on above: Performed By: #### L CBCD ####[facility] [place], [place] [address] Chloride molar conc 106 mmol/L Normal 98-107 [facility] Comment on above: Performed By: #### L CBCD ####[facility] [place], [place] [address] Potassium molar conc 4.4 mmol/L Normal 3.5-5.1 [facility] Comment on above: Performed By: #### L CBCD ####[address] [address] Sodium molar conc 136 mmol/L Normal 136-145 [facility] Comment on above: Performed By: #### L CBCD ####[address] [address] Glucose Meteron 10-29-2017 Glucose mass conc 141 mg/dL High 70-99 [facility] Comment on above: Result Comment: SEBASTIAN Barr OTIFIED Performed By: #### L MCBD ####[address] [address] Glucose mass conc 144 mg/dL High 70-99 [facility] Comment on above: Result Comment: SEBASTIAN Barr OTIFIED Performed By: #### L MCBD ####[address] [address] Glucose mass conc 181 mg/dL High 70-99 [facility] Comment on above: Result Comment: SEBASTIAN Barr OTIFIED Performed By: #### L MCBD ####[address] [address] Glucose mass conc 186 mg/dL High 70-99 [facility] Comment on above: Result Comment: SEBASTIAN Barr OTIFIED Performed By: #### L MCBD ####[address] [address] HISTORY PHYSICALon 8 HISTORY PHYSICAL HNO ID: [id number] thor: Jonathan FalkSerelizabethe: RadiologyAuthor Type: PhysicianType: HANDPFiled: 10/29/2017 3:32 PMNote Text:UPDATED HISTORY AND PHYSICAL EXAMINATIONSERVICE DATE: 10/29/2017SERVICE TIME: 3:31 PMPHYSICAL EXAM MUST BE COMPLETED ON ADMISSIONThe History and Physical (completed in the past 30 days) has been reviewedand the patient has been examined. The contents accurately reflect thepatient's condition with the following additions or revisions since theHANDP was completed.Examination indicates no significant interval change.This HANDP can be found in the Electronic Medical Record dated 10/29/17.SIGNATURE: Jonathan Falk MD PATIENT NAME: Byron LandisDATE: October 29, 2017 : 3:31 PM PAGER: [facility] HISTORY PHYSICAL HNO ID: [id number] thor: Samantha Selby: General Internal MedicineAuthor Type: PhysicianType: HANDPFiled: 10/29/2017 12:57 PMNote Text:History and Physical NoteApril 2017Patient Name: Byron Landis Patient Location: [place] [address]/[place] [address]*MR N: [id number] Date: 10/28/2017 Length of Stay: 0Primary Service: House Medicine ServiceAssessment and plan discussed with Dr. Sorensen. Daytime attending willaddend and cosign the bottom of this note as he/she sees appropriate.Please await his/her recommendations.Attending Attestation - discussed with night team early this morning atsign out, agreed with initial plan of care below, see also follow up notetoday. ASHLEY Gallegossessment/PlanPrincipal Problem: Pseudotumor cerebri- Changes in symptomatology as described in HPI since lumbar puncture 4days ago.- CT of the head showed no acute process.- Continued patient's topiramate which she states was the replacement forher acetazolamide to address pseudotumor per her neurologist.- Continued other anticonvulsant medications.- Keep bed flat for comfort.- Consult neurology. Appreciate input.Active Problems: Uncontrolled insulin dependent diabetes mellitus- Started patient on home insulin dose: 45 units Lantus qAM / QHS + 15units Humalog with meals.- Added sliding scale level 2 AC/QHS.- Blood glucose checks AC/HS- Check lipid panel and HbA1c. Obstructive sleep apnea on CPAP- Started on home CPAP QHS. Essential hypertension- Started home lisinopril 5 mg po qd. Mixed hyperlipidemia- Started home Lipitor 40 mg po QHS. GERD (gastroesophageal reflux disease)- Has multiple acid-suppressing medications listed. For now, startedProtonix 40 mg po qd. Major depressive disorder- With atypical features. States it contributes to her morbid obesity /eating habits and smoking. Psychology services were offered at encounter,patient declined.- Continued home Cymbalta. 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 Start nicotine replacement patch if requested. DVT prophylaxis- Bilateral SCDs and Heparin 5000 units SQ q8h (elevated BMI).SubjectiveHistory of Present Illness:Patient is a 52 year-old morbidly obese female with a history ofpseudotumor cerebri, T2DM on insulin, HTN, HLD, EZEQUIEL on CPAP, fibromyalgia,major depression, who presented to the [facility] on 10/28/17 for worseninghead pressure-like discomfort. She states that her pseudotumor cerebri wasdiagnosed 2.5 years ago, managed on acetazolamide by her neurologist. Thismed started becoming ineffective, with worsening head pressure like myeyes are going to pop out of my head , blurring of vision. She saw anophthalmologist 1 week ago who observed papilledema, denied it could befrom pseudotumor. She visited her neurologist 4 days ago, he decided toperform therapeutic lumbar puncture in office. She states CSF openingpressure was 48, dropped to 26 (?units). This was her first such therapy.Subsequently, head pressure was much worse than before puncture whenupright, but actually improved when lying down. She had an episodeyesterday in a grocery store where she felt like her whole head wasshocked with electricity. Similar episode occurred for 1 minute in [facility]with partial amnesia of the event and right arm flailing, unresponsive,repeating something isn't right . Has intermittent nausea. Blurry visionpersists. Admits mild photophobia. No nuchal rigidity on exam. Deniesfever, chills, body aches, sweats, anesthesia, paresthesia, focalweakness, bowel or bladder incontinence. IN THE ED: CT head unremarkable.4mg Decadron, 4mg Zofran, 50mg Ultram, 1L IV NS.Review of the Systems: PER HPI and currently Denies fevers, chills, rigors, malaise,unintended weight loss, chest pain, orthopnea, dyspnea, vomiting,diarrhea, abdominal pain, dysuria, hematuria, lightheadedness, limbswelling.Past Medical History:PAST MEDICAL HISTORYDiagnosis Date- Acid reflux- Acute maxillary sinusitis- Anxiety- Benign essential hypertension- Carpal tunnel syndrome- Diabetic renal disease (HCC)- Dysuria- Fatigue- Fibromyositis- GERD (gastroesophageal reflux disease)- Glaucoma (increased eye pressure)- High cholesterol- Hypertension- IDDM (insulin dependent diabetes mellitus) ([facility])- Migraine- Nicotine dependence- EZEQUIEL on CPAP- Osteoarthritis- Pollen allergies- Restless leg syndromeMedications:No current facility-administered medications on file prior to encounter.Current Outpatient Prescriptions on File Prior to Encounter:topiramate (TROKENDI XR) 25 mg cp24 Take 1 capsule by mouth once daily.celecoxib (CELEBREX) 200 mg capsule Take 200 mg by mouth twice daily.lamoTRIgine (LAMICTAL) 100 mg tablet Take 100 mg by mouth once daily.BASAGLAR KWIKPEN 100 unit/mL (3 mL) inpnfexofenadine (LIZ) 180 mg tabletoxyCODONE-acetaminoph en (PERCOCET 10) 10-325 mg tablettriamcinolone acetonide (NASACORT AQ) 55 mcg nasal inhalercyclobenzaprine (FLEXERIL) 10 mg tablet Take 1 tablet by mouth three timesdaily as needed for Muscle Spasm.esomeprazole (NEXIUM) 20 mg capsule Take 20 mg by mouth DAILY (6 AM).famotidine (PEPCID) 10 mg tablet Take 10 mg by mouth daily at bedtime.lisinopril (ZESTRIL, PRINIVIL) 5 mg tablet TAKE 1 TABLET BY MOUTH EVERYDAYrOPINIRole (REQUIP) 0.25 mg tablettiZANidine (ZANAFLEX) 4 mg tabletcyproheptadine (PERIACTIN) 4 mg tabletINSULIN GLARGINE,HUM.REC.ANLOG (LANTUS SUBCUTANEOUS) Inject 45 Unitssubcutaneously twice daily.INSULIN ASPART (NOVOLOG FLEXPEN SUBCUTANEOUS) Inject subcutaneously.DULoxetine (CYMBALTA) 60 mg capsule Take 60 mg by mouth once daily.diclofenac potassium (CATAFLAM) 50 mg tablet Take 50 mg by mouth threetimes daily.atorvastatin (LIPITOR) 40 mg tablet Take 40 mg by mouth once daily.gabapentin (NEURONTIN) 800 mg tablet Take 800 mg by mouth three timesdaily.ergocalciferol, vitamin D2, (VITAMIN D) 50,000 unit capsule Take 50,000Units by mouth once each week.ALPRAZolam (XANAX) 1 mg tablet Take 1 mg by mouth at bedtime as needed.montelukast (SINGULAIR) 10 mg tablet Take 10 mg by mouth daily at bedtime.OXcarbazepine (TRILEPTAL) 300 mg tablet Take 300 mg by mouth twice daily.Allergies to Medications:ALLERGIESAllerg en Reactions- Avelox [Moxifloxaci* Swelling- Codeine Hives- Contrast Dye Mental Status Change- Demerol [Meperidine* Hives- Morphine Vomiting- Penicillins Swelling- Sulfa (Sulfonamide * Hives- Tape [Adhesive Tape* Itching- Tetracycline Mental Status Change- Valium [Diazepam] Mental Status Change- Zithromax [Azithrom* SwellingPast Surgical History:PAST SURGICAL HISTORYProcedure Laterality Date- ACHILLES TENDON SURGERY HX- APPENDECTOMY- PAST SURGICAL HISTORY OF 2012, 2013 cervical discectomy x 2 ([facility]) [facility]- PAST SURGICAL HISTORY OF Left 2006 shoulder arthroscopy- PAST SURGICAL HISTORY OF hysterectomy- PSA FREE Left 2016 knee replacement x 2- REMOVAL OF TONSILS,<11 Y/O as child TonsillectomySocial History:Social History Marital status: Spouse name: Years of education: Number of children:Social History Main Topics Smoking status: Current Every Day Smoker Packs/day: 1.00 Years: 20.00 Types: Cigarettes Smokeless status: Never Used Alcohol use: No Drug use: NoFamily History:FAMILY HISTORYProblem Relation Age of Onset- Glaucoma Mother- Cataract Mother- Diabetes Mother- Hypertension FatherObjectivePresent Condition:Vitals: BP 123/73 Pulse 74 Temp 36.9 ?C (98.4 ?F) Ht 165.1 cm (5'5 ) Wt (!) 136.1 kg (300 lb 0.7 oz) SpO2 96% BMI 49.93 kg/[id number] EXAMINATION:General: Obese female. No acute distress. Alert and oriented to person,place, and time. Cooperative with interview and exam. Appropriate affect.Head: Normocephalic. Atraumatic.Eyes: Pupils equal, round, reactive to light. Pupils dilated at rest to ~5mm. Extra-ocular movements intact. No scleral icterus noted. Conjunctivapink.Throat: Oral mucosa moist. No oropharyngeal erythema. No eruptions orexudates. Poor dentition. Uvula midline. Mallampati 2.Cardiovascular: Regular rate and rhythm. No murmurs, gallops, rubs heardon auscultation. Normal S1/S2.Respiratory: Lungs clear to auscultation bilaterally. No wheezes, rales,rhonchi heard on auscultation.Abdomen: Soft. Non-tender. Non-distended. No ecchymoses. No palpablemasses or hepatosplenomegaly. Bowel sounds present in all four quadrants,normoactive. No bruits on auscultation.Extremities: No edema of the bilateral upper or lower extremity. Nocyanosis or clubbing. No rashes or joint deformity.Pulses: Dorsalis pedis, posterior tibial, and radial pulses 2+bilaterally. Capillary refill < 2 seconds.Neuro: Cranial nerves II-XII grossly intact. Sensation intact in 4extremities. Strength 4/4 in 4 extremities.10/28/17 CT brain without IV contrast:Acute change: ? No evidence of an acute infarct or other acute parenchymalprocess. ?Hemorrhage: ? ?No evidence of acute intracranial hemorrhage. ?Mass Lesion / Mass Effect: ? There is no evidence of an intracranial massorextraaxial fluid collection. ?No significant mass effect. ?Chronic change: ? None apparent. ?Parenchyma: ?There is no significant volume loss. ?The brain parenchyma isotherwise within normal limits for age. ?Ventricles: ? The ventricles are within normal limits of size andconfigurationfor age.Paranasal sinuses and skull base: ?The visualized paranasal sinuses aregrosslyclear. ? ?The skull base and imaged soft tissues are unremarkable.Labs:CBC:Recen t Labs 10/28/383864SKV 10.8HB 14.9HCT 44.2PLT 260MCV 84.7COAG: No results for input(s): APTT, INR in the last 168 hours.BMP:Recent Labs GLUC 173*NA 133*K 4.0CHLOR 103CO2 24ANION 10BUN 14CREAT 0.63CHEM:Recent Labs 5CA 8.7HEPATIC: No results for input(s): ALKPHOS, ALT, AST, TBILI, LIPASE in thelast 168 hours.URINALYSIS:Recent Labs SPGR 1.015UGLUC NEGATIVEUBILI NEGATIVEUKET NEGATIVEUPROT NEGATIVEUROBIL 1.0CARDIAC: No results for input(s): CKTEST, CKMB, CKMBP, TROPT, PBNP in thelast 168 hours.CREATININE: 0.63 mg/dL (10/28/17 1545)Estimated creatinine clearance: 144.4 mL/minSigned: Navarro Main DO, PGY-1Pager: [phone] Aise: October 29, 2017Time: 12:47 AMRecommendations are not finalized until co-signed by Staff physician. Normal [facility] Hemogram/Diffon 10-29-2017 Abs Immature Grans 0.09 thou/cmm High 0.00-0.05 [facility] Comment on above: Performed By: #### L CBCD ####[place] [address] Abs. Baso 0.02 thou/cmm Normal 0.01-0.08 [facility] Comment on above: Result Comment: Smea r scanned; tech agrees with automated differential Performed By: #### L CBCD ####[place] [address] Abs. [place] 0.59 thou/cmm Normal 0.27-0.70 [facility] Comment on above: Performed By: #### L CBCD ####[place] [address] Abs. Neut 8.04 thou/cmm High 1.56-6.13 [facility] Comment on above: Performed By: #### L CBCD ####[facility] [place], [place] [address] Basophils/100 WBC Auto (Bld) 0.2 % Normal [facility] Comment on above: Performed By: #### L CBCD ####[address] [address] Eosinophils Auto #/vol (Bld) 0.02 thou/cmm Normal 0.00-0.31 [facility] Comment on above: Performed By: #### L CBCD ####[address] [address] Eosinophils/100 WBC Auto (Bld) 0.2 % Normal [facility] Comment on above: Performed By: #### L CBCD ####[address] [address] Immature Grans 0.70 % Normal [facility] Comment on above: Performed By: #### L CBCD ####[address] [address] Lymphocytes Auto #/vol (Bld) 3.70 thou/cmm Normal 1.18-3.74 [facility] Comment on above: Performed By: #### L CBCD ####[address] [address] Lymphocytes/100 WBC Auto (Bld) 29.7 % Normal [facility] Comment on above: Performed By: #### L CBCD ####[address] [address] Monocytes/100 WBC Auto (Bld) 4.7 % Normal [facility] Comment on above: Performed By: #### L CBCD ####[address] [address] Seg Neutrophil 64.5 % Normal [facility] Comment on above: Performed By: #### L CBCD ####[address] [address] Erythrocyte distribution width Auto Ratio (RBC) 13.2 % Normal 11.7-14.4 [facility] Comment on above: Performed By: #### L CBCD ####[place] [address] Hematocrit Auto Volume Fraction (Bld) 46.0 % High 34.1-44.9 [facility] Comment on above: Performed By: #### L CBCD ####[place] [address] Hemoglobin mass conc (Bld) 15.4 g/dL Normal 11.2-15.7 [facility] Comment on above: Performed By: #### L CBCD ####[place] [address] MCH Auto Entitic mass (RBC) 28.1 pg Normal 25.6-32.2 [facility] Comment on above: Performed By: #### L CBCD ####[place] [address] MCHC Auto mass conc (RBC) 33.5 % Normal 31.6-34.8 [facility] Comment on above: Performed By: #### L CBCD ####[place] [address] MCV Auto Entitic volume (RBC) 83.8 fL Normal 79.4-94.8 [facility] Comment on above: Performed By: #### L CBCD ####[place] [address] Platelet mean volume Auto Entitic volume (Bld) 10.0 fL Normal 9.4-12.3 [facility] Comment on above: Performed By: #### L CBCD ####[place] [address] Platelets Auto #/vol (Bld) 277 thou/cmm Normal 182-369 [facility] Comment on above: Performed By: #### L CBCD ####[place] [address] RBC Auto #/vol (Bld) 5.49 mil/cmm High 3.93-5.22 [facility] Comment on above: Performed By: #### L CBCD ####[place] [address] RDW SD 40.3 fl Normal 36.4-46.3 [facility] Comment on above: Performed By: #### L CBCD ####[address] [address] WBC Auto #/vol (Bld) 12.47 thou/cmm High 3.98-10.04 [facility] Comment on above: Performed By: #### L CBCD ####[address] [address] Hgb A1con 10-29-2017 Glucose mass conc 212 mg/dL Normal [facility] Comment on above: Performed By: #### L MCBD ####[place] [id number] Hemoglobin A1c/Hemoglobin.tot al mass fraction (Bld) 9.0 % High 4.2-6.3 [facility] Comment on above: Result Comment: Meth od is National Glycohemoglobin Standardization Program (NGSP) compliant. Performed By: #### L MCBD ####[place] [address] Lipid Profileon 10-29-2017 Cholesterol in HDL mass conc 40 mg/dL Normal >40 [facility] Comment on above: Performed By: #### L MCBD ####[address] [address] Cholesterol in LDL mass conc 95 mg/dL Normal [facility] Comment on above: Result Comment: No C AD and with fewer than 2 CAD risk factors <160 mg/dlNo CAD but with 2 or more CAD risk factors <130 mg/dlDefinite CAD or other atherosclerotic disease <100 mg/dl Performed By: #### L MCBD ####[address] [address] Cholesterol in LDL/Cholesterol in HDL mass ratio 2.4 Normal 0.6-3.6 [facility] Comment on above: Result Comment: LDL, VLDL,LDL/HDL, Invalid if Triglyceride >400 Performed By: #### L MCBD ####[address] [address] Cholesterol.total/ Cholesterol in HDL mass ratio 4.7 {ratio} Normal 1.8-5.3 [facility] Comment on above: Performed By: #### L MCBD ####[facility] [place] [address] Cholesterol in VLDL mass conc 52 mg/dL Normal <50 Desired [facility] Comment on above: Performed By: #### L MCBD ####[place] [address] Triglyceride mass conc 260 mg/dL High 0-149 [facility] Comment on above: Result Comment: < 20 0 DesirableResult invalid if not a fasting specimen. Performed By: #### L MCBD ####[place] [address] Cholesterol mass conc 187 mg/dL Normal 0-199 [facility] Comment on above: Result Comment: <200 [id number] Borderline>240 High Performed By: #### L MCBD ####[place] [address] MDRD GFRon 10-29-2017 GFR/1.73 sq M predicted among non-blacks MDRD vol rate/area (S/P/Bld) mL/min/{1.73_m2} Normal >60mL/min/1. 73m2 [facility] Comment on above: Result Comment: If t he patient is , multiply the result by 1.210. Performed By: #### L MCBD ####[place] [address] MRI BRAIN W/O CONTRASTon MRI BRAIN W/O CONTRAST Performed at [facility] APPROVED BY: Adiel Lewis MD EXAMINATION: MRI BRAIN WITHOUT CONTRAST HISTORY: The neck after spinal puncture. History of diabetes. TECHNIQUE: Routine noncontrast MRI protocol including diffusion images. MQ: [id number] COMPARISON: CT head 10/28/2017. RESULT: Limitation: Patient motion artifact noted on some of the imaging sequences. Acute Change: There is no evidence of restricted diffusion to suggest an acute infarct. Hemorrhage: No evidence of prior parenchymal hemorrhage on the gradient echo images. Mass Lesion/ Mass Effect: No evidence of an intracranial mass or extra-axial fluid collection. No significant mass effect. Chronic Change: The white matter is within normal limits of signal intensity for age. Parenchyma: No significant volume loss for age. The brain parenchyma is otherwise within normal limits of signal intensity and morphology. Ventricles: Normal caliber and morphology. Skull Base: Hypothalamic and pituitary region are grossly normal. Craniocervical junction is within normal limits. No significant marrow replacement process. Vasculature: Major intracranial arterial structures, and dural venous sinuses show typical flow void, suggesting patency by spin echo criteria. Other: The visualized paranasal sinuses and mastoid air cells are clear. The orbits and extracranial soft tissues are unremarkable. IMPRESSION: MRI brain without contrast is within normal limits. No specific imaging evidence of intracranial hypotension. Intravenous gadolinium not administered, therefore evaluation for pachymeningeal enhancement commonly seen with intracranial hypotension is not possible. Normal [facility] Magnesium Bloodon 10-29-2017 Magnesium mass conc 2.2 mg/dL Normal 1.6-2.6 [facility] Comment on above: Performed By: #### L CBCD ####[place] [address] PLAN OF CAREon 10-29-2017 PLAN OF CARE HNO ID: [id number] thor: Alessia Larose (Child Care Associate Teacher)Service: PharmacyAuthor Type: PharmacistType: Plan of CareFiled: 10/29/2017 4:43 PMNote Text:MEDICATION RECONCILIATIONPatient Name:Tan LandisMRN: [id number]: 1965Reconciliation: Yes All [employer] INSPECT[employer]ER medications addressed by LIPAdditional comments: Reviewed medications with patient and list updated asappropriate. 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 Yestopiramate (TROKENDI XR) 25 mg cp24 Take 200 mg by mouth once daily. Yescelecoxib (CELEBREX) 200 mg capsule Take 200 mg by mouth twice daily. YeslamoTRIgine (LAMICTAL) 100 mg tablet Take 100 mg by mouth once daily. Yesfexofenadine (LIZ) 180 mg tablet Take 180 mg by mouth once daily. YesoxyCODONE-acetaminophen (PERCOCET 10) 10-325 mg tablet Take 1 tablet bymouth every 4 hours as needed. Yestriamcinolone acetonide (NASACORT AQ) 55 mcg nasal inhaler Use 1 [place] inthe nose once daily. Yesesomeprazole (NEXIUM) 20 mg capsule Take 20 mg by mouth DAILY (6 AM). Yesfamotidine (PEPCID) 10 mg tablet Take 10 mg by mouth daily at bedtime.Yeslisinopril (ZESTRIL, PRINIVIL) 5 mg tablet TAKE 1 TABLET BY MOUTH EVERYDAY YesrOPINIRole (REQUIP) 0.25 mg tablet Take 0.5 mg by mouth daily at bedtime. YestiZANidine (ZANAFLEX) 4 mg tablet Take 8 mg by mouth daily at bedtime. Yescyproheptadine (PERIACTIN) 4 mg tablet Take 8 mg by mouth daily atbedtime. YesINSULIN GLARGINE,HUM.REC.ANLOG (LANTUS SUBCUTANEOUS) Inject 45 Unitssubcutaneously twice daily. YesINSULIN ASPART (NOVOLOG FLEXPEN SUBCUTANEOUS) Inject 15 Unitssubcutaneously three times daily with meals. YesDULoxetine (CYMBALTA) 60 mg capsule Take 60 mg by mouth twice daily. Yesdiclofenac potassium (CATAFLAM) 50 mg tablet Take 50 mg by mouth twicedaily. Yesatorvastatin (LIPITOR) 40 mg tablet Take 40 mg by mouth once daily. Yesgabapentin (NEURONTIN) 800 mg tablet Take 800 mg by mouth three timesdaily. Yesergocalciferol, vitamin D2, (VITAMIN D) 50,000 unit capsule Take 50,000Units by mouth every Sunday. YesALPRAZolam (XANAX) 1 mg tablet Take 2 mg by mouth at bedtime as needed. Yesmontelukast (SINGULAIR) 10 mg tablet Take 10 mg by mouth daily at bedtime. YesOXcarbazepine (TRILEPTAL) 300 mg tablet Take 300 mg by mouth everymorning. Yescyclobenzaprine (FLEXERIL) 10 mg tablet Take 1 tablet by mouth three timesdaily as needed for Muscle Spasm. Not taking Kay LAROSE, PHARMACY RESIDENTApril 2017 4:41 PM Normal [facility] PROGRESSon 10-29-2017 PROGRESS HNO ID: [id number] thor: Cindy Moraervice: [facility] MedicineAuthor Type: ResidentType: Progress NotesFiled: 10/29/2017 4:51 PMNote Text: ----Attestation signed by Samantha Gallego at 10/30/2017 9:56 AMDiscussed with team, chart reviewed, orders reviewed and revised as needed.Concern when case presented for post LP headache (see HANDP) rather thanexacerbation of IVAN related to pseudotumor cerebri. Team to contact pt'sneurologist to update.Pt seen on 10/29 at 1304, morbidly obese 52 yo wf, lying in bed, room dark,pillow on head, wearing sunglassess, male friend at bedside, said 'I need to beknocked out before they do that patch thing'. Headache at the time was 'aboutthe same', was tolerating diet w/o nausea or vomiting.Disposition - as below, appreciate neurology recommendations, we will followup, anticipate dc on 10/31 if IVAN improved, pt to follow up with her neurologistat dc. --[facility] DAILY PROGRESS NOTESERVICE DATE: 10/29/2017SERVICE TIME: 4:35 PMINTERVAL HISTORY:Patient lying flat in bed, with glasses, complains that she still has painput is better than yesterday. Patient also complains that she is afraid ofher roommate. Patients roommate has dementia and the patient has beenattacked by dementia before and now is always on edgeMEDICATIONS:Current hospital medications:[MAR Hold due to Transfer] ALPRAZolam 1 mg tab(s) (XANAX) 1 mg ORAL HS PRN[MAR Hold due to Transfer] gabapentin 800 mg cap(s) (NEURONTIN) 800 mgORAL TID[MAR Hold due to Transfer] atorvastatin 40 mg tab(s) (LIPITOR) 40 mg ORALAT BEDTIME[MAR Hold due to Transfer] lisinopril 5 mg tab(s) (ZESTRIL, PRINIVIL) 5 mgORAL DAILY[MAR Hold due to Transfer] insulin glargine 45 Units pen (long acting)(LANTUS SOLOSTAR, BASAGLAR) 45 Units SUBCUTANEOUS BID 8A/BEDTIME[MAR Hold due to Transfer] insulin lispro 15 Units pen (rapid acting)(HumaLOG KWIKPEN) 15 Units SUBCUTANEOUS w MEALS[MAR Hold due to Transfer] lamoTRIgine 100 mg tab(s) (LaMICtal) 100 mgORAL DAILY[MAR Hold due to Transfer] dextrose 40 % 15 g 15 g ORAL PRN[MAR Hold due to Transfer] glucagon 1 mg injection (GLUCAGEN) 1 mgINTRAMUSCULAR PRN[MAR Hold due to Transfer] dextrose 50% in water 25 mL syringe 12.5 gINTRAVENOUS PRN[MAR Hold due to Transfer] 0.9% NaCl 3-5 mL 3-5 mL INTRAVENOUS q 12 H[MAR Hold due to Transfer] acetaminophen 650 mg tab(s) (TYLENOL) 650 mgORAL q 6 H PRN[MAR Hold due to Transfer] insulin lispro pen (rapid acting) (HumaLOGKWIKPEN) SUBCUTANEOUS w MEALS[MAR Hold due to Transfer] topiramate 25 mg tab(s) (TOPAMAX) 25 mg ORALDAILY[MAR Hold due to Transfer] DULoxetine 60 mg cap(s) (CYMBALTA) 60 mg ORALBID[MAR Hold due to Transfer] pantoprazole DR 40 mg tab(s) (PROTONIX) 40 mgORAL DAILY (6 AM)[SEP Hold due to Transfer] ondansetron 4 mg tab(s) (ZOFRAN) 4 mg ORAL q 6H PRN[SEP Hold due to Transfer] enoxaparin 40 mg injection (LOVENOX) 40 mgSUBCUTANEOUS q 12 HR[SEP Hold due to Transfer] magnesium sulfate 1 g in D5W 100 mL 1 gINTRAVENOUS ONCE[SEP Hold due to Transfer] OXcarbazepine 600 mg tab(s) (TRILEPTAL) 600 mgORAL AT BEDTIME[SEP Hold due to Transfer] cyproheptadine 8 mg tab(s) (PERIACTIN) 8 mgORAL AT BEDTIME[SEP Hold due to Transfer] rOPINIRole 0.5 mg tab(s) (REQUIP) 0.5 mg ORALAT BEDTIME[SEP Hold due to Transfer] famotidine 10 mg tab(s) (PEPCID) 10 mg ORAL ATBEDTIME[SEP Hold due to Transfer] montelukast 10 mg tab(s) (SINGULAIR) 10 mg ORALAT BEDTIME[SEP Hold due to Transfer] tiZANidine 8 mg tab(s) (ZANAFLEX) 8 mg ORAL ATBEDTIME[SEP Hold due to Transfer] ergocalciferol (vitamin D2) 50,000 Units cap(s)(DRISDOL) 50,000 Units ORAL q WED[SEP Hold due to Transfer] OXcarbazepine 300 mg tab(s) (TRILEPTAL) 300 mgORAL DAILY[SEP Hold due to Transfer] LORazepam 1 mg injection (ATIVAN) 1 mgINTRAVENOUS ONCEHOME MEDICATIONS:OXcarbazepine (TRILEPTAL) 300 mg tablet Take 600 mg by mouth everyevening.topiramate (TROKENDI XR) 25 mg cp24 Take 200 mg by mouth once daily.celecoxib (CELEBREX) 200 mg capsule Take 200 mg by mouth twice daily.lamoTRIgine (LAMICTAL) 100 mg tablet Take 100 mg by mouth once daily.fexofenadine (LIZ) 180 mg tablet Take 180 mg by mouth once daily.oxyCODONE-acetaminoph en (PERCOCET 10) 10-325 mg tablet Take 1 tablet bymouth every 4 hours as needed.triamcinolone acetonide (NASACORT AQ) 55 mcg nasal inhaler Use 1 [place] inthe nose once daily.esomeprazole (NEXIUM) 20 mg capsule Take 20 mg by mouth DAILY (6 AM).famotidine (PEPCID) 10 mg tablet Take 10 mg by mouth daily at bedtime.lisinopril (ZESTRIL, PRINIVIL) 5 mg tablet TAKE 1 TABLET BY MOUTH EVERYDAYrOPINIRole (REQUIP) 0.25 mg tablet Take 0.5 mg by mouth daily at bedtime.tiZANidine (ZANAFLEX) 4 mg tablet Take 8 mg by mouth daily at bedtime.cyproheptadine (PERIACTIN) 4 mg tablet Take 8 mg by mouth daily atbedtime.INSULIN GLARGINE,HUM.REC.ANLOG (LANTUS SUBCUTANEOUS) Inject 45 Unitssubcutaneously twice daily.INSULIN ASPART (NOVOLOG FLEXPEN SUBCUTANEOUS) Inject 15 Unitssubcutaneously three times daily with meals.DULoxetine (CYMBALTA) 60 mg capsule Take 60 mg by mouth twice daily.diclofenac potassium (CATAFLAM) 50 mg tablet Take 50 mg by mouth twicedaily.atorvastatin (LIPITOR) 40 mg tablet Take 40 mg by mouth once daily.gabapentin (NEURONTIN) 800 mg tablet Take 800 mg by mouth three timesdaily.ergocalciferol, vitamin D2, (VITAMIN D) 50,000 unit capsule Take 50,000Units by mouth every Sunday.ALPRAZolam (XANAX) 1 mg tablet Take 2 mg by mouth at bedtime as needed.montelukast (SINGULAIR) 10 mg tablet Take 10 mg by mouth daily at bedtime.OXcarbazepine (TRILEPTAL) 300 mg tablet Take 300 mg by mouth everymorning.cyclobenzaprin e (FLEXERIL) 10 mg tablet Take 1 tablet by mouth three timesdaily as needed for Muscle Spasm.PHYSICAL EXAM: 10/28/1820BP: 123/73 131/80Pulse: 74 79 83Resp: 20 18Temp: 36.9 ?C (98.4 ?F) 36.6 ?C (97.9 ?F)TempSrc: OralSpO2: 96% 96% 98%Weight: (!) 136.1 kg (300 lb 0.7 oz)Height: 165.1 cm (5' 5 )INTAKE/OUTPUTIntake/Outp ut Summary (Last 24 hours) at 10/29/17 1635Last data filed at 10/28/17 2106 Gross per 24 hourIntake 0 mlOutput 1 mlNet -1 mlGeneral: Awake and alert, in no distress, cooperativeSkin: Skin color, texture, turgor normal. No rashes or lesions.Neck: Supple without JVD or LymphadenopathyCardiac: RRR, S1S2 with no MGRLungs: Clear to auscultation bilaterallyAbdomen: Soft non-tender, non-distended, normal bowel soundsExtremities: No deformities, edema, clubbing or skin discoloration.Neurological: No focal deficit, CN 2-12 grossly intact.LAB DATA:Recent Labs 10/28/1814TROPI -- <0.03WBC 12.47* 10.8RBC 5.49* 5.22HB 15.4 14.9HCT 46.0* 44.2MCV 83.8 84.7MCH 28.1 28.5MCHC 33.5 33.7PLT 277 260MPV 10.0 10.4GLUC 277* 173*BUN 11 14CREAT 0.56 0.63NA 136 133*K 4.4 4.0CHLOR 106 103CO2 22 24TPROT 7.5 --ALB 3.4 --CA 8.7 8.7ALKPHOS 105 --TBILI 0.3 --AST 18 --ALT 29 --MG 2.2 --ASSESSMENT AND PLAN:Active Hospital Problems Diagnosis- Pseudotumor cerebri- Uncontrolled insulin dependent diabetes mellitus (HCC)- Obstructive sleep apnea on CPAP- Essential hypertension- Mixed hyperlipidemia- GERD (gastroesophageal reflux disease)- Major depressive disorder- Tobacco use disorder- Obesity, Class III, BMI >= 40 E66.01- Morbid obesity due to excess calories (HCC)PLAN FOR THE DAYIdiopathic Intracranial Hypertension- Changes in symptomatology as described in HPI since lumbar puncture 4days ago.- Patient has failed multiple therapies before like acetazolamide.- CT of the head showed no acute process.- Patients most medications have been started.- Continued other anticonvulsant medications.- Keep bed flat for comfort.- Awaiting recommendations from Neurology. Patient got an blood patch donetoday. Will hold to nights Enoxaparin.? Uncontrolled insulin dependent diabetes mellitus- Started patient on home insulin dose: 45 units Lantus qAM / QHS + 15units Humalog with meals.- Added sliding scale level 2 AC/QHS.- Blood glucose checks AC/HS? Obstructive sleep apnea on CPAP- Started on home CPAP QHS.? Essential hypertension- Started home lisinopril 5 mg po qd.? Mixed hyperlipidemia- Started home Lipitor 40 mg po QHS.? GERD (gastroesophageal reflux disease)- Has multiple acid-suppressing medications listed. For now, startedProtonix 40 mg po qd.? Major depressive disorder- With atypical features. States it contributes to her morbid obesity /eating habits and smoking. Psychology services were offered at encounter,patient declined.- Continued home Cymbalta.? Morbid obesity due to excess calories? 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 Start nicotine replacement patch if requested.? DVT prophylaxis- Bilateral SCDs and lovenoxSIGNATURE: Cindy Clay MD PATIENT NAME: Byron Marin: October 29, 2017 : 4:35 PM Pager: [phone] Normal [facility] Phosphorus Bloodon 8 Phosphate mass conc 3.0 mg/dL Normal 2.5-4.9 [facility] Comment on above: Performed By: #### L CBCD ####[facility] [place] [address] THERAPY NTon 10-29-2017 THERAPY NT HNO ID: [id number] thor: Christen (Otr/L) ShardaeService: Occupational TherapyAuthor Type: Occupational TherapistType: Therapy (PT/OT/Speech/Resp)Filed: 10/29/2017 10:39 AMNote Text:OCCUPATIONAL THERAPY MISSED VISITSERVICE DATE: 10/29/2017SERVICE TIME: 1038 to 1038ROOM: [id number] Evaluation. Patient not seen due to (Pt screened, no OT needsidentified.). Will discontinue OT order at this time. Please reorder ifneeds change.SIGNATURE: Christen Calderón OTR/L PATIENT NAME: Byron Marin: October 29, 2017 : 10:39 AM PAGER/CONTACT #:[phone] [facility] THERAPY NT HNO ID: [id number] thor: Kimberly (Pt) RomeliaService: Physical TherapyAuthor Type: Physical TherapistType: Therapy (PT/OT/Speech/Resp)Filed: 10/29/2017 9:55 AMNote Text:PHYSICAL THERAPY MISSED VISITSERVICE DATE: 10/29/2017SERVICE TIME: toROOM: [id number] Evaluation. Patient not seen due to Other: See Comment. Notedpatient's age and reason for admission--asked patient about participatingin eval--she states she just got back into bed and that she is doingfine--will sign off on orderSIGNATURE: Kimberly León PT PATIENT NAME: Byron LandisDATE: October 29, 2017 : 9:54 AM PAGER/CONTACT #: [phone] [facility] ALLIED HEALTHon 10-28-2017 ALLIED HEALTH HNO ID: [id number] thor: Aida Peoples (Chaplain)ervice: Spiritual CareAuthor Type: ChaplainType: Allied HealthFiled: 10/28/2017 10:10 PMNote Text: SPIRITUALCARESpiritual Care Visit- Brief NoteName: Byron LandisMRN: [id number]: October 28, 2017Notes: New Admission. Patient requested welder tool and die visit for prayer. Iprayer for the patient. Chapl aishira Signature: Herminia Peoples contact the Spiritual Care Department:Please call [phone] or Page the On-Call [employer]iller at pager [phone] you for the opportunity to be of service.This is an electronically created document.IF PRINTED, PLEASE DO NOT REMOVE FROM THE CHART OR MODIFY PRINTED COPY. Normal [facility] Basic Panelon 10-28-2017 Anion gap 3 molar conc 10 mmol/L Normal 8-20 [facility] Comment on above: Performed By: #### L CBCD ####[facility] [place], [place] [address] Calcium mass conc 8.7 mg/dL Normal 8.5-10.1 [facility] Comment on above: Performed By: #### L CBCD ####[facility] [place], [place] [address] Chloride molar conc 103 mmol/L Normal 98-107 [facility] Comment on above: Performed By: #### L CBCD ####[address] [address] CO2 molar conc 24 mmol/L Normal 21-32 [facility] Comment on above: Performed By: #### L CBCD ####[place] [address] Creatinine mass conc 0.63 mg/dL Normal 0.51-0.95 [facility] Comment on above: Performed By: #### L CBCD ####[place] [address] Glucose mass conc 173 mg/dL High 70-99 [facility] Comment on above: Performed By: #### L CBCD ####[address] [address] Potassium molar conc 4.0 mmol/L Normal 3.5-5.1 [facility] Comment on above: Performed By: #### L CBCD ####[address] [address] Sodium molar conc 133 mmol/L Low 136-145 [facility] Comment on above: Performed By: #### L CBCD ####[address] [address] Urea nitrogen mass conc (Bld) 14 mg/dL Normal 7-25 [facility] Comment on above: Performed By: #### L CBCD ####[place] [address] Urea nitrogen/Creatinin e mass ratio 22 mg/mg High 10-20 [facility] Comment on above: Performed By: #### L CBCD ####[place] [address] CT HEAD W/O CONTRASTon 10-28 CT HEAD W/O CONTRAST Performed at [facility] APPROVED BY: [place]erv[place] MD Addendum Begins* * * * * * * * ORIGINAL REPORT * * * * * * * *EXAMINATION: CT HEAD W/O CONTRAST HISTORY: Headaches, lumbar puncture 5 days ago TECHNIQUE: Serial axial images without IV contrast were obtained from the vertex to the foramen magnum.MQ: CTBWO_3 CT Dose-Length Product (DLP): 828 mGy*cmCT Dose Reduction Employed: 5 COMPARISON: None. RESULT: Post-operative change: None. Acute change: No evidence of an acute infarct or other acute parenchymal process. Hemorrhage: No evidence of acute intracranial hemorrhage. Mass Lesion / Mass Effect: There is no evidence of an intracranial mass or extraaxial fluid collection. No significant mass effect. Chronic change: None apparent. Parenchyma: There is no significant volume loss. The brain parenchyma is otherwise within normal limits for age. Ventricles: The ventricles are within normal limits of size and configuration for age. Paranasal sinuses and skull base: The visualized paranasal sinuses are grossly clear. The skull base and imaged soft tissues are unremarkable. IMPRESSION: No acute intracranial abnormality* * * * * * * * ADDENDUM #1 * * * * * * * *Impression: 5-no dose reduction technique was requiredAddendum EndsEXAMINATION: CT HEAD W/O CONTRAST HISTORY: Headaches, lumbar puncture 5 days ago TECHNIQUE: Serial axial images without IV contrast were obtained from the vertex to the foramen magnum.MQ: CTBWO_3 CT Dose-Length Product (DLP): 828 mGy*cmCT Dose Reduction Employed: 5 COMPARISON: None. RESULT: Post-operative change: None. Acute change: No evidence of an acute infarct or other acute parenchymal process. Hemorrhage: No evidence of acute intracranial hemorrhage. Mass Lesion / Mass Effect: There is no evidence of an intracranial mass or extraaxial fluid collection. No significant mass effect. Chronic change: None apparent. Parenchyma: There is no significant volume loss. The brain parenchyma is otherwise within normal limits for age. Ventricles: The ventricles are within normal limits of size and configuration for age. Paranasal sinuses and skull base: The visualized paranasal sinuses are grossly clear. The skull base and imaged soft tissues are unremarkable. IMPRESSION: No acute intracranial abnormality Normal [facility] Glucose Meteron 10-28-2017 Glucose mass conc 225 mg/dL High 70-99 [facility] Comment on above: Performed By: #### L CBCD ####[facility] [place], [place] [address] HOSPon 10-28-2017 HOSP Patient:Brenda Landis RN: Height:5' 5 (1.651 m)Weight:300 lb 0.7 oz (136.1 kg)Outpatient Medications as of 10/29/17:OXcarbazepine (TRILEPTAL) 300 mg tablettopiramate (TROKENDI XR) 25 mg [id number] (CELEBREX) 200 mg capsulelamoTRIgine (LAMICTAL) 100 mg tabletfexofenadine (LIZ) 180 mg tabletoxyCODONE-acetaminoph en (PERCOCET 10) 10-325 mg tablettriamcinolone acetonide (NASACORT AQ) 55 mcg nasal inhalercyclobenzaprine (FLEXERIL) 10 mg tabletesomeprazole (NEXIUM) 20 mg capsulefamotidine (PEPCID) 10 mg tabletlisinopril (ZESTRIL, PRINIVIL) 5 mg tabletrOPINIRole (REQUIP) 0.25 mg tablettiZANidine (ZANAFLEX) 4 mg tabletcyproheptadine (PERIACTIN) 4 mg tabletINSULIN GLARGINE,HUM.REC.ANLOG (LANTUS SUBCUTANEOUS)INSULIN ASPART (NOVOLOG FLEXPEN SUBCUTANEOUS)DULoxetine (CYMBALTA) 60 mg capsulediclofenac potassium (CATAFLAM) 50 mg tabletatorvastatin (LIPITOR) 40 mg tabletgabapentin (NEURONTIN) 800 mg tabletergocalciferol, vitamin D2, (VITAMIN D) 50,000 unit capsuleALPRAZolam (XANAX) 1 mg tabletmontelukast (SINGULAIR) 10 mg tabletOXcarbazepine (TRILEPTAL) 300 mg tabletAdmission/Clinic Administered Medications as of 10/29/17:ALPRAZolam 1 mg tab(s) (XANAX)gabapentin 800 mg cap(s) (NEURONTIN)atorvastatin 40 mg tab(s) (LIPITOR)lisinopril 5 mg tab(s) (ZESTRIL, PRINIVIL)insulin glargine 45 Units pen (long acting) (LANTUS SOLOSTAR, BASAGLAR)insulin lispro 15 Units pen (rapid acting) (HumaLOG KWIKPEN)lamoTRIgine 100 mg tab(s) (LaMICtal)dextrose 40 % 15 gglucagon 1 mg injection (GLUCAGEN)dextrose 50% in water 25 mL syringe0.9% NaCl 3-5 mLacetaminophen 650 mg tab(s) (TYLENOL)insulin lispro pen (rapid acting) (HumaLOG KWIKPEN)topiramate 25 mg tab(s) (TOPAMAX)DULoxetine 60 mg cap(s) (CYMBALTA)pantoprazole DR 40 mg tab(s) (PROTONIX)ondansetron 4 mg tab(s) (ZOFRAN)enoxaparin 40 mg injection (LOVENOX)magnesium sulfate 1 g in D5W 100 mLOXcarbazepine 600 mg tab(s) (TRILEPTAL)cyproheptadine 8 mg tab(s) (PERIACTIN)rOPINIRole 0.5 mg tab(s) (REQUIP)famotidine 10 mg tab(s) (PEPCID)montelukast 10 mg tab(s) (SINGULAIR)tiZANidine 8 mg tab(s) (ZANAFLEX)ergocalciferol (vitamin D2) 50,000 Units cap(s) (DRISDOL)OXcarbazepine 300 mg tab(s) (TRILEPTAL)LORazepam 1 mg injection (ATIVAN)Problem List:Hyperopia of both eyes with astigmatism and presbyopia - Both Eyes [H52.03,H52.203, H52.4]Uncontrolled insulin dependent diabetes mellitus (HCC) [E11.65, Z79.4]Hemiplegic migraine without status migrainosus, 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]Partial tear of Achilles tendon [S86.019A]Pain in right foot [M79.671]Heel spur [M77.30]DJD (degenerative joint disease), ankle and foot [M19.079]Loose body in ankle and foot joint [M24.073, M24.08]Degenerative arthritis of right foot [M19.071]Morbid obesity due to excess calories ([facility]) [E66.01]Partial tear of Achilles tendon, right, subsequent encounter [S86.011D]Acute right ankle pain [M25.571]Ankle weakness [M62.81]Gait difficulty [R26.9]Pseudotumor cerebri [G93.2]Obstructive sleep apnea on CPAP [G47.33, Z99.89]Essential hypertension [I10]Mixed hyperlipidemia [E78.2]GERD (gastroesophageal reflux disease) [K21.9]Tobacco use disorder [F17.200]Major depressive disorder [F32.9]Obesity, Class III, BMI >= 40 E66.01 [E66.01]Allergies:Avelox [Moxifloxacin Hcl]CodeineContrast DyeDemerol [Meperidine (Pf)]MorphinePenicillinsSul fa (Sulfonamide Antibiotics)Tape [Adhesive Tape (Rosins)]TetracyclineValium [Diazepam]Zithromax [Azithromycin]Date Verified: 10/28/17Lab ValuesLab Value Units Date High LowPOTA* 4.4 mEq/L 10/29/2017 5.1 3.5HEMA* 46.0 % 10/29/2017 44.9 34.1Progress Notes ([facility]):Melinda Craft Psr 10/24/2017 2:32 PM SignedPatient phoned to leave a message for Dr. Roberts Dr was so hateful to me during my office visit, advised Intracranial goes awayon its own Patient just left neurologist had lumbar puncture fluid shot out filled 4 tubesSpinal pressure was at 48Patient is not requesting a return phone callProgress Notes ([facility]):Steve Roberts, 10/19/2017 9:17 AM SignedControlled type 2 diabetes mellitus without complication, unspecified whetherlong term insulin use (hcc) (primary encounter diagnosis)Hemoglobin A1C (%)Date Value02/23/2017 7.3 Encouraged tight blood pressure and glucose control.Iih (idiopathic intracranial hypertension) She states that she was diagnosedwith IIH. However, she has no papilledema today and that is typical of IIH as itis almost always a self limiting disorder.I have confirmed and edited as necessary the relevant ophthalmic history, ROS,and the neuro exam findings as obtained by others. I have seen and examined thispatient.I have discussed the case and the management of this patient's care with theResident/Fellow, if applicable. I also have reviewed and agree with theassessment and plan as stated above and agree with all of its relevantcomponents.Steve Roberts, October 19, 2017 9:16 AM Normal [facility] Hemogram/Diffon 10-28-2017 Abs. Baso 0.02 thou/cmm Normal 0.00-0.08 [facility] Comment on above: Performed By: #### L CBCD ####[address] [address] Abs. [place] 0.65 thou/cmm Normal 0.20-1.00 [facility] Comment on above: Performed By: #### L CBCD ####[address] [address] Abs. Neut 6.32 thou/cmm High 3.00-5.67 [facility] Comment on above: Performed By: #### L CBCD ####[address] [address] Basophils/100 WBC Auto (Bld) 0.2 % Normal [facility] Comment on above: Performed By: #### L CBCD ####[address] [address] Eosinophils Auto #/vol (Bld) 0.12 thou/cmm Normal 0.00-0.41 [facility] Comment on above: Performed By: #### L CBCD ####[address] [address] Eosinophils/100 WBC Auto (Bld) 1.1 % Normal [facility] Comment on above: Performed By: #### L CBCD ####[address] [address] Erythrocyte distribution width Auto Ratio (RBC) 13.5 % Normal 11.5-15.9 [facility] Comment on above: Performed By: #### L CBCD ####[address] [address] Hematocrit Auto Volume Fraction (Bld) 44.2 % Normal 37.0-47.0 [facility] Comment on above: Performed By: #### L CBCD ####[place] [address] Hemoglobin mass conc (Bld) 14.9 g/dL Normal 12.0-16.0 [facility] Comment on above: Performed By: #### L CBCD ####[place] [address] Lymphocytes Auto #/vol (Bld) 3.69 thou/cmm High 1.50-3.65 [facility] Comment on above: Performed By: #### L CBCD ####[address] [address] Lymphocytes/100 WBC Auto (Bld) 34.2 % Normal [facility] Comment on above: Performed By: #### L CBCD ####[place] [address] MCH Auto Entitic mass (RBC) 28.5 pg Normal 27.0-31.0 [facility] Comment on above: Performed By: #### L CBCD ####[place] [address] MCHC Auto mass conc (RBC) 33.7 % Normal 32.0-36.0 [facility] Comment on above: Performed By: #### L CBCD ####[address] [address] MCV Auto Entitic volume (RBC) 84.7 fL Normal 81.0-99.0 [facility] Comment on above: Performed By: #### L CBCD ####[address] [address] Monocytes/100 WBC Auto (Bld) 6.0 % Normal [facility] Comment on above: Performed By: #### L CBCD ####[address] [address] Platelet mean volume Auto Entitic volume (Bld) 10.4 fL Normal 7.1-10.5 [facility] Comment on above: Performed By: #### L CBCD ####[facility] [place], [place] [address] Platelets Auto #/vol (Bld) 260 thou/cmm Normal 150-400 [facility] Comment on above: Performed By: #### L CBCD ####[address] [address] RBC Auto #/vol (Bld) 5.22 mil/cmm Normal 4.20-5.40 [facility] Comment on above: Performed By: #### L CBCD ####[place] [address] Seg Neutrophil 58.5 % Normal [facility] Comment on above: Performed By: #### L CBCD ####[place] [address] WBC Auto #/vol (Bld) 10.8 thou/cmm Normal 4.8-10.8 [facility] Comment on above: Performed By: #### L CBCD ####[place] [address] MDRD eGFRon 10-28-2017 GFR/1.73 sq M predicted among non-blacks MDRD vol rate/area (S/P/Bld) mL/min/{1.73_m2} Normal >60mL/min/1. 73m2 [facility] Comment on above: Result Comment: If t he patient is , multiply the result by 1.210. Performed By: #### L CBCD ####[place] [address] Macroscopic Urinalysison Appearance Nom (U) CLEAR Normal [facility] Comment on above: Performed By: #### L MACU ####[place] [address] Bilirubin Urine Negative Normal Negative [facility] Comment on above: Performed By: #### L MACU ####[address] [address] Color Nom (U) YELLOW Normal [facility] Comment on above: Performed By: #### L MACU ####[facility] [place], [place] [address] Glucose Ql (U) Negative Normal Negative [facility] Comment on above: Performed By: #### L MACU ####[address] [address] Hemoglobin,Urine Negative Normal Negative [facility] Comment on above: Performed By: #### L MACU ####[place] [address] Ketone Urine Negative Normal Negative [facility] Comment on above: Performed By: #### L MACU ####[place] [address] Leukocytes Esterase Negative Normal Negative [facility] Comment on above: Performed By: #### L MACU ####[place] [address] Nitrites Urine Negative Normal Negative [facility] Comment on above: Performed By: #### L MACU ####[place] [address] pH Test strip (U) 7.0 [pH] Normal 5.0-8.0 [facility] Comment on above: Performed By: #### L MACU ####[place] [address] Protein Urine Negative Normal Negative [facility] Comment on above: Performed By: #### L MACU ####[place] [address] Specific [place], Ur 1.015 Normal 1.005-1.030 [facility] Comment on above: Performed By: #### L MACU ####[place] [address] Urobilinogen,Ur 1.0 EU/dL Normal 0.0-1.0 [facility] Comment on above: Performed By: #### L MACU ####[place] [address] Troponin Ion 10-28-2017 Troponin I.cardiac mass conc ng/mL Normal <=0.07 [facility] Comment on above: Performed By: #### L CBCD ####[facility] [place] [address] Urine Drug Screenon 10-29-19 18 Urine Amphetamine Non-Detected Normal Non-Detected [facility] Comment on above: Performed By: #### L CBCD ####[facility] [place], [place] [address] Urine Barbiturates see below Normal Non-Detected [place] Comment on above: Result Comment: Dete cted (unconfirmed) Performed By: #### L CBCD ####[place] [address] Urine Benzodiazepine see below Normal Non-Detected [facility] Comment on above: Result Comment: Dete cted (unconfirmed) Performed By: #### L CBCD ####[place] [address] Urine Buprenorphine Non-Detected Normal Non-Detected [facility] Comment on above: Result Comment: Urin e Drug Cutoff LevelsUrine Amphetamine 500 ng/mLUrine Barbituate 200 ng/mLUrine Benzodiazepines 150 ng/mLUrine Cocaine 150 ng/mLUrine Methamphetamines 500 ng/mLUrine Methadone 200 ng/mLUrine Opiates 100 ng/mLUrine Oxycodone 100 ng/mLUrine Phencyclidine (PCP) 25 ng/mLUrine Propoxyphene 300 ng/mLUrine Tricyclics 300 ng/mLUrine THC 50 ng/mLUrine Buprenorphine 10 ng/mLThe results of these analytes are unconfirmed and reportedqualitatively as detected or non-detected relative to the cutoff value.Detected results indicate the sample is likely to contain the analyte.Non-detected results indicate that either the sample does notcontain the analyte or it is present in concentrations belowthe cutoff level. This drug screen should be used for medical diagnosticpurposes only.Testing Performed at: [address] [address] Performed By: #### L CBCD ####[address] [address] Urine Cocaine Non-Detected Normal Non-Detected [facility] Comment on above: Performed By: #### L CBCD ####[address], [place] [address] Urine Methadone Non-Detected Normal Non-Detected [facility] Comment on above: Performed By: #### L CBCD ####[facility] [place], [place] [address] Urine Methamphetamine Non-Detected Normal Non-Detected [facility] Comment on above: Performed By: #### L CBCD ####[facility] [place], [place] [address] Urine Opiate Non-Detected Normal Non-Detected [facility] Comment on above: Performed By: #### L CBCD ####[address] [address] Urine Oxycodone Non-Detected Normal Non-Detected [facility] Comment on above: Performed By: #### L CBCD ####[address] [address] Urine PCP Non-Detected Normal Non-Detected [facility] Comment on above: Performed By: #### L CBCD ####[address] [address] Urine Propoxyphene Non-Detected Normal Non-Detected [facility] Comment on above: Performed By: #### L CBCD ####[address] [address] Urine THC Non-Detected Normal Non-Detected [facility] Comment on above: Performed By: #### L CBCD ####[address] [address] Urine Tricyclics Non-Detected Normal Non-Detected [place] Comment on above: Performed By: #### L CBCD ####[address] [address] CHEST SINGLE VIEWon 05-26-20 17 Protein mass conc Performed at [facility] APPROVED BY: Alicia Hayes MD EXAMINATION: CHEST RADIOGRAPH (SINGLE VIEW AP OR PA) Clinical History: Chest painM: [id number]: 07/09/2016 RESULT: Lines, tubes, and devices: EKG leads overlie the thorax. Lungs and pleura: No consolidation. No lung mass. No pleural effusion. Cardiomediastinal silhouette: Normal cardiomediastinal silhouette. Other: Cervical spinal fusion is partially seen. IMPRESSION: No acute radiographic abnormality. Normal [facility] Comprehensive Panelon 2016 Albumin mass conc 3.6 g/dL Normal 3.4-5.0 [facility] Comment on above: Performed By: #### L P14 ####[facility] [place] [address] ALP enzyme act/vol 120 U/L High 46-116 [facility] Comment on above: Performed By: #### L P14 ####[place] [address] ALT-SGPT Blood 40 U/L Normal 12-78 [facility] Comment on above: Performed By: #### L P14 ####[place] [address] Anion gap 3 molar conc 9 mmol/L Normal 8-20 [facility] Comment on above: Performed By: #### L P14 ####[place] [address] AST-SGOT Blood 22 U/L Normal 15-37 [facility] Comment on above: Performed By: #### L P14 ####[place] [address] Bilirubin Ql (U) 0.3 mg/dL Normal 0.2-1.0 [facility] Comment on above: Performed By: #### L P14 ####[place] [address] Calcium mass conc 9.0 mg/dL Normal 8.5-10.1 [facility] Comment on above: Performed By: #### L P14 ####[place] [address] Chloride molar conc 104 mmol/L Normal 98-107 [facility] Comment on above: Performed By: #### L P14 ####[place] [address] CO2 molar conc 25 mmol/L Normal 21-32 [facility] Comment on above: Performed By: #### L P14 ####[facility] [place], [place] [address] Creatinine mass conc 0.73 mg/dL Normal 0.51-0.95 [facility] Comment on above: Performed By: #### L P14 ####[facility] [place], [place] [address] Glucose mass conc 156 mg/dL High 70-99 [facility] Comment on above: Performed By: #### L P14 ####[facility] [place], [place] [address] Potassium molar conc 4.1 mmol/L Normal 3.5-5.1 [facility] Comment on above: Performed By: #### L P14 ####[address] [address] Protein mass conc 7.9 g/dL Normal 6.4-8.2 [facility] Comment on above: Performed By: #### L P14 ####[address] [address] Sodium molar conc 134 mmol/L Low 136-145 [facility] Comment on above: Performed By: #### L P14 ####[address] [address] Urea nitrogen mass conc (Bld) 17 mg/dL Normal 7-25 [facility] Comment on above: Performed By: #### L P14 ####[address] [address] Urea nitrogen/Creatinin e mass ratio 23 mg/mg High 10-20 [facility] Comment on above: Performed By: #### L P14 ####[address] [address] Hemogram/Diffon 05-26-2017 Hematocrit Auto Volume Fraction (Bld) 45.4 % Normal 37.0-47.0 [facility] Comment on above: Performed By: #### L CBCD ####[address] [address] Hemoglobin mass conc (Bld) 15.3 g/dL Normal 12.0-16.0 [facility] Comment on above: Performed By: #### L CBCD ####[place] [address] MCH Auto Entitic mass (RBC) 28.3 pg Normal 27.0-31.0 [facility] Comment on above: Performed By: #### L CBCD ####[place] [address] MCHC Auto mass conc (RBC) 33.7 % Normal 32.0-36.0 [facility] Comment on above: Performed By: #### L CBCD ####[place] [address] MCV Auto Entitic volume (RBC) 84.1 fL Normal 81.0-99.0 [facility] Comment on above: Performed By: #### L CBCD ####[place] [address] Platelet mean volume Auto Entitic volume (Bld) 9.9 fL Normal 7.1-10.5 [facility] Comment on above: Performed By: #### L CBCD ####[place] [address] Platelets Auto #/vol (Bld) 288 thou/cmm Normal 150-400 [facility] Comment on above: Performed By: #### L CBCD ####[place] [address] RBC Auto #/vol (Bld) 5.40 mil/cmm Normal 4.20-5.40 [facility] Comment on above: Performed By: #### L CBCD ####[place] [address] WBC Auto #/vol (Bld) 12.1 thou/cmm High 4.8-10.8 [facility] Comment on above: Performed By: #### L CBCD ####[place] [address] Hemogram/Manual Diffon 05-26 Basophil 0.0 % Normal [facility] Comment on above: Performed By: #### L MCBD ####[facility] [place] [address] Basophil # 0.00 thou/cmm Normal 0.00-0.08 [facility] Comment on above: Performed By: #### L MCBD ####[facility] [place] [address] Eosinophil 2.0 % Normal [facility] Comment on above: Performed By: #### L MCBD ####[place] [address] Eosinophil # 0.24 thou/cmm Normal 0.00-0.41 [facility] Comment on above: Performed By: #### L MCBD ####[place] [address] Lymphocyte 35.0 % Normal [facility] Comment on above: Performed By: #### L MCBD ####[place] [address] Lymphocyte # 4.24 thou/cmm High 1.50-3.65 [facility] Comment on above: Performed By: #### L MCBD ####[place] [address] Monocyte 3.0 % Normal [facility] Comment on above: Performed By: #### L MCBD ####[place] [address] Monocyte # 0.36 thou/cmm Normal 0.20-1.00 [facility] Comment on above: Performed By: #### L MCBD ####[place] [address] Platelet Estimate Normal Normal [facility] Comment on above: Performed By: #### L MCBD ####[place] [address] RBC Morphology Normal Normal [facility] Comment on above: Performed By: #### L MCBD ####[place] [address] Seg Neutrophil 60.0 % Normal [facility] Comment on above: Performed By: #### L MCBD ####[place] [address] Seg. Neut.# 7.26 thou/cmm High 3.00-5.67 [facility] Comment on above: Performed By: #### L MCBD ####[place] [address] Diff Type Manual Diff Normal [facility] Comment on above: Performed By: #### L MCBD ####[place] [address] Erythrocyte distribution width Auto Ratio (RBC) 13.8 % Normal 11.5-15.9 [facility] Comment on above: Performed By: #### L MCBD ####[place] [address] Performed By: #### L CBCD ####[place] [address] Hct 45.4 % Normal 37.0-47.0 [facility] Comment on above: Performed By: #### L MCBD ####[place] [address] Hgb 15.3 g/dL Normal 12.0-16.0 [facility] Comment on above: Performed By: #### L MCBD ####[place] [address] MCH 28.3 pg Normal 27.0-31.0 [facility] Comment on above: Performed By: #### L MCBD ####[place] [address] MCHC 33.7 % Normal 32.0-36.0 [facility] Comment on above: Performed By: #### L MCBD ####[place] [address] MCV 84.1 fl Normal 81.0-99.0 [facility] Comment on above: Performed By: #### L MCBD ####[place] [address] MPV 9.9 fl Normal 7.1-10.5 [facility] Comment on above: Performed By: #### L MCBD ####[place] [address] Platelet 288 thou/cmm Normal 150-400 [facility] Comment on above: Performed By: #### L MCBD ####[place] [address] RBC Test strip #/vol (U) 5.40 mil/cmm Normal 4.20-5.40 [facility] Comment on above: Performed By: #### L MCBD ####[place] [address] WBC 12.1 thou/cmm High 4.8-10.8 [facility] Comment on above: Performed By: #### L MCBD ####[place] [address] MDRD eGFRon 05-26-2017 GFR/1.73 sq M predicted among non-blacks MDRD vol rate/area (S/P/Bld) mL/min/{1.73_m2} Normal >60mL/min/1. 73m2 [facility] Comment on above: Result Comment: If t he patient is , multiply the result by 1.210. Performed By: #### L GFR ####[place] [address] Magnesium Bloodon 05-26-2017 Magnesium mass conc 2.1 mg/dL Normal 1.8-2.4 [facility] Comment on above: Performed By: #### L MAG ####[place] [address] Troponin Ion 05-26-2017 Troponin I.cardiac mass conc ng/mL Normal <=0.07 [facility] Comment on above: Performed By: #### L TRP ####[place] [address] Urine HCG, Qual.on 7 HCG.beta subunit ( test) Ql (U) Negative Normal Negative [facility] Comment on above: Performed By: #### L HCG2 ####[place] [address] Specific [place], Ur 1.015 Normal 1.005-1.030 [facility] Comment on above: Performed By: #### L HCG2 ####[place] [address] Basic Metabolic Panlon 02-28 Anion gap 17 mmol/L Normal 9-18 [facility] Comment on above: Performed By: #### C BC, BMP ####[place] [phone] Calcium 8.7 mg/dL Normal 8.5-10.5 [facility] Comment on above: Performed By: #### C BC, BMP ####[place], [place] [phone] Chloride 101 mmol/L Normal 98-107 [facility] Comment on above: Performed By: #### C BC, BMP ####[place], [place] [phone] CO2 21 mmol/L Low 23-32 [facility] Comment on above: Performed By: #### C BC, BMP ####[place], [place] [phone] Creatinine 0.65 mg/dL Normal 0.60-1.00 [facility] Comment on above: Performed By: #### C BC, BMP ####[place], [place] [phone] eGFR (non-black) mL/min/{1.73_m2} Normal >60 [facility] Comment on above: Performed By: #### C BC, BMP ####[place], [place] [phone] Glucose mass conc 151 mg/dL High 65-100 [facility] Comment on above: Performed By: #### C BC, BMP ####[place] [id number] [place] [phone] Potassium molar conc 3.7 mmol/L Normal 3.5-5.0 [facility] Comment on above: Performed By: #### C BC, BMP ####[address] [phone] Sodium 139 mmol/L Normal 132-145 [facility] Comment on above: Performed By: #### C BC, BMP ####[address] [phone] Urea nitrogen 16 mg/dL Normal 8-25 [facility] Comment on above: Performed By: #### C BC, BMP ####[address] [phone] CBCon 02-28-2017 Erythrocyte distribution width Auto Ratio (RBC) 14.5 % Normal 11.5-15.0 [facility] Comment on above: Performed By: #### C BC, BMP ####[address] [phone] Erythrocytes (RBC) 4.82 10*6/uL Normal 3.90-5.20 [facility] Comment on above: Performed By: #### C BC, BMP ####[place] [address] [place], [place] [phone] Hematocrit (HCT) 41.9 % Normal 36.0-46.0 [facility] Comment on above: Performed By: #### C BC, BMP ####[address] [phone] Hemoglobin mass conc (Bld) 13.6 g/dL Normal 11.5-15.5 [facility] Comment on above: Performed By: #### C BC, BMP ####[place] [address] [place], [place] [phone] MCH 28.2 pG Normal 26.0-34.0 [facility] Comment on above: Performed By: #### C BC, BMP ####[address], [place] [phone] MCHC mass conc (RBC) 32.5 g/dL Normal 30.5-36.0 [facility] Comment on above: Performed By: #### C BC, BMP ####[address] [phone] MCV 86.9 fL Normal 80.0-100.0 [facility] Comment on above: Performed By: #### C BC, BMP ####[place] [address] [place], [place] [phone] Platelets 281 10*3/uL Normal 150-400 [facility] Comment on above: Performed By: #### C BC, BMP ####[place] [address] [place], [place] [phone] WBC (Leukocytes) 10.46 10*3/uL Normal 3.70-11.0 [facility] Comment on above: Performed By: #### C BC, BMP ####[place] [address] [place], [place] [phone] C difficile PCRon 02-24-2017 C difficile PCR NCDT Normal [facility] Comment on above: Performed By: #### C DPCR ####[facility] [id number] [place], [place] [phone] Basic Metabolic Panlon 02-23 Anion gap 12 mmol/L Normal 9-18 [facility] Comment on above: Performed By: #### C BC, BMP ####[address] [phone]#### PREALB, HBA1C, LIPB ####[facility] LaboratoriesRoutine [id number] [place], [place] [phone] Calcium 8.7 mg/dL Normal 8.5-10.5 [facility] Comment on above: Performed By: #### C BC, BMP ####[place] [phone]#### PREALB, HBA1C, LIPB ####[facility] [place] [id number] [place] [phone] Chloride 103 mmol/L Normal 98-107 [facility] Comment on above: Performed By: #### C BC, BMP ####[place] [phone]#### PREALB, HBA1C, LIPB ####[facility] [place] [id number] AveCSarah [place] [phone] CO2 24 mmol/L Normal 23-32 [facility] Comment on above: Performed By: #### C BC, BMP ####[place], [place] [phone]#### PREALB, HBA1C, LIPB ####[facility] [place] [id number] [place] [phone] Creatinine 0.71 mg/dL Normal 0.60-1.00 [facility] Comment on above: Performed By: #### C BC, BMP ####[place] [phone]#### PREALB, HBA1C, LIPB ####[facility] [place] [id number]ern[address] [place] [phone] eGFR (non-black) mL/min/{1.73_m2} Normal >60 [facility] Comment on above: Performed By: #### C BC, BMP ####[place], [place] [phone]#### PREALB, HBA1C, LIPB ####[facility] [place] [id number] Av[address] [place] [phone] Glucose mass conc 101 mg/dL High 65-100 [facility] Comment on above: Performed By: #### C BC, BMP ####[phone]#### PREALB, HBA1C, LIPB ####[facility] [place] [id number] [place] [phone] Potassium molar conc 4.1 mmol/L Normal 3.5-5.0 [facility] Comment on above: Performed By: #### C BC, BMP ####[phone]#### PREALB, HBA1C, LIPB ####[facility] [place] [id number] [place] [phone] Sodium 139 mmol/L Normal 132-145 [facility] Comment on above: Performed By: #### C BC, BMP ####[place] [phone]#### PREALB, HBA1C, LIPB ####[facility] [place] [id number] [place] [phone] Urea nitrogen 20 mg/dL Normal 8-25 [facility] Comment on above: Performed By: #### C BC, BMP ####[place] [phone]#### PREALB, HBA1C, LIPB ####[facility] [place] [id number] [place] [phone] CBCon 02-23-2017 Erythrocyte distribution width Auto Ratio (RBC) 14.3 % Normal 11.5-15.0 [facility] Comment on above: Performed By: #### C BC, BMP ####[place] [phone]#### PREALB, HBA1C, LIPB ####[place] [phone] Erythrocytes (RBC) 4.99 10*6/uL Normal 3.90-5.20 [facility] Comment on above: Performed By: #### C BC, BMP ####[phone]#### PREALB, HBA1C, LIPB ####[place] [phone] Hematocrit (HCT) 42.9 % Normal 36.0-46.0 [facility] Comment on above: Performed By: #### C BC, BMP ####[phone]#### PREALB, HBA1C, LIPB ####[place] [phone] Hemoglobin mass conc (Bld) 13.9 g/dL Normal 11.5-15.5 [facility] Comment on above: Performed By: #### C BC, BMP ####[place] [phone]#### PREALB, HBA1C, LIPB ####[place] [phone] MCH 27.9 pG Normal 26.0-34.0 [facility] Comment on above: Performed By: #### C BC, BMP ####[phone]#### PREALB, HBA1C, LIPB ####[place] [phone] MCHC mass conc (RBC) 32.4 g/dL Normal 30.5-36.0 [facility] Comment on above: Performed By: #### C BC, BMP ####[place] [phone]#### PREALB, HBA1C, LIPB ####[facility] [place] [id number] [place] [phone] MCV 86.0 fL Normal 80.0-100.0 [facility] Comment on above: Performed By: #### C BC, BMP ####[place] [phone]#### PREALB, HBA1C, LIPB ####[facility] [place] [id number] [place], [place] [phone] Platelets 300 10*3/uL Normal 150-400 [facility] Comment on above: Performed By: #### C BC, BMP ####[place], [place] [phone]#### PREALB, HBA1C, LIPB ####[place] [phone] WBC (Leukocytes) 12.11 10*3/uL High 3.70-11.0 [facility] Comment on above: Performed By: #### C BC, BMP ####[place] [phone]#### PREALB, HBA1C, LIPB ####[facility] [place] [id number] [place], [place] [phone] Hemoglobin A1con 02-23-2017 Glucose mass conc 163 mg/dL Normal [facility] Comment on above: Performed By: #### C BC, BMP ####[place] [phone]#### PREALB, HBA1C, LIPB ####[facility] [place] [id number]ern[address] [place] [phone] Hemoglobin A1c/Hemoglobin.tot al mass fraction (Bld) 7.3 % High 4.3-5.6 [facility] Comment on above: Performed By: #### C BC, BMP ####[place] [phone]#### PREALB, HBA1C, LIPB ####[facility] [place] [id number] [phone] Lipid Panel, Bas[place] 017 Cholesterol 150 mg/dL Normal 100-199 [facility] Comment on above: Performed By: #### Dani BC, BMP ####[place] [phone]#### PREALB, HBA1C, LIPB ####[facility] [place] [id number] [place], [place] [phone] Cholesterol in VLDL mass conc 44 mg/dL High 6-40 [facility] Comment on above: Performed By: #### Dani BC, BMP ####[place] [phone]#### PREALB, HBA1C, LIPB ####[facility] [place] [id number] [place] [phone] HDL Cholesterol 32 mg/dL Low >55 [facility] Comment on above: Performed By: #### C BC, BMP ####[place], [place] [phone]#### PREALB, HBA1C, LIPB ####[facility] [id number] [place], [place] [address] LDL Cholesterol 74 mg/dL Normal 60-129 [facility] Comment on above: Performed By: #### Dani BC, BMP ####[phone]#### PREALB, HBA1C, LIPB ####[facility] [place] [id number]CS[address] [address] LDL:HDL Ratio 2.31 Normal 0.50-3.55 [facility] Comment on above: Performed By: #### C BC, BMP ####[address]201#### PREALB, HBA1C, LIPB ####[facility] [place] [id number] [place] [phone] Non HDL Cholesterol 118 mg/dL Normal 90-159 [facility] Comment on above: Performed By: #### C BC, BMP ####[place] [address]#### PREALB, HBA1C, LIPB ####[facility] [place] [id number] [address] TC:HDL Ratio 4.69 Normal 1.00-5.00 [facility] Comment on above: Performed By: #### C BC, BMP ####[address]7201#### PREALB, HBA1C, LIPB ####[facility] [id number] Triglyceride 219 mg/dL High 30-149 [facility] Comment on above: Performed By: #### C BC, BMP ####[address]#### PREALB, HBA1C, LIPB ####[facility] [place] [id number] [place] [phone] Fasting Time 8 hrs Normal [facility] Comment on above: Performed By: #### C BC, BMP ####[address], [place] [phone]#### PREALB, HBA1C, LIPB ####[facility] [id number] [place], [place] [phone] Prealbuminon 02-23-2017 Prealbumin 22 mg/dL Normal 17-36 [facility] Comment on above: Performed By: #### C BC, BMP ####[address] [phone]#### PREALB, HBA1C, LIPB ####[facility] [id number] [place], [place] [phone] Vital Signs Date Time Vital Sign Value Performing Clinician Facility 02-23-2025 16:36-0400 Body height 162.56 cm Candace Ramirez APRN Work Phone: [facility] 02-23-2025 16:36-0400 Body mass index (BMI) [Ratio] 51 kg/m2 Candace Ramirez APRN Work Phone: [facility] 02-23-2025 16:36-0400 Body temperature 98.5 [degF] Candace Ramirez APRN Work Phone: [facility] 02-23-2025 16:36-0400 Body weight 134.71 kg Candace Ramirez APRN Work Phone: [facility] 02-23-2025 16:36-0400 Diastolic blood pressure 71 mm[Hg] Candace Ramirez APRN Work Phone: [facility] 02-23-2025 16:36-0400 Heart rate 94 /min Candace Ramirez APRN Work Phone: [facility] 02-23-2025 16:36-0400 Respiratory rate 18 /min Candace Ramirez APRN Work Phone: [facility] 02-23-2025 16:36-0400 SaO2% (BldA) [Mass fraction] 97 % Candace Ramirez APRN Work Phone: [facility] 02-23-2025 16:36-0400 Systolic blood pressure 144 mm[Hg] Candace Ramirez APRN Work Phone: [facility] 05-09-2024 13:10-0400 Body temperature 98 [degF] Peace Santacruz PRINT DESIGNER Work Phone: [facility] 05-09-2024 13:10-0400 Diastolic blood pressure 74 mm[Hg] Peace Santacruz PRINT DESIGNER Work Phone: [facility] 05-09-2024 13:10-0400 Heart rate 83 /min Peace Santacruz PRINT DESIGNER Work Phone: [facility] 05-09-2024 13:10-0400 Respiratory rate 16 /min Peace Santacruz PRINT DESIGNER Work Phone: [facility] 05-09-2024 13:10-0400 SaO2% (BldA) [Mass fraction] 95 % Peace Santacruz PRINT DESIGNER Work Phone: [facility] 05-09-2024 13:10-0400 Systolic blood pressure 131 mm[Hg] Peace Santacruz PRINT DESIGNER Work Phone: [facility] 05-09-2024 11:13-0400 Body height 165.1 cm Peace Santacruz PRINT DESIGNER Work Phone: [facility] 05-09-2024 11:13-0400 Body mass index (BMI) [Ratio] 48.9 kg/m2 Peace Santacruz PRINT DESIGNER Work Phone: [facility] 05-09-2024 11:13-0400 Body weight 133.2 kg Peace Santacruz PRINT DESIGNER Work Phone: [facility] 07-11-2023 10:10-0500 Body height 165.1 cm Maria Teresa Laurel Other [employer] Other 07-11-2023 10:10-0500 Body mass index (BMI) [Ratio] 46.92 kg/m2 Maria Teresa Laurel Other [employer] Other 07-11-2023 10:10-0500 Body temperature 98 [degF] Maria Teresa Laurel Other [employer] Other 07-11-2023 10:10-0500 Body weight 127.92 kg Maria Teresa Laurel Other [employer] Other 07-11-2023 10:10-0500 Diastolic blood pressure 70 mm[Hg] Maria Teresa Laurel Other [employer] Other 07-11-2023 10:10-0500 Respiratory rate 18 /min Maria Teresa Laurel Other [employer] Other 07-11-2023 10:10-0500 SaO2% (BldA) [Mass fraction] 93 % Maria Teresa Laurel Other [employer] Other 07-11-2023 10:10-0500 Systolic blood pressure 115 mm[Hg] Maria Teresa Laurel Other [employer] Other 10-20-2021 13:36-0400 Body height 12.7 cm Natalie Basurto Other Phone: [facility] Other Phone: 10-20-2021 13:36-0400 Body surface area Derived from formula 2.24 m2 Natalie Basurto Other Phone: [facility] Other Phone: 10-20-2021 13:36-0400 Body temperature 96.8 [degF] Natalie Basurto Other Phone: [facility] Other Phone: 10-20-2021 13:36-0400 Body temperature 96.9 [degF] Natalie Basurto Other Phone: [facility] Other Phone: 10-20-2021 13:36-0400 Diastolic blood pressure 90 mm[Hg] Natalie Basurto Other Phone: [facility] Other Phone: 10-20-2021 13:36-0400 Heart rate 90 /min Natalie Basurto Other Phone: [facility] Other Phone: 10-20-2021 13:36-0400 Respiratory rate 18 /min Natalie Basurto Other Phone: [facility] Other Phone: 10-20-2021 13:36-0400 Systolic blood pressure 140 mm[Hg] Natalie Basurto Other Phone: [facility] Other Phone: 10-20-2021 13:30-0400 Body weight 121.6 kg Natalie Basurto Other Phone: [facility] Other Phone: 10-20-2021 13:30-0400 Body weight 121.56 kg Natalie Basurto Other Phone: [facility] Other Phone: Encounters Encounter Date Encounter Type Care Provider Facility Start: 03-31-2025 ambulatory [facility] Start: 03-18-2025 ambulatory CHANDLER [facility] Start: 03-03-2025 End: 03-03-2025 ambulatory [facility] Start: 03-03-2025 End: 03-03-2025 ambulatory [facility] Start: 02-23-2025 End: 02-23-2025 ambulatory NON STAFF [facility] Work Phone: Start: 02-23-2025 End: 02-23-2025 Patient encounter procedure Candace Garrett [facility] Work Phone: Start: 02-09-2025 End: 02-09-2025 ambulatory ANA DICKERSONHerrera Not Available Start: 01-07-2025 End: 01-07-2025 ambulatory [facility] Start: 12-25-2024 End: 12-25-2024 ambulatory DERICK CHANCE Not Available Start: 12-23-2024 End: 12-23-2024 ambulatory [facility] Start: 12-18-2024 End: 12-18-2024 ambulatory TWIN Luciano [facility] Start: 12-17-2024 End: 12-17-2024 [facility] Start: 12-16-2024 End: [facility] Start: 12-13-2024 End: 12-13-2024 [facility] Start: 12-11-2024 End: 12-11-2024 [facility] Start: 11-11-2024 End: 11-11-2024 [facility] Start: 11-06-2024 End: 11-06-2024 ambulatory DERICK CHANCE Not Available Start: 10-02-2024 End: 10-02-2024 ambulatory DERICK CHANCE Not Available Start: 09-18-2024 End: 09-18-2024 ambulatory NEEL CROFT [facility] Start: 08-19-2024 End: 08-19-2024 ambulatory PEACE Mendoza [facility] Start: 08-14-2024 End: 08-14-2024 ambulatory PEACE Mendoza [facility] Start: 08-12-2024 End: 08-12-2024 ambulatory PEACE Mendoza [facility] Start: 08-11-2024 End: 08-11-2024 ambulatory PEACE Mendoza [facility] Start: 07-29-2024 End: 07-29-2024 ambulatory PEACE Mendoza [facility] Start: 07-23-2024 End: 07-23-2024 ambulatory PEACE Mendoza [facility] Start: 06-04-2024 End: 06-04-2024 ambulatory DERICK CHANCE Not Available Start: 05-09-2024 End: 05-09-2024 Admission to same day surgery center Harjeet Garrett MD [facility] Start: 05-09-2024 End: 05-09-2024 ambulatory Peace Santacruz [facility] Work Phone: [facility] Work Phone: Start: 04-09-2024 End: 04-09-2024 ambulatory [facility] Start: 03-27-2024 End: 03-27-2024 ambulatory [facility] Start: 03-25-2024 ambulatory [facility] Start: 03-13-2024 End: 03-13-2024 ambulatory DERICK CHANCE Not Available Start: 02-12-2024 End: 02-12-2024 ambulatory PEACE Mendoza [facility] Start: 02-11-2024 End: 02-11-2024 ambulatory PEACE Mendoza [facility] Start: 02-07-2024 End: 02-07-2024 ambulatory [facility] Start: 07-11-2023 End: 07-11-2023 ambulatory Maria Teresa Barragan Other [employer] Other Start: 07-11-2023 Office outpatient visit 15 minutes Maria Teresa Barragan [facility] Start: 09-16-2022 End: 09-16-[address] DOCTOR LOPEZ Facility:[facility]1 Start: 10-20-2021 Ambulatory Natalie gorman Other Phone: [facility] Other Phone: Start: 03-12-2018 Patient encounter MARIA TERESA Umaña lity:8 Start: 11-07-2017 Patient encounter VÍCTOR DICK Facility:8 Start: 10-28-2017 End: 10-30-2017 Ambulatory CALEB HAYWOOD SORENSEN [facility] Start: 10-28-2017 End: 10-30-2017 Evaluation and management of inpatient CALEB SORENSEN Facility:[facility] Start: 10-03-2017 Patient encounter MARIA TERESA SCOTT Faci lity:8 Start: 09-12-2017 Patient encounter MARIA TERESA Dangi lity:8 Start: 08-15-2017 Patient encounter VÍCTOR DICK Facility:8 Start: 06-01-2017 Patient encounter VÍCTOR DICK Facility:8 Start: 05-04-2017 Patient encounter BEVERLY Gardner cility:8 Start: 03-27-2017 Ambulatory Facility:[id number] Start: 01-24-2017 End: 01-25-[address] [facility] Start: 01-13-2017 End: 01-14-2017 [facility] Procedures Date Procedure Procedure Detail Performing Clinician Start: 05-09-2024 Release of trigger finger Peace Santacruz PRINT DESIGNER Work Phone: Plan of Treatment Date Care Activity Detail Author Start: 05-09-2024 Anes nerve muscle td n fascia&bursa forearm wrist ANESTH LOWER ARM SURGERY [facility] Start: 05-09-2024 Tendon sheath incision INCISE FINGER TENDON SHEATH [facility] Start: 01-25-2022 Ambulatory Ambulatory Enc ounter Reason: 3 mo f/u for neuropathy Encounter Diagnosis: No Known Encounter Diagnosis 25-Jan-2022 10:30 Natalie Basurto (Attending) [facility] tel[facility] Other Phone: Start: 09-16-2020 Ct head/brain w/o contrast material CT head limited Date: 16-Sep-2020 Comments: 09/16/20: stable, shunt in place- left frontal region [facility] Other Phone: Comment on above: 09/16/20: stable, shun t in place- left frontal region Start: 04-14-2020 Screening test visua l acuity quantitative bilat Eye examination for visual acuity Date: 14-Apr-2020 Comments: 04/14/20: Nusgart: h/o pseudotumor cerebri s/p shunt 01/2018 [facility] Other Phone: Comment on above: 04/14/20: Nusgart: h/ o pseudotumor cerebri s/p shunt 01/2018 Arthroscopy knee diagnostic w/wo synovial bx spx Knee arthroscopy [facility] Other Phone: Bilateral carpal tunnel release Bilateral carpal tunnel release [facility] Other Phone: section section [facility] Other Phone: H/O Achilles tendon repair H/O Achilles tendon repair Comments: 2016 [facility] Other Phone: Comment on above: 2016 H/O cervical discectomy H/O cervical discectomy Comments: [facility] Other Phone: Comment on above: Hysterectomy Hysterectomy [facility] Other Phone: Open repair of right ankle joint Open repair of right ankle joint [facility] Other Phone: Patient Education How to Prevent Surgical Site Infections Trigger Finger (DC) Trigger Finger Release (DC) Monitored anesthesia care [facility] Work Phone: Patient referral [facility] Work Phone: Total knee replacement Knee repl acement Comments: 2013 [facility] Other Phone: Comment on above: 2013 [employer] shunt [employer] shunt [facility] Other Phone: [facility] Other Phone: pneumococcal 20- valent conjugate vaccine Scheduled for Administration Request [facility] Other Phone: NEGATED: Highlighted row has been ruled out! Plan Of Treatment Entries excluded/not available Plan Of Treatment Entries excluded/not available [facility] Other Phone: Payers Date Payer Category Payer Self-pay 1965 Unknown [id number] 2.16.84 [id number] 1965 Unknown [id number] 2.16. 840.1.835771.3.579.2.93 1965 Unknown [id number] 2.16. 840.1.247035.3.579.2. 1965 Unknown [id number] 2.16. 840.1.159126.3.579.2. 1965 Unknown [id number] 2.16. 840.1.392342.3.579.2. 1964 Unknown [id number] 2.16. 840.1.938172.3.579.2. 1964 Unknown [id number] 2.16. 840.1.092929.3.579.2. 1964 Unknown [id number] 2.16. 840.1.421452.3.579.2. 1964 Unknown [id number] 2.16. 840.1.134016.3.579.2. 1964 Unknown [id number] 2.16. 840.1.362142.3.579.2. 1964 Unknown [id number] 2.16. 840.1.248390.3.579.2. 1964 Unknown [id number] 2.16. 840.1.828694.3.579.2. 1964 Unknown [id number] 2.16. 840.1.757049.3.579.2. 1964 Unknown [id number] 2.16. 840.1.334456.3.579.2. 1964 Unknown [id number] 2.16. 840.1.141495.3.579.2. 1964 Unknown [id number] 2.16. 840.1.208392.3.579.2.93 1964 Unknown [id number] 2.16. 840.1.779003.3.579.293 1964 Unknown [id number] 2.16. 840.1.023591.3.579.2.93 1964 Unknown [id number] 2.16. 840.1.050799.3.579.2.93 1964 Unknown [id number] 2.16. 840.1.586831.3.579.2.93 1964 Unknown [id number] 2.16. 840.1.062185.3.579.2.93 1964 Unknown [id number] 2.16. 840.1.929835.3.579.2.93 1964 Unknown [id number] 2.16. 840.1.195603.3.579.2.93 1964 Unknown [id number] 2.16.8 40.1.797311.3.579.2.1259 1964 Unknown [id number] 2.16.8 40.1.168919.3.579.2.1259 1964 Unknown [id number] 2.16.84 0.1.231814.3.579.2.1259 1964 Unknown [id number] 2.16.84 0.1.446691.3.579.2.1259 1964 Unknown [id number] 2.16.84 0.1.304849.3.579.2.1259 1964 Unknown [id number] 2.16.84 0.1.795835.3.579.2.1259 1964 Unknown [id number] 2.16.8 40.1.697079.3.579.2.179 1964 Unknown [id number] 2.16.8 40.1.669264.3.579.2.179 1964 Unknown [id number] 2.16.8 40.1.749167.3.579.2.179 1964 Unknown [id number] 2.16.8 40.1.661682.3.579.2.179 1959 Unknown [id number] Unknown [id number] Unknown MEDICAID\[employer] Unknown [id number] 2.16.8 40.1.249035.3.579.2.139 Social History Date Type Detail Facility [facility] Other Phone: Start: 10-20-1989 Smokes tobacco daily [facility] Other Phone: Sex Assigned At Sex Assigned At Bir th [facility] Other Start: 04-25-2024 End: 02-23-2025 Tobacco smoking status NHIS Ex-smoker (finding) [facility] Start: 05-02-2024 Yes Yes [facility] Start: 05-02-2024 THC THC [facility] Start: 09-27-2018 None None [facility] Start: 09-27-2018 <1/Day <1/Day [facility] Start: 09-27-2018 Cigarettes Cigarettes [facility] Start: 09-27-2018 1 pack per day 1 pack per day [facility] Start: 05-10-2024 End: 05-16-2024 Sex Female (finding) [facility] Start: 1965 Sex Assigned At Female L [facility] Medical Equipment Procedure Code Equipment Code Equipment Origin al Text Equipment Identifier Dates Creation of ventriculo-periton eal or pleural or other shunt CATHETER BACTISEAL PERITONEAL FDA Start: 01-30-2018 Creation of ventriculo-periton eal or pleural or other shunt CATHETER BACTISEAL VENTRICULAR FDA Start: 01-30-2018 Creation of ventriculo-periton eal or pleural or other shunt VALVE CERTAS PLUS PROGRAMMABLE FDA Start: 01-30-2018 Creation of ventriculo-periton eal or pleural or other shunt VALVE CERTAS PLUS PROGRAMMABLE FDA Start: 01-30-2018 Goals Date Patient Goal Desired Activity /State Functional Status Date Assessment Result Facility 05-09-2024 Functional status Home Situation Lives Al one [facility] Work Phone: 10-20-2021 Able to comply w ith treatment [facility] Other Phone: Mental Status Date Assessment Result Facility 10-20-2021 Normal cognition 20-Oct-2021 [facility] Other Phone: Clinical Notes 07-11-2023 to 12-17-2024 Note Date & Type Note Facility 12-17-2024 Note PROCEDURE: MRI LUMBA R SPINE WO CONTRAST CLINICAL INFORMATION: Wedge compression fracture of unspecified lumbar vertebra, initial encounter for closed fracture (HCC); Radiculopathy, lumbar region. COMPARISON: CT scan of the lumbar spine dated 12/13/2024. MRI scan of the lumbar spine dated 03/17/2020.. TECHNIQUE: Sagittal and axial T1 and T2-weighted images were obtained through the lumbar spine. FINDINGS: The lumbar vertebral bodies are normally aligned. There is degenerative change in the vertebral body endplates adjacent to the T11-12 disc space.. There is no bone marrow edema. There are no compression fractures. No pars defects are noted. The distal spinal cord, conus medullaris and cauda equina are normal. There are no gross abnormalities in the visualized aspects of the distal thoracic spine. On the axial images, at T12-L1, there is no disc herniation, canal or foraminal stenosis. At L1-L2, there is no disc herniation, canal or foraminal stenosis. At L2-L3, there is no disc herniation, canal or foraminal stenosis. At L3-L4, there is mild canal and mild to moderate bilateral foraminal stenosis. At L4-L5, there is mild to moderate canal and bilateral foraminal stenosis. At L5-S1, there is mild canal, moderate right and mild to moderate left-sided foraminal stenosis. There is degenerative change involving the sacroiliac joints bilaterally.. IMPRESSION: 1. Degenerative changes most marked at L4-5 at which level there is mild to moderate canal and bilateral foraminal stenosis. 2. There is mild canal, moderate right and mild to moderate left-sided foraminal stenosis at L5-S1. 3. There is mild canal and mild to moderate bilateral foraminal stenosis at L3-4. 4. There is degenerative change involving the sacroiliac joints bilaterally. This report has been created using voice recognition software. It may contain minor errors which are inherent in voice recognition technology. Electronically signed by Dr. Linden Tobias Interpreted by: Linden Tobias MD Signed by: Linden Tobias MD 12/17/24 Final result [facility] 12-13-2024 Note PROCEDURE: CT LUMBAR SPINE WO CONTRAST, CT THORACIC SPINE WO CONTRAST CLINICAL INFORMATION: back pain, fall COMPARISON: 03/19/2021. TECHNIQUE: Axial CT images were obtained through the thoracic and lumbar spine without contrast. Coronal and sagittal reformatted images were rendered. All CT scans at this facility use dose modulation, iterative reconstruction, and/or weight-based dosing when appropriate to reduce radiation dose to as low as reasonably achievable. FINDINGS: No loss of vertebral body height is demonstrated. The facets align normally. The spinous processes appear intact. There is no spondylolisthesis. No paravertebral soft tissue swelling is seen. Multilevel lumbar facet arthrosis is seen, most pronounced at the L4-S1 levels. Degenerative changes of the bilateral SI joints are noted. There is an anterior cervical fusion plate demonstrated at the lower cervical spine which appears intact. IMPRESSION THORACIC AND LUMBAR SPINE: 1. No acute fracture or malalignment is demonstrated. This report has been created using voice recognition software. It may contain minor errors which are inherent in voice recognition technology. Electronically signed by Dr. Rey Castellanos [facility] 12-13-2024 Note PROCEDURE: CT LUMBAR SPINE WO CONTRAST, CT THORACIC SPINE WO CONTRAST CLINICAL INFORMATION: back pain, fall COMPARISON: 03/19/2021. TECHNIQUE: Axial CT images were obtained through the thoracic and lumbar spine without contrast. Coronal and sagittal reformatted images were rendered. All CT scans at this facility use dose modulation, iterative reconstruction, and/or weight-based dosing when appropriate to reduce radiation dose to as low as reasonably achievable. FINDINGS: No loss of vertebral body height is demonstrated. The facets align normally. The spinous processes appear intact. There is no spondylolisthesis. No paravertebral soft tissue swelling is seen. Multilevel lumbar facet arthrosis is seen, most pronounced at the L4-S1 levels. Degenerative changes of the bilateral SI joints are noted. There is an anterior cervical fusion plate demonstrated at the lower cervical spine which appears intact. IMPRESSION THORACIC AND LUMBAR SPINE: 1. No acute fracture or malalignment is demonstrated. This report has been created using voice recognition software. It may contain minor errors which are inherent in voice recognition technology. Electronically signed by Dr. Rey Castellanos [facility] 05-14-2024 Procedure note [facility] 05-11-2024 Note [facility] Medical Records Patient: BYRON LANDIS [address] : 1965 [place] [address] Location: SURG [phone] Unit #: [id number] Procedure Note - Surgical Harjeet Montano MD Service Dt/Tm: 05/11/24818 Date of Procedure: 05/09/24 Pre-Procedure Diagnosis: 1. Left trigger thumb. 2. Left index trigger finger Post Procedure Diagnosis: Same Performing Surgeon/Physician: Harjeet Montano MD Was [employer] Rater(s) Used: No Procedure Performed: 1. Left trigger thumb release. 2. Left index trigger finger release Findings: Post Op Diagnosis Confirmed Type of Anesthesia Used: See Anesthesia Record Estimated Blood Loss: Other ( 1 mL) Disposition of Specimen: No Specimen Complications: None Disposition after Procedure: SOPU Entered by: Harjeet Montano MD on 05/11/24818 Report Signed by: Harjeet Solis MD on 05/11/24819 < > Report Signed by: on [facility] 05-11-2024 Procedure note [facility] 05-09-2024 Progress note Note Date/Time May 09, 2024 10:57am [facility] Medical Records Patient: BYRON LANDIS [address] : 1965 [place] [address] Location: SURG [phone] Unit #: [id number] Anesthesia Pre-Op Evaluation Katie Enriquez CRNA Service Dt/Tm: 05/09/24 104 BYRON LANDIS is a 59 yr old F. Height (Ft & In): 5 ft 5 in Actual Weight (Kg): 131.995 kg Body Mass Index (BMI): 48.4 NPO Since: Mn Pre Op Diagnosis: Trigger finger Scheduled Procedure: Operation Date: 05/09/24 13:00 Proposed Procedures p Trigger Thumb Release(Left) - Harjeet Montano MD Did patient smoke today?: No Patient Instructed Pre-Operatively Not to Smoke Day of Surgery: No PONV Risk Score: Female and Non-Smoker PONV Risk Score: 2 PONV Prevention-Combination Therapy Utilized: Yes Does patient have a history of an organ transplant?: No Patient - Anesthesia Problems: Difficult Intubation Patient Family - Anesthesia Problems: Past Anesthesia WITHOUT Complications - Active Medications: Active Medications Acetaminophen (Acetaminophen 500 Mg Tab) 1,000 mg PO PREOP ONE Stop: 05/09/24 10:38 Albuterol/Ipratropium (Albuterol-Ipratropium (Duoneb) 1 Each Vial) 1 vial NEB PRN PRN PRN Reason: wheezing Stop: 05/10/24 00:00 Famotidine (Famotidine 20 Mg Tab) 20 mg PO PREOP ONE Stop: 05/09/24 10:38 Sodium Chloride (Ns) 100 mls @ 25 mls/hr IV PREOP ONE Stop: 05/09/24 14:36 Lidocaine/Prilocaine (Lidocaine 2.5%/Prilocaine 2.5% 5 Gm Tube) 1 appl TOP DIRECTED PRN PRN Reason: IV insert preop Stop: 05/09/24 23:59 Meloxicam (Meloxicam 7.5 Mg Tab) 15 mg PO PREOP ONE Stop: 05/09/24 10:38 Scopolamine (Scopolamine (Delivers 1 Mg Over 3 Days) Ptch) 1 ptch TD PREOP PRN PRN Reason: On patients with Hx of PONV Stop: 05/09/24 23:59 Allergies/Adverse Reactions diatrizoate sodium Allergy (Severe, Verified 04/25/24 11:55) Anaphylaxis diazepam (From Valium) Allergy (Severe, Verified 04/25/24 11:59) Hallucinations Iodinated Contrast Media (Iodinated Contrast- Oral and IV Dye) Allergy (Severe, Verified 04/25/24 11:55) Anaphylaxis moxifloxacin (From Avelox) Allergy (Severe, Verified 04/25/24 11:55) Anaphylaxis azithromycin (From Zithromax) Allergy (Intermediate, Verified 04/25/24 11:58) Hives codeine Allergy (Intermediate, Verified 04/25/24 11:58) Hives empagliflozin (From Jardiance) Allergy (Intermediate, Verified 04/25/24 11:59) YEAST INFECTION meperidine (From Demerol) Allergy (Intermediate, Verified 04/25/24 11:58) Hives metoclopramide (From Reglan) Allergy (Intermediate, Verified 05/02/24 16:13) B.P. unsteady morphine Allergy (Intermediate, Verified 04/25/24 11:58) Nausea and Vomiting/HIVES Penicillins Allergy (Intermediate, Verified 04/25/24 11:58) joints swell/HIVES Sulfa (Sulfonamide Antibiotics) Allergy (Intermediate, Verified 04/25/24 11:58) Hives TAPE Allergy (Intermediate, Verified 04/25/24 11:55) can use PAPER tape only tetracycline Allergy (Intermediate, Verified 04/25/24 11:58) Hives Home Medications acetazolamide 125 mg tablet 125 mg PO QHS 06/27/18 [Confirmed 04/25/24] acetazolamide 250 mg tablet 250 mg PO QHS 06/27/18 [Confirmed 04/25/24] potbgzzilu-mhmeeqdfcqwpe-aywvhgrh 50 mg-325 mg-40 mg tablet 1 tab PO BIDPRN PRN headache 06/27/18 [Confirmed 05/02/24] cyproheptadine 4 mg tablet 8 mg PO QHS 06/27/18 [Confirmed 05/02/24] duloxetine 60 mg capsule,delayed release 60 mg PO BID 06/27/18 [Confirmed 05/02/24] ergocalciferol (vitamin D2) 1,250 mcg (50,000 unit) capsule (Vitamin D2) 50,000 unit PO WE 06/27/18 [Confirmed 05/02/24] gabapentin 800 mg tablet 800 mg PO 5XD 06/27/18 [Confirmed 04/25/24] lisinopril 5 mg tablet 5 mg PO DAILY 06/27/18 [Confirmed 05/02/24] montelukast 10 mg tablet 10 mg PO QHS 06/27/18 [Confirmed 04/25/24] albuterol sulfate 2.5 mg/3 mL (0.083 %) solution for nebulization 1 ea NEB Q6HPRN PRN Shortness Of Breath 09/16/18 [Confirmed 05/02/24] atorvastatin 40 mg tablet 40 mg PO DAILY 04/25/24 [Confirmed 04/25/24] blood-glucose meter,continuous (Dexcom G7 Supervisor Airplane Flight Attendant) 04/25/24 [Confirmed 04/25/24] blood-glucose sensor (Dexcom G7 Sensor device) 04/25/24 [Confirmed 04/25/24] carbamazepine 200 mg tablet 200 mg PO BID 04/25/24 [Confirmed 05/02/24] cyclobenzaprine 10 mg tablet 20 mg PO HS 04/25/24 [Confirmed 05/02/24] diclofenac sodium 50 mg tablet,delayed release 50 mg PO BID 04/25/24 [Confirmed 05/02/24] insulin aspart U-100 100 unit/mL (3 mL) subcutaneous pen (Novolog FlexPen U-100 Insulin aspart) 10 unit SC DIRECTED 04/25/24 [Confirmed 05/02/24] insulin degludec 200 unit/mL (3 mL) subcutaneous pen (Tresiba FlexTouch U-200 insulin) 80 unit SC DAILY 04/25/24 [Confirmed 05/02/24] meclizine 25 mg tablet 25 mg PO BID 04/25/24 [Confirmed 05/02/24] mometasone 50 mcg/actuation nasal spray 2 spray intranasal DAILY 04/25/24 [Confirmed 04/25/24] omeprazole 20 mg capsule,delayed release 20 mg PO BID 04/25/24 [Confirmed 04/25/24] ondansetron 4 mg disintegrating tablet 4 mg PO Q8H PRN Nausea And Vomiting 04/25/24 [Confirmed 04/25/24] ropinirole 1 mg tablet 1 mg PO QHS 04/25/24 [Confirmed 04/25/24] Past Medical History Medical History Difficult intravenous access 22 G [employer] BE[employer]. NPH (normal pressure hydrocephalus) Hearing loss Urinary incontinence Restless leg syndrome Neuropathy Muscle spasm IBS (irritable bowel syndrome) Chronic back pain Cervical dystonia Osteoarthritis Arthritis Difficult intubation SMALL AIRWAY, CAN'T TIP NECK/HEAD BACK. GERD (gastroesophageal reflux disease) Fibromyalgia Asthma Anxiety and depression Diabetes Cardiovascular: Mets >4 Pulmonary: Denies Shortness of Breath Past Surgical History Surgical History History of total right knee replacement History of total left knee replacement History of arthroplasty of right knee 09/19/2022 History of tonsillectomy History of reverse total replacement of right shoulder joint 10/21/2020 History of repair of right rotator cuff 07/2020 History of left knee surgery HEMATOMA REMOVED POST TKR. 04/15/2021 History of total abdominal hysterectomy 1994 History of section X2 History of bilateral carpal tunnel release History of brain shunt 01/30/2018 History of appendectomy History of ankle surgery BILATERAL Social History Caffeine Amount: <1/Day Current Alcohol Amount: None Smoking Status: Former smoker Type of Tobacco: Cigarettes Smoking Amount: 1 pack per day Product(s) used in vaping products/e-cigarettes: THC and CBD Smoking Start Date: 07/04/81 Smoking Stop Date: 12/09/20 Family History Mother Diabetes Heart disease Father Diabetes A-fib Brother Myocardial infarction Teeth: Other Airway Assessed: WNL Jaw: Neck Short and Limited Neck Mobility Mental Status: Awake and Alert Lungs: WNL Heart: RRR Mallampati: 3 ASA: 3 Planned Anesthesia: GEN-TIVA Pre-op interview conducted in presence of family/friend with patient's verbal consent. Impression & Plan, including the type of medications for induction, maintenance, and Blood Conservation techniques have been discussed with patient and patient accepts. Entered by: Katie Enriquez CRNA on 05/09/24 1040 Report Signed by: Katie Enriquez CRNA on 05/09/24 1048 <<Signature on File>> < 1057 <<Signature on File>> <Electronically signed by Mykel Quinonez DO> [facility] Work Phone: 1(728) 699-483610-25-2024 Progress note Author Katie Enriquez [facility] Note Date/Time May 09, 2024 1 0:57am [facility] Medical Records Patient: BYRON LANDIS [address] : 1965 [place] [address] Location: SURG [phone] Unit #: [id number] Anesthesia Pre-Op Evaluation Katie Enriquez [facility] Service Dt/Tm: 05/09/24 1040 BYRON LANDIS is a 59 yr old F. Height (Ft & In): 5 ft 5 in Actual Weight (Kg): 131.995 kg Body Mass Index (BMI): 48.4 NPO Since: Mn Pre Op Diagnosis: Trigger finger Scheduled Procedure: Operation Date: 05/09/24 13:00 Proposed Procedures p Trigger Thumb Release(Left) - Harjeet Montano MD Did patient smoke today?: No Patient Instructed Pre-Operatively Not to Smoke Day of Surgery: No PONV Risk Score: Female and Non-Smoker PONV Risk Score: 2 PONV Prevention-Combination Therapy Utilized: Yes Does patient have a history of an organ transplant?: No Patient - Anesthesia Problems: Difficult Intubation Patient Family - Anesthesia Problems: Past Anesthesia WITHOUT Complications - Active Medications: Active Medications Acetaminophen (Acetaminophen 500 Mg Tab) 1,000 mg PO PREOP ONE Stop: 05/09/24 10:38 Albuterol/Ipratropium (Albuterol-Ipratropium (Duoneb) 1 Each Vial) 1 vial NEB PRN PRN PRN Reason: wheezing Stop: 05/10/24 00:00 Famotidine (Famotidine 20 Mg Tab) 20 mg PO PREOP ONE Stop: 05/09/24 10:38 Sodium Chloride (Ns) 100 mls @ 25 mls/hr IV PREOP ONE Stop: 05/09/24 14:36 Lidocaine/Prilocaine (Lidocaine 2.5%/Prilocaine 2.5% 5 Gm Tube) 1 appl TOP DIRECTED PRN PRN Reason: IV insert preop Stop: 05/09/24 23:59 Meloxicam (Meloxicam 7.5 Mg Tab) 15 mg PO PREOP ONE Stop: 05/09/24 10:38 Scopolamine (Scopolamine (Delivers 1 Mg Over 3 Days) Ptch) 1 ptch TD PREOP PRN PRN Reason: On patients with Hx of PONV Stop: 05/09/24 23:59 Allergies/Adverse Reactions diatrizoate sodium Allergy (Severe, Verified 04/25/24 11:55) Anaphylaxis diazepam (From Valium) Allergy (Severe, Verified 04/25/24 11:59) Hallucinations Iodinated Contrast Media (Iodinated Contrast- Oral and IV Dye) Allergy (Severe, Verified 04/25/24 11:55) Anaphylaxis moxifloxacin (From Avelox) Allergy (Severe, Verified 04/25/24 11:55) Anaphylaxis azithromycin (From Zithromax) Allergy (Intermediate, Verified 04/25/24 11:58) Hives codeine Allergy (Intermediate, Verified 04/25/24 11:58) Hives empagliflozin (From Jardiance) Allergy (Intermediate, Verified 04/25/24 11:59) YEAST INFECTION meperidine (From Demerol) Allergy (Intermediate, Verified 04/25/24 11:58) Hives metoclopramide (From Reglan) Allergy (Intermediate, Verified 05/02/24 16:13) B.P. unsteady morphine Allergy (Intermediate, Verified 04/25/24 11:58) Nausea and Vomiting/HIVES Penicillins Allergy (Intermediate, Verified 04/25/24 11:58) joints swell/HIVES Sulfa (Sulfonamide Antibiotics) Allergy (Intermediate, Verified 04/25/24 11:58) Hives TAPE Allergy (Intermediate, Verified 04/25/24 11:55) can use PAPER tape only tetracycline Allergy (Intermediate, Verified 04/25/24 11:58) Hives Home Medications acetazolamide 125 mg tablet 125 mg PO QHS 06/27/18 [Confirmed 04/25/24] acetazolamide 250 mg tablet 250 mg PO QHS 06/27/18 [Confirmed 04/25/24] eoqvtuhmhu-jycdfzllcuxno-pfyxzhef 50 mg-325 mg-40 mg tablet 1 tab PO BIDPRN PRN headache 06/27/18 [Confirmed 05/02/24] cyproheptadine 4 mg tablet 8 mg PO QHS 06/27/18 [Confirmed 05/02/24] duloxetine 60 mg capsule,delayed release 60 mg PO BID 06/27/18 [Confirmed 05/02/24] ergocalciferol (vitamin D2) 1,250 mcg (50,000 unit) capsule (Vitamin D2) 50,000 unit PO WE 06/27/18 [Confirmed 05/02/24] gabapentin 800 mg tablet 800 mg PO 5XD 06/27/18 [Confirmed 04/25/24] lisinopril 5 mg tablet 5 mg PO DAILY 06/27/18 [Confirmed 05/02/24] montelukast 10 mg tablet 10 mg PO QHS 06/27/18 [Confirmed 04/25/24] albuterol sulfate 2.5 mg/3 mL (0.083 %) solution for nebulization 1 ea NEB Q6HPRN PRN Shortness Of Breath 09/16/18 [Confirmed 05/02/24] atorvastatin 40 mg tablet 40 mg PO DAILY 04/25/24 [Confirmed 04/25/24] blood-glucose meter,continuous ([employer]excom G7 Supervisor Airplane Flight Attendant) 04/25/24 [Confirmed 04/25/24] blood-glucose sensor (Dexcom G7 Sensor device) 04/25/24 [Confirmed 04/25/24] carbamazepine 200 mg tablet 200 mg PO BID 04/25/24 [Confirmed 05/02/24] cyclobenzaprine 10 mg tablet 20 mg PO HS 04/25/24 [Confirmed 05/02/24] diclofenac sodium 50 mg tablet,delayed release 50 mg PO BID 04/25/24 [Confirmed 05/02/24] insulin aspart U-100 100 unit/mL (3 mL) subcutaneous pen (Novolog FlexPen U-100 Insulin aspart) 10 unit SC DIRECTED 04/25/24 [Confirmed 05/02/24] insulin degludec 200 unit/mL (3 mL) subcutaneous pen (Tresiba FlexTouch U-200 insulin) 80 unit SC DAILY 04/25/24 [Confirmed 05/02/24] meclizine 25 mg tablet 25 mg PO BID 04/25/24 [Confirmed 05/02/24] mometasone 50 mcg/actuation nasal spray 2 spray intranasal DAILY 04/25/24 [Confirmed 04/25/24] omeprazole 20 mg capsule,delayed release 20 mg PO BID 04/25/24 [Confirmed 04/25/24] ondansetron 4 mg disintegrating tablet 4 mg PO Q8H PRN Nausea And Vomiting 04/25/24 [Confirmed 04/25/24] ropinirole 1 mg tablet 1 mg PO QHS 04/25/24 [Confirmed 04/25/24] Past Medical History Medical History Difficult intravenous access 22 G [employer] BE[employer]. NPH (normal pressure hydrocephalus) Hearing loss Urinary incontinence Restless leg syndrome Neuropathy Muscle spasm IBS (irritable bowel syndrome) Chronic back pain Cervical dystonia Osteoarthritis Arthritis Difficult intubation SMALL AIRWAY, CAN'T TIP NECK/HEAD BACK. GERD (gastroesophageal reflux disease) Fibromyalgia Asthma Anxiety and depression Diabetes Cardiovascular: Mets >4 Pulmonary: Denies Shortness of Breath Past Surgical History Surgical History History of total right knee replacement History of total left knee replacement History of arthroplasty of right knee 09/19/2022 History of tonsillectomy History of reverse total replacement of right shoulder joint 10/21/2020 History of repair of right rotator cuff 07/2020 History of left knee surgery HEMATOMA REMOVED POST TKR. 04/15/2021 History of total abdominal hysterectomy 1994 History of section X2 History of bilateral carpal tunnel release History of brain shunt 01/30/2018 History of appendectomy History of ankle surgery BILATERAL Social History Caffeine Amount: <1/Day Current Alcohol Amount: None Smoking Status: Former smoker Type of Tobacco: Cigarettes Smoking Amount: 1 pack per day Product(s) used in vaping products/e-cigarettes: THC and CBD Smoking Start Date: 07/04/81 Smoking Stop Date: 12/09/20 Family History Mother Diabetes Heart disease Father Diabetes A-fib Brother Myocardial infarction Teeth: Other Airway Assessed: WNL Jaw: Neck Short and Limited Neck Mobility Mental Status: Awake and Alert Lungs: WNL Heart: RRR Mallampati: 3 ASA: 3 Planned Anesthesia: GEN-TIVA Pre-op interview conducted in presence of family/friend with patient's verbal consent. Impression & Plan, including the type of medications for induction, maintenance, and Blood Conservation techniques have been discussed with patient and patient accepts. Entered by: Katie Enriquez CRNA on 05/09/24 1040 Report Signed by: Katie Enriquez CRNA on 05/09/24 1048 <<Signature on File>> < 1057 <<Signature on File>> <Electronically signed by Mykel Quinonez DO> [facility] Work Phone: 1([phone]) 763-359510-25-2024 Progress note Author Harjeet Solis [facility] Note Date/Time May 09, 2024 1 0:49am [facility] Medical Records Patient: BYRON LANDIS. : 1965 [place] [address] Location: SURG [phone] Unit #: [id number] Prog Note - H&P Update Faiza Montano MD Service Dt/Tm: 05/09/24 104 H&P dictated by Medical Staff Member Patient examined, Chart Reviewed: H&P updated with the following information Additional Information: Patient notes new locking and catching of the left index finger now and would like this trigger finger released as well today. On exam shes has visible and palpable triggering of the index finger and tenderss at the level of the index A1 rosy. I have discussed the risks, goals, benefits and alternatives to the addition of a left index trigger finger release. Patient has elected for the procedure. Informed consent updated and I and the patient have initialed next to the addendum. Entered by: Harjeet Montano MD on 05/09/241046 Report Signed by: Harjeet Solis MD on 05/09/241048 <<Signature on File>> <Electronically signed by Harjeet Montano MD> Report Signed by: on [facility] Work Phone: [phone] Progress note Author Harjeet Solis [facility] Note Date/Time May 09, 2024 1 0:49am [facility] Medical Records Patient: BYRON LANDIS. : 1965 [place] [address] Location: SURG [phone] Unit #: [id number] Prog Note - H&P Update Faiza Montano MD Service Dt/Tm: 05/09/24 1047 H&P dictated by Medical Staff Member Patient examined, Chart Reviewed: H&P updated with the following information Additional Information: Patient notes new locking and catching of the left index finger now and would like this trigger finger released as well today. On exam shes has visible and palpable triggering of the index finger and tenderss at the level of the index A1 rosy. I have discussed the risks, goals, benefits and alternatives to the addition of a left index trigger finger release. Patient has elected for the procedure. Informed consent updated and I and the patient have initialed next to the addendum. Entered by: Harjeet Montano MD on 05/09/24 1047 Report Signed by: Harjeet Solis MD on 05/09/24 1049 <<Signature on File>> <Electronically signed by Harjeet Montano MD> Report Signed by: on [facility] Work Phone: 1(241) 538-477010-25-2024 [facility] Patient: BYRON LANDIS [address] : 1965 [place] [address] Location: SURG [phone] Unit #: [id number] Anesthesia Pre-Op Evaluation Katie Enriquez [employer] Service Dt/Tm: 05/09/24 1040 BYRON LANDIS is a 59 yr old F. Height (Ft & In): 5 ft 5 in Actual Weight (Kg): 131.995 kg Body Mass Index (BMI): 48.4 NPO Since: Mn Pre Op Diagnosis: Trigger finger Scheduled Procedure: Operation Date: 05/09/24 13:00 Proposed Procedures p Trigger Thumb Release(Left) - Harjeet Montano MD Did patient smoke today?: No Patient Instructed Pre-Operatively Not to Smoke Day of Surgery: No PONV Risk Score: Female and Non-Smoker PONV Risk Score: 2 PONV Prevention-Combination Therapy Utilized: Yes Does patient have a history of an organ transplant?: No Patient - Anesthesia Problems: Difficult Intubation Patient Family - Anesthesia Problems: Past Anesthesia WITHOUT Complications - Active Medications: Active Medications Acetaminophen (Acetaminophen 500 Mg Tab) 1,000 mg PO PREOP ONE Stop: 05/09/24 10:38 Albuterol/Ipratropium (Albuterol-Ipratropium (Duoneb) 1 Each Vial) 1 vial NEB PRN PRN PRN Reason: wheezing Stop: 05/10/24 00:00 Famotidine (Famotidine 20 Mg Tab) 20 mg PO PREOP ONE Stop: 05/09/24 10:38 Sodium Chloride (Ns) 100 mls @ 25 mls/hr IV PREOP ONE Stop: 05/09/24 14:36 Lidocaine/Prilocaine (Lidocaine 2.5%/Prilocaine 2.5% 5 Gm Tube) 1 appl TOP DIRECTED PRN PRN Reason: IV insert preop Stop: 05/09/24 23:59 Meloxicam (Meloxicam 7.5 Mg Tab) 15 mg PO PREOP ONE Stop: 05/09/24 10:38 Scopolamine (Scopolamine (Delivers 1 Mg Over 3 Days) Ptch) 1 ptch TD PREOP PRN PRN Reason: On patients with Hx of PONV Stop: 05/09/24 23:59 Allergies/Adverse Reactions diatrizoate sodium Allergy (Severe, Verified 04/25/24 11:55) Anaphylaxis diazepam (From Valium) Allergy (Severe, Verified 04/25/24 11:59) Hallucinations Iodinated Contrast Media (Iodinated Contrast- Oral and IV Dye) Allergy (Severe, Verified 04/25/24 11:55) Anaphylaxis moxifloxacin (From Avelox) Allergy (Severe, Verified 04/25/24 11:55) Anaphylaxis azithromycin (From Zithromax) Allergy (Intermediate, Verified 04/25/24 11:58) Hives codeine Allergy (Intermediate, Verified 04/25/24 11:58) Hives empagliflozin (From Jardiance) Allergy (Intermediate, Verified 04/25/24 11:59) YEAST INFECTION meperidine (From Demerol) Allergy (Intermediate, Verified 04/25/24 11:58) Hives metoclopramide (From Reglan) Allergy (Intermediate, Verified 05/02/24 16:13) B.P. unsteady morphine Allergy (Intermediate, Verified 04/25/24 11:58) Nausea and Vomiting/HIVES Penicillins Allergy (Intermediate, Verified 04/25/24 11:58) joints swell/HIVES Sulfa (Sulfonamide Antibiotics) Allergy (Intermediate, Verified 04/25/24 11:58) Hives TAPE Allergy (Intermediate, Verified 04/25/24 11:55) can use PAPER tape only tetracycline Allergy (Intermediate, Verified 04/25/24 11:58) Hives Home Medications acetazolamide 125 mg tablet 125 mg PO QHS 06/27/18 [Confirmed 04/25/24] acetazolamide 250 mg tablet 250 mg PO QHS 06/27/18 [Confirmed 04/25/24] hcgakfosyj-unwfzedockarh-ueworsxp 50 mg-325 mg-40 mg tablet 1 tab PO BIDPRN PRN headache 06/27/18 [Confirmed 05/02/24] cyproheptadine 4 mg tablet 8 mg PO QHS 06/27/18 [Confirmed 05/02/24] duloxetine 60 mg capsule,delayed release 60 mg PO BID 06/27/18 [Confirmed 05/02/24] ergocalciferol (vitamin D2) 1,250 mcg (50,000 unit) capsule (Vitamin D2) 50,000 unit PO WE 06/27/18[Confirmed 05/02/24] gabapentin 800 mg tablet 800 mg PO 5XD 06/27/18 [Confirmed 04/25/24] lisinopril 5 mg tablet 5 mg PO DAILY 06/27/18 [Confirmed 05/02/24] montelukast 10 mg tablet 10 mg PO QHS 06/27/18 [Confirmed 04/25/24] albuterol sulfate 2.5 mg/3 mL (0.083 %) solution for nebulization 1 ea NEB Q6HPRN PRN Shortness Of Breath 09/16/18 [Confirmed 05/02/24] atorvastatin 40 mg tablet 40 mg PO DAILY 04/25/24 [Confirmed 04/25/24] blood-glucose meter,continuous ([employer]excom G7 Supervisor Airplane Flight Attendant) 04/25/24 [Confirmed 04/25/24] blood-glucose sensor (Dexcom G7 Sensor device) 04/25/24 [Confirmed 04/25/24] carbamazepine 200 mg tablet 200 mg PO BID 04/25/24 [Confirmed 05/02/24] cyclobenzaprine 10 mg tablet 20 mg PO HS 04/25/24 [Confirmed 05/02/24] diclofenac sodium 50 mg tablet,delayed release 50 mg PO BID 04/25/24 [Confirmed 05/02/24] insulin aspart U-100 100 unit/mL (3 mL) subcutaneous pen (Novolog FlexPen U-100 Insulin aspart) 10 unit SC DIRECTED 04/25/24 [Confirmed 05/02/24] insulin degludec 200 unit/mL (3 mL) subcutaneous pen (Tresiba FlexTouch U-200 insulin) 80 unit SC DAILY 04/25/24 [Confirmed 05/02/24] meclizine 25 mg tablet 25 mg PO BID 04/25/24 [Confirmed 05/02/24] mometasone 50 mcg/actuation nasal spray 2 spray intranasal DAILY 04/25/24 [Confirmed 04/25/24] omeprazole 20 mg capsule,delayed release 20 mg PO BID 04/25/24 [Confirmed 04/25/24] ondansetron 4 mg disintegrating tablet 4 mg PO Q8H PRN Nausea And Vomiting 04/25/24 [Confirmed 04/25/24] ropinirole 1 mg tablet 1 mg PO QHS 04/25/24 [Confirmed 04/25/24] Past Medical History Medical History Difficult intravenous access 22 G [employer]. NPH (normal pressure hydrocephalus) Hearing loss Urinary incontinence Restless leg syndrome Neuropathy Muscle spasm IBS (irritable bowel syndrome) Chronic back pain Cervical dystonia Osteoarthritis Arthritis Difficult intubation SMALL AIRWAY, CAN'T TIP NECK/HEAD BACK. GERD (gastroesophageal reflux disease) Fibromyalgia Asthma Anxiety and depression Diabetes Cardiovascular: Mets >4 Pulmonary: Denies Shortness of Breath Past Surgical History Surgical History History of total right knee replacement History of total left knee replacement History of arthroplasty of right knee 09/19/2022 History of tonsillectomy History of reverse total replacement of right shoulder joint 10/21/2020 History of repair of right rotator cuff 07/2020 History of left knee surgery HEMATOMA REMOVED POST TKR. 04/15/2021 History of total abdominal hysterectomy 1994 History of section X2 History of bilateral carpal tunnel release History of brain shunt 01/30/2018 History of appendectomy History of ankle surgery BILATERAL Social History Caffeine Amount: <1/Day Current Alcohol Amount: None Smoking Status: Former smoker Type of Tobacco: Cigarettes Smoking Amount: 1 pack per day Product(s) used in vaping products/e-cigarettes: THC and CBD Smoking Start Date: 07/04/81 Smoking Stop Date: 12/09/20 Family History Mother Diabetes Heart disease Father Diabetes A-fib Brother Myocardial infarction Teeth: Other Airway Assessed: WNL Jaw: Neck Short and Limited Neck Mobility Mental Status: Awake and Alert Lungs: WNL Heart: RRR Mallampati: 3 ASA: 3 Planned Anesthesia: GEN-TIVA Pre-op interview conducted in presence of family/friend with patient's verbal consent. Impression & Plan, including the type of medications for induction, maintenance, and Blood Conservation techniques have been discussed with patient and patient accepts. Entered by: Katie Enriquez CRNA on 05/09/24 104 Report Signed by: Katie Enriquez CRNA on 05/09/24 104 <> Report Signed by: Mykel Quinonez DO on 05/09/24 1057 <> [facility]10-25-[facility]24 [facility] Patient: BYRON LANDIS[address]. : 1965 [place] [address] Location: SURG [phone] Unit #: [id number] Prog Note - H&P Update Stamp Harjeet Montano MD Service Dt/Tm: 05/09/241046 H&P dictated by Medical Staff Member Patient examined, Chart Reviewed: H&P updated with the following information Additional Information: Patient notes new locking and catching of the left index finger now and would like this trigger finger released as well today. On exam shes has visible and palpable triggering of the index finger andtenderss at the level of the index A1 rosy. I have discussed the risks, goals, benefits and alternatives to the addition of a left index trigger finger release. Patient has elected for the procedure. Informed consent updated and I and the patient have initialed next to the addendum. Entered by: Harjeet Montano MD on 05/09/241046 Report Signed by: Harjeet Solis MD on 05/09/24 104 <> Report Signed by: on [facility]12-27-2023 Evaluation note* Encounter Date Diagnosis Assessment Notes Treatment Notes Treatment Clinical Notes Jun, Contact with and (suspected) exposure to covid-19 (ICD-10 - Z20.822) Jun, Viral URI (ICD-10 - J06.9) Rest. Drink plenty of water. Take Tylenol/Motrin for fever, discomfort. Take the antibiotic cefdinir as prescribed for your ear infection. Do not stop the medication early. Follow up with your PCP if symptoms persist. Go to the ER if you develop chest pain, shortness of breath or difficulty breathing, or fevers not responding to Tylenol or Motrin. Patient is a 58 yo female who presents with complaints of cough, sinus congestion, ear pain, sore throat for the past few days. Denies fevers, chills, nausea, vomiting, abdominal pain. DDX includes viral URI, bronchitis, covid, flu, RSV, ear infection. Patient tested negative in office for covid, flu, RSV. Based on her exam, she is being diagnosed with a viral URI and bilateral ear infection and prescribed cefdinir for her ear infection. She reports yeast infection with antibiotic use and requested Diflucan single dose in case a yeast infection develops. She can take Tylenol/Motrin for fever/discomfort and follow up with PCP if symptoms persist. Go to the ER if shortness of breath, chest pain. Jun, Bilateral acute otitis media (ICD-10 - H66.93) [employer] Other Evaluation noteNo assessment information availableUniversity Hospitals [facility] Center Work Phone: History general Narrative - Reported* Type Description Date Medical History Arthrits Medical History Asthma Medical History cataracts Medical History diabetes Medical History high Cholesterol Medical History migraine Medical History obesity Medical History anxiety Medical History depression Medical History pseudotumor cerebri Medical History blurry vision Medical History slurred speach Medical History photo and phonophobia Medical History COPD Medical History fibromyalgia Medical History hyperlipidemia Medical History GERD Surgical History Cervical Diskectomy x2 Surgical History Knee replacement Surgical History Hysterectomy Surgical History left shoulder Surgical History 2 c-sections Surgical History right ankle repair Surgical History bilateral carpal tunnel decompr essions Surgical History cataract removal Surgical History appendectomy Surgical History [employer] Shunt- Dr. Tang 01/2018 Surgical History shoulder replacement right Surgical History knee replacement right Hospitalization History See Sx Hx [employer] Other Hospital Discharge instructions Additional Instructions General Instructions 1. Take your medications as prescribed. If given pain medication, take with food to avoid upset stomach 2. To prevent/reduce post-anesthesia nausea vomiting: rest as much as possible, drink plenty of fluids, eat light meals and snacks, advance diet slowly and as tolerated Call Physician or Seek Medical Attention For: 1. Pain not controlled by pain medication that the physician has prescribed for you 2. Shortness of breath 3. Sharp intense pain in the chest or legs 4. Abnormal leg swelling 5. Signs of Infection to watch for: Fever greater than 100 F, chills, redness and swelling around the incision site, or pus type drainage 1. Keep the hand and wrist elevated above the level of the heart at all times. This will decrease pain, throbbing, swelling and will accelerate your progress with motion. 2. Apply ice packs to the operative site every 3 hours while awake for the first 72 hours. This will decrease pain and swelling. You may continue this after 72 hours have passed as you need for comfort. 3. Keep the postoperative dressing clean, dry, intact and in place ufor at least 72 hours. You may then remove the dressing if you wish and place a dry bandage, bandaid or waterproof bandaid over the incision. Keep the incision clean and dry at all times. Do not place any salves, alcohol, hydrogen peroxide etc on the incision. If you wish to leave the sterile dressing on from surgery until follow up you may. 4. Please call the office of Dr. Harjeet Montano at [phone] to confirm your follow up appointment or with questions and concerns. 5. You are encouraged to flex and extend all of your fingers and the thumb to make a full fist after the operation. This will decrease your swelling along with pain and accelerate your rehabilitation along with motion. Please do this multiple times a day. 6. If you experience increasing pain not controlled by pain medications, increasing numbness or tingling, fevers of or over 100.4, drainage of pus or active bleeding; please call our offices immediately or report to your nearest emergency room. 7. Check your fingers regularly and make sure they are pink and warm. 8. You may transition your pain medication to Tylenol, if not contraindicated by your medical condition, or other over the counter pain medication as comfort allows. Do not take an acetaminophen containing prescribed medication in conjunction with an over the counter medication containing acetaminophen. 9. Do not lift anything heavier than 5-10 pounds with your operative hand until your follow up appointment. No smoking. Bathing Instructions: Other- See additional bathing instructions Wound/Dressing Instructions: Other- See additional wound/dressing instructionsUniversity [facility] Work Phone: Reason for referral (narrative)No reason for referral information availableUniversity Hospitals Cleveland [facility] Center Work Phone: Summary Purpose Family History No Family History Records Found Relationship Condition Age at Onset Recorded Date/T desiree Parent Diabetes mellitus Unknown Heart disease Unknown Atrial fibrillation Unknown Sibling Myocardial infarction Unknown Relationship Condition Age at Onset Recorded Date/T desiree brother Unknown mother Unknown Advance Directives No Advanced Directives Records Found Advance Directive Response Recorded Date/ Time [facility] DNR Comfort Care No Directive, No SS Referral May 09, 2024 11:13am [facility] DNR Comfort Ca re Arrest No Directive, No SS Referral May 09, 2024 11:13a m Living Will No Directive, No SS Referral Apr 11:13am Durable Power of [employer] [facility] Health Care No Directive, No SS Referral May 09, 2024 11:13a m Advance Directive Response Recorded Date/ Time Advance Directives No February 23, 2025 4:27pm Hospital Course Note Admission Information Admit Date/Time:05/22/2018 17:00 Admitting Physician - Cece Spicer MD Admitting Diagnoses: Pneumonia, AECOPD Physical Exam Vitals & Measurements T: 37 ?C (Oral) TMIN: 36.4 ?C (Oral) TMAX: 37 ?C (Oral) HR: 106(Monitored) RR: 18 BP: 100/73 SpO2: 97% WT: 136.9 kg General: No acute distress. HENT: Normocephalic, Normal hearing. Neck: Supple. Respiratory: Respirations are non-labored, CTAB, no w/r/r, good air exchange Cardiovascular: Normal rate and rhythm, Normal peripheral perfusion, No edema. Integumentary: Warm, Dry, [place], No rash. Neurologic: Alert, Oriented, Moves all 4 extremities. Cognition and Speech: Speech clear and coherent, Functional cognition intact. Psychiatric: Cooperative, Appropriate mood & affect. Discharge Plan 1. Hypoxia - Resolved. Currently on RA. Oxygen has been weaned. 2. COPD exacerbation - Suspect underlying asthma component as well. Would benefit from outpatient PFTs when acute illness resolved. - Duo nebulizers 4 times a day and prn. (more content not included)... Note --- --- --- --- --- --- --- --- --- From: Jos JacksonInmaximilian To: BYRON LANDIS Sent: 05/26/18 02:30:29 AM EST Subject: Discharge Summary Ready to View A summary regarding your recent visit is available in the Documents section of your health record. Chief Complaint and Reason for Visit Chief Complaint Admit Date Trigger thumb, left thumb May 09, 2024 10:32am Chief Complaint Admit Date Left earache February 23, 2025 4: 30pm Additional Source Comments INFORMATION SOURCE (unrecogn ized section and content) DATE CREATED AUTHOR 01/03/2018 [facility] DATE CREATED AUTHOR AUTHOR'S ORGANIZ ATION 01/09/2018 [facility] DATE CREATED AUTHOR AUTHOR'S ORGANIZ ATION 01/09/2018 [facility] DATE CREATED AUTHOR AUTHOR'S ORGANIZ ATION 04/11/2018 [facility] DATE CREATED AUTHOR AUTHOR'S ORGANIZ ATION 05/05/2018 [facility] DATE CREATED AUTHOR AUTHOR'S ORGANIZ ATION 12/21/2018 [facility] DATE CREATED AUTHOR AUTHOR'S ORGANIZ ATION 04/26/2020 [facility] DATE CREATED AUTHOR AUTHOR'S ORGANIZ ATION 12/25/2022 [facility] DATE CREATED AUTHOR AUTHOR'S ORGANIZ ATION 04/19/2024 [facility] DATE CREATED AUTHOR AUTHOR'S ORGANIZ ATION 05/18/2024 [facility] DATE CREATED AUTHOR AUTHOR'S ORGANIZ ATION 02/01/2025 [facility] DATE CREATED AUTHOR AUTHOR'S ORGANIZ ATION 02/10/2025 [facility] EPIC DATE CREATED AUTHOR AUTHOR'S ORGANIZ ATION 03/17/2025 [facility] REASON FOR VISIT (unrecogniz ed section and content) BOTH EARS ACHE.//SORE THROAT //COUGHNG Care Teams (unrecognized sec tion and content) Team Status: Active Member Role Status Dates Peace Santacruz CNP Primary Care Provider Active Team Status: Inactive Member Role Status Dates Harjeet Montano MD Attending Provider Active Start: May 09, 2024 End: May 09, 2024 Peace Santacruz CNP Primary Care Provider Active Start: May 09, 2024 End: May 09, 2024 Team Status: Active Member Role Status Dates NON STAFF Primary Care Provider Active Team Status: Inactive Member Role Status Dates Candace Ramirez APRN Attending Provider Active Start: February 23, 2025 End: February 23, 2025 NON STAFF Primary Care Provider Active Start: February 23, 2025 End: February 23, 2025 Goals (unrecognized section and content) Goals may be documented in a n alternate section FOR RECORDS PERTAINING TO PATIENTS WHO ARE OR HAVE BEEN ENROLLED IN A CHEMICAL DEPENDENCY/SUBSTANCEABUSE PROGRAM, SOME INFORMATION MAY BE OMITTED. This clinical summary was aggregated from multiple sources. Caution should be exercised in using it in the provision of clinical care. This summary normalizes information from multiple sources, and as a consequence, information in this document may materially change the coding, format and clinical context of patient data. In addition, data may be omitted in some cases. CLINICAL DECISIONS SHOULD BE BASED ON THE PRIMARY CLINICAL RECORDS. [employer] provides no warranty or guarantee of the accuracy or completeness of information in this document.
== END 2025-03-18 17:23 | disposition home or self-care (01) ==
PROVIDERS: Physician Assistant; Emergency Provider Student in an Organized Health Care Education/Training Program
DX: K52.9 Noninfective gastroenteritis and colitis, unspecified (principal); Z90.710 Acquired absence of both cervix and uterus; R51.9 Headache, unspecified
CPT/HCPCS: 36415; 74176; 80048; 80053; 81001; 83690; 85025; 96374; 99285; J2405